=== PATIENT | male | born 1985 | race Caucasian/White ===

== ENCOUNTER 2017-05-18 17:04 | Emergency (ER) | payer SELFPAY ==
[~2017-05-18] VITALS: Ht 188 cm; Wt 80.0 kg
[~2017-05-18 17:04] MED LIST: ALPR0.5T99 PO; BACT800T5 PO; CEPH500C3 PO; NAPR550 PO; PERC10TA27 PO; SOMA350T PO; VIST25CA PO; XANA1TAB6 PO; [UNRECOGNIZED DRUG - REMARK]
[2017-05-18 17:07] VITALS: BP 126/61; PULSE 70; RESP 13; O2SAT 99
--- NOTE | 2017-05-18 17:27 | PD ---
HPI Chief Complaint: GI Complaint Time Seen by Provider: 17:18 Travel History International Travel<30 days: No Contact w/Intl Traveler<30days: No Traveled to known affect area: No History of Present Illness HPI 32 yo M complains of L chest wall mass, painless, constant timing now with duration for years. no shortness of breath. no fever. no recent injury. PFSH Past Medical History Anxiety: Yes Depression: Yes Diminished Hearing: No Past Surgical History Tympanostomy Tube: Yes Social History Alcohol Use: No Tobacco Use: Yes (1/2 PPD) Substance Use: No (TAKING MEDS FOR WITHDRAWEL) Allergies-Medications (Allergen,Severity, Reaction): Coded Allergies: No Known Allergies (Verified , 12/19/15) Reported Meds & Prescriptions Reported Meds & Active Scripts Active Keflex (Cephalexin Monohydrate) 500 Mg Cap 500 Mg PO QID Bactrim DS (Sulfamethoxazole-Trimethoprim DS) 1 Tab Tab 1 Tab PO BID 7 Days Anaprox Ds (Naproxen Sodium) 550 Mg Tab 550 Mg PO BIDPRN Vistaril (Hydroxyzine Pamoate) 25 Mg Cap 25 Mg PO Q8HPRN FOR ITCHING Xanax (Alprazolam) 0.5 Mg Tab 0.5 Mg PO BIDPRN Reported [Med.fornarc.withdr] Percocet 10/325 (Oxycodone/Acetaminophen) Oxycodone 10/325 Acetaminophen Tab 1 Tab PO BID Xanax 1 mg (Alprazolam) 1 Mg Tab 1 Mg PO BID Soma (Carisoprodol) 350 Mg Tab 350 Mg PO BID Review of Systems Except as stated in HPI: all other systems reviewed are Neg Physical Exam Narrative GENERAL: wnwd, 32 yo male, nad SKIN: Warm and dry. HEAD: Atraumatic. Normocephalic. EYES: Pupils equal and round. No scleral icterus. No injection or drainage. ENT: No nasal bleeding or discharge. Mucous membranes pink and moist. NECK: Trachea midline. No JVD. CARDIOVASCULAR: Regular rate and rhythm. L chest wall. Non-tender. No erythema. No fluctuance. RESPIRATORY: No accessory muscle use. Clear to auscultation. Breath sounds equal bilaterally. GASTROINTESTINAL: Abdomen soft, non-tender, nondistended. Hepatic and splenic margins not palpable. MUSCULOSKELETAL: Extremities without clubbing, cyanosis, or edema. No obvious deformities. NEUROLOGICAL: Awake and alert. No obvious cranial nerve deficits. Motor grossly within normal limits. Five out of 5 muscle strength in the arms and legs. Normal speech. PSYCHIATRIC: Appropriate mood and affect; insight and judgment normal. Data Data Last Documented VS Vital Signs Date Time Temp Pulse Resp B/P (MAP) Pulse Ox O2 Delivery O2 Flow Rate FiO2 05/18/17 17:07 70 13 126/61 (82) 99 RN reports patient afebrile Orders MDM Medical Decision Making Medical Screen Exam Complete: Yes Emergency Medical Condition: Yes Medical Record Reviewed: Yes Differential Diagnosis tumor, abscess, cellulitis Narrative Course no acute disease. pt to be discharge. Diagnosis Primary Impression: Mass of chest wall, left Med/Other Pt SpecificInfo: No Change to Meds Disposition: 01 DISCHARGE HOME Condition: Stable David Chou MD May 18, 2017 17:27
== END 2017-05-18 17:41 | disposition home or self-care (01) ==
LOC: NEPD 17:04
DX: R22.2 Localized swelling, mass and lump, trunk (principal); F17.200 Nicotine dependence, unspecified, uncomplicated
CPT/HCPCS: 99284

== ENCOUNTER 2017-06-18 22:09 | Emergency (ER) | payer OTHER ==
[~2017-06-18] VITALS: Ht 188 cm; Wt 80.0 kg
[2017-06-18 22:11] VITALS: BP 123/75; PULSE 56; RESP 15; TEMP 98; O2SAT 100
--- NOTE | 2017-06-19 02:49 | PD ---
HPI Chief Complaint: Psychiatric Symptoms Time Seen by Provider: 02:27 Travel History International Travel<30 days: No Contact w/Intl Traveler<30days: No Traveled to known affect area: No History of Present Illness HPI 32-year-old white male presents to emergency department on a voluntary basis for psychological evaluation. The patient states that been feeling increasingly depressed. He has not been able to sleep. He states that he has contemplated suicide and feels that he would never hurt himself. He denies any homicidal ideation. He admits to IV substance abuse. He's been using IV Dilaudid, heroin and methamphetamine. He last used earlier today. The patient states that he had been released from [facility] earlier this past week after being admitted for an infection in his left sternoclavicular joint from IV substance abuse. He alleges he was discharged home on hydrocodone and a antibiotic. Patient states that he has not been taking his antibiotics the last couple of days. Patient contends that the area of pain has gotten worse. He denies any fever or chills. No nausea or vomiting. He does complain of pain. No numbness, tingling or weakness. Patient admits to occasional coughing but no shortness of breath or wheezing. PFSH Past Medical History Narrative Medical IV substance abuse, anxiety, depression, left sternoclavicular joint infection Anxiety: Yes Depression: Yes Diminished Hearing: No Tetanus Vaccination: < 5 Years Past Surgical History Tympanostomy Tube: Yes Social History Alcohol Use: No Tobacco Use: Yes (1/2 PPD) Substance Use: Yes (not willing to discuss substance used) Allergies-Medications (Allergen,Severity, Reaction): Coded Allergies: No Known Allergies (Verified , 06/18/17) Reported Meds & Prescriptions Reported Meds & Active Scripts Active Keflex (Cephalexin Monohydrate) 500 Mg Cap 500 Mg PO QID Bactrim DS (Sulfamethoxazole-Trimethoprim DS) 1 Tab Tab 1 Tab PO BID 7 Days Anaprox Ds (Naproxen Sodium) 550 Mg Tab 550 Mg PO BIDPRN Vistaril (Hydroxyzine Pamoate) 25 Mg Cap 25 Mg PO Q8HPRN FOR ITCHING Xanax (Alprazolam) 0.5 Mg Tab 0.5 Mg PO BIDPRN Reported [Med.fornarc.withdr] Percocet 10/325 (Oxycodone/Acetaminophen) Oxycodone 10/325 Acetaminophen Tab 1 Tab PO BID Xanax 1 mg (Alprazolam) 1 Mg Tab 1 Mg PO BID Soma (Carisoprodol) 350 Mg Tab 350 Mg PO BID Review of Systems Except as stated in HPI: all other systems reviewed are Neg General / Constitutional: No: Fever Eyes: No: Visual changes HENT: No: Headaches, Neck Stiffness, Neck Pain Cardiovascular: No: Chest Pain or Discomfort Respiratory: Positive: Cough, No: Shortness of Breath, Wheezing Gastrointestinal: No: Nausea, Vomiting, Abdominal Pain Genitourinary: No: Dysuria Musculoskeletal: Positive: Arthralgias (left sternoclavicular joint), Pain Skin: No Rash Neurologic: No: Weakness Psychiatric: Positive: Depression, Suicidal Ideations, Mood Disorder, Substance Abuse, Other (insomnia), No: Anxiety, Homicidal Ideation Endocrine: No: Polydipsia Hematologic/Lymphatic: No: Easy Bruising Physical Exam Narrative GENERAL: Well-nourished, well-developed patient. SKIN: Warm and dry. Patient has track tamez in the antecubital fossa. HEAD: Normocephalic and atraumatic. EYES: No scleral icterus. No injection or drainage. ENT: No nasal drainage noted. Mucous membranes pink. Airway patent. NECK: Supple, trachea midline. Moves head freely without obvious discomfort. CARDIOVASCULAR: Regular rate and rhythm without murmurs, gallops, or rubs. RESPIRATORY: Breath sounds equal bilaterally. No accessory muscle use. GASTROINTESTINAL: Abdomen soft, non-tender, nondistended. EXTREMITIES: No cyanosis or edema. Patient has tenderness, warmth and erythema to the left sternoclavicular joint BACK: Nontender without obvious deformity. No CVA tenderness. NEURO: Patient is alert and oriented. no sensorimotor deficits. Nonfocal. Normal speech. PSYCH: No delusions. No auditory or visual hallucinations. Data Data Last Documented VS Vital Signs Date Time Temp Pulse Resp B/P (MAP) Pulse Ox O2 Delivery O2 Flow Rate FiO2 06/18/17 22:11 98.0 56 15 123/75 (91) 100 Room Air Orders Orders C-Reactive Protein (Crp) (06/19/17 02:39) Westergren Sedimentation Rate (06/19/17 02:39) Complete Blood Count With Diff (06/19/17 02:39) Comprehensive Metabolic Panel (06/19/17 02:39) Psych Screen (06/19/17 02:39) Drug Screen, Random Urine (06/19/17 02:39) Alcohol (Ethanol) (06/19/17 02:39) Salicylates (Aspirin) (06/19/17 02:39) Tylenol (Acetaminophen) (06/19/17 02:39) Labs Laboratory Tests Test 06/19/17 03:15 White Blood Count 4.3 TH/MM3 Red Blood Count 3.96 MIL/MM3 Hemoglobin 12.1 GM/DL Hematocrit 34.4 % Mean Corpuscular Volume 86.7 FL Mean Corpuscular Hemoglobin 30.6 PG Mean Corpuscular Hemoglobin Concent 35.3 % Red Cell Distribution Width 13.2 % Platelet Count 130 TH/MM3 Mean Platelet Volume 8.3 FL Neutrophils (%) (Auto) 34.6 % Lymphocytes (%) (Auto) 51.6 % Monocytes (%) (Auto) 9.6 % Eosinophils (%) (Auto) 2.7 % Basophils (%) (Auto) 1.5 % Neutrophils # (Auto) 1.5 TH/MM3 Lymphocytes # (Auto) 2.2 TH/MM3 Monocytes # (Auto) 0.4 TH/MM3 Eosinophils # (Auto) 0.1 TH/MM3 Basophils # (Auto) 0.1 TH/MM3 CBC Comment DIFF FINAL Differential Comment Erythrocyte Sedimentation Rate 12 mm/hr Blood Urea Nitrogen 17 MG/DL Creatinine 0.87 MG/DL Random Glucose 91 MG/DL Total Protein 7.5 GM/DL Albumin 3.5 GM/DL Calcium Level 8.3 MG/DL Alkaline Phosphatase 73 U/L Aspartate Amino Transf (AST/SGOT) 29 U/L Alanine Aminotransferase (ALT/SGPT) 49 U/L Total Bilirubin 0.5 MG/DL Sodium Level 140 MEQ/L Potassium Level 3.7 MEQ/L Chloride Level 110 MEQ/L Carbon Dioxide Level 24.4 MEQ/L Anion Gap 6 MEQ/L Estimat Glomerular Filtration Rate 100 ML/MIN C-Reactive Protein LESS THAN 0.29 MG/DL Salicylates Level LESS THAN 1.7 MG/DL Acetaminophen Level 3.0 MCG/ML Ethyl Alcohol Level LESS THAN 3 MG/DL MDM Medical Decision Making Medical Screen Exam Complete: Yes Emergency Medical Condition: Yes Medical Record Reviewed: Yes Interpretation(s) CBC & BMP Diagram 06/19/17 03:15 Total Protein 7.5, Albumin 3.5, Calcium Level 8.3 L, Alkaline Phosphatase 73, Aspartate Amino Transf (AST/SGOT) 29, Alanine Aminotransferase (ALT/SGPT) 49, Total Bilirubin 0.5 Laboratory Tests Test 06/19/17 03:15 White Blood Count 4.3 TH/MM3 Red Blood Count 3.96 MIL/MM3 Hemoglobin 12.1 GM/DL Hematocrit 34.4 % Mean Corpuscular Volume 86.7 FL Mean Corpuscular Hemoglobin 30.6 PG Mean Corpuscular Hemoglobin Concent 35.3 % Red Cell Distribution Width 13.2 % Platelet Count 130 TH/MM3 Mean Platelet Volume 8.3 FL Neutrophils (%) (Auto) 34.6 % Lymphocytes (%) (Auto) 51.6 % Monocytes (%) (Auto) 9.6 % Eosinophils (%) (Auto) 2.7 % Basophils (%) (Auto) 1.5 % Neutrophils # (Auto) 1.5 TH/MM3 Lymphocytes # (Auto) 2.2 TH/MM3 Monocytes # (Auto) 0.4 TH/MM3 Eosinophils # (Auto) 0.1 TH/MM3 Basophils # (Auto) 0.1 TH/MM3 CBC Comment DIFF FINAL Differential Comment Erythrocyte Sedimentation Rate 12 mm/hr Blood Urea Nitrogen 17 MG/DL Creatinine 0.87 MG/DL Random Glucose 91 MG/DL Total Protein 7.5 GM/DL Albumin 3.5 GM/DL Calcium Level 8.3 MG/DL Alkaline Phosphatase 73 U/L Aspartate Amino Transf (AST/SGOT) 29 U/L Alanine Aminotransferase (ALT/SGPT) 49 U/L Total Bilirubin 0.5 MG/DL Sodium Level 140 MEQ/L Potassium Level 3.7 MEQ/L Chloride Level 110 MEQ/L Carbon Dioxide Level 24.4 MEQ/L Anion Gap 6 MEQ/L Estimat Glomerular Filtration Rate 100 ML/MIN C-Reactive Protein LESS THAN 0.29 MG/DL Salicylates Level LESS THAN 1.7 MG/DL Acetaminophen Level 3.0 MCG/ML Ethyl Alcohol Level LESS THAN 3 MG/DL Differential Diagnosis MDM: High Differential diagnoses: Schizophrenia, schizoaffective disorder, bipolar, anxiety, depression, adjustment reaction, mood disorder NOS, ODD, depressive disorder NOS, dementia, dementia with agitation, psychosis NOS, substance induced mood disorder, intermittent explosive disorder, Asperger syndrome, infection,electrolyte abnormality, malingering. Narrative Course Mental health screening discussed with the patient. Psychiatric screen ordered. Attempts have been made to have the medical records from his most recent admission and discharge from [facility] transmitted to the ER this evening. Unfortunately this has been unsuccessful. A release of information has been sent but the documents have not been sent to us. I reviewed his laboratory testing from today. He has a normal sedimentation rate and a normal CRP. White count is normal. I believe the patient can be medically cleared here in the ER for psychiatric evaluation. He is encouraged to take his antibiotics. No additional interventions are indicated in the ER tonight. This is medical clearance for psychiatric admission, substance abuse Diagnosis Primary Impression: Medical clearance for psychiatric admission Additional Impression: Substance abuse Condition: Stable Amrit Prather Jun 19, 2017 02:49
[2017-06-19 03:40] LABS: AUTOMATED NEUTROPHIL # 1.5 TH/MM3 (1.8-7.7); BASOPHIL # 0.1 TH/MM3 (0-0.2); BASOPHIL % 1.5 % (0.0-2.0); EOSINOPHIL # 0.1 TH/MM3 (0-0.4); EOSINOPHIL % 2.7 % (0.0-4.0); HEMATOCRIT 34.4 % (39.0-51.0); HEMOGLOBIN 12.1 GM/DL (13.0-17.0); LYMPH % 51.6 % (9.0-44.0); LYMPHOCYTE # 2.2 TH/MM3 (1.0-4.8); MEAN CELL VOLUME 86.7 FL (80.0-100.0); MEAN CORPUSCULAR HEMOGLOBIN 30.6 PG (27.0-34.0); MEAN CORPUSCULAR HGB CONC 35.3 % (32.0-36.0); MEAN PLATELET VOLUME 8.3 FL (7.0-11.0); MONO % 9.6 % (0.0-8.0); MONOCYTE # 0.4 TH/MM3 (0-0.9); NEUT % 34.6 % (16.0-70.0); PLATELET COUNT 130 TH/MM3 (150-450); RED BLOOD COUNT 3.96 MIL/MM3 (4.50-5.90); RED CELL DISTRIBUTION WIDTH 13.2 % (11.6-17.2); WHITE BLOOD COUNT 4.3 TH/MM3 (4.0-11.0)
[2017-06-19 03:57] LABS: ALBUMIN 3.5 GM/DL (3.4-5.0); ALT (GPT) 49 U/L (12-78); AST (GOT) 29 U/L (15-37); BICARBONATE 24.4 MEQ/L (21.0-32.0); BLOOD UREA NITROGEN 17 MG/DL (7-18); C-REACTIVE PROTEIN LESS THAN 0.29 MG/DL (0.00-0.30); CALCIUM 8.3 MG/DL (8.5-10.1); CHLORIDE 110 MEQ/L (98-107); CREATININE 0.87 MG/DL (0.60-1.30); GLOMERULAR FILTRATION RATE 100 ML/MIN (>89); GLUCOSE,RANDOM 91 MG/DL (74-106); SODIUM (NA) 140 MEQ/L (136-145)
[2017-06-19 04:00] LABS: ALKALINE PHOSPHATASE 73 U/L (45-117); TOTAL BILIRUBIN ADULT 0.5 MG/DL (0.2-1.0); TOTAL PROTEIN 7.5 GM/DL (6.4-8.2)
[2017-06-19 08:44] VITALS: BP 109/66; PULSE 60; RESP 18; TEMP 97.6; O2SAT 99
--- NOTE | 2017-06-19 12:58 | PD ---
Data Data Last Documented VS Vital Signs Date Time Temp Pulse Resp B/P (MAP) Pulse Ox O2 Delivery O2 Flow Rate FiO2 06/19/17 08:44 97.6 60 18 109/66 (80) 99 Room Air Orders Orders C-Reactive Protein (Crp) (06/19/17 02:39) Westergren Sedimentation Rate (06/19/17 02:39) Complete Blood Count With Diff (06/19/17 02:39) Comprehensive Metabolic Panel (06/19/17 02:39) Psych Screen (06/19/17 02:39) Drug Screen, Random Urine (06/19/17 02:39) Alcohol (Ethanol) (06/19/17 02:39) Salicylates (Aspirin) (06/19/17 02:39) Tylenol (Acetaminophen) (06/19/17 02:39) Diet Regular Basic (06/19/17 Breakfast) Ed Discharge Order (06/19/17 12:58) Labs Laboratory Tests Test 06/19/17 03:15 06/19/17 06:00 White Blood Count 4.3 TH/MM3 Red Blood Count 3.96 MIL/MM3 Hemoglobin 12.1 GM/DL Hematocrit 34.4 % Mean Corpuscular Volume 86.7 FL Mean Corpuscular Hemoglobin 30.6 PG Mean Corpuscular Hemoglobin Concent 35.3 % Red Cell Distribution Width 13.2 % Platelet Count 130 TH/MM3 Mean Platelet Volume 8.3 FL Neutrophils (%) (Auto) 34.6 % Lymphocytes (%) (Auto) 51.6 % Monocytes (%) (Auto) 9.6 % Eosinophils (%) (Auto) 2.7 % Basophils (%) (Auto) 1.5 % Neutrophils # (Auto) 1.5 TH/MM3 Lymphocytes # (Auto) 2.2 TH/MM3 Monocytes # (Auto) 0.4 TH/MM3 Eosinophils # (Auto) 0.1 TH/MM3 Basophils # (Auto) 0.1 TH/MM3 CBC Comment DIFF FINAL Differential Comment Erythrocyte Sedimentation Rate 12 mm/hr Blood Urea Nitrogen 17 MG/DL Creatinine 0.87 MG/DL Random Glucose 91 MG/DL Total Protein 7.5 GM/DL Albumin 3.5 GM/DL Calcium Level 8.3 MG/DL Alkaline Phosphatase 73 U/L Aspartate Amino Transf (AST/SGOT) 29 U/L Alanine Aminotransferase (ALT/SGPT) 49 U/L Total Bilirubin 0.5 MG/DL Sodium Level 140 MEQ/L Potassium Level 3.7 MEQ/L Chloride Level 110 MEQ/L Carbon Dioxide Level 24.4 MEQ/L Anion Gap 6 MEQ/L Estimat Glomerular Filtration Rate 100 ML/MIN C-Reactive Protein LESS THAN 0.29 MG/DL Salicylates Level LESS THAN 1.7 MG/DL Acetaminophen Level 3.0 MCG/ML Ethyl Alcohol Level LESS THAN 3 MG/DL Urine Opiates Screen NEG Urine Barbiturates Screen NEG Urine Amphetamines Screen POS Urine Benzodiazepines Screen NEG Urine Cocaine Screen POS Urine Cannabinoids Screen POS MDM Medical Record Reviewed: Yes Supervised Visit with JOSH: Yes Narrative Course This report is in ERROR Please disregard this report and all prior copies ! This report is in ERROR Please disregard this report and all prior copies ! This report is in ERROR Please disregard this report and all prior copies ! Diagnosis Primary Impression: Medical clearance for psychiatric admission Additional Impression: Substance abuse Condition: Stable David Chou MD Jun 19, 2017 12:58
--- NOTE | 2017-06-19 12:59 | PD ---
History of Present Illness Chief Complaint: Psychiatric Symptoms Time Seen by Provider: 12:30 Travel History International Travel<30 Days: No Contact w/Intl Traveler<30days: No Known affected area: No Legal Status Legal Status: Voluntary History of Present Illness: 32-year-old male presents voluntarily with obvious history of drug abuse. Patient positive for cocaine, cannabinoids and amphetamines. He has been increasingly depressed and contemplated suicide but states he would never harm himself. He admits to using IV dye lauded, heroin and methamphetamine. However , when asked if he wants help with his drug abuse, the patient says yes but will not go to [facility] for assistance. When presented with the information that we are not license for drug and alcohol treatment, the patient wants to be admitted to psychiatry instead. It was explained to the patient that his primary problem appears to be drug abuse and he is adamant that he does not want treatment for that and he wants to be hospitalized psychiatrically. He inappropriately argued that he was asking for help and this physician and this facility were not providing it. He was therefore confronted with the fact that he was attempting to direct help and that was not appropriate. Finally, patient is felt to be competent and responsible for his own decisions. He was offered transportation to [facility] but he declined. PFSH Past Medical History Anxiety: Yes Depression: Yes Diminished Hearing: No Psychiatric: Yes (mood disorder, substance abuse, insomnia ) Integumentary: Yes (txt recently for infected L sternoclavicular joint ()) Tetanus Vaccination: < 5 Years Past Surgical History Tympanostomy Tube: Yes Psychiatric History Psychiatric History Hx Psychiatric Treatment: Denies History of Inpatient Treatment: No Guns or firearms in home: No Social History Hx Alcohol Use: No Hx Tobacco Use: Yes (1/2 PPD) Hx Substance Use: Yes Substance Use Type: Amphetamines-Stimulants, Synth Opiates-Pain Pills Hx of Substance Use Treatment: No Allergies-Medications (Allergen,Severity, Reaction): Coded Allergies: No Known Allergies (Verified , 06/18/17) Reported Meds & Prescriptions Reported Meds & Active Scripts Active Keflex (Cephalexin Monohydrate) 500 Mg Cap 500 Mg PO QID Bactrim DS (Sulfamethoxazole-Trimethoprim DS) 1 Tab Tab 1 Tab PO BID 7 Days Anaprox Ds (Naproxen Sodium) 550 Mg Tab 550 Mg PO BIDPRN Vistaril (Hydroxyzine Pamoate) 25 Mg Cap 25 Mg PO Q8HPRN FOR ITCHING Xanax (Alprazolam) 0.5 Mg Tab 0.5 Mg PO BIDPRN Reported [Med.fornarc.withdr] Percocet 10/325 (Oxycodone/Acetaminophen) Oxycodone 10/325 Acetaminophen Tab 1 Tab PO BID Xanax 1 mg (Alprazolam) 1 Mg Tab 1 Mg PO BID Soma (Carisoprodol) 350 Mg Tab 350 Mg PO BID Review of Systems Except as stated in HPI: all other systems reviewed are Neg Mental Status Examination Appearance: Appropriate Consciousness: Alert Orientation: x4 Motor Activity: Normal gait Speech: Unremarkable Language: Adequate Fund of Knowledge: Adequate Attention and Concentration: Adequate Memory: Unremarkable Mood: Appropriate Affect: Appropriate Thought Process & Associations: Intact Thought Content: Appropriate Hallucination Type: None Delusion Type: None Suicidal Ideation: No Suicidal Plan: No Suicidal Intention: No Homicidal Ideation: No Homicidal Plan: No Homicidal Intention: No Insight: Adequate Judgment: Adequate MDM Medical Decision Making Medical Record Reviewed: Yes Assessment/Plan Patient interviewed at bedside with denis Mohr. Patient has denied any suicidal or homicidal plan or intention. He is competent and responsible for his own decisions. This physician feels strongly the patient's primary problem is drug abuse and that his oppression results from his addiction. Patient does not want assistance with his drug abuse and may continue to attempt to manipulate or even act out. However, his behavior is not predictable and he is responsible for his own choices as a competent adult. Orders Orders C-Reactive Protein (Crp) (06/19/17 02:39) Westergren Sedimentation Rate (06/19/17 02:39) Complete Blood Count With Diff (06/19/17 02:39) Comprehensive Metabolic Panel (06/19/17 02:39) Psych Screen (06/19/17 02:39) Drug Screen, Random Urine (06/19/17 02:39) Alcohol (Ethanol) (06/19/17 02:39) Salicylates (Aspirin) (06/19/17 02:39) Tylenol (Acetaminophen) (06/19/17 02:39) Diet Regular Basic (06/19/17 Breakfast) Results Vital Signs Date Time Temp Pulse Resp B/P (MAP) Pulse Ox O2 Delivery O2 Flow Rate FiO2 06/19/17 08:44 97.6 60 18 109/66 (80) 99 Room Air 06/18/17 22:11 98.0 56 15 123/75 (91) 100 Room Air Laboratory Tests Test 06/19/17 03:15 06/19/17 06:00 White Blood Count 4.3 Red Blood Count 3.96 Hemoglobin 12.1 Hematocrit 34.4 Mean Corpuscular Volume 86.7 Mean Corpuscular Hemoglobin 30.6 Mean Corpuscular Hemoglobin Concent 35.3 Red Cell Distribution Width 13.2 Platelet Count 130 Mean Platelet Volume 8.3 Neutrophils (%) (Auto) 34.6 Lymphocytes (%) (Auto) 51.6 Monocytes (%) (Auto) 9.6 Eosinophils (%) (Auto) 2.7 Basophils (%) (Auto) 1.5 Neutrophils # (Auto) 1.5 Lymphocytes # (Auto) 2.2 Monocytes # (Auto) 0.4 Eosinophils # (Auto) 0.1 Basophils # (Auto) 0.1 CBC Comment DIFF FINAL Differential Comment Erythrocyte Sedimentation Rate 12 Blood Urea Nitrogen 17 Creatinine 0.87 Random Glucose 91 Total Protein 7.5 Albumin 3.5 Calcium Level 8.3 Alkaline Phosphatase 73 Aspartate Amino Transf (AST/SGOT) 29 Alanine Aminotransferase (ALT/SGPT) 49 Total Bilirubin 0.5 Sodium Level 140 Potassium Level 3.7 Chloride Level 110 Carbon Dioxide Level 24.4 Anion Gap 6 Estimat Glomerular Filtration Rate 100 C-Reactive Protein LESS THAN 0.29 Salicylates Level LESS THAN 1.7 Acetaminophen Level 3.0 Ethyl Alcohol Level LESS THAN 3 Urine Opiates Screen NEG Urine Barbiturates Screen NEG Urine Amphetamines Screen POS Urine Benzodiazepines Screen NEG Urine Cocaine Screen POS Urine Cannabinoids Screen POS Diagnosis Primary Impression: Opiate abuse, episodic Additional Impressions: Cocaine abuse Amphetamine abuse Condition: Stable Problem Qualifiers Reyes Sol MD Jun 19, 2017 12:59
--- NOTE | 2017-06-19 13:06 | PD ---
Data Data Last Documented VS Vital Signs Date Time Temp Pulse Resp B/P (MAP) Pulse Ox O2 Delivery O2 Flow Rate FiO2 06/19/17 08:44 97.6 60 18 109/66 (80) 99 Room Air Orders Orders C-Reactive Protein (Crp) (06/19/17 02:39) Westergren Sedimentation Rate (06/19/17 02:39) Complete Blood Count With Diff (06/19/17 02:39) Comprehensive Metabolic Panel (06/19/17 02:39) Psych Screen (06/19/17 02:39) Drug Screen, Random Urine (06/19/17 02:39) Alcohol (Ethanol) (06/19/17 02:39) Salicylates (Aspirin) (06/19/17 02:39) Tylenol (Acetaminophen) (06/19/17 02:39) Diet Regular Basic (06/19/17 Breakfast) Ed Discharge Order (06/19/17 12:58) Labs Laboratory Tests Test 06/19/17 03:15 06/19/17 06:00 White Blood Count 4.3 TH/MM3 Red Blood Count 3.96 MIL/MM3 Hemoglobin 12.1 GM/DL Hematocrit 34.4 % Mean Corpuscular Volume 86.7 FL Mean Corpuscular Hemoglobin 30.6 PG Mean Corpuscular Hemoglobin Concent 35.3 % Red Cell Distribution Width 13.2 % Platelet Count 130 TH/MM3 Mean Platelet Volume 8.3 FL Neutrophils (%) (Auto) 34.6 % Lymphocytes (%) (Auto) 51.6 % Monocytes (%) (Auto) 9.6 % Eosinophils (%) (Auto) 2.7 % Basophils (%) (Auto) 1.5 % Neutrophils # (Auto) 1.5 TH/MM3 Lymphocytes # (Auto) 2.2 TH/MM3 Monocytes # (Auto) 0.4 TH/MM3 Eosinophils # (Auto) 0.1 TH/MM3 Basophils # (Auto) 0.1 TH/MM3 CBC Comment DIFF FINAL Differential Comment Erythrocyte Sedimentation Rate 12 mm/hr Blood Urea Nitrogen 17 MG/DL Creatinine 0.87 MG/DL Random Glucose 91 MG/DL Total Protein 7.5 GM/DL Albumin 3.5 GM/DL Calcium Level 8.3 MG/DL Alkaline Phosphatase 73 U/L Aspartate Amino Transf (AST/SGOT) 29 U/L Alanine Aminotransferase (ALT/SGPT) 49 U/L Total Bilirubin 0.5 MG/DL Sodium Level 140 MEQ/L Potassium Level 3.7 MEQ/L Chloride Level 110 MEQ/L Carbon Dioxide Level 24.4 MEQ/L Anion Gap 6 MEQ/L Estimat Glomerular Filtration Rate 100 ML/MIN C-Reactive Protein LESS THAN 0.29 MG/DL Salicylates Level LESS THAN 1.7 MG/DL Acetaminophen Level 3.0 MCG/ML Ethyl Alcohol Level LESS THAN 3 MG/DL Urine Opiates Screen NEG Urine Barbiturates Screen NEG Urine Amphetamines Screen POS Urine Benzodiazepines Screen NEG Urine Cocaine Screen POS Urine Cannabinoids Screen POS MDM Medical Record Reviewed: Yes Supervised Visit with JOSH: Yes Narrative Course Please refer to JOSH and psychiatrist note. The patient is medically stable. He suffers from polysubstance addiction. He verbalizes no intent to harm himself or others. Diagnosis Primary Impression: Opiate abuse, episodic Additional Impressions: Cocaine abuse Amphetamine abuse Referrals: [facility] day Med/Other Pt SpecificInfo: No Change to Meds Disposition: 01 DISCHARGE HOME Condition: Stable David Chou MD Jun 19, 2017 13:06
== END 2017-06-19 13:30 | disposition home or self-care (01) ==
LOC: NEPD 22:09
DX: F11.10 Opioid abuse, uncomplicated (principal); F14.10 Cocaine abuse, uncomplicated; F15.10 Other stimulant abuse, uncomplicated; F17.200 Nicotine dependence, unspecified, uncomplicated; F41.9 Anxiety disorder, unspecified; F32.9 Major depressive disorder, single episode, unspecified; R05 Cough; Z79.899 Other long term (current) drug therapy
CPT/HCPCS: 80053; 80307; 85025; 85652; 86140; 99284

== ENCOUNTER 2017-07-26 20:21 | Inpatient (IN) | payer SELFPAY ==
[2017-07-26 20:24] VITALS: BP 158/74; PULSE 113; RESP 16; TEMP 98.9; O2SAT 99
[2017-07-26 21:42] VITALS: TEMP 98.1
[2017-07-26] MEDS ORDERED: PERC7.5T13 PO (21:42)
[2017-07-26] MEDS ORDERED: VANCOMYCIN INJ 1,000 MG in SODIUM CHLOR 0.9% 250 ML INJ 250 ML IV STA (21:59)
[2017-07-26] MEDS ORDERED: PIPERACIL-TAZO 4.5 GM PREMIX 100 ML IV STA (21:59)
[2017-07-26] MEDS ORDERED: SODIUM CHLOR 0.9% 1000 ML INJ 1,000 ML IV ONE (22:00)
--- NOTE | 2017-07-26 22:03 | PD ---
HPI Chief Complaint: Edema Time Seen by Provider: 21:46 Travel History International Travel<30 days: No Contact w/Intl Traveler<30days: No Traveled to known affect area: No History of Present Illness HPI 32 y/o male presents with pain and swelling to his right foot. He states he injects IV meth and last used 2 days ago. He states he last used to his right arm and has not injected that foot. 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 Quality of pain is sharp. Severity severe per patient. He states he took a Lortab prior to arrival. PFSH Past Medical History Anxiety: Yes Depression: Yes Diminished Hearing: No Psychiatric: Yes (mood disorder, substance abuse, insomnia ) Integumentary: Yes (txt recently for infected L sternoclavicular joint ()) ?: Not Past Surgical History Tympanostomy Tube: Yes Social History Alcohol Use: No Tobacco Use: Yes (08/30 PPD) Substance Use: Yes Allergies-Medications (Allergen,Severity, Reaction): Coded Allergies: No Known Allergies (Verified Adverse Reaction, Unknown, 07/26/17) Reported Meds & Prescriptions Reported Meds & Active Scripts Active Reported Percocet (Oxycodone-Acetaminophen) 7.5-325 mg Tab 1 Tab PO Q4H PRN Review of Systems ROS Limitations: Poor Historian Physical Exam Narrative GENERAL: Well-nourished, well-developed patient. SKIN: Erythema and warmth noted to right lower leg, there is small area of redness and warmth also noted to left leg, multiple scabs noted per patient states he picks at himself HEAD: Normocephalic and atraumatic. EYES: No injection or drainage. ENT: No nasal drainage noted. NECK: Supple, trachea midline. CARDIOVASCULAR: Regular rate and rhythm RESPIRATORY: Breath sounds equal bilaterally. No accessory muscle use. GASTROINTESTINAL: Abdomen soft, non-tender, nondistended. EXTREMITIES: Pain with palpation of right foot with mild edema, neurovascularly intact with strong posterior tibialis pulse, no lacerations over, compartments soft. NEUROLOGICAL: Awake. Moves all extremities and sensory grossly within normal limits. Normal speech. Data Data Last Documented VS Vital Signs Date Time Temp Pulse Resp B/P (MAP) Pulse Ox O2 Delivery O2 Flow Rate FiO2 07/26/17 22:09 98 Room Air 11/30/17 21:42 98.1 07/26/17 20:24 113 16 Orders Orders Sepsis Workup Initiated (07/26/17 ) Electrocardiogram (07/26/17 21:47) Complete Blood Count With Diff (07/26/17 21:47) Comprehensive Metabolic Panel (07/26/17 21:47) Prothrombin Time / Inr (Pt) (07/26/17 21:47) Act Partial Throm Time (Ptt) (07/26/17 21:47) Lactic Acid Sepsis Protocol (07/26/17 21:47) Magnesium (Mg) (07/26/17 21:47) Blood Culture (07/26/17 21:47) Chest, Single Ap (07/26/17 21:47) Ecg Monitoring (07/26/17 21:47) Iv Access Insert/Monitor (07/26/17 21:47) Oximetry (07/26/17 21:47) Sodium Chlor 0.9% 1000 Ml Inj (Ns 1000 M (07/26/17 22:00) Foot, Complete ([id number]) (07/26/17 ) Piperacil-Tazo 4.5 Gm Premix (Zosyn 4.5 (07/26/17 21:59) Vancomycin Inj (Vancomycin Inj) (07/26/17 21:59) Admit Order (Ed Use Only) (07/26/17 23:06) Potassium Chloride (Kcl) (07/26/17 23:15) Labs Laboratory Tests Test 07/26/17 22:00 White Blood Count 11.5 TH/MM3 Red Blood Count 4.22 MIL/MM3 Hemoglobin 12.5 GM/DL Hematocrit 36.1 % Mean Corpuscular Volume 85.5 FL Mean Corpuscular Hemoglobin 29.7 PG Mean Corpuscular Hemoglobin Concent 34.7 % Red Cell Distribution Width 14.3 % Platelet Count 131 TH/MM3 Mean Platelet Volume 8.3 FL Neutrophils (%) (Auto) 70.0 % Lymphocytes (%) (Auto) 16.0 % Monocytes (%) (Auto) 12.8 % Eosinophils (%) (Auto) 1.0 % Basophils (%) (Auto) 0.2 % Neutrophils # (Auto) 8.0 TH/MM3 Lymphocytes # (Auto) 1.8 TH/MM3 Monocytes # (Auto) 1.5 TH/MM3 Eosinophils # (Auto) 0.1 TH/MM3 Basophils # (Auto) 0.0 TH/MM3 CBC Comment DIFF FINAL Differential Comment Prothrombin Time 11.2 SEC Prothromb Time International Ratio 1.1 RATIO Activated Partial Thromboplast Time 30.8 SEC Blood Urea Nitrogen 19 MG/DL Creatinine 1.07 MG/DL Random Glucose 87 MG/DL Total Protein 7.8 GM/DL Albumin 4.1 GM/DL Calcium Level 8.9 MG/DL Magnesium Level 2.0 MG/DL Alkaline Phosphatase 70 U/L Aspartate Amino Transf (AST/SGOT) 45 U/L Alanine Aminotransferase (ALT/SGPT) 57 U/L Total Bilirubin 2.9 MG/DL Sodium Level 134 MEQ/L Potassium Level 3.1 MEQ/L Chloride Level 97 MEQ/L Carbon Dioxide Level 27.1 MEQ/L Anion Gap 10 MEQ/L Estimat Glomerular Filtration Rate 79 ML/MIN Lactic Acid Level 1.5 mmol/L MDM Medical Decision Making Medical Screen Exam Complete: Yes Emergency Medical Condition: Yes Medical Record Reviewed: Yes (past history confirmed) Interpretation(s) EKG shows NSR, no ST elevation or depression, and no arrhythmias. No significant T-wave inversions. CBC & BMP Diagram 07/26/17 22:00 Total Protein 7.8, Albumin 4.1, Calcium Level 8.9, Magnesium Level 2.0, Alkaline Phosphatase 70, Aspartate Amino Transf (AST/SGOT) 45 H, Alanine Aminotransferase (ALT/SGPT) 57, Total Bilirubin 2.9 H Differential Diagnosis Cellulitis, osteomyelitis, sepsis, abscess Narrative Course Will check blood work, x-ray and dose with vancomycin and Zosyn and reevaluate ed workup with cellulitis in setting of IVDA, patient agrees to admit for further care Sepsis Criteria SIRS Criteria (2 or more): Heart rate over 90 Physician Communication Physician Communication dr flanagan agrees to observation Diagnosis Primary Impression: Cellulitis Qualified Codes: L03.115 - Cellulitis of right lower limb Additional Impression: Substance abuse Admitting Information Admitting Physician Requests: Observation Deann Ramirez MD Jul 26, 2017 22:03
[2017-07-26 22:09] VITALS: O2SAT 98
[2017-07-26 22:34] LABS: BASOPHIL % 0.2 % (0.0-2.0); EOSINOPHIL # 0.1 TH/MM3 (0-0.4); HEMATOCRIT 36.1 % (39.0-51.0); HEMO FLAGS DIFF FINAL; LYMPHOCYTE # 1.8 TH/MM3 (1.0-4.8); MEAN CELL VOLUME 85.5 FL (80.0-100.0); MEAN CORPUSCULAR HEMOGLOBIN 29.7 PG (27.0-34.0); MEAN CORPUSCULAR HGB CONC 34.7 % (32.0-36.0); MONO % 12.8 % (0.0-8.0); PLATELET COUNT 131 TH/MM3 (150-450); RED BLOOD COUNT 4.22 MIL/MM3 (4.50-5.90); RED CELL DISTRIBUTION WIDTH 14.3 % (11.6-17.2); WHITE BLOOD COUNT 11.5 TH/MM3 (4.0-11.0)
--- NOTE | 2017-07-26 22:39 | RADRPT ---
EXAM DATE/TIME: 07/26/2017 21:55 [facility] COMPARISON: No previous studies available for comparison. INDICATIONS : IV Drug user- Chest pain and leg infection. MEDICAL HISTORY : None. SURGICAL HISTORY : None. ENCOUNTER: Initial ACUITY: 1 day PAIN SCORE: 10/10 LOCATION: Right Foot and ankle. FINDINGS: Three view examination of the right foot demonstrates no soft tissue swelling, dislocation, or fractu re. The tarsal bones appear intact. The interphalangeal and metatarsophalangeal joints are intact. The calcaneus is intact. There is a calcaneal spur at the Achilles attachment site. Bony mineraliz ation is normal. CONCLUSION: No acute bony abnormality is seen. Valeriano Loyd MD on July 26, 2017 at 22:37 Board Certified Radiologist. This report was verified electronically.
--- NOTE | 2017-07-26 22:41 | RADRPT ---
EXAM DATE/TIME: 07/26/2017 22:01 [facility] COMPARISON: No previous studies available for comparison. INDICATIONS : IV Drug user- Chest pain and leg infection. MEDICAL HISTORY : None. SURGICAL HISTORY : None. ENCOUNTER: Initial ACUITY: 1 day PAIN SCORE: 8/10 LOCATION: Bilateral chest FINDINGS: A single view of the chest demonstrates the lungs to be symmetrically aerated without evidence of mas s, infiltrate or effusion. The cardiomediastinal contours are unremarkable. Osseous structures are intact. CONCLUSION: No acute disease. Valeriano Loyd MD on July 26, 2017 at 22:39 Board Certified Radiologist. This report was verified electronically.
[2017-07-26 22:51] LABS: ALT (GPT) 57 U/L (12-78); ANION GAP 10 MEQ/L (5-15); AST (GOT) 45 U/L (15-37); BICARBONATE 27.1 MEQ/L (21.0-32.0); BLOOD UREA NITROGEN 19 MG/DL (7-18); CHLORIDE 97 MEQ/L (98-107); GLOMERULAR FILTRATION RATE 79 ML/MIN (>89); POTASSIUM 3.1 MEQ/L (3.5-5.1); SODIUM (NA) 134 MEQ/L (136-145)
[2017-07-26 22:54] LABS: ALKALINE PHOSPHATASE 70 U/L (45-117); TOTAL BILIRUBIN ADULT 2.9 MG/DL (0.2-1.0)
[2017-07-26 22:56] LABS: APTT (PATIENT) 30.8 SEC (24.3-30.1); INTERNATIONAL NORMALIZED RATIO 1.1 RATIO; PROTHROMBIN TIME - PATIENT 11.2 SEC (9.8-11.6)
[2017-07-26] MEDS ORDERED: NALOXONE HCL 0.4 MG/ML AMP IV PUSH PRN (23:15)
[2017-07-26] MEDS ORDERED: SODIUM CHLORIDE 0.9% FLUSH 10 ML FLUSH IV FLUSH PRN (23:15)
[2017-07-26] MEDS ORDERED: Vancomycin Consult Pharmacy 1 EA OTHER SCH (23:15)
[2017-07-26] MEDS ORDERED: POTASSIUM CHLORIDE 20 MEQ CONTROLLED RELEASE TAB PO ONE (23:15)
[2017-07-26] MEDS ORDERED: diphenhydrAMINE HCL 25 MG CAP PO ONE (23:15)
[2017-07-26 23:18] VITALS: BP 155/78; PULSE 115; RESP 20; O2SAT 98
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
[2017-07-27] MEDS ORDERED: ZIPRASIDONE HCL 20 MG CAP PO ONE (01:45)
[2017-07-27 01:47] VITALS: BP 133/62; PULSE 93; RESP 20; TEMP 99.5; O2SAT 98
[2017-07-27] MEDS: KETOROLAC TROMETHAMINE 30 MG/ML (IVP) VIAL IV PUSH PRN ×4 (02:07→23:57)
[2017-07-27 04:59] VITALS: BP 111/56; PULSE 81; RESP 18; TEMP 98.2; O2SAT 99
[2017-07-27] MEDS: PIPERACIL-TAZO 4.5 GM PREMIX 100 ML IV SCH ×4 (06:55→23:00)
[2017-07-27] MEDS: VANCOMYCIN INJ 1,250 MG in SODIUM CHLOR 0.9% 250 ML INJ 250 ML IV SCH ×3 (08:32→23:56)
[2017-07-27] MEDS: SODIUM CHLORIDE 0.9% FLUSH 10 ML FLUSH IV FLUSH SCH ×2 (08:32→21:00)
[2017-07-27 10:06] LABS: AUTOMATED NEUTROPHIL # 3.4 TH/MM3 (1.8-7.7); BASOPHIL % 0.6 % (0.0-2.0); EOSINOPHIL # 0.1 TH/MM3 (0-0.4); EOSINOPHIL % 1.8 % (0.0-4.0); HEMATOCRIT 33.9 % (39.0-51.0); HEMO FLAGS DIFF FINAL; LYMPHOCYTE # 1.7 TH/MM3 (1.0-4.8); MEAN CELL VOLUME 86.3 FL (80.0-100.0); MEAN CORPUSCULAR HEMOGLOBIN 30.4 PG (27.0-34.0); MEAN CORPUSCULAR HGB CONC 35.2 % (32.0-36.0); NEUT % 53.6 % (16.0-70.0); PLATELET COUNT 100 TH/MM3 (150-450); RED BLOOD COUNT 3.93 MIL/MM3 (4.50-5.90); RED CELL DISTRIBUTION WIDTH 14.2 % (11.6-17.2); WHITE BLOOD COUNT 6.4 TH/MM3 (4.0-11.0)
[2017-07-27 10:27] LABS: BICARBONATE 25.2 MEQ/L (21.0-32.0); POTASSIUM 3.5 MEQ/L (3.5-5.1)
[2017-07-27] MEDS: ENOXAPARIN SODIUM 40 MG/0.4 ML SYRINGE SQ SCH (11:08)
[2017-07-27] MEDS: NICOTINE 14 MG/24 HR PATCH T-DERMAL SCH (11:39)
[2017-07-27 12:26] VITALS: BP 120/56; PULSE 80; RESP 20; TEMP 97.9; O2SAT 95
[2017-07-27] MEDS ORDERED: ACETAMINOPHEN 325 MG TAB PO PRN (13:00)
[2017-07-27] MEDS ORDERED: ONDANSETRON HCL 4 MG/2 ML VIAL IV PUSH PRN (13:00)
[2017-07-27] MEDS ORDERED: DOCUSATE SODIUM 50 MG/SENNA 8.6 MG TAB PO PRN (13:00)
[2017-07-27] MEDS ORDERED: cloNIDine HCL 0.1 MG TAB PO PRN (13:00)
--- NOTE | 2017-07-27 13:00 | HHI.PR ---
Subjective Remarks Follow-up bilateral lower extremity cellulitis/IVDA 07/27/17-patient seen and examined, complaining of right lower extremity pain. Currently afebrile. UDS positive for cocaine. Denies any shortness of breath or chest pain. Objective Vitals Vital Signs Date Time Temp Pulse Resp B/P (MAP) Pulse Ox O2 Delivery O2 Flow Rate FiO2 07/27/17 12:26 97.9 80 20 120/56 (77) 95 07/27/17 04:59 98.2 81 18 111/56 (74) 99 07/27/17 03:10 20 07/27/17 01:47 99.5 93 20 133/62 (85) 98 07/27/17 00:02 07/26/17 23:18 115 20 155/78 (103) 98 Room Air 07/26/17 22:09 98 Room Air 07/26/17 21:42 98.1 07/26/17 20:24 98.9 113 16 158/74 (102) 99 Room Air I/O 07/26/17 07/26/17 07/26/17 07/27/17 07/27/17 07/27/17 07:00 15:00 23:00 07:00 15:00 23:00 Intake Total 2340 ml Balance 2340 ml Intake Oral 240 ml IV Total 2100 ml Result Diagram: 07/27/17 0939 07/27/17 0939 Imaging Last Impressions Chest X-Ray 07/26/172146 Signed Impressions: Service Date/Time: June 22:01 - CONCLUSION: No acute disease. Valeriano Loyd MD Foot X-Ray 07/26/17 0000 Signed Impressions: Service Date/Time: June 21:55 - CONCLUSION: No acute bony abnormality is seen. Valeriano Loyd MD Objective Remarks GENERAL: NAD SKIN: Warm and dry. HEAD: Normocephalic. EYES: No scleral icterus. No injection or drainage. NECK: Supple, trachea midline. No JVD or lymphadenopathy. CARDIOVASCULAR: Regular rate and rhythm without murmurs, gallops, or rubs. RESPIRATORY: Breath sounds equal bilaterally. No accessory muscle use. GASTROINTESTINAL: Abdomen soft, non-tender, nondistended. MUSCULOSKELETAL: No cyanosis, or edema. BACK: Nontender without obvious deformity. No CVA tenderness. A/P Problem List: (1) Cellulitis ICD Code: L03.90 - Cellulitis, unspecified Status: Acute (2) Hepatitis C ICD Code: B19.20 - Unspecified viral hepatitis C without hepatic coma (3) Substance abuse ICD Code: F19.10 - Other psychoactive substance abuse, uncomplicated Status: Acute Assessment and Plan 32-year-old man with Bilateral lower extremity cellulitis Disseminated staph infection? Patient currently on IV antibiotics including Zosyn and vancomycin pending culture reports. However patient will need more than 3-4 days treatment of IV antibiotics due to the severity of the disease 2-D echo pending secondary to patient history of IV drug use to rule out endocarditis Consult infectious disease when necessary Toradol when necessary for pain History of IV drug use UDS positive for cocaine Patient strongly counseled against 2-D echo pending to rule out endocarditis Hypokalemia Resolved status post replacement. Monitor electrolyte Hepatitis C Chronic DVT prophylaxis: Lovenox With change admission to inpatient and transfer patient to [facility] Problem Qualifiers (1) Cellulitis: Qualified Codes: L03.115 - Cellulitis of right lower limb Russell Astudillo MD Jul 27, 2017 13:00
--- NOTE | 2017-07-27 15:19 | ECHRPT ---
Indication: r/o endocarditis CONCLUSIONS The left ventricular systolic function is normal with an estimated ejection fraction in the range of 55-60%. Normal left ventricular size. [id number] mitral valve regurgitation. There is mild tricuspid valve regurgitation. No vegetations or masses identified BP: / HR: Rhythm: MEASUREMENTS (Male / Female) Normal Values Technical Quality:Fair 2D ECHO LV Diastolic Diameter PLAX 4.4 cm 4.2 - 5.9 / 3.9 - 5.3 cm LV Systolic Diameter PLAX 3.4 cm IVS Diastolic Thickness 1.0 cm 0.6 - 1.0 / 0.6 - 0.9 cm LVPW Diastolic Thickness 1.1 cm 0.6 - 1.0 / 0.6 - 0.9 cm LV Relative Wall Thickness 0.5 RV Internal Dim ED PLAX 3.0 cm M-MODE Aortic Root Diameter MM 2.9 cm LA Systolic Diameter MM 2.5 cm LA Ao Ratio MM 0.9 AV Cusp Separation MM 1.7 cm DOPPLER Mitral E Point Velocity 92.3 cm/s Mitral A Point Velocity 66.6 cm/s Mitral E to A Ratio 1.4 LV E' Lateral Velocity 13.6 cm/s Mitral E to LV E' Lateral Ratio 6.8 LV E' Septal Velocity 11.9 cm/s Mitral E to LV E' Septal Ratio 7.8 TR Peak Velocity 231.0 cm/s TR Peak Gradient 21.3 mmHg Right Atrial Pressure 10.0 mmHg Pulmonary Artery Systolic Pressu 31.3 mmHg Right Ventricular Systolic Press 31.3 mmHg FINDINGS LEFT VENTRICLE The left ventricular systolic function is normal with an estimated ejection fraction in the range of 55-60%. Normal left ventricular size. RIGHT VENTRICLE Normal right ventricular size and systolic function. LEFT ATRIUM The left atrial size is normal. RIGHT ATRIUM The right atrial size is normal. ATRIAL SEPTUM Normal atrial septal thickness without atrial level shunting by limited color doppler interrogation. AORTA The aortic root and proximal ascending aorta are normal in size on limited imaging. MITRAL VALVE [id number] mitral valve regurgitation. Structurally normal mitral valve. AORTIC VALVE Trileaflet aortic valve. No aortic valve stenosis or regurgitation. TRICUSPID VALVE There is mild tricuspid valve regurgitation. Structurally normal tricuspid valve. PULMONARY VALVE No pulmonary valve regurgitation or stenosis. VESSELS The inferior vena cava is normal in size. PERICARDIUM No pericardial effusion. Tay Shin MD (Electronically Signed) Final Date:27 July 2017 15:18
[2017-07-27 15:45] VITALS: BP 131/68; PULSE 77; RESP 22; TEMP 96.3; O2SAT 100
--- NOTE | 2017-07-27 15:59 | EKG ---
Date Performed: 07/26/2017 Time Performed: 22:07:00 PTAGE: 32 years EKG: Sinus rhythm NORMAL ECG NO PREVIOUS TRACING DOCTOR: Janel Villafana Interpretating Date/Time 07/27/2017 15:59:04
[2017-07-27 20:36] VITALS: BP 119/71; PULSE 74; RESP 18; TEMP 98; O2SAT 99
[2017-07-27] MEDS ORDERED: PHARMACY ORDERED LAB ONE (21:45)
[2017-07-27] MEDS: ZIPRASIDONE HCL 20 MG CAP PO SCH (21:59)
[2017-07-28 00:06] VITALS: BP 117/67; PULSE 86; RESP 18; TEMP 99.3; O2SAT 99
[2017-07-28 04:42] VITALS: BP 134/65; PULSE 80; RESP 18; TEMP 98.5; O2SAT 98
[2017-07-28] MEDS: PIPERACIL-TAZO 4.5 GM PREMIX 100 ML IV SCH (05:17)
[2017-07-28] MEDS: VANCOMYCIN INJ 1,250 MG in SODIUM CHLOR 0.9% 250 ML INJ 250 ML IV SCH ×3 (06:23→21:16)
[2017-07-28] MEDS: KETOROLAC TROMETHAMINE 30 MG/ML (IVP) VIAL IV PUSH PRN ×3 (06:23→18:56)
[2017-07-28 08:00] VITALS: BP 113/66; PULSE 100; RESP 18; TEMP 98.6; O2SAT 100
[2017-07-28] MEDS: NICOTINE 14 MG/24 HR PATCH T-DERMAL SCH (08:56)
[2017-07-28] MEDS: REMOVE OLD PATCH T-DERMAL SCH (08:56)
[2017-07-28] MEDS: ENOXAPARIN SODIUM 40 MG/0.4 ML SYRINGE SQ SCH (08:58)
[2017-07-28] MEDS: SODIUM CHLORIDE 0.9% FLUSH 10 ML FLUSH IV FLUSH SCH ×2 (08:58→21:16)
--- NOTE | 2017-07-28 09:00 | PD.PN.STU ---
Subjective Remarks Patient reports pain and swelling in RLE and spreading redness in both LEs. States this began several days ago and symptoms have been getting work. Unsure of what may have caused the swelling but did admit to being "up for a couple days." No associated fevers or night sweats. Admits to using IV meth regularly and history of cocaine, heroin, opioid abuse. Requests more pain meds. Also states he is on depakote and Geodon at home for bipolar, currently on Geodon only in hospital. Objective Vitals Vital Signs Date Time Temp Pulse Resp B/P (MAP) Pulse Ox O2 Delivery O2 Flow Rate FiO2 07/28/17 08:00 98.6 100 18 113/66 (82) 100 07/28/17 04:42 98.5 80 18 134/65 (88) 98 07/28/17 00:06 99.3 86 18 117/67 (84) 99 07/27/17 20:36 98.0 74 18 119/71 (87) 99 07/27/17 15:45 96.3 77 22 131/68 (89) 100 07/27/17 12:26 97.9 80 20 120/56 (77) 95 I/O 07/27/17 07/27/17 07/27/17 07/28/17 07/28/17 07/28/17 07:00 15:00 23:00 07:00 15:00 23:00 Intake Total 2340 ml 602.5 ml Balance 2340 ml 602.5 ml Intake Oral 240 ml 240 ml IV Total 2100 ml 362.5 ml Result Diagram: 07/27/17 0939 07/28/17 0657 Other Results Laboratory Tests Test 07/26/17 22:00 07/27/17 09:39 07/27/17 19:55 07/27/17 22:15 White Blood Count 11.5 TH/MM3 6.4 TH/MM3 Red Blood Count 4.22 MIL/MM3 3.93 MIL/MM3 Hemoglobin 12.5 GM/DL 11.9 GM/DL Hematocrit 36.1 % 33.9 % Mean Corpuscular Volume 85.5 FL 86.3 FL Mean Corpuscular Hemoglobin 29.7 PG 30.4 PG Mean Corpuscular Hemoglobin Concent 34.7 % 35.2 % Red Cell Distribution Width 14.3 % 14.2 % Platelet Count 131 TH/MM3 100 TH/MM3 Mean Platelet Volume 8.3 FL 8.5 FL Neutrophils (%) (Auto) 70.0 % 53.6 % Lymphocytes (%) (Auto) 16.0 % 26.0 % Monocytes (%) (Auto) 12.8 % 18.0 % Eosinophils (%) (Auto) 1.0 % 1.8 % Basophils (%) (Auto) 0.2 % 0.6 % Neutrophils # (Auto) 8.0 TH/MM3 3.4 TH/MM3 Lymphocytes # (Auto) 1.8 TH/MM3 1.7 TH/MM3 Monocytes # (Auto) 1.5 TH/MM3 1.1 TH/MM3 Eosinophils # (Auto) 0.1 TH/MM3 0.1 TH/MM3 Basophils # (Auto) 0.0 TH/MM3 0.0 TH/MM3 CBC Comment DIFF FINAL DIFF FINAL Differential Comment Prothrombin Time 11.2 SEC Prothromb Time International Ratio 1.1 RATIO Activated Partial Thromboplast Time 30.8 SEC Blood Urea Nitrogen 19 MG/DL 12 MG/DL Creatinine 1.07 MG/DL 0.83 MG/DL Random Glucose 87 MG/DL 86 MG/DL Total Protein 7.8 GM/DL Albumin 4.1 GM/DL Calcium Level 8.9 MG/DL 8.4 MG/DL Magnesium Level 2.0 MG/DL Alkaline Phosphatase 70 U/L Aspartate Amino Transf (AST/SGOT) 45 U/L Alanine Aminotransferase (ALT/SGPT) 57 U/L Total Bilirubin 2.9 MG/DL Sodium Level 134 MEQ/L 137 MEQ/L Potassium Level 3.1 MEQ/L 3.5 MEQ/L Chloride Level 97 MEQ/L 104 MEQ/L Carbon Dioxide Level 27.1 MEQ/L 25.2 MEQ/L Anion Gap 10 MEQ/L 8 MEQ/L Estimat Glomerular Filtration Rate 79 ML/MIN 106 ML/MIN Lactic Acid Level 1.5 mmol/L Urine Opiates Screen NEG Urine Barbiturates Screen NEG Urine Amphetamines Screen POS Urine Benzodiazepines Screen NEG Urine Cocaine Screen NEG Urine Cannabinoids Screen NEG Vancomycin Level Trough 14.5 MCG/ML Test 07/28/17 06:57 Creatinine 0.90 MG/DL Estimat Glomerular Filtration Rate 97 ML/MIN Imaging Last 72 hours Impressions Chest X-Ray 07/26/17 [id number] Signed Impressions: Service Date/Time: June 22:01 - CONCLUSION: No acute disease. Valeriano Loyd MD Foot X-Ray 07/26/17 0000 Signed Impressions: Service Date/Time: June 21:55 - CONCLUSION: No acute bony abnormality is seen. Valeriano Loyd MD Objective Remarks GENERAL: Lying in bed, awake and alert in no acute distress. SKIN: Warm and dry. ~2-3 mm scabs scattered on all exposed skin surfaces. HEAD: Atraumatic. Normocephalic. EYES: Pupils equal and round. No scleral icterus. No injection or drainage. ENT: No nasal bleeding or discharge. Mucous membranes pink and moist. NECK: Trachea midline. No JVD. CARDIOVASCULAR: Regular rate and rhythm. RESPIRATORY: No accessory muscle use. Clear to auscultation. Breath sounds equal bilaterally. GASTROINTESTINAL: Abdomen soft, non-tender, nondistended. Hepatic and splenic margins not palpable. MUSCULOSKELETAL: ~[id number] area of brawny erythema on anteromedial RLE, warm to touch. 2+ edema in R foot. Mild tenderness to palpation. NEUROLOGICAL: Awake and alert. No obvious cranial nerve deficits. Motor grossly within normal limits. Five out of 5 muscle strength in the arms and legs. Normal speech. PSYCHIATRIC: Appropriate mood and affect; insight and judgment normal. Medications and IVs Current Medications Sodium Chloride 1,000 ml @ 999 mls/hr BOLUS ONCE IV Last administered on 22:10; Start 07/26/17 at 22:00; Stop 07/26/17 at 23:00; Status DC Piperacillin Sod/ Tazobactam Sod 100 ml @ 200 mls/hr ONCE STAT IV Last administered on 07/26/17 22:14; Start 07/26/17 at 21:59; Stop 07/26/17 at 22 :28; Status DC Vancomycin HCl 1000 mg/Sodium Chloride 250 ml @ 250 mls/hr ONCE STAT IV Last administered on 07/26/17 23:12; Start 07/26/17 at 21:59; Stop 07/26/17 at 22 :58; Status DC Potassium Chloride (KCl) 40 meq ONCE ONCE PO Last administered on 07/26/17 23:17; Start 07/26/17 at 23:15; Stop 07/26/17 at 23:17; Status DC Sodium Chloride (NS Flush) 2 ml UNSCH PRN IV FLUSH FLUSH AFTER USING IV ACCESS ; Start 07/26/17 at 23:15 Sodium Chloride (NS Flush) 2 ml BID IV FLUSH Last administered on 07/28/17 08: 58; Start 07/27/17 at 09:00 Naloxone HCl (Narcan Inj) 0.4 mg UNSCH PRN IV PUSH SEE LABEL COMMENTS; Start 07/26/17 at 23:15 Pharmacy Profile Note 0 ml @ 0 mls/hr UNSCH OTHER ; Start 07/26/17 at 23:15 Piperacillin Sod/ Tazobactam Sod 100 ml @ 200 mls/hr Q6H IV Last administered on 07/28/17 05:17; Start 07/27/17 at 05:00 Diphenhydramine HCl (Benadryl) 25 mg ONCE ONCE PO Last administered on 23:17; Start 07/26/17 at 23:15; Stop 07/26/17 at 23:17; Status DC Vancomycin HCl 1250 mg/Sodium Chloride 262.5 ml @ 250 mls/hr Q8H IV Last administered on 07/28/17 06:23; Start 07/27/17 at 06:00 Miscellaneous Information SPECIFIC LAB TO BE ... ONCE ONCE .XX ; Start 07/27 at 21:45; Stop 07/27/17 at 21:46; Status DC Ziprasidone (Geodon) 20 mg HS PO Last administered on 07/27/17 21:59; Start 07/27/17 at 21:00 Ketorolac Tromethamine (Toradol Inj) 30 mg Q6H PRN IV PUSH pain >5 Last administered on 07/28/17 06:23; Start 07/27/17 at 01:45; Stop 07/31/17 at 22:00 Ziprasidone (Geodon) 20 mg ONCE ONCE PO Last administered on 07/27/17 02:05; Start 07/27/17 at 01:45; Stop 07/27/17 at 01:46; Status DC Enoxaparin Sodium (Lovenox Inj) 40 mg Q24H SQ Last administered on 07/28/17 08 :58; Start 07/27/17 at 10:00 Nicotine (Habitrol 14 Mg Patch.24 Hr) 1 patch DAILY T-DERMAL Last administered on 07/28/17 08:56; Start 07/27/17 at 11:00 Miscellaneous Information 1 DAILY T-DERMAL Last administered on 07/28/17 08:56 ; Start 07/28/17 at 09:00 Acetaminophen (Tylenol) 650 mg Q4H PRN PO Temp > 100.4; Start 07/27/17 at 13:00 Ondansetron HCl (Zofran Inj) 4 mg Q6H PRN IV PUSH NAUSEA; Start 07/27/17 at 13: 00 Senna/Docusate Sodium (Fariba-Colace) 1 tab BID PRN PO CONSTIPATION; Start at 13:00 Clonidine (Catapres) 0.1 mg Q6H PRN PO SBP>160, DBP>90; Start 07/27/17 at 13:00 A/P Assessment and Plan 32 yo male with a history of IVDA admitted for cellulitis of the R lower extremity. Cellulitis: no systemic signs/sx -continue empiric IV Abx and await blood cultures -XR of R foot negative -continue current pain management with Toradol. D/w patient that given h/o narcotics abuse, opioid meds will be avoided. IVDA -counseled on cessation -Echo, CXR negative Bipolar disorder -continue Geodon -reportedly also on Depakote at home, consider adding this to regimen Hypokalemia: resolved post-replacement Hepatitis C: chronic Kike Ash M3 Jul 28, 2017 09:00
--- NOTE | 2017-07-28 10:36 | HHI.PR ---
Subjective Remarks Patient reports cellulitis is better. However still complaining of pain. No fevers. Objective Vitals Vital Signs Date Time Temp Pulse Resp B/P (MAP) Pulse Ox O2 Delivery O2 Flow Rate FiO2 07/28/17 08:00 98.6 100 18 113/66 (82) 100 07/28/17 04:42 98.5 80 18 134/65 (88) 98 07/28/17 00:06 99.3 86 18 117/67 (84) 99 07/27/17 20:36 98.0 74 18 119/71 (87) 99 07/27/17 15:45 96.3 77 22 131/68 (89) 100 07/27/17 12:26 97.9 80 20 120/56 (77) 95 I/O 07/27/17 07/27/17 07/27/17 07/28/17 07/28/17 07/28/17 07:00 15:00 23:00 07:00 15:00 23:00 Intake Total 2340 ml 602.5 ml Balance 2340 ml 602.5 ml Intake Oral 240 ml 240 ml IV Total 2100 ml 362.5 ml Result Diagram: 07/27/17 0939 07/28/17 0657 Objective Remarks GENERAL: This is a well-nourished, well-developed patient, in no apparent distress. CARDIOVASCULAR: Normal rate and regular rhythm without murmurs, gallops, or rubs. RESPIRATORY: Good respiratory efforts. Breath sounds equal and clear to auscultation bilaterally. GASTROINTESTINAL: Abdomen soft, non-tender, non-distended. Normal active bowel sounds MUSCULOSKELETAL: Bilateral lower extremities have multiple small scabs. Right lower extremity above the ankle, there is an area of cellulitis. 1+ edema of the right lower extremity. NEURO: Alert & Oriented x4 to person, place, time, situation. Moves all ext x4 PSYCH: Appropriate mood and affect. A/P Problem List: (1) Cellulitis ICD Code: L03.90 - Cellulitis, unspecified Status: Acute (2) Hepatitis C ICD Code: B19.20 - Unspecified viral hepatitis C without hepatic coma (3) Substance abuse ICD Code: F19.10 - Other psychoactive substance abuse, uncomplicated Status: Acute Assessment and Plan 32-year-old male ongoing IV drug abuser admitted with lower extremity cellulitis. Probable staph. Bilateral lower extremity cellulitis Disseminated staph infection? Patient is improving. De-escalate antibiotics. Discontinue Zosyn. Continue IV vancomycin pending blood cultures. 2-D echo negative for vegetations. Continue IV antibiotics for another day. Plan to discharge home tomorrow if cellulitis continues to improve. Toradol when necessary for pain. Advised patient to elevate legs. History of IV drug use UDS positive for amphetamines. Patient strongly counseled against 2-D echo negative for vegetations. Hepatitis C Chronic, advise outpatient follow-up for consideration of treatment. DVT prophylaxis: Lovenox Discharge Planning Probable discharge tomorrow if he continues to improve. Problem Qualifiers (1) Cellulitis: Qualified Codes: L03.115 - Cellulitis of right lower limb Henrique Hutchins MD Jul 28, 2017 10:36
[2017-07-28 12:00] VITALS: BP 131/67; PULSE 86; RESP 19; TEMP 98.1; O2SAT 97
[2017-07-28 16:00] VITALS: BP 116/75; PULSE 72; RESP 18; TEMP 98.4; O2SAT 100
[2017-07-28 20:30] VITALS: BP 136/84; PULSE 59; RESP 16; TEMP 98.2; O2SAT 99
[2017-07-28] MEDS: VALPROIC ACID 250 MG CAP PO SCH (21:17)
[2017-07-28] MEDS: ZIPRASIDONE HCL 20 MG CAP PO SCH (21:17)
[2017-07-29 00:30] VITALS: BP 130/80; PULSE 67; RESP 17; TEMP 97.8; O2SAT 100
[2017-07-29] MEDS: KETOROLAC TROMETHAMINE 30 MG/ML (IVP) VIAL IV PUSH PRN ×4 (03:13→21:03)
[2017-07-29 04:40] VITALS: BP 125/85; PULSE 67; RESP 19; TEMP 98.1; O2SAT 99
[2017-07-29] MEDS: VANCOMYCIN INJ 1,250 MG in SODIUM CHLOR 0.9% 250 ML INJ 250 ML IV SCH ×3 (06:03→22:43)
[2017-07-29 08:00] VITALS: BP 105/58; PULSE 69; RESP 18; TEMP 98.1; O2SAT 100
[2017-07-29] MEDS: ENOXAPARIN SODIUM 40 MG/0.4 ML SYRINGE SQ SCH (09:00)
[2017-07-29] MEDS: SODIUM CHLORIDE 0.9% FLUSH 10 ML FLUSH IV FLUSH SCH ×2 (09:00→21:02)
[2017-07-29] MEDS: REMOVE OLD PATCH T-DERMAL SCH (09:00)
[2017-07-29] MEDS: NICOTINE 14 MG/24 HR PATCH T-DERMAL SCH (09:01)
[2017-07-29] MEDS: VALPROIC ACID 250 MG CAP PO SCH ×2 (09:08→22:43)
--- NOTE | 2017-07-29 09:16 | PD.PN.STU ---
Subjective Remarks Patient complains of continued pain and swelling. Reports being more active, moving around in room. Requests to stay in hospital for at least another day. No fevers. Objective Vitals Vital Signs Date Time Temp Pulse Resp B/P (MAP) Pulse Ox O2 Delivery O2 Flow Rate FiO2 07/29/17 08:00 98.1 69 18 105/58 (74) 100 07/29/17 04:40 98.1 67 19 125/85 (98) 99 07/29/17 00:30 97.8 67 17 130/80 (97) 100 07/28/17 20:30 98.2 59 16 136/84 (101) 99 07/28/17 16:00 98.4 72 18 116/75 (89) 100 07/28/17 12:00 98.1 86 19 131/67 (88) 97 I/O 07/28/17 07/28/17 07/28/17 07/29/17 07/29/17 07/29/17 07:00 15:00 23:00 07:00 15:00 23:00 Intake Total 1530 ml 875 ml 1000 ml Balance 1530 ml 875 ml 1000 ml Intake Oral 1180 ml 875 ml 1000 ml IV Total 350 ml # Voids 3 1 5 # Bowel Movements 1 0 0 Result Diagram: 07/27/17 0939 07/28/17 0657 Other Results Microbiology Date/Time Source Procedure Growth Status 07/26/17 22:00 Blood Peripheral Aerobic Blood Culture - Preliminary NO GROWTH IN 2 DAYS Resulted 07/26/17 22:00 Blood Peripheral Anaerobic Blood Culture - Preliminary NO GROWTH IN 2 DAYS Resulted 07/26/17 22:00 Blood Peripheral Aerobic Blood Culture - Preliminary NO GROWTH IN 2 DAYS Resulted 07/26/17 22:00 Blood Peripheral Anaerobic Blood Culture - Preliminary NO GROWTH IN 2 DAYS Resulted Objective Remarks GENERAL:, Awake and alert in no acute distress. Sitting on edge of bed eating breakfast. SKIN: Warm and dry. ~2-3 mm scabs scattered on all exposed skin surfaces. HEAD: Atraumatic. Normocephalic. EYES: Pupils equal and round. No scleral icterus. No injection or drainage. ENT: No nasal bleeding or discharge. Mucous membranes pink and moist. NECK: Trachea midline. No JVD. CARDIOVASCULAR: Regular rate and rhythm. RESPIRATORY: No accessory muscle use. Clear to auscultation. Breath sounds equal bilaterally. GASTROINTESTINAL: Abdomen soft, non-tender, nondistended. Hepatic and splenic margins not palpable. MUSCULOSKELETAL: ~[id number] area of erythema on anteromedial RLE. 2+ edema in R foot. Mild tenderness to palpation. Erythema and warmth decreased from yesterday. NEUROLOGICAL: Awake and alert. No obvious cranial nerve deficits. Motor grossly within normal limits. Five out of 5 muscle strength in the arms and legs. Normal speech. PSYCHIATRIC: Appropriate mood and affect; insight and judgment normal. Medications and IVs Current Medications Sodium Chloride 1,000 ml @ 999 mls/hr BOLUS ONCE IV Last administered on 22:10; Start 07/26/17 at 22:00; Stop 07/26/17 at 23:00; Status DC Piperacillin Sod/ Tazobactam Sod 100 ml @ 200 mls/hr ONCE STAT IV Last administered on 07/26/17 22:14; Start 07/26/17 at 21:59; Stop 07/26/17 at 22 :28; Status DC Vancomycin HCl 1000 mg/Sodium Chloride 250 ml @ 250 mls/hr ONCE STAT IV Last administered on 07/26/17 23:12; Start 07/26/17 at 21:59; Stop 07/26/17 at 22 :58; Status DC Potassium Chloride (KCl) 40 meq ONCE ONCE PO Last administered on 07/26/17 23:17; Start 07/26/17 at 23:15; Stop 07/26/17 at 23:17; Status DC Sodium Chloride (NS Flush) 2 ml UNSCH PRN IV FLUSH FLUSH AFTER USING IV ACCESS ; Start 07/26/17 at 23:15 Sodium Chloride (NS Flush) 2 ml BID IV FLUSH Last administered on 07/29/17 09: 00; Start 07/27/17 at 09:00 Naloxone HCl (Narcan Inj) 0.4 mg UNSCH PRN IV PUSH SEE LABEL COMMENTS; Start 07/26/17 at 23:15 Pharmacy Profile Note 0 ml @ 0 mls/hr UNSCH OTHER ; Start 07/26/17 at 23:15 Piperacillin Sod/ Tazobactam Sod 100 ml @ 200 mls/hr Q6H IV Last administered on 07/28/17 05:17; Start 07/27/17 at 05:00; Stop 07/28/17 at 10:37; Status DC Diphenhydramine HCl (Benadryl) 25 mg ONCE ONCE PO Last administered on 23:17; Start 07/26/17 at 23:15; Stop 07/26/17 at 23:17; Status DC Vancomycin HCl 1250 mg/Sodium Chloride 262.5 ml @ 250 mls/hr Q8H IV Last administered on 07/29/17 06:03; Start 07/27/17 at 06:00 Miscellaneous Information SPECIFIC LAB TO BE ... ONCE ONCE .XX ; Start 07/27 at 21:45; Stop 07/27/17 at 21:46; Status DC Ziprasidone (Geodon) 20 mg HS PO Last administered on 07/28/17 21:17; Start 07/27/17 at 21:00 Ketorolac Tromethamine (Toradol Inj) 30 mg Q6H PRN IV PUSH pain >5 Last administered on 07/29/17 09:03; Start 07/27/17 at 01:45; Stop 07/31/17 at 22:00 Ziprasidone (Geodon) 20 mg ONCE ONCE PO Last administered on 07/27/17 02:05; Start 07/27/17 at 01:45; Stop 07/27/17 at 01:46; Status DC Enoxaparin Sodium (Lovenox Inj) 40 mg Q24H SQ Last administered on 07/29/17 09 :00; Start 07/27/17 at 10:00 Nicotine (Habitrol 14 Mg Patch.24 Hr) 1 patch DAILY T-DERMAL Last administered on 07/29/17 09:01; Start 07/27/17 at 11:00 Miscellaneous Information 1 DAILY T-DERMAL Last administered on 07/29/17 09:00 ; Start 07/28/17 at 09:00 Acetaminophen (Tylenol) 650 mg Q4H PRN PO Temp > 100.4; Start 07/27/17 at 13:00 Ondansetron HCl (Zofran Inj) 4 mg Q6H PRN IV PUSH NAUSEA; Start 07/27/17 at 13: 00 Senna/Docusate Sodium (Fariba-Colace) 1 tab BID PRN PO CONSTIPATION; Start at 13:00 Clonidine (Catapres) 0.1 mg Q6H PRN PO SBP>160, DBP>90; Start 07/27/17 at 13:00 Valproic Acid (Depakene) 250 mg Q12HR PO Last administered on 07/28/17t 21:17; Start 07/28/17 at 21:00 Miscellaneous Information SPECIFIC LAB TO BE .. ONCE ONCE .XX ; Start 07/29 at 13:45; Stop 07/29/17 at 13:46 A/P Assessment and Plan 32 yo male with a history of IVDA admitted for cellulitis of the R lower extremity. Cellulitis: No systemic signs/sx. Area of cellulitis clinically improving with decrease in warmth and erythema, no spread. -XR of R foot negative -continue current pain management with Toradol. D/w patient that given h/o narcotics abuse, opioid meds will be avoided. -No growth on blood cultures at 2 days -continue empiric IV vancomycin. Consider switch to oral regimen for discharge. IVDA -counseled on cessation -Echo, CXR negative Bipolar disorder -continue Geodon and depakote Hypokalemia: resolved post-replacement Hepatitis C: chronic Kike Ash M3 Jul 29, 2017 09:15
--- NOTE | 2017-07-29 11:07 | HHI.PR ---
Subjective Remarks Cellulitis improving. Pain and swelling is the same. Redness improving. Objective Vitals Vital Signs Date Time Temp Pulse Resp B/P (MAP) Pulse Ox O2 Delivery O2 Flow Rate FiO2 07/29/17 08:00 98.1 69 18 105/58 (74) 100 07/29/17 04:40 98.1 67 19 125/85 (98) 99 07/29/17 00:30 97.8 67 17 130/80 (97) 100 07/28/17 20:30 98.2 59 16 136/84 (101) 99 07/28/17 16:00 98.4 72 18 116/75 (89) 100 07/28/17 12:00 98.1 86 19 131/67 (88) 97 I/O 07/28/17 07/28/17 07/28/17 07/29/17 07/29/17 07/29/17 07:00 15:00 23:00 07:00 15:00 23:00 Intake Total 1530 ml 875 ml 1000 ml Balance 1530 ml 875 ml 1000 ml Intake Oral 1180 ml 875 ml 1000 ml IV Total 350 ml # Voids 3 1 5 # Bowel Movements 1 0 0 Result Diagram: 07/27/17 0939 07/28/17 0657 Objective Remarks GENERAL: This is a well-nourished, well-developed patient, in no apparent distress. CARDIOVASCULAR: Normal rate and regular rhythm without murmurs, gallops, or rubs. RESPIRATORY: Good respiratory efforts. Breath sounds equal and clear to auscultation bilaterally. GASTROINTESTINAL: Abdomen soft, non-tender, non-distended. Normal active bowel sounds MUSCULOSKELETAL: Bilateral lower extremities have multiple small scabs. Right lower extremity above the ankle, there is an area of cellulitis, improving. 1+ edema of the right lower extremity. NEURO: Alert & Oriented x4 to person, place, time, situation. Moves all ext x4 PSYCH: Appropriate mood and affect. A/P Problem List: (1) Cellulitis ICD Code: L03.90 - Cellulitis, unspecified Status: Acute (2) Hepatitis C ICD Code: B19.20 - Unspecified viral hepatitis C without hepatic coma (3) Substance abuse ICD Code: F19.10 - Other psychoactive substance abuse, uncomplicated Status: Acute Assessment and Plan 32-year-old male ongoing IV drug abuser admitted with lower extremity cellulitis. Probable staph. Bilateral lower extremity cellulitis Disseminated staph infection? Patient is improving. Continue IV vancomycin for one more day. 2-D echo negative for vegetations. Continue IV antibiotics for another day. Plan to discharge home tomorrow Toradol when necessary for pain. Advised patient to elevate legs to help with swelling. History of IV drug use UDS positive for amphetamines. Patient strongly counseled against. His mother will come in town from [place] tomorrow to take him to [place]. 2-D echo negative for vegetations. Hepatitis C Chronic, advise outpatient follow-up for consideration of treatment. DVT prophylaxis: Lovenox Discharge Planning Plan to discharge tomorrow. Problem Qualifiers (1) Cellulitis: Qualified Codes: L03.115 - Cellulitis of right lower limb Henrique Hutchins MD Jul 29, 2017 11:07
[2017-07-29 11:59] VITALS: BP 125/60; PULSE 71; RESP 18; TEMP 97.9; O2SAT 100
[2017-07-29] MEDS ORDERED: PHARMACY ORDERED LAB ONE (13:45)
[2017-07-29 16:00] VITALS: BP 124/63; PULSE 68; RESP 18; TEMP 97.6; O2SAT 100
[2017-07-29 21:30] VITALS: BP 109/69; PULSE 68; RESP 18; TEMP 98.1; O2SAT 100
[2017-07-29] MEDS: ZIPRASIDONE HCL 20 MG CAP PO SCH (22:42)
[2017-07-30 00:45] VITALS: BP 110/65; PULSE 66; RESP 17; TEMP 98.4; O2SAT 100
[2017-07-30] MEDS: KETOROLAC TROMETHAMINE 30 MG/ML (IVP) VIAL IV PUSH PRN ×2 (03:02→08:52)
[2017-07-30 05:50] VITALS: BP 115/68; PULSE 60; RESP 20; TEMP 97.9; O2SAT 99
[2017-07-30] MEDS: VANCOMYCIN INJ 1,250 MG in SODIUM CHLOR 0.9% 250 ML INJ 250 ML IV SCH (06:48)
[2017-07-30 08:00] VITALS: BP 109/63; PULSE 49; RESP 18; TEMP 97.3; O2SAT 100
[2017-07-30] MEDS: VALPROIC ACID 250 MG CAP PO SCH (08:50)
[2017-07-30] MEDS: NICOTINE 14 MG/24 HR PATCH T-DERMAL SCH (08:50)
[2017-07-30] MEDS: ENOXAPARIN SODIUM 40 MG/0.4 ML SYRINGE SQ SCH (08:51)
[2017-07-30] MEDS: SODIUM CHLORIDE 0.9% FLUSH 10 ML FLUSH IV FLUSH SCH (08:51)
[2017-07-30] MEDS: REMOVE OLD PATCH T-DERMAL SCH (08:51)
--- NOTE | 2017-07-30 09:24 | PD.PN.STU ---
Subjective Remarks Patient has no complaints. Objective Vitals Vital Signs Date Time Temp Pulse Resp B/P (MAP) Pulse Ox O2 Delivery O2 Flow Rate FiO2 07/30/17 08:00 97.3 49 18 109/63 (78) 100 07/30/17 05:50 97.9 60 20 115/68 (84) 99 07/30/17 00:45 98.4 66 17 110/65 (80) 100 07/29/17 21:30 98.1 68 18 109/69 (82) 100 07/29/17 16:00 97.6 68 18 124/63 (83) 100 07/29/17 11:59 97.9 71 18 125/60 (81) 100 I/O 07/29/17 07/29/17 07/29/17 07/30/17 07/30/17 07/30/17 07:00 15:00 23:00 07:00 15:00 23:00 Intake Total 1000 ml 980 ml 1500 ml 1500 ml Balance 1000 ml 980 ml 1500 ml 1500 ml Intake Oral 1000 ml 980 ml 1500 ml 1500 ml # Voids 5 5 4 3 # Bowel Movements 0 1 0 0 Result Diagram: 07/27/17 0939 07/30/17 0740 Objective Remarks GENERAL:, Awakened from sleep. Supine in bed in no acute distress SKIN: Warm and dry. ~2-3 mm scabs scattered on all exposed skin surfaces. HEAD: Atraumatic. Normocephalic. EYES: Pupils equal and round. No scleral icterus. No injection or drainage. ENT: No nasal bleeding or discharge. Mucous membranes pink and moist. NECK: Trachea midline. No JVD. CARDIOVASCULAR: Regular rate and rhythm. RESPIRATORY: No accessory muscle use. Clear to auscultation. Breath sounds equal bilaterally. GASTROINTESTINAL: Abdomen soft, non-tender, nondistended. Hepatic and splenic margins not palpable. MUSCULOSKELETAL: Small area of erythema on anteromedial RLE. 1+ edema in R foot. Mild tenderness to palpation. Erythema much decreased and warmth resolved. NEUROLOGICAL: Awake and alert. No obvious cranial nerve deficits. Motor grossly within normal limits. Normal speech. PSYCHIATRIC: Appropriate mood and affect; insight and judgment normal. Medications and IVs Current Medications Sodium Chloride 1,000 ml @ 999 mls/hr BOLUS ONCE IV Last administered on t 22:10; Start 07/26/17 at 22:00; Stop 07/26/17 at 23:00; Status DC Piperacillin Sod/ Tazobactam Sod 100 ml @ 200 mls/hr ONCE STAT IV Last administered on 07/26/17 22:14; Start 07/26/17 at 21:59; Stop 07/26/17 at 22 :28; Status DC Vancomycin HCl 1000 mg/Sodium Chloride 250 ml @ 250 mls/hr ONCE STAT IV Last administered on 07/26/17 23:12; Start 07/26/17 at 21:59; Stop 07/26/17 at 22 :58; Status DC Potassium Chloride (KCl) 40 meq ONCE ONCE PO Last administered on 07/26/17 23:17; Start 07/26/17 at 23:15; Stop 07/26/17 at 23:17; Status DC Sodium Chloride (NS Flush) 2 ml UNSCH PRN IV FLUSH FLUSH AFTER USING IV ACCESS ; Start 07/26/17 at 23:15 Sodium Chloride (NS Flush) 2 ml BID IV FLUSH Last administered on 07/29/17 21: 02; Start 07/27/17 at 09:00 Naloxone HCl (Narcan Inj) 0.4 mg UNSCH PRN IV PUSH SEE LABEL COMMENTS; Start 07/26/17 at 23:15 Pharmacy Profile Note 0 ml @ 0 mls/hr UNSCH OTHER ; Start 07/26/17 at 23:15 Piperacillin Sod/ Tazobactam Sod 100 ml @ 200 mls/hr Q6H IV Last administered on 07/28/17 05:17; Start 07/27/17 at 05:00; Stop 07/28/17 at 10:37; Status DC Diphenhydramine HCl (Benadryl) 25 mg ONCE ONCE PO Last administered on 23:17; Start 07/26/17 at 23:15; Stop 07/26/17 at 23:17; Status DC Vancomycin HCl 1250 mg/Sodium Chloride 262.5 ml @ 250 mls/hr Q8H IV Last administered on 07/30/17 06:48; Start 07/27/17 at 06:00 Miscellaneous Information SPECIFIC LAB TO BE ... ONCE ONCE .XX ; Start 07/27 at 21:45; Stop 07/27/17 at 21:46; Status DC Ziprasidone (Geodon) 20 mg HS PO Last administered on 07/29/17 22:42; Start 07/27/17 at 21:00 Ketorolac Tromethamine (Toradol Inj) 30 mg Q6H PRN IV PUSH pain >5 Last administered on 07/30/17 08:52; Start 07/27/17 at 01:45; Stop 07/31/17 at 22:00 Ziprasidone (Geodon) 20 mg ONCE ONCE PO Last administered on 07/27/17 02:05; Start 07/27/17 at 01:45; Stop 07/27/17 at 01:46; Status DC Enoxaparin Sodium (Lovenox Inj) 40 mg Q24H SQ Last administered on 07/30/17 08 :51; Start 07/27/17 at 10:00 Nicotine (Habitrol 14 Mg Patch.24 Hr) 1 patch DAILY T-DERMAL Last administered on 07/30/17 08:50; Start 07/27/17 at 11:00 Miscellaneous Information 1 DAILY T-DERMAL Last administered on 07/30/17 08:51 ; Start 07/28/17 at 09:00 Acetaminophen (Tylenol) 650 mg Q4H PRN PO Temp > 100.4; Start 07/27/17 at 13:00 Ondansetron HCl (Zofran Inj) 4 mg Q6H PRN IV PUSH NAUSEA; Start 07/27/17 at 13: 00 Senna/Docusate Sodium (Fariba-Colace) 1 tab BID PRN PO CONSTIPATION; Start at 13:00 Clonidine (Catapres) 0.1 mg Q6H PRN PO SBP>160, DBP>90; Start 07/27/17 at 13:00 Valproic Acid (Depakene) 250 mg Q12HR PO Last administered on 07/30/17 08:50; Start 07/28/17 at 21:00 Miscellaneous Information SPECIFIC LAB TO BE ... ONCE ONCE .XX Last administered on 07/29/17 13:45; Start 07/29/17 at 13:45; Stop 07/29/17 at 13:46 ; Status DC A/P Assessment and Plan 32 yo male with a history of IVDA admitted for cellulitis of the R lower extremity. Cellulitis: No systemic signs/sx. Area of cellulitis clinically improved with decrease in warmth and erythema, no spread. -XR of R foot negative -continue current pain management with Toradol. D/w patient that given h/o narcotics abuse, opioid meds will be avoided. -No growth on blood cultures at 3 days -Switch to oral Abx for discharge. IVDA -counseled on cessation -Echo, CXR negative Bipolar disorder -continue Geodon and depakote Hypokalemia: resolved post-replacement Hepatitis C: chronic, advise outpt follow up for treatment Kike Ash Jul 30, 2017 09:24
[2017-07-30] MEDS ORDERED: VALP250 PO (09:39)
[2017-07-30] MEDS ORDERED: ZIPR20 PO (09:39)
[2017-07-30] MEDS ORDERED: BACT800T5 PO (09:39)
--- NOTE | 2017-07-30 09:39 | HHI.DS ---
Discharge Summary Admission Date Jul 27, 2017 at 10:35 Discharge Date: Jul 30, 2017 Admitting Diagnosis ivda, cellulitis (1) Cellulitis ICD Code: L03.90 - Cellulitis, unspecified Status: Acute (2) Hepatitis C ICD Code: B19.20 - Unspecified viral hepatitis C without hepatic coma (3) Substance abuse ICD Code: F19.10 - Other psychoactive substance abuse, uncomplicated Status: Acute Procedures None Brief History - From Admission 32-year-old male IV drug user presented to the emergency room with complaint of bilateral lower extremity swelling and redness. Patient was admitted for cellulitis. CBC/BMP: 07/27/17 0939 07/30/17 0740 Significant Findings Laboratory Tests Test 07/27/17 19:55 07/27/17 22:15 07/28/17 06:57 07/29/17 13:24 Urine Amphetamines Screen POS (NEG) Vancomycin Level Trough 14.5 MCG/ML (5.0-10.0) 15.6 MCG/ML (5.0-10.0) Test 07/30/17 07:40 Imaging Last Impressions Chest X-Ray 07/26/17 2147 Signed Impressions: Service Date/Time: June 22:01 - CONCLUSION: No acute disease. Valeriano Loyd MD Foot X-Ray 07/26/17 0000 Signed Impressions: Service Date/Time: June 21:55 - CONCLUSION: No acute bony abnormality is seen. Valeriano Loyd MD PE at Discharge GENERAL: This is a well-nourished, well-developed patient, in no apparent distress. CARDIOVASCULAR: Normal rate and regular rhythm without murmurs, gallops, or rubs. RESPIRATORY: Good respiratory efforts. Breath sounds equal and clear to auscultation bilaterally. GASTROINTESTINAL: Abdomen soft, non-tender, non-distended. Normal active bowel sounds MUSCULOSKELETAL: Bilateral lower extremities have multiple small scabs. Lower extremity cellulitis almost completely resolved. Trace edema. NEURO: Alert & Oriented x4 to person, place, time, situation. Moves all ext x4 PSYCH: Appropriate mood and affect. Hospital Course 32-year-old male ongoing IV drug abuser admitted with lower extremity cellulitis. Probable staph. The patient was admitted and treated with IV vancomycin. His symptoms improved. He is discharged on Bactrim for another 3 days to complete the course of treatment. Given IV drug use, a 2-D echocardiogram was obtained which was negative. Blood cultures were also negative. Patient UDS was positive for amphetamines. He was strongly encouraged to stop using illicit drugs. Patient has a known history of hepatitis C he was advised to follow-up outpatient for consideration of treatment. Patient is to continue his home dose Geodon and Depakote for his psychiatric condition. Pt Condition on Discharge: Good Discharge Disposition: Discharge Home Discharge Time: <= 30 minutes Discharge Instructions DIET: Follow Instructions for: As Tolerated, No Restrictions Activities you can perform: Regular-No Restrictions Other Activity Instructions: Do not use illicit drugs. This is very bad for your health and can be deadly. New Medications: Sulfamethoxazole-Trimethoprim (Bactrim DS) 800-160 Mg Tab 1 TAB PO BID for Infection, #6 TAB 0 Refills Valproic Acid (Depakene) 250 Mg Cap 250 MG PO Q12HR, #1 CAP Ziprasidone (Geodon) 20 Mg Cap 20 MG PO HS, #1 CAP Discontinued Medications: Oxycodone-Acetaminophen (Percocet) 7.5-325 mg Tab 1 TAB PO Q4H PRN for PAIN, TAB 0 Refills Henrique Hutchins MD Jul 30, 2017 09:39
--- NOTE | 2017-07-30 09:39 | HHI.DCPOC ---
Discharge Care Plan Diagnosis: (1) Cellulitis (2) Substance abuse Goals to Promote Your Health * To prevent worsening of your condition and complications * To maintain your health at the optimal level Directions to Meet Your Goals Take your medications as prescribed Follow your dietary instruction Follow activity as directed Keep your appointments as scheduled Take your immunizations and boosters as scheduled If your symptoms worsen call your PCP, if no PCP go to Urgent Care Center or Emergency Room Smoking is Dangerous to Your Health. Avoid second hand smoke Call the 24-hour hour crisis hotline for domestic abuse at Henrique Hutchins MD Jul 30, 2017 09:39
[2017-07-30 12:00] VITALS: BP 114/67; PULSE 48; RESP 18; TEMP 97.7; O2SAT 100
== END 2017-07-30 13:09 | disposition home or self-care (01) | DRG 603 ==
LOC: NEPE 20:21 → NEDA 23:07 → NEPFCDU 23:50 → OBSVTOIN 07-27 10:35 → N05A 07-27 15:35
PROVIDERS: ADMIT Family Medicine; ATTEND Family Medicine
DX: L03.115 Cellulitis of right lower limb (principal); B18.2 Chronic viral hepatitis C; L03.116 Cellulitis of left lower limb; F19.10 Other psychoactive substance abuse, uncomplicated; E87.6 Hypokalemia; G47.00 Insomnia, unspecified; F31.9 Bipolar disorder, unspecified; M25.519 Pain in unspecified shoulder; G89.29 Other chronic pain; Z72.0 Tobacco use
CPT/HCPCS: 71010; 73630; 80048; 80053; 80202; 80307; 82565; 83605; 83735; 85025; 85610; 85730; 87040; 93005; 93306; J1650; J1885; J2543; J3370; J7030; J7050

== ENCOUNTER 2017-08-23 15:53 | Emergency (ER) | payer SELFPAY ==
[~2017-08-23 15:53] MED LIST changes: -ALPR0.5T99 PO; -CEPH500C3 PO; -NAPR550 PO; -PERC10TA27 PO; -SOMA350T PO; +VALP250 PO; -VIST25CA PO; -XANA1TAB6 PO; +ZIPR20 PO; -[UNRECOGNIZED DRUG - REMARK]
[2017-08-23 15:58] VITALS: BP 145/86; PULSE 89; RESP 16; TEMP 97.7; O2SAT 100
--- NOTE | 2017-08-23 16:39 | RADRPT ---
EXAM DATE/TIME: 08/23/2017 16:26 [facility] COMPARISON: No previous studies available for comparison. INDICATIONS : Left foot pain, swelling, and inflammation. MEDICAL HISTORY : IV drug user. SURGICAL HISTORY : None. ENCOUNTER: Initial ACUITY: 2 days PAIN SCORE: 10/10 LOCATION: Left foot FINDINGS: Two view examination of the left foot demonstrates no dislocation, or fracture. The calcaneus is int act. Bony mineralization is normal. There is diffuse soft tissue swelling around the mid foot. CONCLUSION: Diffuse soft tissue swelling around the mid foot. The bony structures are grossly intact. Yaya Saul MD on August 23, 2017 at 16:36 Board Certified Radiologist. This report was verified electronically.
--- NOTE | 2017-08-23 17:13 | PD ---
HPI Chief Complaint: Skin Problem Time Seen by Provider: 16:53 Travel History International Travel<30 days: No Contact w/Intl Traveler<30days: No Traveled to known affect area: No History of Present Illness HPI The patient is 32 years old. He reports in addition to IV methamphetamines and arrives complaining of pain in the left foot and right elbow/antecubital fossa. Duration 4 days. Timing constant. He states the pain and left foot is severe and constant and worse with pressure. He denies fever. He denies opioid abuse. PFSH Past Medical History Asthma: No Anxiety: Yes Depression: Yes Cancer: No Cardiovascular Problems: No Chest Pain: No COPD: No Diminished Hearing: No Endocrine: No Genitourinary: No Immune Disorder: No Musculoskeletal: No Neurologic: Yes Psychiatric: Yes (mood disorder, substance abuse, insomnia ) Reproductive: No Respiratory: No Integumentary: Yes (txt recently for infected L sternoclavicular joint ()) Seizures: Yes Sleep Apnea: No Past Surgical History Tympanostomy Tube: Yes Social History Alcohol Use: No Tobacco Use: Yes (08/30 PPD) Substance Use: Yes Allergies-Medications (Allergen,Severity, Reaction): Coded Allergies: No Known Allergies (Verified Allergy, Unknown, 08/23/17) Reported Meds & Prescriptions Reported Meds & Active Scripts Active Clindamycin (Clindamycin HCl) 150 Mg Cap 450 Mg PO Q8HR 10 Days Geodon (Ziprasidone) 20 Mg Cap 20 Mg PO HS Review of Systems Except as stated in HPI: all other systems reviewed are Neg General / Constitutional: No: Fever Physical Exam Narrative GENERAL: 32-year-old male well-nourished well-developed SKIN: Focused skin assessment warm/dry. Numerous areas of erythema. Multiple lesions about the upper or lower extremities concerning for IV drug related infections. HEAD: Atraumatic. Normocephalic. EYES: Pupils equal and round. No scleral icterus. No injection or drainage. ENT: No nasal bleeding or discharge. Mucous membranes pink and moist. NECK: Trachea midline. No JVD. CARDIOVASCULAR: Regular rate and rhythm. No murmur appreciated. RESPIRATORY: No accessory muscle use. Clear to auscultation. Breath sounds equal bilaterally. GASTROINTESTINAL: Abdomen soft, non-tender, nondistended. Hepatic and splenic margins not palpable. MUSCULOSKELETAL: Swelling throughout the right foot with no fluctuance. The right foot is soft. There is 2+ dorsalis pedis pulse. There is an abscess in the right antecubital fossa with minimal fluctuance. 2+ radial artery pulses bilaterally. NEUROLOGICAL: Awake and alert. No obvious cranial nerve deficits. Motor grossly within normal limits. Normal speech. PSYCHIATRIC: Appropriate mood and affect; insight and judgment normal. Data Data Last Documented VS Vital Signs Date Time Temp Pulse Resp B/P (MAP) Pulse Ox O2 Delivery O2 Flow Rate FiO2 08/23/17 19:59 08/23/17 15:58 97.7 89 16 100 VS reviewed Orders Orders Complete Blood Count With Diff (08/23/17 16:07) Comprehensive Metabolic Panel (08/23/17 16:07) Lactic Acid Sepsis Protocol (08/23/17 16:07) Blood Culture (08/23/17 16:07) Foot, Limited (2vws) (08/23/17 ) Clindamycin Inj (Cleocin Inj) (08/23/17 17:30) Sodium Chlor 0.9% 1000 Ml Inj (Ns 1000 M (08/23/17 17:30) Iv Access Insert/Monitor (08/23/17 17:30) Ketorolac Inj (Toradol Inj) (08/23/17 17:45) Ed Discharge Order (08/23/17 19:08) Labs Laboratory Tests Test 08/23/17 17:53 White Blood Count 9.8 TH/MM3 Red Blood Count 4.40 MIL/MM3 Hemoglobin 13.4 GM/DL Hematocrit 37.9 % Mean Corpuscular Volume 86.2 FL Mean Corpuscular Hemoglobin 30.4 PG Mean Corpuscular Hemoglobin Concent 35.2 % Red Cell Distribution Width 14.1 % Platelet Count 232 TH/MM3 Mean Platelet Volume 7.1 FL Neutrophils (%) (Auto) 66.8 % Lymphocytes (%) (Auto) 21.7 % Monocytes (%) (Auto) 8.6 % Eosinophils (%) (Auto) 2.5 % Basophils (%) (Auto) 0.4 % Neutrophils # (Auto) 6.5 TH/MM3 Lymphocytes # (Auto) 2.1 TH/MM3 Monocytes # (Auto) 0.8 TH/MM3 Eosinophils # (Auto) 0.2 TH/MM3 Basophils # (Auto) 0.0 TH/MM3 CBC Comment AUTO DIFF Differential Comment AUTO DIFF CONFIRMED Platelet Estimate NORMAL Platelet Morphology Comment NORMAL Blood Urea Nitrogen 14 MG/DL Creatinine 0.98 MG/DL Random Glucose 80 MG/DL Total Protein 8.0 GM/DL Albumin 3.6 GM/DL Calcium Level 9.1 MG/DL Alkaline Phosphatase 91 U/L Aspartate Amino Transf (AST/SGOT) 41 U/L Alanine Aminotransferase (ALT/SGPT) 59 U/L Total Bilirubin 0.7 MG/DL Sodium Level 133 MEQ/L Potassium Level 4.2 MEQ/L Chloride Level 98 MEQ/L Carbon Dioxide Level 26.3 MEQ/L Anion Gap 9 MEQ/L Estimat Glomerular Filtration Rate 88 ML/MIN Lactic Acid Level 1.1 mmol/L [facility] Medical Decision Making Medical Screen Exam Complete: Yes Emergency Medical Condition: Yes Medical Record Reviewed: Yes Differential Diagnosis Sepsis, abscess, cellulitis Narrative Course CBC & BMP Diagram 08/23/17 17:53 Total Protein 8.0, Albumin 3.6, Calcium Level 9.1, Alkaline Phosphatase 91, Aspartate Amino Transf (AST/SGOT) 41 H, Alanine Aminotransferase (ALT/SGPT) 59, Total Bilirubin 0.7 Unfortunately the patient has an abscess in the region of the right antecubital fossae and cellulitis left foot. He refuses to allow us to drain the right antecubital fossa abscess. Of course with a history of IV drug abuse and endocarditis is of concern with the patient. Fortunately he has no tachycardia and no murmur. He also has no chest pain or shortness of breath. In this scenario admission to do a full diagnostic evaluation for endocarditis is considered an appropriate given the extremely low pretest probability. Clindamycin prescribed. We discussed the necessity of strict clindamycin compliance. The patient verbalized agreement. He understands he can return should symptoms worsen. Diagnosis Primary Impression: Cellulitis Qualified Codes: L03.116 - Cellulitis of left lower limb Additional Impression: Abscess Referrals: Primary Care Physician 2 days Med/Other Pt SpecificInfo: Prescription(s) given Scripts Clindamycin (Clindamycin) 150 Mg Cap 450 MG PO Q8HR for Infection for 10 Days, CAP 0 Refills Prov: David Chou MD 08/23/17 Disposition: 01 DISCHARGE HOME Condition: Stable David Chou MD Aug 23, 2017 17:13
[2017-08-23] MEDS ORDERED: CLINDAMYCIN INJ 900 MG in SODIUM CHLORIDE 0.9% INJ 100 ML IV ONE (17:30)
[2017-08-23] MEDS ORDERED: SODIUM CHLOR 0.9% 1000 ML INJ 1,000 ML IV ONE (17:30)
[2017-08-23] MEDS ORDERED: KETOROLAC TROMETHAMINE 30 MG/ML (IVP) VIAL IV PUSH ONE (17:45)
[2017-08-23 18:34] LABS: AUTOMATED NEUTROPHIL # 6.5 TH/MM3 (1.8-7.7); BASOPHIL % 0.4 % (0.0-2.0); EOSINOPHIL # 0.2 TH/MM3 (0-0.4); EOSINOPHIL % 2.5 % (0.0-4.0); HEMATOCRIT 37.9 % (39.0-51.0); HEMOGLOBIN 13.4 GM/DL (13.0-17.0); LYMPH % 21.7 % (9.0-44.0); LYMPHOCYTE # 2.1 TH/MM3 (1.0-4.8); MEAN CELL VOLUME 86.2 FL (80.0-100.0); MEAN CORPUSCULAR HEMOGLOBIN 30.4 PG (27.0-34.0); MEAN CORPUSCULAR HGB CONC 35.2 % (32.0-36.0); MEAN PLATELET VOLUME 7.1 FL (7.0-11.0); MONO % 8.6 % (0.0-8.0); MONOCYTE # 0.8 TH/MM3 (0-0.9); NEUT % 66.8 % (16.0-70.0); PLATELET COUNT 232 TH/MM3 (150-450); RED CELL DISTRIBUTION WIDTH 14.1 % (11.6-17.2); WHITE BLOOD COUNT 9.8 TH/MM3 (4.0-11.0)
[2017-08-23 18:36] LABS: ALBUMIN 3.6 GM/DL (3.4-5.0); AST (GOT) 41 U/L (15-37); BICARBONATE 26.3 MEQ/L (21.0-32.0); BLOOD UREA NITROGEN 14 MG/DL (7-18); CALCIUM 9.1 MG/DL (8.5-10.1); CHLORIDE 98 MEQ/L (98-107); CREATININE 0.98 MG/DL (0.60-1.30); GLOMERULAR FILTRATION RATE 88 ML/MIN (>89); GLUCOSE,RANDOM 80 MG/DL (74-106); SODIUM (NA) 133 MEQ/L (136-145)
[2017-08-23 18:37] LABS: ALT (GPT) 59 U/L (12-78)
[2017-08-23 18:40] LABS: ALKALINE PHOSPHATASE 91 U/L (45-117); TOTAL BILIRUBIN ADULT 0.7 MG/DL (0.2-1.0)
[2017-08-23] MEDS ORDERED: CLIN150C14 PO (18:54)
[2017-08-24] MEDS ORDERED: BACT800T5 PO (10:04)
== END 2017-08-23 20:02 | disposition home or self-care (01) ==
LOC: NEPC 15:53
DX: L03.116 Cellulitis of left lower limb (principal); L02.413 Cutaneous abscess of right upper limb; B95.7 Other staphylococcus as the cause of diseases classified elsewhere; F15.10 Other stimulant abuse, uncomplicated; F17.200 Nicotine dependence, unspecified, uncomplicated; F32.9 Major depressive disorder, single episode, unspecified; F41.9 Anxiety disorder, unspecified
CPT/HCPCS: 73620; 80053; 83605; 85025; 86403; 87040; 87077; 87186; 96361; 96374; 96375; 99285; J1885; J7030

== ENCOUNTER 2017-08-24 09:02 | Inpatient (IN) | payer SELFPAY ==
[~2017-08-24] VITALS: Ht 188 cm; Wt 81.6 kg
[~2017-08-24 09:02] MED LIST changes: -BACT800T5 PO; +CLIN150C14 PO; -VALP250 PO
[2017-08-24 09:04] VITALS: BP 134/76; PULSE 91; RESP 20; TEMP 98.6; O2SAT 99
--- NOTE | 2017-08-24 09:26 | PD ---
HPI Chief Complaint: Lump, Cyst, Hernia Time Seen by Provider: 09:15 Travel History International Travel<30 days: No Contact w/Intl Traveler<30days: No Traveled to known affect area: No History of Present Illness HPI 32-year-old male presents emergency Department requesting incision and drainage of an abscess to his right antecubital area. Duration 4 days. Admits to IV drug use. Is also complaining of left foot pain, swelling and redness. Denies injury. Reports being seen at [facility] 3 days ago and had incision and drainage of the right antecubital abscess. Has been taking Bactrim. Reports being seen here last night for complaint of the left foot and says he got mad and left because the doctor would not give him pain medications. Denies fever, vomiting. Denies paresthesias, loss of sensation to the affected extremities. Pain is severe. Aggravated with movement, palpation, ambulation. No known relieving factors. No known allergies. No primary care provider. No other medical complaints. No other modifying factors or associated signs and symptoms. PFSH Past Medical History Asthma: No Bipolar Disorder: Yes Anxiety: Yes Depression: Yes Cancer: No Cardiovascular Problems: No Chest Pain: No COPD: No Diminished Hearing: No Endocrine: No Genitourinary: No Immune Disorder: No Musculoskeletal: No Neurologic: Yes Psychiatric: Yes (mood disorder, substance abuse, insomnia ) Reproductive: No Respiratory: No Integumentary: Yes (txt recently for infected L sternoclavicular joint ()) Immunizations Current: Yes Schizophrenia: Yes Seizures: Yes Sleep Apnea: No Past Surgical History Tympanostomy Tube: Yes Social History Alcohol Use: No Tobacco Use: Yes (1/2 PPD) Substance Use: Yes (METH) Allergies-Medications (Allergen,Severity, Reaction): Coded Allergies: No Known Allergies (Verified Allergy, Unknown, 08/24/17) Reported Meds & Prescriptions Reported Meds & Active Scripts Active Geodon (Ziprasidone) 20 Mg Cap 20 Mg PO HS Reported Bactrim DS (Sulfamethoxazole-Trimethoprim) 800-160 Mg Tab 1 Tab PO BID Review of Systems Except as stated in HPI: all other systems reviewed are Neg Physical Exam Narrative GENERAL: Well-nourished, well-developed male patient, in no acute distress; afebrile, nontoxic-appearing SKIN: There is an indurated area to the right antecubital area which has been previously I&D and there is iodoform packing intact; area is without fluctuance or drainage. There is a zone of inflammation around it but no lymphangitis. No right axillary lymphadenopathy. Right forearm is edematous and mildly erythematous; 2+ radial pulse and sensory intact. Left foot, ankle, lower extremity is edematous and erythematous with warmth to touch; there is a open wound between the fourth and fifth toes; 2+ radial pulse and sensory intact. HEAD: Atraumatic. Normocephalic. EYES: Pupils equal and round. No scleral icterus. No injection or drainage. ENT: Mucosa pink and moist. Airway patent. NECK: Trachea midline. CARDIOVASCULAR: Regular rate. RESPIRATORY: No accessory muscle use. GASTROINTESTINAL: Flat. MUSCULOSKELETAL: No obvious deformities. No clubbing. No cyanosis. No edema. NEUROLOGICAL: Awake and alert. Oriented 3. No obvious cranial nerve deficits. Motor grossly within normal limits. Normal speech. PSYCHIATRIC: Appropriate mood and affect; insight and judgment normal. Data Data Last Documented VS Vital Signs Date Time Temp Pulse Resp B/P (MAP) Pulse Ox O2 Delivery O2 Flow Rate FiO2 08/24/17 09:04 98.6 91 20 134/76 (95) 99 Room Air Orders Orders Basic Metabolic Panel (Bmp) (08/24/17 09:28) Complete Blood Count With Diff (08/24/17 09:28) Sodium Chlor 0.9% 1000 Ml Inj (Ns 1000 M (08/24/17 09:28) Sodium Chloride 0.9% Flush (Ns Flush) (08/24/17 09:30) Ketorolac Inj (Toradol Inj) (08/24/17 09:30) Clindamycin Inj (Cleocin Inj) (08/24/17 09:30) Ankle, Complete ([id number]) (08/24/17 10:32) Labs Laboratory Tests Test 08/24/17 09:45 White Blood Count 9.8 TH/MM3 Red Blood Count 4.38 MIL/MM3 Hemoglobin 13.0 GM/DL Hematocrit 37.5 % Mean Corpuscular Volume 85.7 FL Mean Corpuscular Hemoglobin 29.6 PG Mean Corpuscular Hemoglobin Concent 34.5 % Red Cell Distribution Width 14.4 % Platelet Count 201 TH/MM3 Mean Platelet Volume 6.8 FL Neutrophils (%) (Auto) 71.5 % Lymphocytes (%) (Auto) 18.0 % Monocytes (%) (Auto) 7.3 % Eosinophils (%) (Auto) 2.6 % Basophils (%) (Auto) 0.6 % Neutrophils # (Auto) 7.0 TH/MM3 Lymphocytes # (Auto) 1.8 TH/MM3 Monocytes # (Auto) 0.7 TH/MM3 Eosinophils # (Auto) 0.3 TH/MM3 Basophils # (Auto) 0.1 TH/MM3 CBC Comment DIFF FINAL Differential Comment Blood Urea Nitrogen 11 MG/DL Creatinine 0.93 MG/DL Random Glucose 88 MG/DL Calcium Level 9.1 MG/DL Sodium Level 135 MEQ/L Potassium Level 3.7 MEQ/L Chloride Level 101 MEQ/L Carbon Dioxide Level 26.8 MEQ/L Anion Gap 7 MEQ/L Estimat Glomerular Filtration Rate 93 ML/MIN MDM Medical Decision Making Medical Screen Exam Complete: Yes Emergency Medical Condition: Yes Medical Record Reviewed: Yes Differential Diagnosis Sepsis, outpatient treatment failure, cellulitis, osteomyelitis, IV drug abuse Narrative Course 32-year-old male who was seen here yesterday with the same complaint of an abscess to his right antecubital area and left her extremity cellulitis. Right antecubital abscess previously indeed an iodoform packing was removed; the area is nonfluctuant and without drainage. Labs from 08/23/17 were drawn and CBC, CMP were unremarkable. Lactic acid was 1.1. Blood cultures are pending. A left foot x-ray concluded diffuse soft tissue swelling around the midfoot. Clindamycin IV was administered yesterday also. Repeat CBC and BMP today. IV site obtained. NS saline bolus, clindamycin IV ordered. Plan is to admit the patient for failure of outpatient treatment. 1007: CBC unremarkable. 1020: Spoke with Dr. Chou, who care for the patient last night, and he says the left side is worse and the patient should probably be admitted and he recommended x-raying the ankle because only the foot was x-rayed yesterday. Left foot x-ray ordered. 1033: EMP is unremarkable. Patient to be admitted. 1106: I spoke with MATT Huber and report was given for patient admission. Physician Communication Physician Communication MATT Huber Diagnosis Primary Impression: Failure of outpatient treatment Additional Impressions: Abscess of antecubital fossa Cellulitis of left lower extremity IV drug abuse Admitting Information Admitting Physician Requests: Admit Ro Sargent Aug 24, 2017 09:26
[2017-08-24] MEDS ORDERED: SODIUM CHLOR 0.9% 1000 ML INJ 1,000 ML IV SCH (09:28)
[2017-08-24] MEDS ORDERED: SODIUM CHLORIDE 0.9% FLUSH 10 ML FLUSH IV FLUSH PRN ×2 (09:30→11:15)
[2017-08-24] MEDS ORDERED: KETOROLAC TROMETHAMINE 30 MG/ML (IVP) VIAL IV PUSH ONE (09:30)
[2017-08-24] MEDS ORDERED: CLINDAMYCIN INJ 600 MG in SODIUM CHLORIDE 0.9% INJ 100 ML IV ONE (09:30)
[2017-08-24 09:58] LABS: BASOPHIL # 0.1 TH/MM3 (0-0.2); BASOPHIL % 0.6 % (0.0-2.0); EOSINOPHIL # 0.3 TH/MM3 (0-0.4); EOSINOPHIL % 2.6 % (0.0-4.0); HEMATOCRIT 37.5 % (39.0-51.0); LYMPHOCYTE # 1.8 TH/MM3 (1.0-4.8); MEAN CELL VOLUME 85.7 FL (80.0-100.0); MEAN CORPUSCULAR HEMOGLOBIN 29.6 PG (27.0-34.0); MEAN CORPUSCULAR HGB CONC 34.5 % (32.0-36.0); MEAN PLATELET VOLUME 6.8 FL (7.0-11.0); MONO % 7.3 % (0.0-8.0); MONOCYTE # 0.7 TH/MM3 (0-0.9); NEUT % 71.5 % (16.0-70.0); PLATELET COUNT 201 TH/MM3 (150-450); RED BLOOD COUNT 4.38 MIL/MM3 (4.50-5.90); RED CELL DISTRIBUTION WIDTH 14.4 % (11.6-17.2); WHITE BLOOD COUNT 9.8 TH/MM3 (4.0-11.0)
[2017-08-24] MEDS ORDERED: BACT800T5 PO (10:04)
[2017-08-24 10:21] LABS: BICARBONATE 26.8 MEQ/L (21.0-32.0); CALCIUM 9.1 MG/DL (8.5-10.1); CREATININE 0.93 MG/DL (0.60-1.30)
[2017-08-24] MEDS ORDERED: MAGNESIUM HYDROXIDE SUSP 30 ML CUP PO PRN (11:15)
[2017-08-24] MEDS ORDERED: ONDANSETRON HCL 4 MG/2 ML VIAL IVP PRN (11:15)
[2017-08-24] MEDS ORDERED: ACETAMINOPHEN 325 MG TAB PO PRN ×2 (11:15)
[2017-08-24] MEDS ORDERED: NALOXONE HCL 0.4 MG/ML AMP IV PUSH PRN (11:15)
--- NOTE | 2017-08-24 11:21 | RADRPT ---
EXAM DATE/TIME: 08/24/2017 10:49 [facility] COMPARISON: FOOT LEFT LIMITED (2VWS), August 23, 2017, 16:26. INDICATIONS : Left foot and ankle inflammed and swollen for several days, foot was xrayed yesterday MEDICAL HISTORY : IV drug user, prior infections SURGICAL HISTORY : None. ENCOUNTER: [facility] ACUITY: 3 days PAIN SCORE: 10/10 LOCATION: Left ankle FINDINGS: Three view exam was performed of the left ankle. The bony structures are in normal alignment. Struct ures appear intact without evidence for erosive bony change or of acute fracture. The ankle mortise is intact. No radiopaque foreign bodies are seen. Bony mineralization is normal. CONCLUSION: 1. No radiopaque foreign bodies or radiographically evidence for osteomyelitis. Liu Robert MD on August 24, 2017 at 11:17 Board Certified Radiologist. This report was verified electronically.
[2017-08-24] MEDS: ACETAMINOPHEN/HYDROcodone 325 MG/5 MG TAB PO PRN ×3 (12:03→22:44)
[2017-08-24] MEDS: ENOXAPARIN SODIUM 40 MG/0.4 ML SYRINGE SQ SCH (12:03)
[2017-08-24 12:08] VITALS: BP 139/59; PULSE 85; RESP 20; TEMP 97.8; O2SAT 100
--- NOTE | 2017-08-24 13:21 | HHI.HP ---
HPI Service [facility] Primary Care Physician No Primary Care Physician Admission Diagnosis outpt tx failure, R arm abscess, LLE cellulitis, ivda Diagnoses: (1) Disseminated infection (2) Abscess of antecubital fossa (3) Cellulitis of left lower extremity (4) IV drug abuse (5) Hepatitis C (6) Substance abuse Chief Complaint: pain and swollen left leg and right arm Travel History International Travel<30 Days: No Contact w/Intl Traveler <30 Da: No Traveled to Known Affected Are: No History of Present Illness 32-year-old male IV drug user known to me from recent hospitalization 07/27/17 during which patient was treated for bilateral lower extremity cellulitis and had at the time and negative 2-D echo without any evidence of vegetation, presented to the ED for evaluation of swelling and painful left lower extremity 3 days with worsening erythema. Patient reports subjective fever. Apparently, 3 days ago patient was seen at [facility] where he had an incision and drainage of the right antecubital abscess. Patient continue ongoing use of IV drug , mostly injected to both arms. States, the pain to his left lower extremity is above 8 out of 10 in intensity and patient is requesting stronger medications. He also noticed drainage for left fourth and fifth toe over the past 2 days. He denies any GI bleed, chest pain. Review of Systems Except as stated in HPI: all other systems reviewed are Neg Past Family Social History Past Medical History Hep C Substance abuse Past Surgical History Broken bones in arms and legs type of sx Reported Medications Geodon (Ziprasidone) 20 Mg Cap 20 Mg PO HS Reported Bactrim DS (Sulfamethoxazole-Trimethoprim) 800-160 Mg Tab 1 Tab PO BID Allergies: Coded Allergies: No Known Allergies (Verified Allergy, Unknown, 08/24/17) Family History Family positive for heart disease Father alcoholic Grandfather- kidney and pancreas problems Social History about 1/2 pack a day smoker He denies alcohol drugs- Opioids, Meth, marijuana, heroine sometimes Physical Exam Vital Signs Vital Signs Date Time Temp Pulse Resp B/P (MAP) Pulse Ox O2 Delivery O2 Flow Rate FiO2 08/24/17 12:08 97.8 85 20 139/59 (85) 100 08/24/17 11:25 08/24/17 09:04 98.6 91 20 134/76 (95) 99 Room Air Physical Exam GENERAL: This is a well-nourished, well-developed patient, in no apparent distress. SKIN: He has an area of induration to the right antecubital without any drainage. Left foot, ankle and lower extremity is erythematous and edematous. There is an open wound between the fourth and fifth toe with some drainage HEAD: Atraumatic. Normocephalic. No temporal or scalp tenderness. EYES: Pupils equal round and reactive. Extraocular motions intact. No scleral icterus. No injection or drainage. ENT: Nose without bleeding, purulent drainage or septal hematoma. Throat without erythema, tonsillar hypertrophy or exudate. Uvula midline. Airway patent. NECK: Trachea midline. No JVD or lymphadenopathy. Supple, nontender, no meningeal signs. CARDIOVASCULAR: Regular rate and rhythm without murmurs, gallops, or rubs. RESPIRATORY: Clear to auscultation. Breath sounds equal bilaterally. No wheezes , rales, or rhonchi. GASTROINTESTINAL: Abdomen soft, non-tender, nondistended. No hepato-splenomegaly , or palpable masses. No guarding. MUSCULOSKELETAL: Extremities without clubbing, cyanosis, or edema. No joint tenderness, effusion, or edema noted. No calf tenderness. Negative Homans sign bilaterally. NEUROLOGICAL: Awake and alert. Cranial nerves II through XII intact. Motor and sensory grossly within normal limits. Five out of 5 muscle strength in all muscle groups. Normal speech. Laboratory Laboratory Tests Test 08/24/17 09:45 White Blood Count 9.8 Red Blood Count 4.38 Hemoglobin 13.0 Hematocrit 37.5 Mean Corpuscular Volume 85.7 Mean Corpuscular Hemoglobin 29.6 Mean Corpuscular Hemoglobin Concent 34.5 Red Cell Distribution Width 14.4 Platelet Count 201 Mean Platelet Volume 6.8 Neutrophils (%) (Auto) 71.5 Lymphocytes (%) (Auto) 18.0 Monocytes (%) (Auto) 7.3 Eosinophils (%) (Auto) 2.6 Basophils (%) (Auto) 0.6 Neutrophils # (Auto) 7.0 Lymphocytes # (Auto) 1.8 Monocytes # (Auto) 0.7 Eosinophils # (Auto) 0.3 Basophils # (Auto) 0.1 CBC Comment DIFF FINAL Differential Comment Blood Urea Nitrogen 11 Creatinine 0.93 Random Glucose 88 Calcium Level 9.1 Sodium Level 135 Potassium Level 3.7 Chloride Level 101 Carbon Dioxide Level 26.8 Anion Gap 7 Estimat Glomerular Filtration Rate 93 Result Diagram: 08/24/17 0945 08/24/17 0945 Imaging Last Impressions Ankle X-Ray 08/24/17 1032 Signed Impressions: Service Date/Time: Thursday, August 24, 2017 10:49 - CONCLUSION: 1. No radiopaque foreign bodies or radiographically evidence for osteomyelitis. Liu Robert MD Septic Shock Reassessment Septic shock perfusion: reassessment completed Caprini VTE Risk Assessment Caprini VTE Risk Assessment: No/Low Risk (score <= 1) Caprini Risk Assessment Model Point Value = 1 Point Value = 2 Point Value = 3 Point Value = 5 Age 41-60 Minor surgery BMI > 25 kg/m2 Swollen legs Varicose veins or History of unexplained or recurrent spontaneous Oral contraceptives or hormone replacement Sepsis (< 1 month) Serious lung disease, including pneumonia (< 1 month) Abnormal pulmonary function Acute myocardial infarction Congestive heart failure (< 1 month) History of inflammatory bowel disease Medical patient at bed rest Age 61-74 Arthroscopic surgery Major open surgery (> 45 min) Laparoscopic surgery (> 45 min) Malignancy Confined to bed (> 72 hours) Immobilizing plaster cast Central venous access Age >= 75 History of VTE Family history of VTE Factor V Leiden Prothrombin [id number] Lupus anticoagulant Anticardiolipin antibodies Elevated serum homocysteine Heparin-induced thrombocytopenia Other congenital or acquired thrombophilia Stroke (< 1 month) Elective arthroplasty Hip, pelvis, or leg fracture Acute spinal cord injury (< 1 month) Prophylaxis Regimen Total Risk Factor Score Risk Level Prophylaxis Regimen 0-1 Low Early ambulation 2 Moderate Order ONE of the following: *Sequential Compression Device (SCD) *Heparin 5000 units SQ BID 3-4 Higher Order ONE of the following medications: *Heparin 5000 units SQ TID *Enoxaparin/Lovenox 40 mg SQ daily (WT < 150 kg, CrCl > 30 mL/min) *Enoxaparin/Lovenox 30 mg SQ daily (WT < 150 kg, CrCl > 10-29 mL/min) *Enoxaparin/Lovenox 30 mg SQ BID (WT < 150 kg, CrCl > 30 mL/min) AND/OR *Sequential Compression Device (SCD) 5 or more Highest Order ONE of the following medications: *Heparin 5000 units SQ TID (Preferred with Epidurals) *Enoxaparin/Lovenox 40 mg SQ daily (WT < 150 kg, CrCl > 30 mL/min) *Enoxaparin/Lovenox 30 mg SQ daily (WT < 150 kg, CrCl > 10-29 mL/min) *Enoxaparin/Lovenox 30 mg SQ BID (WT < 150 kg, CrCl > 30 mL/min) AND *Sequential Compression Device (SCD) Assessment and Plan Problem List: (1) Cellulitis of left lower extremity ICD Code: L03.116 - Cellulitis of left lower limb Status: Acute (2) Abscess of antecubital fossa ICD Code: L02.419 - Cutaneous abscess of limb, unspecified Status: Acute (3) Disseminated infection ICD Code: B99.9 - Unspecified infectious disease (4) Hepatitis C ICD Code: B19.20 - Unspecified viral hepatitis C without hepatic coma (5) Substance abuse ICD Code: F19.10 - Other psychoactive substance abuse, uncomplicated Status: Acute (6) IV drug abuse ICD Code: F19.10 - Other psychoactive substance abuse, uncomplicated Status: Acute (7) Tobacco abuse ICD Code: Z72.0 - Tobacco use (8) Tobacco abuse counseling ICD Code: Z71.6 - Tobacco abuse counseling Assessment and Plan 32-year-old man with Abscess of antecubital fossa Left lower extremity cellulitis Left fourth and fifth toe open wound with drainage Disseminated infection-staph? Patient recently admitted 07/27/17 treated for cellulitis with culture of wound at the time positive for staph aureus pansensitive Status post 600 gram IV clindamycin 1 in ED, continue clindamycin 900 mg IV every 8H pending culture report. Adjust antibiotic accordingly and PRN ID consult Obtain I&D culture report of right antecubital from [facility] Obtain wound culture from fourth and fifth toe History of IV drug use Recent 2-D echo 07/27/17 without any evidence of vegetation Patient was again extensively counseled against Hepatitis C Chronic Tobacco abuse Tobacco counseling cessation provided Nicotine patch DVT prophylaxis: Lovenox Code Status Full code Discussed Condition With Patient, ED [employer] Physician Certification 2 Midnight Certification Type: Admission for Inpatient Services Order for Inpatient Services The services are ordered in accordance with Medicare regulations or non- Medicare payer requirements, as applicable. In the case of services not specified as inpatient-only, they are appropriately provided as inpatient services in accordance with the 2-midnight benchmark. Estimated LOS (days): 2 days is the estimated time the patient will need to remain in the hospital, assuming treatment plan goals are met and no additional complications. Post-Hospital Plan: Not yet determined Russell Astudillo MD Aug 24, 2017 13:21
[2017-08-24] MEDS: CLINDAMYCIN 900 MG/NS PREMIX 50 ML IV SCH (17:27)
[2017-08-24 19:32] VITALS: BP 118/61; PULSE 80; RESP 16; TEMP 97.7; O2SAT 99
[2017-08-24] MEDS: LACTOBACILLUS ACIDOPHILUS TAB PO SCH (20:39)
[2017-08-24] MEDS: REMOVE OLD PATCH T-DERMAL SCH (20:40)
[2017-08-24] MEDS: traMADol HCL 50 MG TAB PO PRN (20:40)
[2017-08-24] MEDS: SODIUM CHLORIDE 0.9% FLUSH 10 ML FLUSH IV FLUSH SCH (20:40)
[2017-08-25] MEDS: traMADol HCL 50 MG TAB PO PRN ×2 (00:52→12:28)
[2017-08-25] MEDS: CLINDAMYCIN 900 MG/NS PREMIX 50 ML IV SCH ×3 (01:56→17:08)
[2017-08-25] MEDS: ACETAMINOPHEN/HYDROcodone 325 MG/5 MG TAB PO PRN ×4 (02:41→23:30)
[2017-08-25 03:45] VITALS: BP 118/62; PULSE 73; RESP 16; TEMP 97.5; O2SAT 99
[2017-08-25 08:05] VITALS: BP 109/63; PULSE 77; RESP 20; TEMP 98; O2SAT 100
[2017-08-25] MEDS: LACTOBACILLUS ACIDOPHILUS TAB PO SCH ×2 (09:11→21:00)
[2017-08-25] MEDS: NICOTINE 21 MG/24 HR PATCH T-DERMAL SCH (09:16)
[2017-08-25] MEDS: SODIUM CHLORIDE 0.9% FLUSH 10 ML FLUSH IV FLUSH SCH ×2 (09:16→21:00)
[2017-08-25 12:05] VITALS: BP 124/70; PULSE 75; RESP 20; TEMP 98.1; O2SAT 100
[2017-08-25] MEDS: ENOXAPARIN SODIUM 40 MG/0.4 ML SYRINGE SQ SCH (12:28)
[2017-08-25 16:05] VITALS: BP 117/56; PULSE 88; RESP 20; TEMP 97.5; O2SAT 98
--- NOTE | 2017-08-25 16:05 | HHI.PR ---
Subjective Remarks Reports that pain continues and right antecubital fossa. Reports most recent IV drug use 2 days ago. Denies any chest pain or shortness of breath. Objective Vital Signs Date Time Temp Pulse Resp B/P (MAP) Pulse Ox O2 Delivery O2 Flow Rate FiO2 08/25/17 12:05 98.1 75 20 124/70 (88) 100 08/25/17 10:12 20 08/25/17 08:05 98.0 77 20 109/63 (78) 100 08/25/17 03:45 97.5 73 16 118/62 (80) 99 08/24/17 19:32 97.7 80 16 118/61 (80) 99 I/O 08/24/17 08/24/17 08/24/17 08/25/17 08/25/17 08/25/17 07:00 15:00 23:00 07:00 15:00 23:00 Intake Total 1104 ml 360 ml 770 ml Balance 1104 ml 360 ml 770 ml Intake Oral 360 ml 720 ml IV Total 1104 ml 50 ml # Voids 4 1 # Bowel Movements 1 0 Result Diagram: 08/24/17 0945 08/24/17 0945 Imaging Last Impressions Ankle X-Ray 08/24/17 1032 Signed Impressions: Service Date/Time: Thursday, August 24, 2017 10:49 - CONCLUSION: 1. No radiopaque foreign bodies or radiographically evidence for osteomyelitis. Liu Robert MD Objective Remarks GENERAL: Sitting in bed. Appears comfortable. [place] 3. SKIN: Warm and dry. HEAD: Normocephalic. EYES: No scleral icterus. No injection or drainage. NECK: Supple, trachea midline. No JVD. CARDIOVASCULAR: Regular rate and rhythm without murmurs, gallops, or rubs. RESPIRATORY: Breath sounds equal bilaterally. No accessory muscle use. GASTROINTESTINAL: Abdomen soft, non-tender, nondistended. MUSCULOSKELETAL: No cyanosis, or edema. Right AC abscess, 2x1 cm with sq induration. BACK: Nontender without obvious deformity. No CVA tenderness. A/P Assessment and Plan 32-year-old man with //Abscess of antecubital fossa //Left lower extremity cellulitis //Left fourth and fifth toe open wound with drainage //Disseminated infection-staph? Patient recently admitted 07/27/17 treated for cellulitis with culture of wound at the time positive for staph aureus pansensitive Status post 600 gram IV clindamycin 1 in ED, continue clindamycin 900 mg IV every 8H pending culture report. Adjust antibiotic accordingly and PRN ID consult Obtain I&D culture report of right antecubital from [facility] Obtain wound culture from fourth and fifth toe = Infectious disease. cont IV antibiotics. consult ortho for I+d. Obtain outside records. //History of IV drug use Recent 2-D echo 07/27/17 without any evidence of vegetation Patient was again extensively counseled against //Hepatitis C Chronic //Tobacco abuse Tobacco counseling cessation provided Nicotine patch //DVT prophylaxis: Lovenox Discharge Planning pending ID consult. Anselmo Rivas MD Aug 25, 2017 16:05
[2017-08-25 17:26] LABS: AUTOMATED NEUTROPHIL # 3.9 TH/MM3 (1.8-7.7); BASOPHIL % 0.7 % (0.0-2.0); EOSINOPHIL # 0.2 TH/MM3 (0-0.4); EOSINOPHIL % 3.3 % (0.0-4.0); HEMATOCRIT 35.5 % (39.0-51.0); HEMOGLOBIN 12.4 GM/DL (13.0-17.0); LYMPH % 23.6 % (9.0-44.0); LYMPHOCYTE # 1.4 TH/MM3 (1.0-4.8); MEAN CELL VOLUME 86.9 FL (80.0-100.0); MEAN CORPUSCULAR HEMOGLOBIN 30.3 PG (27.0-34.0); MEAN CORPUSCULAR HGB CONC 34.8 % (32.0-36.0); MEAN PLATELET VOLUME 7.4 FL (7.0-11.0); MONO % 8.4 % (0.0-8.0); MONOCYTE # 0.5 TH/MM3 (0-0.9); PLATELET COUNT 190 TH/MM3 (150-450); RED BLOOD COUNT 4.09 MIL/MM3 (4.50-5.90); RED CELL DISTRIBUTION WIDTH 14.5 % (11.6-17.2); WHITE BLOOD COUNT 6.2 TH/MM3 (4.0-11.0)
[2017-08-25 17:52] LABS: ALBUMIN 3.1 GM/DL (3.4-5.0); AST (GOT) 43 U/L (15-37); BLOOD UREA NITROGEN 9 MG/DL (7-18); CHLORIDE 104 MEQ/L (98-107); GLOMERULAR FILTRATION RATE 97 ML/MIN (>89); GLUCOSE,RANDOM 98 MG/DL (74-106); SODIUM (NA) 139 MEQ/L (136-145)
[2017-08-25 17:55] LABS: ALKALINE PHOSPHATASE 77 U/L (45-117); ALT (GPT) 62 U/L (12-78); TOTAL BILIRUBIN ADULT 0.3 MG/DL (0.2-1.0)
[2017-08-25 20:00] VITALS: BP 118/67; PULSE 74; RESP 16; TEMP 97.9; O2SAT 99
--- NOTE | 2017-08-25 20:18 | MB ---
cc: JENNIFER CABELLO MD DATE OF CONSULTATION 08/25/17 HISTORY OF PRESENT ILLNESS DATA The patient is a 32-year-old [id number] male who injected drugs into his right upper arm five days ago and now has an abscess. Orthopedics was called, but they refused to see the patient or take part in his care so I was called as a second consult. The patient states it hurts. He also just had Coca-Cola and chips a Hoy. right before I got here tonight. PAST MEDICAL HISTORY 1. Cellulitis 2. IV drug abuse, 3. Hepatitis C. 4. Substance abuse According to reports, he had a negative 2-D echo with no evidence of vegetation. He had lower extremity swelling. He states he was at [facility] where he had an incision and drainage of the right antecubital fossa, but I do not see any incision anywhere. PAST SURGICAL HISTORY Broken bones of the arms and legs. MEDICATIONS 1. Geodon. 2. Bactrim. ALLERGIES NO KNOWN DRUG ALLERGIES FAMILY HISTORY Noncontributory to the right arm infection. SOCIAL HISTORY He smokes, also does opioids, amphetamines, marijuana and heroin. LABORATORY DATA White blood cell count 6.2000, hemoglobin 12.4 gm/dl, platelet count 190,000. Chemistry BUN and creatinine nine and 0.9. REVIEW OF SYSTEMS As stated above. He is not complaining of any weight gain or weight loss. He is not complaining of any headaches, double or blurry vision. He is not complaining of any coughing, wheezing or shortness breath. He is not complaining of any chest pain or palpitations. He is not complaining of any burning, frequency or urgency with urination. He is not complaining of any spine, neck or back pain. He is not complaining of any night sweats, fevers or chills. He is not complaining of any anxiety, depression or suicidal ideations. He is not complaining of any hair loss. PHYSICAL EXAMINATION GENERAL: Well-developed, well-nourished in no apparent distress. VITAL SIGNS: Temperature is 97.5, heart rate 88, respiratory rate 20, blood pressure 117/56, pulse ox 90% on room air. Examination of the right upper extremity reveals full active range of motion. He has a silver dollar sized abscess 5 cm proximal to his elbow on the medial aspect of his arm. He is neurovascularly intact throughout. There is fluctuance. There is surrounding induration that does go down to the antecubital area. There is no streaking proximally. It is very tender to touch and the patient will not let me examine him fully. Palpable radial pulses. All musculotendinous units appear intact. His respiratory effort is normal. He is cooperative and not unpleasant. IMPRESSION 1. Right upper extremity upper arm abscess. 2. Cellulitis left lower extremity. 3. IV drug abuse 4. Hepatitis C 5. Substance abuse PLAN Go urgently to the operating room. We are going to have to do this at 1 o'clock in the morning at the earliest as the patient just had Chips a Hoy. I discussed this with him and his nurse. He understands, agrees and wishes to proceed. MD POWER Hunter III/ /6:58 PM /7:52 PM
[2017-08-25] MEDS ORDERED: POVIDONE IODINE 5% (ANTISEPSIS KIT) 4 APPLICATIONS EACH NARE PRN (20:30)
[2017-08-25] MEDS ORDERED: CHLORHEXIDINE GLUCONATE 2 % 1 PACK (2 CLOTHS) TOPICAL PRN (20:30)
[2017-08-25] MEDS ORDERED: SODIUM CHLORID 0.9% 500 ML IV PRN (20:30)
[2017-08-25] MEDS ORDERED: LACTATED RINGER'S 1000 ML IV PRN (20:30)
[2017-08-25] MEDS: REMOVE OLD PATCH T-DERMAL SCH (21:00)
--- NOTE | 2017-08-25 22:34 | EKG ---
Date Performed: 08/25/2017 Time Performed: 21:06:56 PTAGE: 32 years EKG: Sinus rhythm POSSIBLE RIGHT VENTRICULAR CONDUCTION DELAY BORDERLINE ECG PREVIOUS TRACING : 07/26/2017 22.07 Compared to prior tracing no significant change DOCTOR: Henrique Chou Interpretating Date/Time 08/25/2017 22:32:38
[2017-08-26] VITALS (7 sets, daily range): BP systolic 106–131; BP diastolic 57–72; PULSE 68–95; RESP 16–20; TEMP 97.4–98; O2SAT 94–99
[2017-08-26] MEDS ORDERED: BUPIVACAINE HCL PF 0.5% 30 ML VIAL ONE (00:25)
[2017-08-26] MEDS ORDERED: LIDOCAINE HCL 2% 50 ML VIAL ONE (00:25)
[2017-08-26] MEDS ORDERED: GENTAMICIN SULFATE 80 MG/2 ML VIAL ONE (00:58)
[2017-08-26] MEDS ORDERED: MORPHINE SULFATE 4 MG/ML INJ ONE (01:13)
[2017-08-26] MEDS: CLINDAMYCIN 900 MG/NS PREMIX 50 ML IV SCH ×2 (01:17→09:36)
[2017-08-26] MEDS ORDERED: VANCOMYCIN 1,000 MG/NS 250 ML IV ONE ×4 (02:00→04:00)
--- NOTE | 2017-08-26 02:07 | HHI.PR ---
Immediate Post Op Note Procedure Date: Aug 26, 2017 Pre Op Diagnosis: (1) Abscess of upper arm Post Op Diagnosis: Surgeon: Zenon Zarate III Non Destructive Evaluation Manager(s): Procedure: Incision and drainage right upper arm abscess Complications: none Specimen(s) removed: cultures right upper arm abscess Anesthesia: General, Local Drains: None Tourniquet time (min at mmHg) 6 200 Patient to: PACU Patient Condition: Good Zenon Zarate III, MD Aug 26, 2017 02:07
[2017-08-26] MEDS ORDERED: DO NOT ADM ANY ANTICOAGULANT DRUGS PRN (02:15)
[2017-08-26] MEDS ORDERED: *morphine SULFATE 4 MG/ML PERIprocedure ONLY ONE (02:18)
[2017-08-26] MEDS ORDERED: VANCOMYCIN HCL 1000 MG VIAL ONE (02:18)
[2017-08-26] MEDS ORDERED: Vancomycin Consult Pharmacy 1 EA OTHER SCH ×2 (02:30→10:30)
[2017-08-26] MEDS ORDERED: SUGAMMADEX SODIUM 200 MG/2 ML VIAL IV PUSH ONE (02:35)
[2017-08-26] MEDS: IBUPROFEN 800 MG TAB PO PRN ×2 (03:52→16:40)
--- NOTE | 2017-08-26 05:38 | MP ---
cc: ZENON ZARATE III, M.D. DATE OF SURGERY: 08/26/2017 PREOPERATIVE DIAGNOSIS: Right upper arm abscess. PROCEDURE: Right upper arm incision and drainage. POSTOPERATIVE DIAGNOSIS: Right upper arm abscess. SURGEON: Zenon Zarate III, MD. DESCRIPTION OF PROCEDURE: The patient was brought to the operating placed on the operating table. After the correct site and side of surgery was verified by members of each team in the room multiple times, including patient and myself, and after adequate preoperative markings, preoperative written consent were verified by everyone, and after adequate preoperative time out was performed to everyone's satisfaction, and after general anesthesia had been achieved, the right upper extremity was prepped and draped in traditional sterile surgical fashion. The limb was elevated and pressure was held on the brachial artery for a minute. A highly placed well-padded axillary tourniquet was inflated to 200 mmHg for total of six minutes. A transversely oriented incision over the large abscess that was proximal to the elbow medially was made and immediately a large amount of pus came forth and this was sampled. It was suctioned completely free. The abscess cavity was inspected and probed. There were no loculations. There was extension 1 cm any direction. No deep structures were involved. A liter's worth of antiseptic antibiotic detergent saline solution was used to thoroughly flush to the wound out and then it was packed with one-quarter inch Iodoform packing. A bulky soft circumferential dressing was applied. The axillary tourniquet released. The hand and all fingers became immediately soft, warm, and had brisk capillary refill of less than 2 seconds. There was no bleeding or any evidence of hematoma formation. The patient was awakened from anesthesia and transported to Post Anesthesia Care Unit awake and in stable condition at the end of the case. Zenon Zarate III, MD [facility] /1:56 AM /3:56 AM
[2017-08-26] MEDS: SODIUM CHLORIDE 0.9% FLUSH 10 ML FLUSH IV FLUSH SCH ×2 (09:00→20:02)
[2017-08-26] MEDS: LACTOBACILLUS ACIDOPHILUS TAB PO SCH ×2 (09:00→20:02)
[2017-08-26] MEDS: NICOTINE 21 MG/24 HR PATCH T-DERMAL SCH (09:00)
[2017-08-26] MEDS ORDERED: VANCOMYCIN INJ 1,000 MG in SODIUM CHLOR 0.9% 250 ML INJ 250 ML IV SCH (10:30)
--- NOTE | 2017-08-26 10:34 | PD.CONS ---
History of Present Illness Service Infectious disease Consult Requested By Dr Agustin Rivas Reason for Consult Evaluate patient with ?osteo foot Primary Care Physician No Primary Care Physician Diagnoses: History of Present Illness Patient seen and examined. Records reviewed. Patient is a 32-year-old male, presented to the hospital complaining of pain, swelling and redness on his right antecubital fossa. Has known IV drug use and had just injected about 4 days prior to admission. Looks like she first went to the emergency room on August 23 to have that evaluated. It was recommended that they do IND, but the patient refused, and he was given clindamycin. Back this time and is now agreeing to have the procedure done on his right upper extremity. Patient underwent IND yesterday by hand surgery. He is afebrile. He is also complaining of some pain on his left foot. Since admission he has not been febrile. Patient denies injecting in his feet, mostly he injects in his upper extremities. He does skin popping at times. Infectious disease consultation has been requested to evaluate the patient. Review of Systems Constitutional: DENIES: Fever, Chills, Night Sweats Ears, nose, mouth, throat: DENIES: Oral lesions, Throat pain, Ear Pain, Sinus Pain Respiratory: DENIES: Cough, Sputum production, Shortness of breath Cardiovascular: DENIES: Chest pain, Palpitations, Syncope Gastrointestinal: DENIES: Abdominal pain, Diarrhea, Nausea, Vomiting, Difficulty Swallowing Genitourinary: DENIES: Urgency, Hematuria, Dysuria Musculoskeletal: COMPLAINS OF: Joint Swelling, DENIES: Back pain Integumentary: COMPLAINS OF: Rash Neurologic: DENIES: Localized weakness Psychiatric: DENIES: Hallucinations Past Family Social History Allergies: Coded Allergies: No Known Allergies (Verified Allergy, Unknown, 08/24/17) Past Medical History Hep C Known active IVDU Patient states he was treated for osteomyelitis in the ribs in the left upper chest about a year and a half to 2 years ago. Past Surgical History Fracture in arms and legs with repair Reported Medications I attest that I obtained, updated or reviewed the home and current medications. Reported Meds & Active Scripts Active Geodon (Ziprasidone) 20 Mg Cap 20 Mg PO HS Reported Bactrim DS (Sulfamethoxazole-Trimethoprim) 800-160 Mg Tab 1 Tab PO BID Active Ordered Medications Current Medications Medications (Trade) Dose Ordered Sig/Vic Route Start Time Stop Time Status Last Admin (NS Flush) 2 ml UNSCH PRN IV FLUSH 08/24/17 11:15 (NS Flush) 2 ml BID IV FLUSH 08/24/17 21:00 08/26/17 09:00 (Tylenol) 650 mg Q4H PRN PO 08/24/17 11:15 (Zofran Inj) 4 mg Q6H PRN IVP 08/24/17 11:15 (Lovenox Inj) 40 mg Q24H SQ 08/24/17 12:00 08/25/17 12:28 (Narcan Inj) 0.4 mg UNSCH PRN IV PUSH 08/24/17 11:15 (Milk Of Magnesia Liq) 30 ml Q12H PRN PO 08/24/17 11:15 (Lactinex) 1 tab Q12HR PO 08/24/17 21:00 08/26/17 09:00 (Habitrol 21 Mg Patch.24 Hr) 1 patch DAILY T-DERMAL 08/25/17 09:00 08/26/17 09:00 Miscellaneous Information 1 HS T-DERMAL 08/24/17 21:00 Miscellaneous Information ALL NURSING DEPARTME... UNSCH PRN .XX 08/26/17 02:15 08/27/17 02:14 (Motrin) 800 mg Q8H PRN PO 08/26/17 02:30 08/26/17 03:52 Pharmacy Profile Note ml @ 0 mls/hr UNSCH OTHER 08/26/17 02:30 Vancomycin HCl 1000 mg/Sodium Chloride 250 ml @ 250 mls/hr Q12H IV 08/26/17 10:30 UNV Pharmacy Profile Note 0 ml @ 0 mls/hr UNSCH OTHER 08/26/17 10:30 UNV Family History Family positive for heart disease Father alcoholic Grandfather- kidney and pancreas problems Social History about 1/2 pack a day smoker He denies alcohol drugs- Opioids, Meth, marijuana, heroine sometimes Physical Exam Vital Signs Vital Signs Date Time Temp Pulse Resp B/P (MAP) Pulse Ox O2 Delivery O2 Flow Rate FiO2 08/26/17 08:06 98.0 71 20 106/57 (73) 97 08/26/17 04:00 97.4 89 17 121/72 (88) 99 08/26/17 02:45 97.7 80 17 114/70 (85) 99 Room Air 08/26/17 02:30 97.7 84 16 116/71 (86) 99 Room Air 08/26/17 02:15 89 15 115/69 (84) 99 Room Air 08/26/17 02:00 98.0 92 22 113/66 (82) 100 Nasal Cannula 2 08/26/17 00:00 97.8 74 17 122/69 (86) 99 08/25/17 20:00 97.9 74 16 118/67 (84) 99 08/25/17 16:05 97.5 88 20 117/56 (76) 98 08/25/17 15:49 20 08/25/17 13:28 20 08/25/17 12:05 98.1 75 20 124/70 (88) 100 Physical Exam GENERAL: Patient is a well-nourished, well-developed male, awake and alert, not in respiratory distress. SKIN: Cool and dry. Has evidence of skin popping lesions in both UA and some on his face HEAD: Atraumatic. Normocephalic. No temporal wasting, or tenderness. EYES: [place] conjunctiva. No petechia or hemorrhage. Pupils equal, round and reactive to light. Extraocular movements full and intact. No scleral icterus. No injection or drainage. EARS, NOSE AND THROAT: Nose without bleeding or purulent nasal discharge. No sinus tenderness. Mucous membranes pink and moist. No oral lesions noted. No exudate. No oral thrush. NECK: Trachea midline. Supple and not tender, no meningeal signs CARDIOVASCULAR: Regular rate and rhythm. No murmurs, rubs or gallops heard RESPIRATORY: Clear to auscultation. Breath sounds equal bilaterally. No rales , wheezing or rhonchi ABDOMEN: Soft, non-tender, nondistended. Bowel sounds present and normoactive. No guarding. No rebound. No organomegaly. EXTREMITIES: No clubbing, cyanosis, or edema. has dry intact dressing to his RUE. Mild erythema on lateral aspect of his L foot, with cracked skin at space between 4th and 5th toes, no swelling noted on toes, no purulent drainage NEUROLOGICAL: Awake and alert. Cranial nerves grossly intact. Motor grossly within normal limits. PSYCHIATRIC: Normal affect, calm and cooperative. LINE: No evidence of infection Laboratory Laboratory Tests Test 08/25/17 16:56 White Blood Count 6.2 Red Blood Count 4.09 Hemoglobin 12.4 Hematocrit 35.5 Mean Corpuscular Volume 86.9 Mean Corpuscular Hemoglobin 30.3 Mean Corpuscular Hemoglobin Concent 34.8 Red Cell Distribution Width 14.5 Platelet Count 190 Mean Platelet Volume 7.4 Neutrophils (%) (Auto) 64.0 Lymphocytes (%) (Auto) 23.6 Monocytes (%) (Auto) 8.4 Eosinophils (%) (Auto) 3.3 Basophils (%) (Auto) 0.7 Neutrophils # (Auto) 3.9 Lymphocytes # (Auto) 1.4 Monocytes # (Auto) 0.5 Eosinophils # (Auto) 0.2 Basophils # (Auto) 0.0 CBC Comment DIFF FINAL Differential Comment Blood Urea Nitrogen 9 Creatinine 0.90 Random Glucose 98 Total Protein 7.0 Albumin 3.1 Calcium Level 9.0 Alkaline Phosphatase 77 Aspartate Amino Transf (AST/SGOT) 43 Alanine Aminotransferase (ALT/SGPT) 62 Total Bilirubin 0.3 Sodium Level 139 Potassium Level 4.4 Chloride Level 104 Carbon Dioxide Level 32.0 Anion Gap 3 Estimat Glomerular Filtration Rate 97 Date/Time Source Procedure Growth Status 08/26/17 01:36 Abscess Arm Fungal Smear - Final NO FUNGAL ELEMENTS SEEN. Resulted 08/26/17 01:36 Abscess Arm Fungal Culture Pending Resulted Result Diagram: 08/25/17 1656 08/25/17 1656 Imaging RADIOLOGY STUDIES/FILMS REVIEWED Ankle X-Ray 08/24/17 1032 Signed Impressions: Service Date/Time: Thursday, August 24, 2017 10:49 - CONCLUSION: 1. No radiopaque foreign bodies or radiographically evidence for osteomyelitis. Liu Robert MD Assessment and Plan Assessment and Plan IMPRESSION Abscess RUE from IVDU, S/P I and D Mild cellulitis L foot ?Hx osteo L rib treated 1.5-2 years ago, clinically resolved Known IVDU Hx Hep C RECOMMENDATION Continue IV vanco Add Cipro Follow results of cultures and try to find an oral Abx to complete Rx for his RUE abscess No other work-up indicated for his Hx osteo Monitor progress Thank you for this consultation Caryn Mckeon MD Aug 26, 2017 10:34
[2017-08-26] MEDS ORDERED: LIDOCAINE HCL 1% PF 5 ML SYRINGE OTHER ONE (12:00)
[2017-08-26] MEDS: ENOXAPARIN SODIUM 40 MG/0.4 ML SYRINGE SQ SCH (12:00)
[2017-08-26] MEDS ORDERED: DEXAMETHASONE SOD PHOS 4 MG/ML VIAL IV ONE (12:00)
[2017-08-26] MEDS ORDERED: GLYCOPYRROLATE 1 MG/5 ML SYRINGE IV PUSH ONE (12:00)
[2017-08-26] MEDS ORDERED: ONDANSETRON HCL 4 MG/2 ML VIAL IV ONE (12:00)
[2017-08-26] MEDS: VANCOMYCIN INJ 1,250 MG in SODIUM CHLOR 0.9% 250 ML INJ 250 ML IV SCH ×2 (12:00→20:02)
[2017-08-26] MEDS ORDERED: ROCURONIUM INJ 50 MG/5 ML SYRINGE IV PUSH ONE (12:00)
[2017-08-26] MEDS ORDERED: PROPOFOL 200 MG/20 ML AMP IV ONE (12:00)
[2017-08-26] MEDS: CIPROFLOXACIN 750 MG TAB PO SCH ×2 (13:04→20:02)
[2017-08-26] MEDS ORDERED: NALOXONE HCL 0.4 MG/ML AMP IV PUSH PRN (13:45)
--- NOTE | 2017-08-26 13:49 | HHI.PR ---
Subjective Remarks pt is seen today around noon. Says he is feeling all right. Reports pain is controlled. Denies any chest pain or shortness of breath. Denies any nausea or vomiting. Objective Vital Signs Date Time Temp Pulse Resp B/P (MAP) Pulse Ox O2 Delivery O2 Flow Rate FiO2 08/26/17 12:05 97.9 68 20 114/61 (78) 94 08/26/17 08:06 98.0 71 20 106/57 (73) 97 08/26/17 04:00 97.4 89 17 121/72 (88) 99 08/26/17 02:45 97.7 80 17 114/70 (85) 99 Room Air 08/26/17 02:30 97.7 84 16 116/71 (86) 99 Room Air 08/26/17 02:15 89 15 115/69 (84) 99 Room Air 08/26/17 02:00 98.0 92 22 113/66 (82) 100 Nasal Cannula 2 08/26/17 00:00 97.8 74 17 122/69 (86) 99 08/25/17 20:00 97.9 74 16 118/67 (84) 99 08/25/17 16:05 97.5 88 20 117/56 (76) 98 08/25/17 15:49 20 I/O 08/25/17 08/25/17 08/25/17 08/26/17 08/26/17 08/26/17 07:00 15:00 23:00 07:00 15:00 23:00 Intake Total 770 ml 960 ml 2160 ml Output Total 10 ml Balance 770 ml 960 ml 2150 ml Intake Oral 720 ml 960 ml 860 ml IV Total 50 ml 1300 ml Output Estimated Blood Loss 10 ml # Voids 1 1 3 # Bowel Movements 0 1 0 Result Diagram: 08/25/17 1656 08/25/176 Objective Remarks GENERAL: sleeping, wakes up for exam. Appears comfortable. [place] 3. SKIN: Warm and dry. HEAD: Normocephalic. EYES: No scleral icterus. No injection or drainage. NECK: Supple, trachea midline. No JVD. CARDIOVASCULAR: Regular rate and rhythm without murmurs, gallops, or rubs. RESPIRATORY: Breath sounds equal bilaterally. No accessory muscle use. GASTROINTESTINAL: Abdomen soft, non-tender, nondistended. MUSCULOSKELETAL: No cyanosis, or edema. Right AC abscess, 2x1 cm with sq induration. BACK: Nontender without obvious deformity. No CVA tenderness. A/P Assessment and Plan 32-year-old man with //Abscess of antecubital fossa //Left lower extremity cellulitis //Left fourth and fifth toe open wound with drainage //Disseminated infection-staph? Patient recently admitted 07/27/17 treated for cellulitis with culture of wound at the time positive for staph aureus pansensitive Status post 600 gram IV clindamycin 1 in ED, continue clindamycin 900 mg IV every 8H pending culture report. Adjust antibiotic accordingly and PRN ID consult Obtain I&D culture report of right antecubital from [facility] Obtain wound culture from fourth and fifth toe = 08/26. Appreciate infectious disease assistance. Continue antibiotics as per infectious disease. Follow-up wound cultures. Positive MRSA left foot wound culture. //History of IV drug use Recent 2-D echo 07/27/17 without any evidence of vegetation Patient was again extensively counseled against //Hepatitis C Chronic //Tobacco abuse Tobacco counseling cessation provided Nicotine patch //DVT prophylaxis: Lovenox Discharge Planning Pending wound cultures. Anselmo Rivas MD Aug 26, 2017 13:49
[2017-08-26] MEDS: ACETAMINOPHEN/HYDROcodone 325 MG/7.5 MG TAB PO PRN ×3 (13:57→22:20)
[2017-08-26] MEDS ORDERED: ACETAMINOPHEN/HYDROcodone 325 MG/5 MG TAB PO PRN (14:00)
[2017-08-26] MEDS: REMOVE OLD PATCH T-DERMAL SCH (20:04)
[2017-08-27] MEDS: ACETAMINOPHEN/HYDROcodone 325 MG/7.5 MG TAB PO PRN ×3 (02:21→13:15)
[2017-08-27 03:45] VITALS: BP 112/60; PULSE 66; RESP 16; TEMP 97.4; O2SAT 97
[2017-08-27] MEDS: VANCOMYCIN INJ 1,250 MG in SODIUM CHLOR 0.9% 250 ML INJ 250 ML IV SCH ×2 (04:15→13:40)
[2017-08-27 08:00] VITALS: BP 105/59; PULSE 72; RESP 20; TEMP 97.1; O2SAT 99
[2017-08-27] MEDS: SODIUM CHLORIDE 0.9% FLUSH 10 ML FLUSH IV FLUSH SCH (08:41)
[2017-08-27] MEDS: CIPROFLOXACIN 750 MG TAB PO SCH (08:42)
[2017-08-27] MEDS: LACTOBACILLUS ACIDOPHILUS TAB PO SCH (08:42)
[2017-08-27] MEDS: NICOTINE 21 MG/24 HR PATCH T-DERMAL SCH (08:42)
--- NOTE | 2017-08-27 11:05 | HHI.PR ---
Subjective Remarks Patient says he is feeling all right. Reports pain is controlled. Denies any chest pain or shortness of breath. Objective Vital Signs Date Time Temp Pulse Resp B/P (MAP) Pulse Ox O2 Delivery O2 Flow Rate FiO2 08/27/17 08:00 97.1 72 20 105/59 (74) 99 08/27/17 03:45 97.4 66 16 112/60 (77) 97 08/26/17 23:15 97.6 80 16 108/59 (75) 98 08/26/17 19:43 97.6 77 16 131/62 (85) 98 08/26/17 16:04 97.6 95 20 126/65 (85) 96 08/26/17 12:05 97.9 68 20 114/61 (78) 94 I/O 08/26/17 08/26/17 08/26/17 08/27/17 08/27/17 08/27/17 07:00 15:00 23:00 07:00 15:00 23:00 Intake Total 2160 ml 312.5 ml 1235 ml 1840 ml Output Total 10 ml Balance 2150 ml 312.5 ml 1235 ml 1840 ml Intake Oral 860 ml 960 ml 1560 ml IV Total 1300 ml 312.5 ml 275 ml 280 ml Output Estimated Blood Loss 10 ml # Voids 3 3 4 # Bowel Movements 0 0 0 Result Diagram: 08/25/17165508/25/171655 Objective Remarks GENERAL: sleeping, wakes up for exam. Appears comfortable. Alert and oriented 3. SKIN: Warm and dry. HEAD: Normocephalic. EYES: No scleral icterus. No injection or drainage. NECK: Supple, trachea midline. No JVD. CARDIOVASCULAR: Regular rate and rhythm without murmurs, gallops, or rubs. RESPIRATORY: Breath sounds equal bilaterally. No accessory muscle use. GASTROINTESTINAL: Abdomen soft, non-tender, nondistended. MUSCULOSKELETAL: No cyanosis, or edema. Right AC abscess packed, some echymosis no crepitus, no pus. TTP around abscess. BACK: Nontender without obvious deformity. No CVA tenderness. A/P Assessment and Plan 32-year-old man with //Abscess of antecubital fossa //Left lower extremity cellulitis //Left fourth and fifth toe open wound with drainage //Disseminated infection-staph? Patient recently admitted 07/27/17 treated for cellulitis with culture of wound at the time positive for staph aureus pansensitive Status post 600 gram IV clindamycin 1 in ED, continue clindamycin 900 mg IV every 8H pending culture report. Adjust antibiotic accordingly and PRN ID consult Obtain I&D culture report of right antecubital from [facility] Obtain wound culture from fourth and fifth toe = 08/26. Appreciate infectious disease assistance. Continue antibiotics as per infectious disease. Follow-up wound cultures. Positive MRSA left foot wound culture. = 08/27. MRSA sensitive to Bactrim, doxycycline. ID FF. likely home tomorrow. //History of IV drug use Recent 2-D echo 07/27/17 without any evidence of vegetation Patient was again extensively counseled against //Hepatitis C Chronic //Tobacco abuse Tobacco counseling cessation provided Nicotine patch //DVT prophylaxis: Lovenox Discharge Planning Pending wound cultures. Anselmo Rivas MD Aug 27, 2017 11:05
[2017-08-27] MEDS ORDERED: PHARMACY ORDERED LAB ONE (11:45)
[2017-08-27 12:00] VITALS: BP 113/66; PULSE 66; RESP 20; TEMP 97.9; O2SAT 99
[2017-08-27] MEDS ORDERED: BACT800T5 PO (13:18)
[2017-08-27] MEDS: ENOXAPARIN SODIUM 40 MG/0.4 ML SYRINGE SQ SCH (13:22)
[2017-08-27] MEDS ORDERED: HYDR-3516 PO (13:23)
--- NOTE | 2017-08-27 13:47 | HHI.DS ---
Discharge Summary Admission Date Aug 24, 2017 at 11:10 Discharge Date: Aug 27, 2017 Admitting Diagnosis outpt tx failure, R arm abscess, LLE cellulitis, ivda (1) Cellulitis of left lower extremity ICD Code: L03.116 - Cellulitis of left lower limb Status: Acute (2) Abscess of antecubital fossa ICD Code: L02.419 - Cutaneous abscess of limb, unspecified Status: Acute (3) Disseminated infection ICD Code: B99.9 - Unspecified infectious disease (4) Hepatitis C ICD Code: B19.20 - Unspecified viral hepatitis C without hepatic coma (5) Substance abuse ICD Code: F19.10 - Other psychoactive substance abuse, uncomplicated Status: Acute (6) IV drug abuse ICD Code: F19.10 - Other psychoactive substance abuse, uncomplicated Status: Acute (7) Tobacco abuse ICD Code: Z72.0 - Tobacco use (8) Tobacco abuse counseling ICD Code: Z71.6 - Tobacco abuse counseling Procedures Right arm abscess incision and drainage. Please see report. Brief History - From Admission 32-year-old male IV drug user known to me from recent hospitalization 07/27/17 during which patient was treated for bilateral lower extremity cellulitis and had at the time and negative 2-D echo without any evidence of vegetation, presented to the ED for evaluation of swelling and painful left lower extremity 3 days with worsening erythema. Patient reports subjective fever. Apparently, 3 days ago patient was seen at [facility] where he had an incision and drainage of the right antecubital abscess. Patient continue ongoing use of IV drug , mostly injected to both arms. States, the pain to his left lower extremity is above 8 out of 10 in intensity and patient is requesting stronger medications. He also noticed drainage for left fourth and fifth toe over the past 2 days. He denies any GI bleed, chest pain. CBC/BMP: 08/25/17 1656 08/25/17 1656 Significant Findings Laboratory Tests Test 08/25/17 16:56 Red Blood Count 4.09 MIL/MM3 (4.50-5.90) Hemoglobin 12.4 GM/DL (13.0-17.0) Hematocrit 35.5 % (39.0-51.0) Monocytes (%) (Auto) 8.4 % (0.0-8.0) Albumin 3.1 GM/DL (3.4-5.0) Aspartate Amino Transf (AST/SGOT) 43 U/L (15-37) Anion Gap 3 MEQ/L (5-15) Imaging Last Impressions Ankle X-Ray 08/24/17 1032 Signed Impressions: Service Date/Time: Thursday, August 24, 2017 10:49 - CONCLUSION: 1. No radiopaque foreign bodies or radiographically evidence for osteomyelitis. Liu Robert MD Hospital Course Patient was admitted due to failure of outpatient treatment. Patient was treated with broad-spectrum antibiotics. Hand surgery was consult to, and performed incision and drainage of right arm abscess, which grew MRSA sensitive to tetracyclines and Bactrim. Infectious disease was also consulted. Patient was discharged home, to follow-up with primary care for dressing changes. For problem-based summary from most recent progress note, please see below. 32-year-old man with //Abscess of antecubital fossa //Left lower extremity cellulitis //Left fourth and fifth toe open wound with drainage //Disseminated infection-staph? Patient recently admitted 07/27/17 treated for cellulitis with culture of wound at the time positive for staph aureus pansensitive Status post 600 gram IV clindamycin 1 in ED, continue clindamycin 900 mg IV every 8H pending culture report. Adjust antibiotic accordingly and PRN ID consult Obtain I&D culture report of right antecubital from [facility] Obtain wound culture from fourth and fifth toe = 08/26. Appreciate infectious disease assistance. Continue antibiotics as per infectious disease. Follow-up wound cultures. Positive MRSA left foot wound culture. = 08/27. MRSA sensitive to Bactrim, doxycycline. ID FF. likely home tomorrow. //History of IV drug use Recent 2-D echo 07/27/17 without any evidence of vegetation Patient was again extensively counseled against //Hepatitis C Chronic //Tobacco abuse Tobacco counseling cessation provided Nicotine patch //DVT prophylaxis: Lovenox Discharge Planning Pending wound cultures. Pt Condition on Discharge: Good Discharge Disposition: Discharge Home Discharge Time: > 30 minutes Discharge Instructions DIET: Follow Instructions for: As Tolerated, No Restrictions Activities you can perform: Regular-No Restrictions, See Additionl Instruction Other Activity Instructions: Do not use right arm. Follow up Referrals: PCP Follow-up - 2 Days with [facility] New Medications: Hydrocodone/Acetaminophen (Hydrocodone-Acetamin 5-325 mg) 5 Mg-325 Mg Tablet 1 TAB PO Q4H PRN for PAIN SCALE 1 TO 10, #20 TAB Continued Medications: Sulfamethoxazole-Trimethoprim (Bactrim DS) 800-160 Mg Tab 1 TAB PO BID for Infection for 14 Days, #28 TAB 0 Refills (This prescription has been renewed) Ziprasidone (Geodon) 20 Mg Cap 20 MG PO HS, #1 CAP Anselmo Rivas MD Aug 27, 2017 13:47
[2017-08-27 14:54] LABS: CREATININE 0.97 MG/DL (0.60-1.30)
== END 2017-08-27 15:07 | disposition home or self-care (01) | DRG 603 ==
LOC: NEPD 09:02 → NEDA 11:10 → N04B 11:33
PROVIDERS: ADMIT Internal Medicine; ATTEND Internal Medicine
PROC: 0H9BXZZ Drainage of Right Upper Arm Skin, External Approach (ICD-10-PCS; principal; 2017-08-26 01:10)
DX: L02.413 Cutaneous abscess of right upper limb (principal); F20.9 Schizophrenia, unspecified; L03.116 Cellulitis of left lower limb; F19.10 Other psychoactive substance abuse, uncomplicated; B19.20 Unspecified viral hepatitis C without hepatic coma; F17.210 Nicotine dependence, cigarettes, uncomplicated; F31.9 Bipolar disorder, unspecified; F41.9 Anxiety disorder, unspecified; B95.62 Methicillin resistant Staphylococcus aureus infection as the cause of diseases classified elsewhere
CPT/HCPCS: 73610; 80048; 80053; 80202; 82565; 85025; 86403; 87015; 87070; 87102; 87116; 87147; 87186; 87205; 87206; 93005; 96365; 96375; J1100; J1580; J1650; J1885; J2270; J2405; J3010; J3370; J7030; J7050

== ENCOUNTER 2017-10-01 07:08 | Emergency (ER) | payer SELFPAY ==
[~2017-10-01] VITALS: Ht 188 cm; Wt 80.0 kg
[~2017-10-01 07:08] MED LIST changes: +BACT800T5 PO; -CLIN150C14 PO; +HYDR-3516 PO
[2017-10-01 07:09] VITALS: BP 147/89; PULSE 106; RESP 18; TEMP 97.4; O2SAT 100
--- NOTE | 2017-10-01 07:29 | PD ---
HPI Chief Complaint: Skin Problem Time Seen by Provider: 07:23 Travel History International Travel<30 days: No Contact w/Intl Traveler<30days: No Traveled to known affect area: No History of Present Illness HPI 32-year-old male with history of MRSA presents emergency department with cellulitis and swollen tender area to the right anabaptism for the past 2 days. Patient admits to "slipping up" and using meth. Has been here multiple times for abscesses in the past. Fever chills, but he does have pain in the area with pain in the right eye when he closes it. Is "10/". He denies any other symptoms. He has no known drug allergies. PFSH Past Medical History Asthma: No Bipolar Disorder: Yes Anxiety: Yes Depression: Yes Cancer: No Cardiovascular Problems: No Chest Pain: No COPD: No Diminished Hearing: No Endocrine: No Genitourinary: No Immune Disorder: No Musculoskeletal: Yes Neurologic: Yes Psychiatric: Yes (mood disorder, substance abuse, insomnia ) Reproductive: No Respiratory: No Integumentary: Yes (txt recently for infected L sternoclavicular joint ()) Immunizations Current: Yes Schizophrenia: Yes Seizures: Yes Sleep Apnea: No Past Surgical History Tympanostomy Tube: Yes Other Surgery: No Social History Alcohol Use: No Tobacco Use: Yes (1/2 PPD) Substance Use: Yes (METH) Allergies-Medications (Allergen,Severity, Reaction): Coded Allergies: No Known Allergies (Verified Allergy, Unknown, 08/24/17) Reported Meds & Prescriptions Reported Meds & Active Scripts Active Hydrocodone-Acetamin 5-325 mg (Hydrocodone/Acetaminophen) 5 Mg-325 Mg Tablet 1 Tab PO Q4H PRN Bactrim DS (Sulfamethoxazole-Trimethoprim) 800-160 Mg Tab 1 Tab PO BID 14 Days Geodon (Ziprasidone) 20 Mg Cap 20 Mg PO HS Review of Systems Except as stated in HPI: all other systems reviewed are Neg General / Constitutional: No: Fever, Chills Eyes: No: Diploplia, Blurred Vision, Photophobia, Drainage, Redness, Foreign Body Sensation, Pain, Tearing, Blind Spots, Visual changes, Blindness HENT: No: Headaches, Vertigo, Lightheadedness, Sore Throat, Rhinitis, Rhinorrhea, Congestion, Nosebleed, Neck Stiffness, Neck Pain, Dental Difficulties, Earache Cardiovascular: No: Chest Pain or Discomfort Respiratory: No: Shortness of Breath Gastrointestinal: No: Abdominal Pain Genitourinary: No: Dysuria Musculoskeletal: No: Pain Skin: Positive Lesions, No Rash Neurologic: No: Weakness Psychiatric: No: Depression Endocrine: No: Polydipsia Hematologic/Lymphatic: No: Easy Bruising Physical Exam Narrative GENERAL: Patient is in mild to moderate distress. SKIN: Warm and dry. Normal color. Normal turgor. Patient has multiple excoriated regions on both sides of his face, neck, and forearms. The area in question today is on the right anabaptism with central excoriation region was localized cellulitis and swelling without notable abscess or pointing. HEAD: Atraumatic. Normocephalic. EYES: Pupils equal and round. No scleral icterus. No injection or drainage. ENT: No nasal bleeding or discharge. Mucous membranes pink and moist. Pharynx is clear. Airway is patent NECK: Trachea midline. Supple and nontender CARDIOVASCULAR: Regular rate and rhythm. No murmurs gallops or rubs RESPIRATORY: No accessory muscle use. Clear to auscultation. Breath sounds equal bilaterally. GASTROINTESTINAL: Abdomen soft, non-tender, nondistended. Hepatic and splenic margins not palpable. MUSCULOSKELETAL: Extremities without clubbing, cyanosis, or edema. No obvious deformities. NEUROLOGICAL: Awake and alert. No obvious cranial nerve deficits. Motor grossly within normal limits. Five out of 5 muscle strength in the arms and legs. Normal speech. PSYCHIATRIC: Appropriate mood and affect; insight and judgment normal. Data Data Last Documented VS Vital Signs Date Time Temp Pulse Resp B/P (MAP) Pulse Ox O2 Delivery O2 Flow Rate FiO2 10/01/17 07:09 97.4 106 18 147/89 (108) 100 Orders Orders Clindamycin Inj (Cleocin Inj) (10/01/17 07:45) Ketorolac Inj (Toradol Inj) (10/01/17 07:45) [facility] Medical Decision Making Medical Screen Exam Complete: Yes Emergency Medical Condition: Yes Medical Record Reviewed: Yes Differential Diagnosis Cellulitis. MRSA. Substance abuse Narrative Course Patient is given clindamycin 600 mg IM as well as Toradol 60 mg IM. Patient is continued on Bactrim DS twice daily 10 days as well as Keflex 500 mg 3 times daily 10 days. Patient is given ibuprofen 800 mg 3 times daily with food #30. Recommend the patient follow-up with [facility] get clean from his substance abuse. Patient can follow-up if symptoms worsen as needed. Diagnosis Primary Impression: Cellulitis of face Referrals: [facility] Patient Instructions: General Instructions, MRSA (Methicillin-Resistant Staphylococcus Aureus) (ED) Additional Instructions: Patient is given clindamycin 600 mg IM as well as Toradol 60 mg IM. Patient is continued on Bactrim DS twice daily 10 days as well as Keflex 500 mg 3 times daily 10 days. Patient is given ibuprofen 800 mg 3 times daily with food #30. Recommend the patient follow-up with [facility] get clean from his substance abuse. Patient can follow-up if symptoms worsen as needed. Med/Other Pt SpecificInfo: Prescription(s) given, Wound Care Disposition: 01 DISCHARGE HOME Condition: Stable Onur Shankar Oct 01, 2017 07:29
[2017-10-01] MEDS ORDERED: BACT800T5 PO (07:42)
[2017-10-01] MEDS ORDERED: IBUP1TAB7 PO (07:42)
[2017-10-01] MEDS ORDERED: CEPH-460 PO (07:42)
[2017-10-01] MEDS ORDERED: CLINDAMYCIN PHOS 600 MG/4 ML VIAL IM ONE (07:45)
[2017-10-01] MEDS ORDERED: KETOROLAC TROMETHAMINE 60 MG/2 ML (IM) VIAL IM ONE (07:45)
== END 2017-10-01 07:56 | disposition home or self-care (01) ==
LOC: NEPD 07:08
DX: L03.211 Cellulitis of face (principal); F17.200 Nicotine dependence, unspecified, uncomplicated
CPT/HCPCS: 96372; 99283; J1885

== ENCOUNTER 2017-10-04 12:52 | Emergency (ER) | payer SELFPAY ==
[~2017-10-04] VITALS: Ht 188 cm; Wt 79.6 kg
[~2017-10-04 12:52] MED LIST changes: +CEPH-460 PO; +IBUP1TAB7 PO
[2017-10-04 12:55] VITALS: BP 133/90; PULSE 86; RESP 16; TEMP 98.1; O2SAT 100
--- NOTE | 2017-10-04 13:15 | PD ---
HPI Chief Complaint: Skin Problem Time Seen by Provider: 13:13 Travel History International Travel<30 days: No Contact w/Intl Traveler<30days: No Traveled to known affect area: No [facility] Past Medical History Asthma: No Bipolar Disorder: Yes Anxiety: Yes Depression: Yes Cancer: No Cardiovascular Problems: No Chest Pain: No COPD: No Diminished Hearing: No Endocrine: No Genitourinary: No Immune Disorder: No Musculoskeletal: Yes Neurologic: Yes Psychiatric: Yes (mood disorder, substance abuse, insomnia ) Reproductive: No Respiratory: No Integumentary: Yes (txt recently for infected L sternoclavicular joint ()) Immunizations Current: Yes Schizophrenia: Yes Seizures: Yes Sleep Apnea: No ?: Not Past Surgical History Tympanostomy Tube: Yes Other Surgery: No Social History Alcohol Use: No Tobacco Use: Yes (1/2 PPD) Substance Use: Yes (METH) Allergies-Medications (Allergen,Severity, Reaction): Coded Allergies: No Known Allergies (Verified Allergy, Unknown, 08/24/17) Reported Meds & Prescriptions Reported Meds & Active Scripts Active Ibuprofen 800 Mg Tab 800 Mg PO Q8H PRN Keflex (Cephalexin) 500 Mg Cap 500 Mg PO Q8H 7 Days Bactrim DS (Sulfamethoxazole-Trimethoprim) 800-160 Mg Tab 1 Tab PO BID Hydrocodone-Acetamin 5-325 mg (Hydrocodone/Acetaminophen) 5 Mg-325 Mg Tablet 1 Tab PO Q4H PRN Bactrim DS (Sulfamethoxazole-Trimethoprim) 800-160 Mg Tab 1 Tab PO BID 14 Days Geodon (Ziprasidone) 20 Mg Cap 20 Mg PO HS Data Data Last Documented VS Vital Signs Date Time Temp Pulse Resp B/P (MAP) Pulse Ox O2 Delivery O2 Flow Rate FiO2 10/04/17 12:55 98.1 86 16 133/90 (104) 100 Savana Sethi Oct 04, 2017 13:15
[2017-10-04 14:26] LABS: AUTOMATED NEUTROPHIL # 3.6 TH/MM3 (1.8-7.7); BASOPHIL # 0.1 TH/MM3 (0-0.2); BASOPHIL % 0.9 % (0.0-2.0); EOSINOPHIL # 0.1 TH/MM3 (0-0.4); EOSINOPHIL % 2.2 % (0.0-4.0); HEMATOCRIT 38.4 % (39.0-51.0); LYMPH % 32.9 % (9.0-44.0); LYMPHOCYTE # 2.1 TH/MM3 (1.0-4.8); MEAN CELL VOLUME 87.6 FL (80.0-100.0); MEAN CORPUSCULAR HEMOGLOBIN 29.5 PG (27.0-34.0); MEAN CORPUSCULAR HGB CONC 33.7 % (32.0-36.0); MEAN PLATELET VOLUME 7.2 FL (7.0-11.0); MONO % 9.3 % (0.0-8.0); MONOCYTE # 0.6 TH/MM3 (0-0.9); NEUT % 54.7 % (16.0-70.0); PLATELET COUNT 196 TH/MM3 (150-450); RED BLOOD COUNT 4.39 MIL/MM3 (4.50-5.90); RED CELL DISTRIBUTION WIDTH 12.8 % (11.6-17.2); WHITE BLOOD COUNT 6.5 TH/MM3 (4.0-11.0)
[2017-10-04 14:34] LABS: CHLORIDE 98 MEQ/L (98-107); SODIUM (NA) 132 MEQ/L (136-145)
--- NOTE | 2017-10-04 14:35 | PD ---
HPI Chief Complaint: Skin Problem Time Seen by Provider: 13:15 Travel History International Travel<30 days: No Contact w/Intl Traveler<30days: No Traveled to known affect area: No History of Present Illness HPI Patient 32-year-old female prior history of IV drug abuse states she has been clean for 8 months presents emergency department for swelling and redness to the right side of his face. He states he was seen here recently started on antibiotics but it has gradually gotten worse. According to records he was here earlier prescribed 2 antibiotics and he states he has been taking them but gradually worsening. No fevers no chest pain or shortness breath no abdominal pain no nausea vomiting. Symptoms for the past week, gradually worsening, context and associated signs symptoms as above PFSH Past Medical History Asthma: No Bipolar Disorder: Yes Anxiety: Yes Depression: Yes Cancer: No Cardiovascular Problems: No Chest Pain: No COPD: No Diminished Hearing: No Endocrine: No Gastrointestinal Disorders: No Genitourinary: No Hypertension: No Immune Disorder: No Implanted Vascular Access Dvce: No Musculoskeletal: Yes Neurologic: Yes Psychiatric: Yes (mood disorder, substance abuse, insomnia ) Reproductive: No Respiratory: No Integumentary: Yes (txt recently for infected L sternoclavicular joint ()) Immunizations Current: Yes Schizophrenia: Yes Seizures: Yes Sleep Apnea: No ?: Not Past Surgical History Tympanostomy Tube: Yes Other Surgery: No Social History Alcohol Use: No Tobacco Use: Yes (1/2 PPD) Substance Use: Yes (METH) Allergies-Medications (Allergen,Severity, Reaction): Coded Allergies: No Known Allergies (Verified Allergy, Unknown, 08/24/17) Reported Meds & Prescriptions Reported Meds & Active Scripts Active Ultram (Tramadol HCl) 50 Mg Tab 50 Mg PO Q6H PRN Review of Systems Except as stated in HPI: all other systems reviewed are Neg Physical Exam Narrative GENERAL: Well-developed well-nourished no obvious distress, nontoxic appearance per SKIN: There is some reactive edema periorbitally on the right, there is some cellulitis approximately silver dollar sized on the right forehead appears to be coming to ahead in the center of this lesion. Minimal induration and no fluctuance is really appreciated. No splinter hemorrhages no Osler nodes. HEAD: Atraumatic. Normocephalic. EYES: Pupils equal and round. No scleral icterus. No injection or drainage. ENT: No nasal bleeding or discharge. Mucous membranes pink and moist. NECK: Trachea midline. No JVD. CARDIOVASCULAR: Regular rate and rhythm. No murmur appreciated. No murmurs gallops or rubs RESPIRATORY: No accessory muscle use. Clear to auscultation. Breath sounds equal bilaterally. GASTROINTESTINAL: Abdomen soft, non-tender, nondistended. Hepatic and splenic margins not palpable. MUSCULOSKELETAL: No obvious deformities. No clubbing. No cyanosis. No edema. NEUROLOGICAL: Awake and alert. No obvious cranial nerve deficits. Motor grossly within normal limits. Normal speech. PSYCHIATRIC: Appropriate mood and affect; insight and judgment normal. Data Data Last Documented VS Vital Signs Date Time Temp Pulse Resp B/P (MAP) Pulse Ox O2 Delivery O2 Flow Rate FiO2 10/04/17 15:01 98 Room Air 10/04/17 12:55 98.1 86 16 133/90 (104) Orders Orders Complete Blood Count With Diff (10/04/17 13:53) Sepsis Workup Initiated (10/04/17 ) Comprehensive Metabolic Panel (10/04/17 13:53) Prothrombin Time / Inr (Pt) (10/04/17 13:53) Act Partial Throm Time (Ptt) (10/04/17 13:53) Lactic Acid Sepsis Protocol (10/04/17 13:53) Phosphorus (Po4) (10/04/17 13:53) Lipase (10/04/17 13:53) Urinalysis - C+S If Indicated (10/04/17 13:53) Blood Culture (10/04/17 13:53) Blood Glucose (10/04/17 13:53) Ecg Monitoring (10/04/17 13:53) Iv Access Insert/Monitor (10/04/17 13:53) Oximetry (10/04/17 13:53) Oxygen Administration (10/04/17 13:53) Ct Facial Bones W Iv Contrast (10/04/17 ) Drug Screen, Random Urine (10/04/17 13:55) Iohexol 350 Inj (Omnipaque 350 Inj) (10/04/17 14:42) Tramadol (Ultram) (10/04/17 16:45) Ed Discharge Order (10/04/17 16:38) Labs Laboratory Tests Test 10/04/17 14:20 10/04/17 14:51 White Blood Count 6.5 TH/MM3 Red Blood Count 4.39 MIL/MM3 Hemoglobin 13.0 GM/DL Hematocrit 38.4 % Mean Corpuscular Volume 87.6 FL Mean Corpuscular Hemoglobin 29.5 PG Mean Corpuscular Hemoglobin Concent 33.7 % Red Cell Distribution Width 12.8 % Platelet Count 196 TH/MM3 Mean Platelet Volume 7.2 FL Neutrophils (%) (Auto) 54.7 % Lymphocytes (%) (Auto) 32.9 % Monocytes (%) (Auto) 9.3 % Eosinophils (%) (Auto) 2.2 % Basophils (%) (Auto) 0.9 % Neutrophils # (Auto) 3.6 TH/MM3 Lymphocytes # (Auto) 2.1 TH/MM3 Monocytes # (Auto) 0.6 TH/MM3 Eosinophils # (Auto) 0.1 TH/MM3 Basophils # (Auto) 0.1 TH/MM3 CBC Comment DIFF FINAL Differential Comment Prothrombin Time 11.2 SEC Prothromb Time International Ratio 1.1 RATIO Activated Partial Thromboplast Time 30.7 SEC Blood Urea Nitrogen 14 MG/DL Creatinine 1.30 MG/DL Random Glucose 80 MG/DL Total Protein 7.7 GM/DL Albumin 3.8 GM/DL Calcium Level 9.1 MG/DL Phosphorus Level 2.2 MG/DL Alkaline Phosphatase 85 U/L Aspartate Amino Transf (AST/SGOT) 30 U/L Alanine Aminotransferase (ALT/SGPT) 42 U/L Total Bilirubin 0.9 MG/DL Sodium Level 132 MEQ/L Potassium Level 3.4 MEQ/L Chloride Level 98 MEQ/L Carbon Dioxide Level 26.4 MEQ/L Anion Gap 8 MEQ/L Estimat Glomerular Filtration Rate 63 ML/MIN Lactic Acid Level 1.9 mmol/L Lipase 88 U/L Urine Collection Type CATH Urine Color YELLOW Urine Turbidity CLEAR Urine pH 7.5 Urine Specific [place] 1.015 Urine Protein NEG mg/dL Urine Glucose (UA) NEG mg/dL Urine Ketones NEG mg/dL Urine Occult Blood NEG Urine Nitrite NEG Urine Bilirubin NEG Urine Leukocyte Esterase NEG Urine RBC 0-3 /hpf Microscopic Urinalysis Comment CULT NOT INDICATED Urine Opiates Screen NEG Urine Barbiturates Screen NEG Urine Amphetamines Screen POS Urine Benzodiazepines Screen NEG Urine Cocaine Screen POS Urine Cannabinoids Screen NEG MDM Medical Decision Making Medical Screen Exam Complete: Yes Emergency Medical Condition: Yes Differential Diagnosis Cellulitis, abscess, sepsis seems unlikely Narrative Course Patient room to the emergency department, significant reactive edema around his eye but there is no cellulitis here, there is a cellulitis and abscess which is confirmed by CAT scanning of his face on the right forehead. This drained in the ER with minimal drainage. His labs are reassuring. While he has been on antibiotics for 2 days she has not had any source control, therefore I do not appreciate this is a failure of outpatient just yet. I advised him to return to the emergency department in 2 days for wound check. He is stable for discharge. We will continue his previously prescribed antibiotics Diagnosis Primary Impression: Cellulitis of face Additional Impression: Abscess of forehead Additional Instructions: Continue antibiotics as prescribed, return to the emergency department in 48 hours for recheck. Med/Other Pt SpecificInfo: Prescription(s) given Scripts Tramadol (Ultram) 50 Mg Tab 50 MG PO Q6H Y for PAIN, #10 TAB 0 Refills Prov: Ron Fraser MD 10/04/17 Disposition: 01 DISCHARGE HOME Condition: Stable Ron Fraser MD Oct 04, 2017 14:35
[2017-10-04 14:37] LABS: ALBUMIN 3.8 GM/DL (3.4-5.0); CALCIUM 9.1 MG/DL (8.5-10.1)
[2017-10-04 14:38] LABS: BICARBONATE 26.4 MEQ/L (21.0-32.0); BLOOD UREA NITROGEN 14 MG/DL (7-18); GLUCOSE,RANDOM 80 MG/DL (74-106)
[2017-10-04 14:40] LABS: INTERNATIONAL NORMALIZED RATIO 1.1 RATIO; PROTHROMBIN TIME - PATIENT 11.2 SEC (9.8-11.6)
[2017-10-04 14:41] LABS: ALT (GPT) 42 U/L (12-78); AST (GOT) 30 U/L (15-37); GLOMERULAR FILTRATION RATE 63 ML/MIN (>89); PHOSPHORUS 2.2 MG/DL (2.5-4.9)
[2017-10-04 14:42] LABS: TOTAL BILIRUBIN ADULT 0.9 MG/DL (0.2-1.0); TOTAL PROTEIN 7.7 GM/DL (6.4-8.2)
[2017-10-04] MEDS ORDERED: IOHEXOL 350 MG/ML 10 ML VIAL (for RAD DIAG) IVCONTRAST ONE (14:42)
[2017-10-04 14:43] LABS: ALKALINE PHOSPHATASE 85 U/L (45-117)
[2017-10-04 14:57] LABS: BILIRUBIN, URINE NEG (NEG); BLOOD, URINE NEG (NEG); GLUCOSE,URINE NEG (NEG); KETONE, URINE NEG (NEG); NITRITE,URINE NEG (NEG); PH, URINE 7.5 (5.0-8.5); URINE LEUKOCYTE ESTERASE NEG (NEG)
[2017-10-04 15:01] VITALS: O2SAT 98
[2017-10-04 15:02] LABS: URINE COLOR YELLOW (YELLW/STRAW)
[2017-10-04 15:03] LABS: RBC, URINE 0-3 /hpf (0-3)
--- NOTE | 2017-10-04 15:24 | RADRPT ---
EXAM DATE/TIME: 10/04/2017 14:30 [place] COMPARISON: No previous studies available for comparison. INDICATIONS : Right periorbital pain, swelling and redness. IV CONTRAST: 60 cc Omnipaque 350 (iohexol) IV RADIATION DOSE: 29.78 CTDIvol (mGy) MEDICAL HISTORY : Seizures. Hepatitis. SURGICAL HISTORY : None. ENCOUNTER: Initial ACUITY: 4 - 6 days PAIN SCALE: 9/10 LOCATION: Right facial TECHNIQUE: Volumetric scanning of the facial bones was performed. Using automated exposure control and adjustme nt of the mA and/or kV according to patient size, radiation dose was kept as low as reasonably achiev able to obtain optimal diagnostic quality images. DICOM format image data is available electronicall y for review and comparison. FINDINGS: The examination demonstrates extensive soft tissue swelling extending along the lateral margin of the right orbit down across the right side of the face. In its most superior extent there is a 0.8 x 0.7 cm fluid collection which could represent a small area of abscess. This is immediately beneath the s kin surface. This is best imaged on #7 of 70 in the axial plane. The post septal soft tissues of the orbit are intact. The globe is intact. The osseous structures of the face are intact. The limited portion of brain parenchyma visualized is unremarkable. CONCLUSION: 1. Extensive soft tissue swelling along the lateral aspect of the face and right orbit. There is a 0. 8 x 0.7 cm fluid collection identified along the superior margin of this concerning for a small area of abscess. David Bah MD on October 04, 2017 at 15:19 Board Certified Radiologist. This report was verified electronically.
--- NOTE | 2017-10-04 16:08 | PD ---
Physical Exam Narrative Was asked by my attending physician to performed incision and drainage of patient's facial abscess Data Data Last Documented VS Vital Signs Date Time Temp Pulse Resp B/P (MAP) Pulse Ox O2 Delivery O2 Flow Rate FiO2 10/04/17 15:01 98 Room Air 10/04/17 12:55 98.1 86 16 133/90 (104) Orders Orders Complete Blood Count With Diff (10/04/17 13:53) Sepsis Workup Initiated (10/04/17 ) Comprehensive Metabolic Panel (10/04/17 13:53) Prothrombin Time / Inr (Pt) (10/04/17 13:53) Act Partial Throm Time (Ptt) (10/04/17 13:53) Lactic Acid Sepsis Protocol (10/04/17 13:53) Phosphorus (Po4) (10/04/17 13:53) Lipase (10/04/17 13:53) Urinalysis - C+S If Indicated (10/04/17 13:53) Blood Culture (10/04/17 13:53) Blood Glucose (10/04/17 13:53) Ecg Monitoring (10/04/17 13:53) Iv Access Insert/Monitor (10/04/17 13:53) Oximetry (10/04/17 13:53) Oxygen Administration (10/04/17 13:53) Ct Facial Bones W Iv Contrast (10/04/17 ) Drug Screen, Random Urine (10/04/17 13:55) Iohexol 350 Inj (Omnipaque 350 Inj) (10/04/17 14:42) Labs Laboratory Tests Test 10/04/17 14:20 10/04/17 14:51 White Blood Count 6.5 TH/MM3 Red Blood Count 4.39 MIL/MM3 Hemoglobin 13.0 GM/DL Hematocrit 38.4 % Mean Corpuscular Volume 87.6 FL Mean Corpuscular Hemoglobin 29.5 PG Mean Corpuscular Hemoglobin Concent 33.7 % Red Cell Distribution Width 12.8 % Platelet Count 196 TH/MM3 Mean Platelet Volume 7.2 FL Neutrophils (%) (Auto) 54.7 % Lymphocytes (%) (Auto) 32.9 % Monocytes (%) (Auto) 9.3 % Eosinophils (%) (Auto) 2.2 % Basophils (%) (Auto) 0.9 % Neutrophils # (Auto) 3.6 TH/MM3 Lymphocytes # (Auto) 2.1 TH/MM3 Monocytes # (Auto) 0.6 TH/MM3 Eosinophils # (Auto) 0.1 TH/MM3 Basophils # (Auto) 0.1 TH/MM3 CBC Comment DIFF FINAL Differential Comment Prothrombin Time 11.2 SEC Prothromb Time International Ratio 1.1 RATIO Activated Partial Thromboplast Time 30.7 SEC Blood Urea Nitrogen 14 MG/DL Creatinine 1.30 MG/DL Random Glucose 80 MG/DL Total Protein 7.7 GM/DL Albumin 3.8 GM/DL Calcium Level 9.1 MG/DL Phosphorus Level 2.2 MG/DL Alkaline Phosphatase 85 U/L Aspartate Amino Transf (AST/SGOT) 30 U/L Alanine Aminotransferase (ALT/SGPT) 42 U/L Total Bilirubin 0.9 MG/DL Sodium Level 132 MEQ/L Potassium Level 3.4 MEQ/L Chloride Level 98 MEQ/L Carbon Dioxide Level 26.4 MEQ/L Anion Gap 8 MEQ/L Estimat Glomerular Filtration Rate 63 ML/MIN Lactic Acid Level 1.9 mmol/L Lipase 88 U/L Urine Collection Type CATH Urine Color YELLOW Urine Turbidity CLEAR Urine pH 7.5 Urine Specific [place] 1.015 Urine Protein NEG mg/dL Urine Glucose (UA) NEG mg/dL Urine Ketones NEG mg/dL Urine Occult Blood NEG Urine Nitrite NEG Urine Bilirubin NEG Urine Leukocyte Esterase NEG Urine RBC 0-3 /hpf Microscopic Urinalysis Comment CULT NOT INDICATED Urine Opiates Screen NEG Urine Barbiturates Screen NEG Urine Amphetamines Screen POS Urine Benzodiazepines Screen NEG Urine Cocaine Screen POS Urine Cannabinoids Screen NEG MDM Supervised Visit with [facility]: Yes Procedures Procedure Narrative INCISION AND DRAINAGE OF ABSCESS: The area was prepped and was sterilely draped. A subcutaneous wheal of 1 % Xylocaine was used to anesthetize the area properly. A number [-] scalpel was used to make a [3] mm incision across the area of the abscess. The area had very minimal drainage. Congealed purulent drainage noted within the wound. Further investigation was difficult given patient's inability to remain still. Sterile dressing applied. Savana Sethi Oct 04, 2017 16:08
[2017-10-04] MEDS ORDERED: TRAM50 PO (16:40)
[2017-10-04] MEDS ORDERED: traMADol HCL 50 MG TAB PO ONE (16:45)
== END 2017-10-04 17:04 | disposition home or self-care (01) ==
LOC: PHEFT 12:52
DX: L03.211 Cellulitis of face (principal); L02.01 Cutaneous abscess of face; F31.9 Bipolar disorder, unspecified; F20.9 Schizophrenia, unspecified; F17.210 Nicotine dependence, cigarettes, uncomplicated
CPT/HCPCS: 10060; 70487; 80053; 80307; 81001; 83605; 83690; 84100; 85025; 85610; 85730; 87040; 99284; Q9967

== ENCOUNTER 2017-10-30 19:28 | Emergency (ER) | payer SELFPAY ==
[~2017-10-30 19:28] MED LIST changes: -BACT800T5 PO; -CEPH-460 PO; -HYDR-3516 PO; -IBUP1TAB7 PO; +TRAM50 PO; -ZIPR20 PO
[2017-10-30 19:48] VITALS: BP 130/78; PULSE 87; RESP 18; TEMP 97.8; O2SAT 100
[2017-10-30 23:37] LABS: AUTOMATED NEUTROPHIL # 4.9 TH/MM3 (1.8-7.7); BASOPHIL # 0.1 TH/MM3 (0-0.2); BASOPHIL % 0.8 % (0.0-2.0); EOSINOPHIL # 0.2 TH/MM3 (0-0.4); EOSINOPHIL % 2.7 % (0.0-4.0); HEMATOCRIT 39.3 % (39.0-51.0); HEMOGLOBIN 13.9 GM/DL (13.0-17.0); LYMPH % 21.1 % (9.0-44.0); LYMPHOCYTE # 1.6 TH/MM3 (1.0-4.8); MEAN CELL VOLUME 86.6 FL (80.0-100.0); MEAN CORPUSCULAR HEMOGLOBIN 30.5 PG (27.0-34.0); MEAN CORPUSCULAR HGB CONC 35.2 % (32.0-36.0); MEAN PLATELET VOLUME 7.1 FL (7.0-11.0); MONO % 9.9 % (0.0-8.0); MONOCYTE # 0.7 TH/MM3 (0-0.9); NEUT % 65.5 % (16.0-70.0); PLATELET COUNT 210 TH/MM3 (150-450); RED BLOOD COUNT 4.54 MIL/MM3 (4.50-5.90); WHITE BLOOD COUNT 7.5 TH/MM3 (4.0-11.0)
[2017-10-30 23:50] LABS: CALCIUM 8.8 MG/DL (8.5-10.1); CREATININE 1.16 MG/DL (0.60-1.30)
[2017-10-31] MEDS ORDERED: CLINDAMYCIN 900 MG/NS PREMIX 50 ML IV ONE
[2017-10-31] MEDS ORDERED: BACT800T5 PO (00:01)
[2017-10-31] MEDS ORDERED: CLEO300C2 PO (00:01)
--- NOTE | 2017-10-31 00:14 | PD ---
HPI Chief Complaint: Eye Problems/Injury Time Seen by Provider: 23:47 Travel History International Travel<30 days: No Contact w/Intl Traveler<30days: No Traveled to known affect area: No History of Present Illness HPI 32-year-old white male with a history of substance abuse presents today with complaints of left facial infection 3 days. He has been picking and squeezing his face. He states that he has an abscess to his left face and has now is involved his left eye. He states that he has had some subjective fever. No chills. No nausea vomiting. Patient has had a history of cellulitis and abscess in the past. He continues to do IV drugs. Symptoms are moderate. Worsened by IV substance abuse and picking no alleviating factors. PFSH Past Medical History Asthma: No Bipolar Disorder: Yes Anxiety: Yes Depression: Yes Cancer: No Cardiovascular Problems: No Chest Pain: No COPD: No Diminished Hearing: No Endocrine: No Gastrointestinal Disorders: No Genitourinary: No Hypertension: No Immune Disorder: No Implanted Vascular Access Dvce: No Musculoskeletal: Yes Neurologic: Yes Psychiatric: Yes (mood disorder, substance abuse, insomnia ) Reproductive: No Respiratory: No Integumentary: Yes (txt recently for infected L sternoclavicular joint ()) Immunizations Current: Yes Schizophrenia: Yes Seizures: Yes Sleep Apnea: No Tetanus Vaccination: > 5 Years Influenza Vaccination: No Past Surgical History Tympanostomy Tube: Yes Other Surgery: No Social History Alcohol Use: No Tobacco Use: Yes (1/2 PPD) Substance Use: Yes (METH) Allergies-Medications (Allergen,Severity, Reaction): Coded Allergies: No Known Allergies (Verified Allergy, Unknown, 10/30/17) Reported Meds & Prescriptions Reported Meds & Active Scripts Active Bactrim DS (Sulfamethoxazole-Trimethoprim) 800-160 Mg Tab 1 Tab PO BID Cleocin (Clindamycin HCl) 300 Mg Cap 300 Mg PO Q6H 10 Days Review of Systems Except as stated in HPI: all other systems reviewed are Neg Physical Exam Narrative GENERAL: Well-developed, well-nourished in no acute distress. Nontoxic appearing. Patient is somnolent and nods off to sleep Readily. HEAD: Patient has an area of erythema, warmth and edema to his left temporal region. He has some swelling and erythema to the left periorbital area. There is no fluctuance or pointing. The areas picked and scratched. Patient has multiple scabbed lesions about the face, and extremities from picking/ formication. EYES: Pupils equal round and reactive. Extraocular motions intact. No scleral icterus. No injection or drainage. ENT: TMs clear without erythema. The external auditory canals clear. Nose: clear . Posterior pharynx is pink and moist. No tonsillar edema or exudate. Uvula midline. Airway patent. NECK: Trachea midline.Supple, nontender, moves head freely. No central bony tenderness or spasm. CARDIOVASCULAR: Regular rate and rhythm without murmurs, gallops, or rubs. RESPIRATORY: Clear to auscultation. Breath sounds equal bilaterally. No wheezes , rales, or rhonchi. GASTROINTESTINAL: Abdomen soft, non-tender, nondistended. No hepato-splenomegaly , or palpable masses. No guarding. EXTREMITIES: No clubbing, cyanosis, or edema. No joint tenderness, effusion, or edema noted. BACK: Nontender without deformity or crepitance. No flank tenderness. Data Data Last Documented VS Vital Signs Date Time Temp Pulse Resp B/P (MAP) Pulse Ox O2 Delivery O2 Flow Rate FiO2 10/30/17 23:28 18 10/30/17 19:48 97.8 87 130/78 (95) 100 Orders Orders Complete Blood Count With Diff (10/30/17 19:51) Basic Metabolic Panel (Bmp) (10/30/17 19:51) Iv Access Insert/Monitor (10/30/17 23:58) Clindamycin 900 Mg/Ns Premix (Cleocin 90 (10/31/17 00:00) Labs Laboratory Tests Test 10/30/17 23:22 White Blood Count 7.5 TH/MM3 Red Blood Count 4.54 MIL/MM3 Hemoglobin 13.9 GM/DL Hematocrit 39.3 % Mean Corpuscular Volume 86.6 FL Mean Corpuscular Hemoglobin 30.5 PG Mean Corpuscular Hemoglobin Concent 35.2 % Red Cell Distribution Width 13.0 % Platelet Count 210 TH/MM3 Mean Platelet Volume 7.1 FL Neutrophils (%) (Auto) 65.5 % Lymphocytes (%) (Auto) 21.1 % Monocytes (%) (Auto) 9.9 % Eosinophils (%) (Auto) 2.7 % Basophils (%) (Auto) 0.8 % Neutrophils # (Auto) 4.9 TH/MM3 Lymphocytes # (Auto) 1.6 TH/MM3 Monocytes # (Auto) 0.7 TH/MM3 Eosinophils # (Auto) 0.2 TH/MM3 Basophils # (Auto) 0.1 TH/MM3 CBC Comment DIFF FINAL Differential Comment Blood Urea Nitrogen 11 MG/DL Creatinine 1.16 MG/DL Random Glucose 94 MG/DL Calcium Level 8.8 MG/DL Sodium Level 137 MEQ/L Potassium Level 4.2 MEQ/L Chloride Level 99 MEQ/L Carbon Dioxide Level 30.0 MEQ/L Anion Gap 8 MEQ/L Estimat Glomerular Filtration Rate 72 ML/MIN MDM Medical Decision Making Medical Screen Exam Complete: Yes Emergency Medical Condition: Yes Medical Record Reviewed: Yes Interpretation(s) Laboratory Tests Test 10/30/17 23:22 White Blood Count 7.5 TH/MM3 Red Blood Count 4.54 MIL/MM3 Hemoglobin 13.9 GM/DL Hematocrit 39.3 % Mean Corpuscular Volume 86.6 FL Mean Corpuscular Hemoglobin 30.5 PG Mean Corpuscular Hemoglobin Concent 35.2 % Red Cell Distribution Width 13.0 % Platelet Count 210 TH/MM3 Mean Platelet Volume 7.1 FL Neutrophils (%) (Auto) 65.5 % Lymphocytes (%) (Auto) 21.1 % Monocytes (%) (Auto) 9.9 % Eosinophils (%) (Auto) 2.7 % Basophils (%) (Auto) 0.8 % Neutrophils # (Auto) 4.9 TH/MM3 Lymphocytes # (Auto) 1.6 TH/MM3 Monocytes # (Auto) 0.7 TH/MM3 Eosinophils # (Auto) 0.2 TH/MM3 Basophils # (Auto) 0.1 TH/MM3 CBC Comment DIFF FINAL Differential Comment Blood Urea Nitrogen 11 MG/DL Creatinine 1.16 MG/DL Random Glucose 94 MG/DL Calcium Level 8.8 MG/DL Sodium Level 137 MEQ/L Potassium Level 4.2 MEQ/L Chloride Level 99 MEQ/L Carbon Dioxide Level 30.0 MEQ/L Anion Gap 8 MEQ/L Estimat Glomerular Filtration Rate 72 ML/MIN Differential Diagnosis MDM: High Differential diagnoses: Abscess, folliculitis, cellulitis, lymphangitis, abrasion, contact dermatitis Narrative Course IV access is obtained. Laboratory tests sent for analysis. Patient is given clindamycin 900 mg IV. I reviewed the patient's laboratory testing. He has a normal white count. He is not running a fever. He does have localizing infection but I do not see any obvious drainable abscess. Patient's infection is from picking. I do not believe that he is going to require admission today. This is cellulitis, picking/formication, substance abuse Diagnosis Primary Impression: Facial cellulitis Additional Instructions: Rest. Elevation. Tylenol and Advil for pain. Daily wound care with soap, water, Neosporin. Bactrim DS and Keflex. No picking of the face or body. Stop drugs. Follow-up with Phu Dunn. Recheck with her primary care doctor or a walk-in clinic in the next 2-3 days. Return to the ER if any problems. Med/Other Pt SpecificInfo: Prescription(s) given, Wound Care Scripts Sulfamethoxazole-Trimethoprim (Bactrim DS) 800-160 Mg Tab 1 TAB PO BID for Infection, #20 TAB 0 Refills Prov: Mg Galloway MD 10/31/17 Clindamycin (Cleocin) 300 Mg Cap 300 MG PO Q6H for Infection for 10 Days, #40 CAP 0 Refills Prov: Mg Galloway MD 10/31/17 Disposition: 01 DISCHARGE HOME Condition: Stable Amrit Prather Oct 31, 2017 00:14
[2017-10-31 02:14] VITALS: BP 122/46; TEMP 98
== END 2017-10-31 02:15 | disposition home or self-care (01) ==
LOC: NEPD 19:28
DX: L03.211 Cellulitis of face (principal); F17.200 Nicotine dependence, unspecified, uncomplicated; F19.10 Other psychoactive substance abuse, uncomplicated
CPT/HCPCS: 80048; 85025; 96374

== ENCOUNTER 2017-11-02 15:59 | Emergency (ER) | payer SELFPAY ==
[~2017-11-02] VITALS: Ht 188 cm; Wt 80.0 kg
[~2017-11-02 15:59] MED LIST changes: +BACT800T5 PO; +CLEO300C2 PO; -TRAM50 PO
[2017-11-02 16:14] VITALS: BP 129/71; PULSE 97; RESP 16; TEMP 98.7; O2SAT 97
--- NOTE | 2017-11-02 17:49 | PD ---
HPI Chief Complaint: Skin Problem Time Seen by Provider: 17:49 Travel History International Travel<30 days: No Contact w/Intl Traveler<30days: No Traveled to known affect area: No History of Present Illness HPI 32-year-old male with history of IV drug abuse currently 3 months clean, presents emergency department with worsening abscess to the left anterior temporal just to the outer edge of the left eye. Patient was seen 2 days ago and started on Bactrim and clindamycin. Patient states it is now come to a head, and needs to be drained. He states the localized redness and swelling has consolidated. He denies fever, chills, or other symptoms. He requests no narcotics for pain control. He has no known drug allergies. PFSH Past Medical History Asthma: No Bipolar Disorder: Yes Anxiety: Yes Depression: Yes Cancer: No Cardiovascular Problems: No Chest Pain: No COPD: No Diminished Hearing: No Endocrine: No Gastrointestinal Disorders: No Genitourinary: No Hypertension: No Immune Disorder: No Implanted Vascular Access Dvce: No Musculoskeletal: Yes Neurologic: Yes Psychiatric: Yes (mood disorder, substance abuse, insomnia ) Reproductive: No Respiratory: No Integumentary: Yes (txt recently for infected L sternoclavicular joint ()) Immunizations Current: Yes Schizophrenia: Yes Seizures: Yes Sleep Apnea: No Past Surgical History Tympanostomy Tube: Yes Other Surgery: No Social History Alcohol Use: No Tobacco Use: Yes (/2 PPD) Substance Use: Yes (METH) Allergies-Medications (Allergen,Severity, Reaction): Coded Allergies: No Known Allergies (Verified Allergy, Unknown, 10/30/17) Reported Meds & Prescriptions Reported Meds & Active Scripts Active Meloxicam 15 Mg Tab 15 Mg PO DAILY Bactrim DS (Sulfamethoxazole-Trimethoprim) 800-160 Mg Tab 1 Tab PO BID Cleocin (Clindamycin HCl) 300 Mg Cap 300 Mg PO Q6H 10 Days Review of Systems Except as stated in HPI: all other systems reviewed are Neg General / Constitutional: No: Fever Eyes: No: Visual changes HENT: No: Headaches Cardiovascular: No: Chest Pain or Discomfort Respiratory: No: Shortness of Breath Gastrointestinal: No: Abdominal Pain Genitourinary: No: Dysuria Musculoskeletal: No: Pain Skin: Positive Lesions (See history of present illness.), No Rash Neurologic: No: Weakness Psychiatric: No: Depression Endocrine: No: Polydipsia Hematologic/Lymphatic: No: Easy Bruising Physical Exam Narrative GENERAL: Patient appears in mild distress. SKIN: Warm and dry. Normal color. Normal turgor. Patient has a raised erythematous indurated firm abscess to the left anterior yarsanism, with pointing present. No spontaneous drainage is noted. HEAD: Atraumatic. Normocephalic. EYES: Pupils equal and round. No scleral icterus. No injection or drainage. ENT: No nasal bleeding or discharge. Mucous membranes pink and moist. Pharynx is clear. Airways patent. NECK: Trachea midline. Supple and nontender CARDIOVASCULAR: Regular rate and rhythm. RESPIRATORY: No accessory muscle use. Clear to auscultation. Breath sounds equal bilaterally. MUSCULOSKELETAL: Extremities without clubbing, cyanosis, or edema. No obvious deformities. NEUROLOGICAL: Awake and alert. No obvious cranial nerve deficits. Motor grossly within normal limits. Five out of 5 muscle strength in the arms and legs. Normal speech. PSYCHIATRIC: Appropriate mood and affect; insight and judgment normal. Data Data Last Documented VS Vital Signs Date Time Temp Pulse Resp B/P (MAP) Pulse Ox O2 Delivery O2 Flow Rate FiO2 11/02/17 16:14 98.7 97 16 129/71 (90) 97 Orders Orders Lidocai-Epi 1%-1:100,000 Inj (Xylocaine- (11/02/17 18:00) Ketorolac Inj (Toradol Inj) (11/02/17 18:00) [facility] Medical Decision Making Medical Screen Exam Complete: Yes Emergency Medical Condition: Yes Medical Record Reviewed: Yes Differential Diagnosis MRSA. Cellulitis. Abscess. Narrative Course I&D of abscesses performed without difficulty. Wound culture is sent to the lab. Patient is to continue on the Bactrim and clindamycin as previously prescribed. Patient is given meloxicam 15 mg daily for pain. #10. Wound care as discussed. Patient to return if symptoms worsen as needed. Procedures Procedure Narrative After the risks and benefits were discussed the following procedure was performed: INCISION AND DRAINAGE OF ABSCESS: The area was prepped and was sterilely draped. A subcutaneous wheal of 1 % Xylocaine with epi with a total number 1.5 mL was used to anesthetize the area. The area was properly anesthetized. A number 11 scalpel was used to make a 0.5-cm incision across the area of the abscess. Cultures were obtained. The abscess was drained an irrigated with normal saline. Quarter inch iodoform packing was placed in the wound. Sterile dressing applied. Patient advised to have packing removed in two days. Diagnosis Primary Impression: Cutaneous abscess of face Patient Instructions: Abscess Incision and Drainage (DC), General Instructions Med/Other Pt SpecificInfo: Prescription(s) given Scripts Meloxicam (Meloxicam) 15 Mg Tab 15 MG PO DAILY for Arthritis Pain, #10 TAB 0 Refills Prov: Dev Madera MD 11/02/17 Disposition: 01 DISCHARGE HOME Condition: Stable Onur Shankar Nov 02, 2017 17:49
[2017-11-02] MEDS ORDERED: LIDOCAINE 1%/EPINEPHrine 1:100,000 SOLN 50 ML VIAL INFIL ONE (18:00)
[2017-11-02] MEDS ORDERED: KETOROLAC TROMETHAMINE 60 MG/2 ML (IM) VIAL IM ONE (18:00)
[2017-11-02] MEDS ORDERED: MELO15TA20 PO (18:21)
== END 2017-11-02 18:57 | disposition home or self-care (01) ==
LOC: NEPD 15:59
DX: L02.01 Cutaneous abscess of face (principal); B95.62 Methicillin resistant Staphylococcus aureus infection as the cause of diseases classified elsewhere
CPT/HCPCS: 10061; 86403; 87070; 87186; 96372; 99283; J1885; 87205

== ENCOUNTER 2017-12-03 23:12 | Inpatient (IN) | payer SELFPAY ==
[~2017-12-03] VITALS: Ht 188 cm; Wt 75.1 kg
[~2017-12-03 23:12] MED LIST changes: +MELO15TA20 PO
[2017-12-03 23:25] VITALS: BP 132/64; PULSE 96; RESP 16; TEMP 97.7; O2SAT 100
[2017-12-04] VITALS (11 sets, daily range): BP systolic 110–131; BP diastolic 61–83; PULSE 77–87; RESP 14–20; TEMP 97.8–98.4; O2SAT 98–100
--- NOTE | 2017-12-04 02:03 | RADRPT ---
EXAM DATE/TIME: 12/04/2017 01:28 [facility] COMPARISON: No previous studies available for comparison. INDICATIONS : Short of breath. Swelling to anterior chest wall. MEDICAL HISTORY : None. SURGICAL HISTORY : None. ENCOUNTER: Initial ACUITY: 1 day PAIN SCORE: 5/10 LOCATION: Bilateral chest FINDINGS: PA and lateral views of the chest demonstrate the lungs to be symmetrically aerated without evidence of mass, infiltrate or effusion. The cardiomediastinal contours are unremarkable. Osseous structure s are intact. CONCLUSION: No acute disease. Russell Lanza MD on December 04, 2017 at 2:02 Board Certified Radiologist. This report was verified electronically.
--- NOTE | 2017-12-04 03:03 | PD ---
HPI Chief Complaint: Chest Pain Time Seen by Provider: 02:59 Travel History International Travel<30 days: No Contact w/Intl Traveler<30days: No Traveled to known affect area: No History of Present Illness HPI The patient is a 32 year old male who presents to the [facility] emergency department with a history of chest pain that began 2 days ago. The patient reports that the pain is in the left side of his chest. He has associated left shoulder pain. He reports that moving his left arm above his head makes the pain in his chest and shoulder hurt more. He denies having any swelling or erythema to his shoulder. He does however report having swelling to the left anterior chest wall. The patient has a prior history of IV drug use. He reports that he recently relapsed using methamphetamine a week and a half ago. He reports that he is concerned that he may have endocarditis again. He reports that he was diagnosed with endocarditis 3 years ago at hospital in [place] and then last year had a recurrence at a hospital in [place]. He has had a fever with a tmax of 101. He has had n/v x3-4. He has had diarrhea 2 x in last 2 days. He feels short of breath. On review of systems otherwise, the patient denies having any cough or congestion,neck or back pain, abdominal pain, urinary symptoms, or neurologic symptoms. [facility] Past Medical History Narrative Medical The patient's past medical history is significant for having hepatitis C, History of IV drug use, history of endocarditis, history of recurrent MRSA skin infections Asthma: No Bipolar Disorder: Yes Anxiety: Yes Depression: Yes Cancer: No Cardiovascular Problems: No Chest Pain: No COPD: No Diminished Hearing: No Endocrine: No Gastrointestinal Disorders: No Genitourinary: No Hypertension: No Immune Disorder: No Implanted Vascular Access Dvce: No Musculoskeletal: Yes Neurologic: Yes Psychiatric: Yes (mood disorder, substance abuse, insomnia ) Reproductive: No Respiratory: No Integumentary: Yes (txt recently for infected L sternoclavicular joint ()) Immunizations Current: Yes Schizophrenia: Yes Seizures: Yes Sleep Apnea: No Past Surgical History Narrative Surgical The patient's past surgical history is reportedly none Surgical History: No Previous Surgery Tympanostomy Tube: Yes Other Surgery: No Social History Alcohol Use: No Tobacco Use: Yes (1/2 PPD) Substance Use: Yes (relapsed using meth) Allergies-Medications (Allergen,Severity, Reaction): Coded Allergies: No Known Allergies (Verified Allergy, Unknown, 12/04/17) Reported Meds & Prescriptions Reported Meds & Active Scripts Active Reported Geodon (Ziprasidone) 80 Mg Cap 80 Mg PO BID Adderall (Amphetamine-Dextroamphetamine) 30 Mg Tab 30 Mg PO BID Avoid late evening doses. Space doses at least 4 to 6 hours if more than once/day dosing. Narrative Medication Ibuprofen prn Review of Systems Except as stated in HPI: all other systems reviewed are Neg General / Constitutional: Positive: Fever Eyes: No: Visual changes HENT: No: Headaches, Sore Throat, Rhinorrhea, Congestion Cardiovascular: Positive: Chest Pain or Discomfort, Dyspnea on exertion Respiratory: Positive: Shortness of Breath, No: Cough Gastrointestinal: Positive: Nausea, Vomiting, Abdominal Pain Genitourinary: No: Dysuria Musculoskeletal: Positive: Myalgias, Arthralgias, Pain Skin: No Rash Neurologic: No: Weakness, Focal Abnormalities, Change in Mentation, Slurred Speech, Sensory Disturbance Psychiatric: No: Depression Endocrine: No: Polydipsia Hematologic/Lymphatic: No: Easy Bruising Physical Exam Narrative General: The patient is a well-developed well-nourished male, uncomfortable appearing on arrival reporting severe pain in the left shoulder left chest. Head and Neck exam: Head is normocephalic atraumatic. Eyes: EOMI, pupils are equal round and reactive to light. Nose: Midline septum with pink mucous membranes Mouth: Dentition unremarkable. Moist mucus membranes. Posterior oropharynx is not erythematous. No tonsillar hypertrophy. Uvula midline. Airway patent. Neck: No palpable lymphadenopathy. No nuchal rigidity. No thyromegaly. Cardiovascular: Regular rate and rhythm without murmurs, gallops, or rubs. No pulse deficit to the extremities on simultaneous auscultation and palpation of his radial artery. On examination of his chest wall the patient is noted to have swelling overlying the border between the medial aspect of the clavicle and sternum at the sternoclavicular border. This is exquisitely tender to palpation. The patient repeatedly pushes my hand away during examination making it difficult to adequately palpate the area. Lungs: Clear to auscultation bilaterally. No wheezes, rhonchi, or rales. Abdomen: Soft, without tenderness to palpation in all 4 quadrants of the abdomen. No guarding, rebound, or rigidity. Normal bowel sounds are audible. No tenderness on palpation of McBurney's point. Extremities: No clubbing, cyanosis, or edema. 2+ pulses in all 4 extremities. No shoulder swelling, erythema, or warmth to palpation. The patient has reported pain with externally rotating his left shoulder and abducting his left arm above his head. The patient has no axillary lymphadenopathy. Back: No spinous process tenderness to palpation. No costovertebral angle tenderness to palpation. Neurologic Exam: Grossly nonfocal. Skin Exam: The patient has erythematous papules noted on examination in various areas of his upper and lower extremities with crust overlying these areas. Intact skin that is warm and dry. Data Data Last Documented VS Vital Signs Date Time Temp Pulse Resp B/P (MAP) Pulse Ox O2 Delivery O2 Flow Rate FiO2 12/04/17 04:00 82 16 110/73 (85) 100 Room Air 12/03/17 23:25 97.7 Orders Orders Electrocardiogram (12/03/17 23:55) Complete Blood Count With Diff (12/03/17 23:55) Basic Metabolic Panel (Bmp) (12/03/17 23:55) Ckmb (Isoenzyme) Profile (12/03/17 23:55) Troponin I (12/03/17 23:55) Iv Access Insert/Monitor (12/03/17 23:55) Ecg Monitoring (12/03/17 23:55) Oxygen Administration (12/03/17 23:55) Oximetry (12/03/17 23:55) Chest, Pa & Lat (12/04/17 ) Blood Culture (12/04/17 02:59) Westergren Sedimentation Rate (12/04/17 02:59) Ct Thorax/ Chest W Iv Contrast (12/04/17 03:14) Ketorolac Inj (Toradol Inj) (12/04/17 03:30) Sodium Chlor 0.9% 1000 Ml Inj (Ns 1000 M (12/04/17 03:30) Piperacil-Tazo 3.375 Gm Premix (Zosyn 3. (12/04/17 03:30) Vancomycin Inj (Vancomycin Inj) (12/04/17 03:30) CKMB (12/04/17 03:35) CKMB% (12/04/17 03:35) Iohexol 350 Inj (Omnipaque 350 Inj) (12/04/17 05:42) Admit Order (Ed Use Only) (12/04/17 05:59) Labs Laboratory Tests Test 12/04/17 03:35 White Blood Count 10.7 TH/MM3 Red Blood Count 4.49 MIL/MM3 Hemoglobin 13.3 GM/DL Hematocrit 38.1 % Mean Corpuscular Volume 84.8 FL Mean Corpuscular Hemoglobin 29.6 PG Mean Corpuscular Hemoglobin Concent 34.9 % Red Cell Distribution Width 13.3 % Platelet Count 186 TH/MM3 Mean Platelet Volume 7.9 FL Neutrophils (%) (Auto) 71.4 % Lymphocytes (%) (Auto) 18.4 % Monocytes (%) (Auto) 8.8 % Eosinophils (%) (Auto) 0.9 % Basophils (%) (Auto) 0.5 % Neutrophils # (Auto) 7.6 TH/MM3 Lymphocytes # (Auto) 2.0 TH/MM3 Monocytes # (Auto) 0.9 TH/MM3 Eosinophils # (Auto) 0.1 TH/MM3 Basophils # (Auto) 0.1 TH/MM3 CBC Comment DIFF FINAL Differential Comment Erythrocyte Sedimentation Rate 37 mm/hr Blood Urea Nitrogen 14 MG/DL Creatinine 0.86 MG/DL Random Glucose 91 MG/DL Calcium Level 8.8 MG/DL Sodium Level 138 MEQ/L Potassium Level 4.3 MEQ/L Chloride Level 102 MEQ/L Carbon Dioxide Level 28.4 MEQ/L Anion Gap 8 MEQ/L Estimat Glomerular Filtration Rate 102 ML/MIN Total Creatine Kinase 128 U/L Creatine Kinase MB 1.3 NG/ML Troponin I LESS THAN 0.02 NG/ML MDM Medical Decision Making Medical Screen Exam Complete: Yes Emergency Medical Condition: Yes Medical Record Reviewed: Yes Interpretation(s) Last Impressions Chest CT 12/04/17 0314 Signed Impressions: Service Date/Time: Monday, December 04, 2017 05:37 - CONCLUSION: 1. Soft tissue prominence overlying the left chest. 2. Arthropathy of the anterior first rib complex on the left. Russell Lanza MD Chest X-Ray 12/04/17 0000 Signed Impressions: Service Date/Time: Monday, December 04, 2017 01:28 - CONCLUSION: No acute disease. Russell Lanza MD Differential Diagnosis Chest wall abscess, versus muscle abscess, versus osteomyelitis, versus endocarditis, versus clavicle dislocation Narrative Course During the course of the patient's emergency department visit, the patient's history, examination, and differential diagnosis were reviewed with the patient. The patient was placed on a playground monitor with oximetry and frequent blood pressure monitoring. The patient had IV access obtained and blood work sent for analysis. CT scan of the chest has been ordered to further evaluate. The patient was initially provided normal saline IV fluids, Toradol for pain, Zosyn and vancomycin was started for broad-spectrum antibiotic coverage. A sedimentation rate, blood culture 2 were ordered per The patient's laboratory studies were reviewed and remarkable for a white count 10.7, hemoglobin 13.3, platelets 186, 71.4 neutrophils, monocytes 8.8, sedimentation rate is elevated at 37, basic metabolic profile unremarkable, cardiac enzymes within normal limits Radiology studies were reviewed and remarkable for a chest x-ray that shows no acute cardiopulmonary disease. CT scan of the chest with IV contrast reveals soft tissue prominence overlying the left side of the chest and overlying an area of arthropathy of the anterior first rib complex on the left. The patient's results were discussed with the patient, including the plan of care. I explained that further testing and/ or monitoring is indicated based on the patient's history, examination, and/ or laboratory findings. Therefore, I recommended admission for additional evaluation. The patient expressed understanding and was agreeable with this plan. The patient was admitted to the hospital in guarded condition and sent to a bed under the care of the [facility] service. Physician Communication Physician Communication The patient's case including history, pertinent physical examination findings, and laboratory studies were discussed with Dr. Lam. It was agreed that the patient would be admitted to the [facility] service. Diagnosis Primary Impression: Chest pain Qualified Codes: R07.89 - Other chest pain Additional Impressions: Methamphetamine use Soft tissue swelling of chest wall Admitting Information Admitting Physician Requests: Erin Cabello MD Dec 04, 2017 03:03
[2017-12-04] MEDS ORDERED: KETOROLAC TROMETHAMINE 30 MG/ML (IVP) VIAL IV PUSH ONE (03:30)
[2017-12-04] MEDS ORDERED: SODIUM CHLOR 0.9% 1000 ML INJ 1,000 ML IV ONE (03:30)
[2017-12-04] MEDS ORDERED: PIPERACIL-TAZO 3.375 GM PREMIX 50 ML IV ONE (03:30)
[2017-12-04] MEDS ORDERED: VANCOMYCIN INJ 1,000 MG in SODIUM CHLOR 0.9% 250 ML INJ 250 ML IV ONE (03:30)
[2017-12-04] MEDS ORDERED: GEOD80CA PO (04:34)
[2017-12-04] MEDS ORDERED: ADDE30TA PO (04:34)
[2017-12-04 04:35] LABS: AUTOMATED NEUTROPHIL # 7.6 TH/MM3 (1.8-7.7); BASOPHIL # 0.1 TH/MM3 (0-0.2); BASOPHIL % 0.5 % (0.0-2.0); EOSINOPHIL # 0.1 TH/MM3 (0-0.4); EOSINOPHIL % 0.9 % (0.0-4.0); HEMATOCRIT 38.1 % (39.0-51.0); HEMOGLOBIN 13.3 GM/DL (13.0-17.0); LYMPH % 18.4 % (9.0-44.0); MEAN CELL VOLUME 84.8 FL (80.0-100.0); MEAN CORPUSCULAR HEMOGLOBIN 29.6 PG (27.0-34.0); MEAN CORPUSCULAR HGB CONC 34.9 % (32.0-36.0); MEAN PLATELET VOLUME 7.9 FL (7.0-11.0); MONO % 8.8 % (0.0-8.0); MONOCYTE # 0.9 TH/MM3 (0-0.9); NEUT % 71.4 % (16.0-70.0); PLATELET COUNT 186 TH/MM3 (150-450); RED BLOOD COUNT 4.49 MIL/MM3 (4.50-5.90); RED CELL DISTRIBUTION WIDTH 13.3 % (11.6-17.2); WHITE BLOOD COUNT 10.7 TH/MM3 (4.0-11.0)
[2017-12-04 04:58] LABS: BICARBONATE 28.4 MEQ/L (21.0-32.0); BLOOD UREA NITROGEN 14 MG/DL (7-18); CALCIUM 8.8 MG/DL (8.5-10.1); CHLORIDE 102 MEQ/L (98-107); CREATININE 0.86 MG/DL (0.60-1.30); GLOMERULAR FILTRATION RATE 102 ML/MIN (>89); GLUCOSE,RANDOM 91 MG/DL (74-106); SODIUM (NA) 138 MEQ/L (136-145)
[2017-12-04 05:02] LABS: TROPONIN I LESS THAN 0.02 NG/ML (0.02-0.05)
[2017-12-04] MEDS ORDERED: IOHEXOL 350 MG/ML 10 ML VIAL (for RAD DIAG) IVCONTRAST ONE (05:42)
--- NOTE | 2017-12-04 06:05 | RADRPT ---
EXAM DATE/TIME: 12/04/2017 05:37 [facility] COMPARISON: No previous studies available for comparison. INDICATIONS : Left anterior chest wall swelling. IV CONTRAST: 100 cc Omnipaque 350 (iohexol) IV RADIATION DOSE: 9.10 CTDIvol (mGy) MEDICAL HISTORY : Substance abuse. SURGICAL HISTORY : None. ENCOUNTER: Initial ACUITY: 1 day PAIN SCALE: 5/10 LOCATION: Left chest TECHNIQUE: Volumetric scanning of the chest was performed. Using automated exposure control and adjustment of t he mA and/or kV according to patient size, radiation dose was kept as low as reasonably achievable to obtain optimal diagnostic quality images. DICOM format image data is available electronically for review and comparison. Follow-up recommendations for detected pulmonary nodules are based at a minimum on nodule size and pa tient risk factors according to Fleischner Society Guidelines. FINDINGS: LUNGS: There is no consolidation or pneumothorax. 5 mm nodule left upper lobe. 4 mm nodules in the lower lob es bilaterally. PLEURA: There is no pleural thickening or pleural effusion. MEDIASTINUM: The heart and great vessels demonstrate no acute abnormality. There is no mediastinal or hilar lymph adenopathy. AXILLAE: Within normal limits. No lymphadenopathy. SKELETAL: There is soft tissue prominence overlying the left pectoral muscle adjacent to the left anterior left first rib complex where there is arthropathy. MISCELLANEOUS: The visualized upper abdominal organs demonstrate no acute abnormality. CONCLUSION: 1. Soft tissue prominence overlying the left chest. 2. Arthropathy of the anterior first rib complex on the left. Russell Lanza MD on December 04, 2017 at 5:58 Board Certified Radiologist. This report was verified electronically.
[2017-12-04] MEDS ORDERED: KETOROLAC TROMETHAMINE 30 MG/ML (IVP) VIAL IV PUSH PRN (06:15)
[2017-12-04] MEDS ORDERED: ONDANSETRON HCL 4 MG/2 ML VIAL IVP PRN (06:15)
[2017-12-04] MEDS ORDERED: NALOXONE HCL 0.4 MG/ML AMP IV PUSH PRN (06:15)
[2017-12-04] MEDS ORDERED: ACETAMINOPHEN 325 MG TAB PO PRN (06:15)
[2017-12-04] MEDS ORDERED: Vancomycin Consult Pharmacy 1 EA OTHER SCH (06:15)
[2017-12-04] MEDS: SODIUM CHLOR 0.9% 1000 ML INJ 1,000 ML IV SCH ×3 (06:57→23:06)
--- NOTE | 2017-12-04 08:02 | EKG ---
Date Performed: 12/03/2017 Time Performed: 23:55:16 PTAGE: 32 years EKG: Sinus rhythm NORMAL ECG No significant change from prior electrocardiogram. PREVIOUS TRACING : 08/25/2017 21.06 DOCTOR: Miguel Ángel Montgomery Interpretating Date/Time 12/04/2017 08:01:44
[2017-12-04] MEDS: SODIUM CHLORIDE 0.9% FLUSH 10 ML FLUSH IV FLUSH SCH ×2 (08:27→20:57)
[2017-12-04] MEDS: PIPERACIL-TAZO 3.375 GM PREMIX 50 ML IV SCH ×3 (10:32→23:06)
[2017-12-04] MEDS ORDERED: NICOTINE 14 MG/24 HR PATCH T-DERMAL ONE (14:00)
[2017-12-04] MEDS ORDERED: oxyCODONE/ACETAMINOPHEN 5 MG/325 MG TAB PO PRN (14:00)
--- NOTE | 2017-12-04 14:12 | HHI.HP ---
[facility] Primary Care Physician No Primary Care Physician Admission Diagnosis Chest pain r/o osteomyelitis, versus endocarditis Diagnoses: (1) Myositis Diagnosis: Principal Travel History International Travel<30 Days: No Contact w/Intl Traveler <30 Da: No Traveled to Known Affected Are: No History of Present Illness Mr. Conteh is a 32 year old male. She came into the hospital secondary to a progressive swelling at his left upper chest. This is causing him chest pain especially with movement. ACS etiology is not suspected. She has a history of infection at this location before. He says he had such infections approximately 4 years ago and 2 years ago. This will be his third type of infection at that area. 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 Infections are related to a history of IV drug abuse. He says his drugs of choice or methamphetamines and cocaine. She denies any abuse of alcohol, narcotics, or other drugs. She does smoke about one half pack per day. He was sober for a while but admits to relapsing within the past 2 months and he last used approximately 1 week ago. Bipolar disorder and schizophrenia part of his baseline psychiatric problems. CT scan of the chest shows no evidence for abscess. Soft tissue swelling may indicate infectious myositis. Primary complaint is pain. No other complaints. Review of Systems Constitutional: COMPLAINS OF: Fatigue, Fever, Chills Endocrine: DENIES: Polydipsia, Polyuria, Polyphagia Eyes: DENIES: Blurred vision, Diplopia, Eye inflammation, Eye pain Ears, nose, mouth, throat: DENIES: Hearing loss, Vertigo, Nasal discharge Respiratory: DENIES: Apneas, Cough, Snoring, Wheezing Cardiovascular: DENIES: Chest pain, Palpitations, Syncope Gastrointestinal: DENIES: Abdominal pain, Black stools, Bloody stools Musculoskeletal: COMPLAINS OF: Joint pain, Muscle aches, Stiffness, Joint Swelling Integumentary: DENIES: Abnormal pigmentation, Nail changes, Pruritus, Rash Hematologic/lymphatic: DENIES: Bruising, Lymphadenopathy Immunologic/allergic: DENIES: Eczema, Urticaria Neurologic: DENIES: Abnormal gait, Headache, Paresthesias Psychiatric: DENIES: Anxiety, Confusion, Hallucinations Past Family Social History Past Medical History Infective endocarditis Cellulitis of the left lower extremity Cellulitis/myositis of the sternoclavicular border at the left. Past Surgical History Drainage of abscesses. Reported Medications Reported Meds & Active Scripts Active Reported Geodon (Ziprasidone) 80 Mg Cap 80 Mg PO BID Adderall (Amphetamine-Dextroamphetamine) 30 Mg Tab 30 Mg PO BID Avoid late evening doses. Space doses at least 4 to 6 hours if more than once/day dosing. Allergies: Coded Allergies: No Known Allergies (Verified Allergy, Unknown, 12/04/17) Active Ordered Medications Administered Medications Medications (Trade) Dose Ordered Sig/Vic Route PRN Reason Start Time Stop Time Status Last Admin Dose Admin Sodium Chloride 1,000 ml @ 100 mls/hr Q10H IV 12/04/17 06:10 12/04/17 06:57 Piperacillin Sod/ Tazobactam Sod 50 ml @ 100 mls/hr Q6H IV 12/04/17 11:00 12/04/17 10:32 Ketorolac Tromethamine (Toradol Inj) 15 mg Q6HR PRN IV PUSH pain >5 12/04/17 06:15 12/09/17 06:14 12/04/17 09:32 Family History Liver disease and myocardial infarction in maternal grandfather Social History Methamphetamine and cocaine abuse Patient smokes one half pack per day of tobacco No alcohol abuse, occasional use Physical Exam Vital Signs Vital Signs Date Time Temp Pulse Resp B/P (MAP) Pulse Ox O2 Delivery O2 Flow Rate FiO2 12/04/17 13:00 98.0 78 16 118/83 (95) 99 Room Air 12/04/17 11:30 98.1 87 16 122/81 (95) 99 Room Air 12/04/17 10:32 17 12/04/17 09:00 97.9 86 18 130/77 (94) 100 Room Air 12/04/17 07:10 98.1 86 17 125/66 (85) 98 Room Air 12/04/17 07:10 17 98 Room Air 12/04/17 07:10 98 Room Air 12/04/17 07:10 86 17 99 Room Air 12/04/17 06:59 15 12/04/17 06:30 78 14 116/68 (84) 100 Room Air 12/04/17 04:00 82 16 110/73 (85) 100 Room Air 12/04/17 02:00 84 14 131/72 (91) 100 Room Air 12/04/17 00:00 80 16 124/72 (89) 100 Room Air 12/03/17 23:25 97.7 96 16 132/64 (86) 100 Room Air Physical Exam GENERAL: NAD, A&Ox3 HEAD: Normocephalic. NECK: Supple, trachea midline. No lymphadenopathy. EYES: No scleral icterus. No injection or drainage. CARDIOVASCULAR: Regular rate and rhythm without murmurs, gallops, or rubs. RESPIRATORY: Breath sounds equal bilaterally. No accessory muscle use. GASTROINTESTINAL: Abdomen soft, non-tender, nondistended. MUSCULOSKELETAL: No cyanosis, or edema. Soft tissue Induration at left sternoclavicular joint extending into the upper portion of sternum SKIN: Warm and dry. NEURO: No focal neurological deficitis. Laboratory Laboratory Tests Test 12/04/17 03:35 12/04/17 09:30 White Blood Count 10.7 Red Blood Count 4.49 Hemoglobin 13.3 Hematocrit 38.1 Mean Corpuscular Volume 84.8 Mean Corpuscular Hemoglobin 29.6 Mean Corpuscular Hemoglobin Concent 34.9 Red Cell Distribution Width 13.3 Platelet Count 186 Mean Platelet Volume 7.9 Neutrophils (%) (Auto) 71.4 Lymphocytes (%) (Auto) 18.4 Monocytes (%) (Auto) 8.8 Eosinophils (%) (Auto) 0.9 Basophils (%) (Auto) 0.5 Neutrophils # (Auto) 7.6 Lymphocytes # (Auto) 2.0 Monocytes # (Auto) 0.9 Eosinophils # (Auto) 0.1 Basophils # (Auto) 0.1 CBC Comment DIFF FINAL Differential Comment Erythrocyte Sedimentation Rate 37 Blood Urea Nitrogen 14 Creatinine 0.86 Random Glucose 91 Calcium Level 8.8 Sodium Level 138 Potassium Level 4.3 Chloride Level 102 Carbon Dioxide Level 28.4 Anion Gap 8 Estimat Glomerular Filtration Rate 102 Total Creatine Kinase 128 Creatine Kinase MB 1.3 Troponin I LESS THAN 0.02 LESS THAN 0.02 Date/Time Source Procedure Growth Status 12/04/17 03:40 Blood Peripheral Aerobic Blood Culture Pending Received 12/04/17 03:40 Blood Peripheral Anaerobic Blood Culture Pending Received Result Diagram: 12/04/17 0335 12/04/17 0335 Imaging Last Impressions Chest CT 12/04/17 0314 Signed Impressions: Service Date/Time: Monday, December 04, 2017 05:37 - CONCLUSION: 1. Soft tissue prominence overlying the left chest. 2. Arthropathy of the anterior first rib complex on the left. Russell Lanza MD Chest X-Ray 12/04/17 0000 Signed Impressions: Service Date/Time: Monday, December 04, 2017 01:28 - CONCLUSION: No acute disease. MD Felix Garza VTE Risk Assessment Caprini VTE Risk Assessment: Mod/High Risk (score >= 2) Caprini Risk Assessment Model Point Value = 1 Point Value = 2 Point Value = 3 Point Value = 5 Age 41-60 Minor surgery BMI > 25 kg/m2 Swollen legs Varicose veins or History of unexplained or recurrent spontaneous Oral contraceptives or hormone replacement Sepsis (< 1 month) Serious lung disease, including pneumonia (< 1 month) Abnormal pulmonary function Acute myocardial infarction Congestive heart failure (< 1 month) History of inflammatory bowel disease Medical patient at bed rest Age 61-74 Arthroscopic surgery Major open surgery (> 45 min) Laparoscopic surgery (> 45 min) Malignancy Confined to bed (> 72 hours) Immobilizing plaster cast Central venous access Age >= 75 History of VTE Family history of VTE Factor V Leiden Prothrombin [id number] Lupus anticoagulant Anticardiolipin antibodies Elevated serum homocysteine Heparin-induced thrombocytopenia Other congenital or acquired thrombophilia Stroke (< 1 month) Elective arthroplasty Hip, pelvis, or leg fracture Acute spinal cord injury (< 1 month) Prophylaxis Regimen Total Risk Factor Score Risk Level Prophylaxis Regimen 0-1 Low Early ambulation 2 Moderate Order ONE of the following: *Sequential Compression Device (SCD) *Heparin 5000 units SQ BID 3-4 Higher Order ONE of the following medications: *Heparin 5000 units SQ TID *Enoxaparin/Lovenox 40 mg SQ daily (WT < 150 kg, CrCl > 30 mL/min) *Enoxaparin/Lovenox 30 mg SQ daily (WT < 150 kg, CrCl > 10-29 mL/min) *Enoxaparin/Lovenox 30 mg SQ BID (WT < 150 kg, CrCl > 30 mL/min) AND/OR *Sequential Compression Device (SCD) 5 or more Highest Order ONE of the following medications: *Heparin 5000 units SQ TID (Preferred with Epidurals) *Enoxaparin/Lovenox 40 mg SQ daily (WT < 150 kg, CrCl > 30 mL/min) *Enoxaparin/Lovenox 30 mg SQ daily (WT < 150 kg, CrCl > 10-29 mL/min) *Enoxaparin/Lovenox 30 mg SQ BID (WT < 150 kg, CrCl > 30 mL/min) AND *Sequential Compression Device (SCD) Assessment and Plan Problem List: (1) Myositis ICD Code: M60.9 - Myositis, unspecified (2) Tobacco abuse ICD Code: Z72.0 - Tobacco use (3) Substance abuse ICD Code: F19.10 - Other psychoactive substance abuse, uncomplicated Status: Acute Assessment and Plan 32-year-old male admitted for suspected recurrence of infection at the sternoclavicular joint Left sternoclavicular joint myositis Infectious myositis History of infective endocarditis No evidence of abscess on CT Vancomycin Zosyn Probiotic Screen for infective endocarditis with echocardiogram No need for surgical consult at this point Monitor for any changes Follow blood cultures Schizophrenia Bipolar disorder Continue Geodon Cocaine abuse Methamphetamine abuse Cessation recommended Multivitamin initiated Patient should not be on Adderall, this is discontinued DVT prophylaxis David Scherer MD Dec 04, 2017 14:12
[2017-12-04] MEDS: VANCOMYCIN INJ 1,250 MG in SODIUM CHLOR 0.9% 250 ML INJ 250 ML IV SCH ×2 (14:28→20:56)
[2017-12-04] MEDS: ENOXAPARIN SODIUM 40 MG/0.4 ML SYRINGE SQ SCH (14:28)
[2017-12-04] MEDS: oxyCODONE/ACETAMINOPHEN 10 MG/325 MG TAB PO PRN ×3 (14:29→23:06)
[2017-12-04] MEDS: LACTOBACILLUS ACIDOPHILUS TAB PO SCH (17:05)
[2017-12-04] MEDS: NAPROXEN 500 MG TAB PO SCH (20:55)
[2017-12-04] MEDS: MORPHINE SULFATE 2 MG/ML SYRINGE IV PUSH PRN (20:57)
[2017-12-05] VITALS (7 sets, daily range): BP systolic 106–125; BP diastolic 61–76; PULSE 65–75; RESP 16–18; TEMP 97.4–98; O2SAT 97–100
[2017-12-05] MEDS: SODIUM CHLORIDE 0.9% FLUSH 10 ML FLUSH IV FLUSH PRN ×2 (01:40→06:33)
[2017-12-05] MEDS: MORPHINE SULFATE 2 MG/ML SYRINGE IV PUSH PRN ×2 (01:40→06:33)
[2017-12-05] MEDS: PIPERACIL-TAZO 3.375 GM PREMIX 50 ML IV SCH ×3 (04:05→16:14)
[2017-12-05] MEDS: oxyCODONE/ACETAMINOPHEN 10 MG/325 MG TAB PO PRN ×5 (04:05→22:22)
[2017-12-05 05:23] LABS: AUTOMATED NEUTROPHIL # 5.4 TH/MM3 (1.8-7.7); BASOPHIL % 0.6 % (0.0-2.0); EOSINOPHIL # 0.1 TH/MM3 (0-0.4); EOSINOPHIL % 1.7 % (0.0-4.0); HEMATOCRIT 32.6 % (39.0-51.0); HEMOGLOBIN 11.4 GM/DL (13.0-17.0); LYMPH % 23.1 % (9.0-44.0); LYMPHOCYTE # 1.9 TH/MM3 (1.0-4.8); MEAN CELL VOLUME 85.2 FL (80.0-100.0); MEAN CORPUSCULAR HEMOGLOBIN 29.9 PG (27.0-34.0); MEAN CORPUSCULAR HGB CONC 35.1 % (32.0-36.0); MEAN PLATELET VOLUME 7.7 FL (7.0-11.0); MONO % 9.2 % (0.0-8.0); MONOCYTE # 0.8 TH/MM3 (0-0.9); NEUT % 65.4 % (16.0-70.0); PLATELET COUNT 162 TH/MM3 (150-450); RED BLOOD COUNT 3.82 MIL/MM3 (4.50-5.90); RED CELL DISTRIBUTION WIDTH 13.3 % (11.6-17.2); WHITE BLOOD COUNT 8.3 TH/MM3 (4.0-11.0)
[2017-12-05 05:42] LABS: ALBUMIN 2.6 GM/DL (3.4-5.0); AST (GOT) 24 U/L (15-37); BICARBONATE 24.2 MEQ/L (21.0-32.0); BLOOD UREA NITROGEN 10 MG/DL (7-18); CALCIUM 8.3 MG/DL (8.5-10.1); CHLORIDE 108 MEQ/L (98-107); CREATININE 0.79 MG/DL (0.60-1.30); GLOMERULAR FILTRATION RATE 112 ML/MIN (>89); GLUCOSE,RANDOM 116 MG/DL (74-106); SODIUM (NA) 140 MEQ/L (136-145)
[2017-12-05 05:43] LABS: ALT (GPT) 49 U/L (12-78)
[2017-12-05 05:45] LABS: ALKALINE PHOSPHATASE 96 U/L (45-117); TOTAL BILIRUBIN ADULT 0.6 MG/DL (0.2-1.0); TOTAL PROTEIN 6.2 GM/DL (6.4-8.2)
[2017-12-05] MEDS: VANCOMYCIN INJ 1,250 MG in SODIUM CHLOR 0.9% 250 ML INJ 250 ML IV SCH ×3 (06:33→22:47)
[2017-12-05] MEDS: SODIUM CHLORIDE 0.9% FLUSH 10 ML FLUSH IV FLUSH SCH ×2 (07:41→20:14)
[2017-12-05] MEDS: MULTIVITAMIN TAB PO SCH (08:35)
[2017-12-05] MEDS: NAPROXEN 500 MG TAB PO SCH ×2 (08:35→20:13)
[2017-12-05] MEDS: NICOTINE 14 MG/24 HR PATCH T-DERMAL SCH (08:35)
[2017-12-05] MEDS: LACTOBACILLUS ACIDOPHILUS TAB PO SCH ×3 (08:35→17:20)
[2017-12-05] MEDS: REMOVE OLD PATCH T-DERMAL SCH (08:35)
[2017-12-05] MEDS: SODIUM CHLOR 0.9% 1000 ML INJ 1,000 ML IV SCH ×2 (08:36→20:14)
--- NOTE | 2017-12-05 13:05 | HHI.PR ---
Subjective Remarks Pain his primary complaint. No significant change in symptoms. Objective Vital Signs Date Time Temp Pulse Resp B/P (MAP) Pulse Ox O2 Delivery O2 Flow Rate FiO2 12/05/17 12:00 98.0 75 18 117/72 (87) 99 12/05/17 08:00 97.6 74 18 117/76 (90) 98 12/05/17 04:03 97.8 65 18 117/66 (83) 98 12/05/17 00:00 98.0 18 125/67 (86) 99 12/04/17 20:00 Room Air 12/04/17 20:00 98.4 78 18 124/66 (85) 100 12/04/17 16:00 97.8 77 20 119/61 (80) 100 12/04/17 13:57 97.8 72 16 118/81 (93) 100 I/O 12/04/17 12/04/17 12/04/17 12/05/17 12/05/17 12/05/17 07:00 15:00 23:00 07:00 15:00 23:00 Intake Total 1300 ml 1050 ml 480 ml Output Total 800 ml Balance 1300 ml 250 ml 480 ml Intake Oral 1000 ml 480 ml IV Total 1300 ml 50 ml Output Urine Total 800 ml # Voids 3 3 # Bowel Movements 0 0 Result Diagram: 12/05/17 0416 12/05/17 041 Objective Remarks GENERAL: NAD, A&Ox3 HEAD: Normocephalic. NECK: Supple, trachea midline. No lymphadenopathy. EYES: No scleral icterus. No injection or drainage. CARDIOVASCULAR: Regular rate and rhythm without murmurs, gallops, or rubs. RESPIRATORY: Breath sounds equal bilaterally. No accessory muscle use. GASTROINTESTINAL: Abdomen soft, non-tender, nondistended. MUSCULOSKELETAL: No cyanosis. Tenderness and prominence of her left sternoclavicular joint with edema over the upper portion of the sternum. SKIN: Warm and dry. NEURO: No focal neurological deficitis. A/P Problem List: (1) Tobacco abuse ICD Code: Z72.0 - Tobacco use (2) Myositis ICD Code: M60.9 - Myositis, unspecified (3) Substance abuse ICD Code: F19.10 - Other psychoactive substance abuse, uncomplicated Status: Acute Assessment and Plan 32-year-old male admitted for suspected recurrence of infection at the sternoclavicular joint Left sternoclavicular joint myositis Infectious myositis History of infective endocarditis No evidence of abscess on CT Vancomycin Zosyn Probiotic Screen for infective endocarditis with echocardiogram No need for surgical consult at this point Monitor for any changes Follow blood cultures for 48-72 hours Echocardiogram report pending Schizophrenia Bipolar disorder Continue Geodon Cocaine abuse Methamphetamine abuse Cessation recommended Multivitamin initiated Patient should not be on Adderall, this is discontinued DVT prophylaxis Lovenox David Cabello MD Dec 05, 2017 13:05
[2017-12-05] MEDS: ENOXAPARIN SODIUM 40 MG/0.4 ML SYRINGE SQ SCH (13:45)
[2017-12-05] MEDS ORDERED: PHARMACY ORDERED LAB ONE (13:45)
[2017-12-05] MEDS: MORPHINE SULFATE 4 MG/ML INJ IV PUSH PRN ×2 (15:13→20:14)
[2017-12-06] MEDS: MORPHINE SULFATE 4 MG/ML INJ IV PUSH PRN ×6 (00:18→22:26)
[2017-12-06] MEDS: PIPERACIL-TAZO 3.375 GM PREMIX 50 ML IV SCH ×4 (00:18→17:12)
[2017-12-06] MEDS: SODIUM CHLORIDE 0.9% FLUSH 10 ML FLUSH IV FLUSH PRN ×2 (00:19→04:47)
[2017-12-06] MEDS: oxyCODONE/ACETAMINOPHEN 10 MG/325 MG TAB PO PRN ×5 (03:00→20:12)
[2017-12-06 03:53] VITALS: BP 100/57; PULSE 61; RESP 16; TEMP 97.3; O2SAT 98
[2017-12-06] MEDS: VANCOMYCIN INJ 1,250 MG in SODIUM CHLOR 0.9% 250 ML INJ 250 ML IV SCH ×3 (05:34→22:26)
[2017-12-06 08:00] VITALS: BP 124/76; PULSE 80; RESP 14; TEMP 97.9; O2SAT 97
[2017-12-06] MEDS: NICOTINE 14 MG/24 HR PATCH T-DERMAL SCH (08:43)
[2017-12-06] MEDS: REMOVE OLD PATCH T-DERMAL SCH (08:43)
[2017-12-06] MEDS: MULTIVITAMIN TAB PO SCH (08:44)
[2017-12-06] MEDS: LACTOBACILLUS ACIDOPHILUS TAB PO SCH ×3 (08:44→17:11)
[2017-12-06] MEDS: NAPROXEN 500 MG TAB PO SCH ×2 (08:44→20:12)
[2017-12-06] MEDS: SODIUM CHLORIDE 0.9% FLUSH 10 ML FLUSH IV FLUSH SCH ×2 (08:45→20:12)
[2017-12-06 09:13] LABS: AUTOMATED NEUTROPHIL # 4.4 TH/MM3 (1.8-7.7); BASOPHIL % 0.5 % (0.0-2.0); EOSINOPHIL # 0.1 TH/MM3 (0-0.4); EOSINOPHIL % 2.1 % (0.0-4.0); HEMATOCRIT 33.3 % (39.0-51.0); HEMOGLOBIN 11.5 GM/DL (13.0-17.0); LYMPHOCYTE # 1.9 TH/MM3 (1.0-4.8); MEAN CORPUSCULAR HGB CONC 34.4 % (32.0-36.0); MEAN PLATELET VOLUME 8.1 FL (7.0-11.0); MONO % 8.2 % (0.0-8.0); MONOCYTE # 0.6 TH/MM3 (0-0.9); NEUT % 62.2 % (16.0-70.0); PLATELET COUNT 179 TH/MM3 (150-450); RED BLOOD COUNT 3.83 MIL/MM3 (4.50-5.90); RED CELL DISTRIBUTION WIDTH 13.2 % (11.6-17.2); WHITE BLOOD COUNT 7.1 TH/MM3 (4.0-11.0)
[2017-12-06 09:53] LABS: ALBUMIN 2.6 GM/DL (3.4-5.0); AST (GOT) 27 U/L (15-37); BICARBONATE 28.8 MEQ/L (21.0-32.0); BLOOD UREA NITROGEN 8 MG/DL (7-18); CALCIUM 8.6 MG/DL (8.5-10.1); CHLORIDE 106 MEQ/L (98-107); CREATININE 0.95 MG/DL (0.60-1.30); GLOMERULAR FILTRATION RATE 91 ML/MIN (>89); GLUCOSE,RANDOM 101 MG/DL (74-106); SODIUM (NA) 141 MEQ/L (136-145)
[2017-12-06 09:57] LABS: ALKALINE PHOSPHATASE 90 U/L (45-117); ALT (GPT) 41 U/L (12-78); TOTAL BILIRUBIN ADULT 0.8 MG/DL (0.2-1.0); TOTAL PROTEIN 6.4 GM/DL (6.4-8.2)
[2017-12-06 12:00] VITALS: BP 105/59; PULSE 63; RESP 16; TEMP 97.8; O2SAT 99
[2017-12-06] MEDS: ENOXAPARIN SODIUM 40 MG/0.4 ML SYRINGE SQ SCH (14:12)
--- NOTE | 2017-12-06 14:22 | HHI.PR ---
Subjective Remarks Patient reports persistent pain over the left SCM. He reports the swelling has gotten worse. Objective Vitals Vital Signs Date Time Temp Pulse Resp B/P (MAP) Pulse Ox O2 Delivery O2 Flow Rate FiO2 12/06/17 12:00 97.8 63 16 105/59 (74) 99 12/06/17 08:00 97.9 80 14 124/76 (92) 97 12/06/17 03:53 97.3 61 16 100/57 (71) 98 12/05/17 23:40 97.6 73 16 106/61 (76) 100 12/05/17 20:00 Room Air 12/05/17 20:00 97.4 69 18 115/68 (84) 97 12/05/17 16:00 97.5 66 18 110/67 (81) 99 I/O 12/05/17 12/05/17 12/05/17 12/06/17 12/06/17 12/06/17 07:00 15:00 23:00 07:00 15:00 23:00 Intake Total 480 ml 50 ml 300 ml 1070 ml Balance 480 ml 50 ml 300 ml 1070 ml Intake Oral 480 ml 720 ml IV Total 50 ml 300 ml 350 ml # Voids 3 5 # Bowel Movements 0 0 Result Diagram: 12/06/1731 12/06/1731 Objective Remarks GENERAL: Patient appears older than stated age. Appeared to be in some discomfort with movements. CARDIOVASCULAR: Normal rate and regular rhythm without murmurs, gallops, or rubs. SKIN: Over the left SCM is erythematous and edematous. Exquisitely tender to palpation. Limited exam due to pain. Probable fluctuance. RESPIRATORY: Good respiratory efforts. Breath sounds equal and clear to auscultation bilaterally. GASTROINTESTINAL: Abdomen soft, non-tender, non-distended. Normal active bowel sounds MUSCULOSKELETAL: Extremities without cyanosis, or edema. NEURO: Alert & Oriented x4 to person, place, time, situation. Moves all ext x4 PSYCH: Appropriate mood and affect. A/P Problem List: (1) Myositis ICD Code: M60.9 - Myositis, unspecified (2) Tobacco abuse ICD Code: Z72.0 - Tobacco use (3) Substance abuse ICD Code: F19.10 - Other psychoactive substance abuse, uncomplicated Status: Acute (4) Pain in sternoclavicular joint ICD Code: M25.519 - Pain in unspecified shoulder (5) Septic arthritis of sternoclavicular joint ICD Code: M00.819 - Arthritis due to other bacteria, unspecified shoulder Assessment and Plan 32-year-old male admitted for suspected recurrence of infection at the sternoclavicular joint. Left sternoclavicular joint swelling and erythema, concern for septic joint. History of infective endocarditis No evidence of abscess on initial CAT scan. However patient reports swelling has gotten worse. Exam is concerning and worsening per the patient. Consult CT surgery for evaluation. He may need debridement. Follow blood cultures. Continue broad spectrum antibiotics including vancomycin and Zosyn. Consult infectious disease for assistance. Echocardiogram pending to assess for infectious endocarditis. Add Toradol for pain control. Percocet and Morphine as needed. Schizophrenia Bipolar disorder Continue Geodon Cocaine abuse Methamphetamine abuse Cessation advised. Multivitamin initiated Patient should not be on Adderall, this is discontinued DVT prophylaxis Switch to Heparin Discharge Planning Admit to inpatient. Continue IV antibiotics. Henrique Hutchins MD Dec 06, 2017 14:22
[2017-12-06] MEDS: HEPARIN SODIUM - SQ 10,000 UNITS/ML VIAL SQ SCH (15:00)
[2017-12-06 16:00] VITALS: BP 114/68; PULSE 67; RESP 18; TEMP 97.3; O2SAT 97
--- NOTE | 2017-12-06 17:02 | ECHRPT ---
Indication: ENDOCARDITIS CONCLUSIONS Normal left ventricular size. Wall thickness is normal. The left ventricular systolic function is normal with an estimated ejection fraction in the range of 55-60%. [id number] mitral valve regurgitation. There is trace tricuspid valve regurgitation. The estimated pulmonary arterial pressure is 26.8 mmHg. BP: 118 / 81 HR: 72 Rhythm: Sinus MEASUREMENTS (Male / Female) Normal Values Technical Quality:Fair 2D ECHO LV Diastolic Diameter PLAX 4.9 cm 4.2 - 5.9 / 3.9 - 5.3 cm LV Systolic Diameter PLAX 3.6 cm IVS Diastolic Thickness 0.9 cm 0.6 - 1.0 / 0.6 - 0.9 cm LVPW Diastolic Thickness 0.9 cm 0.6 - 1.0 / 0.6 - 0.9 cm LV Relative Wall Thickness 0.4 RV Internal Dim ED PLAX 2.3 cm LVOT Diameter 2.1 cm Aortic Root Diameter 2.6 cm LA Systolic Diameter LX 2.9 cm 3.0 - 4.0 / 2.7 - 3.8 cm M-MODE AV Cusp Separation MM 2.2 cm DOPPLER AV Peak Velocity 132.0 cm/s AV Peak Gradient 7.0 mmHg AV Mean Gradient 4.0 mmHg AV Velocity Time Integral 26.4 cm LVOT Peak Velocity 108.0 cm/s LVOT Peak Gradient 4.7 mmHg LVOT Velocity Time Integral 20.3 cm AV Area Cont Eq vti 2.7 cm AV Area Cont Eq pk 2.8 cm LV E' Lateral Velocity 15.3 cm/s LV E' Septal Velocity 13.9 cm/s TR Peak Velocity 205.0 cm/s TR Peak Gradient 16.8 mmHg Right Atrial Pressure 10.0 mmHg Pulmonary Artery Systolic Pressu 26.8 mmHg Right Ventricular Systolic Press 26.8 mmHg PV Peak Velocity 82.7 cm/s PV Peak Gradient 2.7 mmHg FINDINGS LEFT VENTRICLE Normal left ventricular size. Wall thickness is normal. The left ventricular systolic function is normal with an estimated ejection fraction in the range of 55-60%. RIGHT VENTRICLE Normal right ventricular size and systolic function. LEFT ATRIUM The left atrial size is normal. RIGHT ATRIUM The right atrial size is normal. ATRIAL SEPTUM No atrial level shunt is demonstrated by color flow Doppler interrogation. AORTA The aortic root and proximal ascending aorta are not well visualized. MITRAL VALVE [id number]-[id number] mitral valve regurgitation. AORTIC VALVE Trileaflet aortic valve. No aortic valve stenosis or regurgitation. TRICUSPID VALVE There is trace tricuspid valve regurgitation. The estimated pulmonary arterial pressure is 26.8 mmHg. PULMONARY VALVE No pulmonary valve regurgitation or stenosis. VESSELS The inferior vena cava is normal in size. PERICARDIUM No pericardial effusion. Renaldo Bentley MD, FACC (Electronically Signed) Final Date:06 December 2017 17:02
[2017-12-06 20:00] VITALS: BP 119/64; PULSE 71; RESP 16; TEMP 98.3; O2SAT 100
[2017-12-07] VITALS: BP 111/66; PULSE 71; RESP 17; TEMP 97.7; O2SAT 98
[2017-12-07] MEDS: PIPERACIL-TAZO 3.375 GM PREMIX 50 ML IV SCH ×5 (00:10→22:42)
[2017-12-07] MEDS: oxyCODONE/ACETAMINOPHEN 10 MG/325 MG TAB PO PRN ×6 (00:28→22:15)
[2017-12-07] MEDS: MORPHINE SULFATE 4 MG/ML INJ IV PUSH PRN ×5 (02:30→19:54)
[2017-12-07] MEDS: HEPARIN SODIUM - SQ 10,000 UNITS/ML VIAL SQ SCH ×2 (02:49→15:18)
[2017-12-07 04:00] VITALS: BP 123/61; PULSE 65; RESP 17; TEMP 97.7; O2SAT 99
[2017-12-07] MEDS: SODIUM CHLOR 0.9% 1000 ML INJ 1,000 ML IV SCH ×2 (04:02→13:13)
[2017-12-07] MEDS: VANCOMYCIN INJ 1,250 MG in SODIUM CHLOR 0.9% 250 ML INJ 250 ML IV SCH (04:38)
[2017-12-07] MEDS ORDERED: PHARMACY ORDERED LAB ONE (05:45)
--- NOTE | 2017-12-07 07:53 | MB ---
cc: Edgardo Ritter MD DATE: 12/06/2017 REQUESTING PHYSICIAN: Dr. Hutchins REASON FOR CONSULTATION: Chest wall infection. Questionable developing abscess. HISTORY OF PRESENT ILLNESS: This is a 32-year-old white male who presented to the emergency department on 12/04 with chest pain. The patient notes that the chest pain began 2 days ago. He has a large lump, approximately the size of a tennis ball at the left sternoclavicular joint area, which is markedly erythematous and markedly tender. The patient is a known IV drug abuser. He states that he uses crystal meth, which he injects. He notes using IV drugs 2 days ago, notes that he injected into his left forearm. He denies injecting into the chest wall. A chest CT scan was performed and it shows soft tissue prominence overlying the left chest. Arthropathy of the anterior first rib complex on the left is also noted on that CAT scan report. Chest x-ray was performed that shows no acute infiltrates. The patient states that he has significant pain in the chest. Besides that, he denies nausea, vomiting, chills, shortness of breath, fever or other complaints. PAST MEDICAL HISTORY: Cellulitis involving the chest wall 2 years ago and 4 years ago per patient report. History of cellulitis of the face, history of right arm abscess, hepatitis C. Denies history of endocarditis. IV drug abuse. History of MRSA infection of the arms and also the face, at the left anterior restoration treated with I and D in 10/2017. ALLERGIES: NO KNOWN DRUG ALLERGIES TO MEDICATIONS. MEDICATIONS: Vancomycin, oxycodone p.r.n., nicotine patch, piperacillin/tazobactam. SOCIAL HISTORY: The patient smokes half a pack of cigarettes a day. No alcohol use. Positive IV drug use in the form of methamphetamines. FAMILY HISTORY: Noncontributory. REVIEW OF SYSTEMS: Negative on a 10-point review except for chest pain. PHYSICAL EXAMINATION: GENERAL: This is a slender, well-developed male in no acute distress. He is awake and alert and oriented. VITAL SIGNS: Temperature 98.7, BP 105/59, respirations 16, heart rate 63. HEENT: Head atraumatic. Extraocular movements are grossly intact. Pupils reactive to light. No icterus. No conjunctival erythema. Oropharynx pharynx, moist mucosa without lesions. NECK: Supple, without adenopathy or swelling. LUNGS: Clear to auscultation. CARDIOVASCULAR: Heart regular rate and rhythm. No murmurs, rubs or gallops. CHEST: Revealed a large area of swelling at the sternoclavicular joint region and overlying the clavicle, approximately the mid aspect of the clavicle. ABDOMEN: Bowel sounds present, soft, nontender. RECTAL: Not performed. EXTREMITIES: No clubbing, cyanosis or edema. SKIN: Multiple tiny excoriated lesions scattered on the legs and some on the arms as well. No discrete rash. NEUROLOGIC: No gross focal finding. PSYCHIATRIC: The patient calm and cooperative. LABORATORY DATA: WBC 7.1, platelets 179, hemoglobin 11.5. Sedimentation rate 37. Creatinine 0.95, BUN 8. Sodium 141. IMPRESSION: 1. Chest wall abscess over the sternoclavicular joint, rule out endocarditis. Probably also myositis. 2. History of methicillin-resistant Staphylococcus aureus infection of the soft tissue. 3. Intravenous drug abuse. RECOMMENDATIONS: 1. Continue vancomycin. 2. Monitor blood cultures. 3. Continue piperacillin/tazobactam. 4. Monitor clinical status. 5. Obtain culture of any fluid aspirated from the chest wall for diagnosis. Thank you for allowing me to participate in the care of this patient. I will follow his progress with you. MD DARIELA Bentley/MAGAN , 04:36 PM , 06:23 PM [facility] HOSPITALFerny
[2017-12-07 08:00] VITALS: BP 117/66; PULSE 67; RESP 18; TEMP 97.7; O2SAT 97
[2017-12-07 08:08] LABS: HEMATOCRIT 33.4 % (39.0-51.0); HEMOGLOBIN 11.4 GM/DL (13.0-17.0); MEAN CELL VOLUME 86.5 FL (80.0-100.0); MEAN CORPUSCULAR HEMOGLOBIN 29.6 PG (27.0-34.0); MEAN CORPUSCULAR HGB CONC 34.2 % (32.0-36.0); MEAN PLATELET VOLUME 7.5 FL (7.0-11.0); PLATELET COUNT 193 TH/MM3 (150-450); RED BLOOD COUNT 3.86 MIL/MM3 (4.50-5.90); WHITE BLOOD COUNT 7.2 TH/MM3 (4.0-11.0)
[2017-12-07] MEDS: MULTIVITAMIN TAB PO SCH (08:28)
[2017-12-07] MEDS: LACTOBACILLUS ACIDOPHILUS TAB PO SCH ×3 (08:28→16:28)
[2017-12-07] MEDS: SODIUM CHLORIDE 0.9% FLUSH 10 ML FLUSH IV FLUSH SCH ×2 (08:28→19:55)
[2017-12-07] MEDS: NAPROXEN 500 MG TAB PO SCH ×2 (08:28→19:54)
[2017-12-07] MEDS: REMOVE OLD PATCH T-DERMAL SCH (08:29)
[2017-12-07] MEDS: NICOTINE 14 MG/24 HR PATCH T-DERMAL SCH (08:29)
[2017-12-07 08:35] LABS: BICARBONATE 28.7 MEQ/L (21.0-32.0); CALCIUM 8.7 MG/DL (8.5-10.1); CREATININE 0.94 MG/DL (0.60-1.30)
--- NOTE | 2017-12-07 10:54 | HHI.PR ---
Subjective Remarks Patient reports pain is unchanged. Pain medications helping. Afebrile. Objective Vitals Vital Signs Date Time Temp Pulse Resp B/P (MAP) Pulse Ox O2 Delivery O2 Flow Rate FiO2 12/07/17 08:00 97.7 67 18 117/66 (83) 97 12/07/17 07:36 Room Air 12/07/17 04:00 97.7 65 17 123/61 (81) 99 12/07/17 00:00 Room Air 12/07/17 00:00 97.7 71 17 111/66 (81) 98 12/06/17 20:00 Room Air 12/06/17 20:00 98.3 71 16 119/64 (82) 100 12/06/17 16:00 97.3 67 18 114/68 (83) 97 12/06/17 12:00 97.8 63 16 105/59 (74) 99 I/O 12/06/17 12/06/17 12/06/17 12/07/17 12/07/17 12/07/17 07:00 15:00 23:00 07:00 15:00 23:00 Intake Total 1070 ml 1204.5 ml Balance 1070 ml 1204.5 ml Intake Oral 720 ml 342 ml IV Total 350 ml 862.5 ml # Voids 5 3 # Bowel Movements 0 0 Result Diagram: 12/07/17 0600 12/07/17 0600 Objective Remarks GENERAL: Patient appears older than stated age. Appeared to be in some discomfort with movements. CARDIOVASCULAR: Normal rate and regular rhythm without murmurs, gallops, or rubs. SKIN: Over the left SCM is erythematous and edematous. Exquisitely tender to palpation. Limited exam due to pain. Probable fluctuance. Size unchanged compared to yesterday. RESPIRATORY: Good respiratory efforts. Breath sounds equal and clear to auscultation bilaterally. GASTROINTESTINAL: Abdomen soft, non-tender, non-distended. Normal active bowel sounds MUSCULOSKELETAL: Extremities without cyanosis, or edema. NEURO: Alert & Oriented x4 to person, place, time, situation. Moves all ext x4 PSYCH: Appropriate mood and affect. A/P Problem List: (1) Myositis ICD Code: M60.9 - Myositis, unspecified (2) Tobacco abuse ICD Code: Z72.0 - Tobacco use (3) Substance abuse ICD Code: F19.10 - Other psychoactive substance abuse, uncomplicated Status: Acute (4) Pain in sternoclavicular joint ICD Code: M25.519 - Pain in unspecified shoulder (5) Septic arthritis of sternoclavicular joint ICD Code: M00.819 - Arthritis due to other bacteria, unspecified shoulder Assessment and Plan 32-year-old male admitted for suspected recurrence of infection at the sternoclavicular joint. Chest wall abscess/left sternoclavicular joint swelling and erythema, concern for septic joint. No evidence of abscess on initial CAT scan. However patient reports swelling has gotten worse since arrival. Exam is concerning and worsening per the patient. CT surgery consulted for evaluation. He may need debridement. Follow blood cultures. Continue broad spectrum antibiotics including vancomycin and Zosyn. Appreciate recommendations from ID. Echocardiogram pending to assess for infectious endocarditis. Scheduled naproxen. Percocet and Morphine as needed. Schizophrenia Bipolar disorder Continue Geodon Cocaine abuse Methamphetamine abuse Cessation advised. Multivitamin initiated Patient should not be on Adderall, this is discontinued DVT prophylaxis Heparin Discharge Planning Continue IV antibiotics. Henrique Hutchins MD Dec 07, 2017 10:54
[2017-12-07 12:00] VITALS: BP 106/58; PULSE 72; RESP 19; TEMP 97.6; O2SAT 97
[2017-12-07 16:00] VITALS: BP 110/62; PULSE 67; RESP 18; TEMP 97.3; O2SAT 96
--- NOTE | 2017-12-07 16:20 | MB ---
cc: Dianna Butler DATE: 12/07/2017 HISTORY OF PRESENT ILLNESS: This is a 32-year-old male with history of IV drug use, last used methamphetamines about a week ago. He normally shoots up in his right arm. He has had prior I and D of the right antecubital area abscess back in 07/2017. He has had also prior cellulitis of the left upper chest, which apparently has reoccurred. Per the patient, he states he has never had history of an infective in endocarditis. His drug of choice, again, is methamphetamines and cocaine. He presented because of the swelling in his chest about 2 days prior to admission. Blood cultures to date are negative. Echocardiogram was done which showed an EF of 50-60%, trace to mild mitral valve regurgitation, trace tricuspid valve regurgitation, no pulmonary valve regurgitation or stenosis. He has approximately an 11 x 8 cm raised soft tissue swelling with induration left upper chest wall. The patient is covered in tattoos. It is over an area of a tattoo area. PAST MEDICAL HISTORY: Per his notes he has had history of infective endocarditis. He has also had history of bilateral lower extremity cellulitis. He has had a prior history of cellulitis, myositis of the sternoclavicular border on the left. He has had I and D of the right forearm abscess. ALLERGIES: No known allergies. HOME MEDICATIONS: Include Geodon and Adderall that apparently he got a prescription of while he was at [facility]. FAMILY HISTORY: Mother is alive and healthy. He is estranged from his father. SOCIAL HISTORY: He is single, has 1 child. Been smoking for 15 years, half a pack per day. Positive for IV drug use with methamphetamines and cocaine. REVIEW OF SYSTEMS: As above in the HPI. Other 12 symptoms all unremarkable. PHYSICAL EXAMINATION: VITAL SIGNS: Blood pressure 117/60, heart rate is 68, temperature 97.8 on room air. GENERAL: The patient is awake, alert, no acute distress. HEENT: Head is normocephalic, atraumatic. Pupils equal and reactive. Oral mucosa pink, moist. NECK: Supple. No JVD. CARDIOVASCULAR: Sounds S1, S2. Regular rate and rhythm. No audible rubs, murmurs, or gallops. LUNGS: Clear to auscultation. No wheezes, rales or rhonchi. ABDOMEN: Soft and nontender. No masses or organomegaly. EXTREMITIES: No cyanosis, clubbing or edema. He has track tamez on his right forearm. He has got a raised, indurated area of 11 x 8 cm left sternoclavicular area. Very painful and tender to the touch. DIAGNOSTIC STUDIES: Lab work shows hemoglobin 11.4, hematocrit 33, white cell count of 7.2, platelet count of 193. Sodium 141, potassium 3.9, BUN of 9, creatinine 0.94. Blood cultures negative x 3. CT chest shows soft tissue prominence over the left chest. Arthropathy of the anterior first rib complex on the left. Again, the patient has denied ever injecting into the chest wall. IMPRESSION: Chest wall abscess involving the sternoclavicular joint, probable myositis. He has had prior history of methicillin-sensitive Staphylococcus aureus infection of the soft tissue. Continued IV antibiotics. Evaluation for I and D of that area and obtain cultures for diagnosis. Further plan per Dr. Richey. LINN Heard MD JRT/ANA , 02:57 PM , 04:19 PM
[2017-12-07] MEDS: VANCOMYCIN INJ 1,500 MG in SODIUM CHLORID 0.9% 500 ML INJ 500 ML IV SCH (17:11)
--- NOTE | 2017-12-07 18:32 | HHI.IDPN ---
Note Infectious Disease Note Patient says he feels worse pain in his chest. Notes slight chill. No fever. Presented to the emergency department on 12/04 with chest pain. PAST MEDICAL HISTORY: Cellulitis involving the chest wall 2 years ago and 4 years ago per patient report. History of cellulitis of the face, history of right arm abscess, hepatitis C. Denies history of endocarditis. IV drug abuse. History of MRSA infection of the arms and also the face, at the left anterior mormon treated with I and D in 10/2017. ALLERGIES: NO KNOWN DRUG ALLERGIES TO MEDICATIONS. MEDICATIONS: Current Medications Medications (Trade) Dose Ordered Sig/Vic Route PRN Reason Start Time Stop Time Status Last Admin Dose Admin Sodium Chloride 1,000 ml @ 100 mls/hr Q10H IV 12/04/17 06:10 12/07/17 04:02 Sodium Chloride (NS Flush) 2 ml UNSCH PRN IV FLUSH FLUSH AFTER USING IV ACCESS 12/04/17 06:15 12/06/17 04:47 Sodium Chloride (NS Flush) 2 ml BID IV FLUSH 12/04/17 09:00 12/07/17 08:28 Acetaminophen (Tylenol) 650 mg Q4H PRN PO TEMP > 100.4 12/04/17 06:15 Ondansetron HCl (Zofran Inj) 4 mg Q6H PRN IVP NAUSEA OR VOMITING 12/04/17 06:15 Naloxone HCl (Narcan Inj) 0.4 mg UNSCH PRN IV PUSH SEE LABEL COMMENTS 12/04/17 06:15 Pharmacy Profile Note 0 ml @ 0 mls/hr UNSCH OTHER 12/04/17 06:15 Piperacillin Sod/ Tazobactam Sod 50 ml @ 100 mls/hr Q6H IV 12/04/17 11:00 12/07/17 16:29 Oxycodone/ Acetaminophen (Percocet 5-325 Mg) 1 tab Q4H PRN PO Pain 3 to 6 12/04/17 14:00 Oxycodone/ Acetaminophen (Percocet 10-325 Mg) 1 tab Q4H PRN PO Pain 7 to 10 12/04/17 14:00 12/07/17 16:28 Naproxen (Naprosyn) 500 mg Q12HR PO 12/04/17 21:00 12/07/17 08:28 Nicotine (Habitrol 14 Mg Patch.24 Hr) 1 patch DAILY T-DERMAL 12/05/17 09:00 12/07/17 08:29 Miscellaneous Information 1 DAILY T-DERMAL 12/05/17 09:00 12/07/17 08:29 Lactobacillus Acidophilus (Lactinex) 1 tab TID PO 12/04/17 18:00 12/07/17 16:28 Multivitamins (Theragran) 1 tab DAILY PO 12/05/17 09:00 12/07/17 08:28 Morphine Sulfate (Morphine Inj) 4 mg Q4H PRN IV PUSH Breakthrough Pain 12/05/17 14:00 12/07/17 15:18 Heparin Sodium (Porcine) (Heparin Inj) 5,000 units Q12H SQ 12/06/17 15:00 12/07/17 15:18 Vancomycin HCl 1500 mg/Sodium Chloride 515 ml @ 250 mls/hr Q12H IV 12/07/17 18:00 12/07/17 17:11 Miscellaneous Information SPECIFIC LAB TO BE DRAWN:VANCOMYCIN TROUGH DATE TO... ONCE ONCE .XX 12/09/17 05:45 12/09/17 05:46 SOCIAL HISTORY: The patient smokes half a pack of cigarettes a day. No alcohol use. Positive IV drug use in the form of methamphetamines. Objective. Vital Signs Date Time Temp Pulse Resp B/P (MAP) Pulse Ox O2 Delivery O2 Flow Rate FiO2 12/07/17 12:00 97.6 72 19 106/58 (74) 97 12/07/17 08:00 97.7 67 18 117/66 (83) 97 12/07/17 07:36 Room Air 12/07/17 04:00 97.7 65 17 123/61 (81) 99 12/07/17 00:00 Room Air 12/07/17 00:00 97.7 71 17 111/66 (81) 98 12/06/17 20:00 Room Air 12/06/17 20:00 98.3 71 16 119/64 (82) 100 Laboratory Tests Test 12/06/17 07:31 12/07/17 06:00 White Blood Count 7.1 TH/MM3 7.2 TH/MM3 Red Blood Count 3.83 MIL/MM3 3.86 MIL/MM3 Hemoglobin 11.5 GM/DL 11.4 GM/DL Hematocrit 33.3 % 33.4 % Mean Corpuscular Volume 87.0 FL 86.5 FL Mean Corpuscular Hemoglobin 30.0 PG 29.6 PG Mean Corpuscular Hemoglobin Concent 34.4 % 34.2 % Red Cell Distribution Width 13.2 % 13.0 % Platelet Count 179 TH/MM3 193 TH/MM3 Mean Platelet Volume 8.1 FL 7.5 FL Neutrophils (%) (Auto) 62.2 % Lymphocytes (%) (Auto) 27.0 % Monocytes (%) (Auto) 8.2 % Eosinophils (%) (Auto) 2.1 % Basophils (%) (Auto) 0.5 % Neutrophils # (Auto) 4.4 TH/MM3 Lymphocytes # (Auto) 1.9 TH/MM3 Monocytes # (Auto) 0.6 TH/MM3 Eosinophils # (Auto) 0.1 TH/MM3 Basophils # (Auto) 0.0 TH/MM3 CBC Comment DIFF FINAL Differential Comment Laboratory Tests Test 12/06/17 07:31 12/07/17 06:00 Blood Urea Nitrogen 8 MG/DL 9 MG/DL Creatinine 0.95 MG/DL 0.94 MG/DL Random Glucose 101 MG/DL 87 MG/DL Total Protein 6.4 GM/DL Albumin 2.6 GM/DL Calcium Level 8.6 MG/DL 8.7 MG/DL Alkaline Phosphatase 90 U/L Aspartate Amino Transf (AST/SGOT) 27 U/L Alanine Aminotransferase (ALT/SGPT) 41 U/L Total Bilirubin 0.8 MG/DL Sodium Level 141 MEQ/L 141 MEQ/L Potassium Level 3.8 MEQ/L 3.9 MEQ/L Chloride Level 106 MEQ/L 106 MEQ/L Carbon Dioxide Level 28.8 MEQ/L 28.7 MEQ/L Anion Gap 6 MEQ/L 6 MEQ/L Estimat Glomerular Filtration Rate 91 ML/MIN 92 ML/MIN Imaging: Chest CT 12/04/17 0314 Signed Impressions: Service Date/Time: Monday, December 04, 2017 05:37 - CONCLUSION: 1. Soft tissue prominence overlying the left chest. 2. Arthropathy of the anterior first rib complex on the left. Russell Lanza MD Chest X-Ray 12/04/17 0000 Signed Impressions: Service Date/Time: Monday, December 04, 2017 01:28 - CONCLUSION: No acute disease. Russell Lanza MD PHYSICAL EXAMINATION: GENERAL: No acute distress. Awake and alert. HEENT: Head atraumatic. Extraocular movements are grossly intact. Pupils reactive to light. No icterus. No conjunctival erythema. Oropharynx pharynx, moist mucosa without lesions. NECK: Supple, without adenopathy or swelling. LUNGS: Clear to auscultation. HEART: regular rate and rhythm. No murmurs, rubs or gallops. CHEST: Revealed a large area of swelling at the sternoclavicular joint region and overlying the clavicle, approximately the mid aspect of the clavicle. ABDOMEN: Bowel sounds present, soft, nontender. EXTREMITIES: No clubbing, cyanosis or edema. SKIN: Multiple tiny excoriated lesions scattered on the legs and some on the arms as well. No discrete rash. NEUROLOGIC: No gross focal finding. PSYCHIATRIC: Calm and cooperative. IMPRESSION: 1. Chest wall abscess involving the sternoclavicular joint, rule out endocarditis. Probably also myositis. 2. History of methicillin-resistant Staphylococcus aureus infection of the soft tissue. 3. Intravenous drug abuse. RECOMMENDATIONS: 1. Continue vancomycin. 2. Continue piperacillin/tazobactam 3. Monitor blood cultures 4. Monitor clinical status. 5. Follow culture after aspiration or I&D. Please call ID if culture information available on the weekend. Edgardo Ritter MD Dec 07, 2017 18:32
[2017-12-07 20:00] VITALS: BP 107/62; PULSE 70; RESP 18; TEMP 97.8; O2SAT 99
[2017-12-08] VITALS: BP 108/59; PULSE 73; RESP 21; TEMP 97.8; O2SAT 98
[2017-12-08] MEDS: SODIUM CHLOR 0.9% 1000 ML INJ 1,000 ML IV SCH ×2 (00:10→11:48)
[2017-12-08] MEDS: MORPHINE SULFATE 4 MG/ML INJ IV PUSH PRN ×5 (00:20→20:58)
[2017-12-08] MEDS: oxyCODONE/ACETAMINOPHEN 10 MG/325 MG TAB PO PRN ×5 (02:14→22:17)
[2017-12-08] MEDS: HEPARIN SODIUM - SQ 10,000 UNITS/ML VIAL SQ SCH ×2 (03:30→14:14)
[2017-12-08 04:00] VITALS: BP 124/57; PULSE 65; RESP 18; TEMP 97.9; O2SAT 98
[2017-12-08] MEDS: PIPERACIL-TAZO 3.375 GM PREMIX 50 ML IV SCH ×4 (05:49→22:13)
[2017-12-08] MEDS: VANCOMYCIN INJ 1,500 MG in SODIUM CHLORID 0.9% 500 ML INJ 500 ML IV SCH ×2 (06:27→18:16)
[2017-12-08 08:00] VITALS: BP 123/65; PULSE 67; RESP 18; TEMP 97.6; O2SAT 99
[2017-12-08] MEDS: REMOVE OLD PATCH T-DERMAL SCH (09:00)
[2017-12-08] MEDS: SODIUM CHLORIDE 0.9% FLUSH 10 ML FLUSH IV FLUSH SCH ×2 (09:00→20:59)
[2017-12-08] MEDS: NICOTINE 14 MG/24 HR PATCH T-DERMAL SCH (09:06)
[2017-12-08] MEDS: MULTIVITAMIN TAB PO SCH (09:06)
[2017-12-08] MEDS: LACTOBACILLUS ACIDOPHILUS TAB PO SCH ×3 (09:06→18:16)
[2017-12-08] MEDS: NAPROXEN 500 MG TAB PO SCH ×2 (09:06→20:57)
[2017-12-08 12:00] VITALS: BP 120/54; PULSE 73; RESP 18; TEMP 98.1; O2SAT 97
--- NOTE | 2017-12-08 15:22 | HHI.PR ---
Subjective Remarks Patient reports the pain on his left upper chest is unchanged. Afebrile. Area of erythema becoming more confluent. Objective Vitals Vital Signs Date Time Temp Pulse Resp B/P (MAP) Pulse Ox O2 Delivery O2 Flow Rate FiO2 12/08/17 12:00 98.1 73 18 120/54 (76) 97 12/08/17 08:00 97.6 67 18 123/65 (84) 99 12/08/17 04:00 Room Air 12/08/17 04:00 97.9 65 18 124/57 (79) 98 12/08/17 00:00 97.8 73 21 108/59 (75) 98 12/08/17 00:00 Room Air 12/07/17 20:00 97.8 70 18 107/62 (77) 99 12/07/17 20:00 Room Air 12/07/17 16:00 97.3 67 18 110/62 (78) 96 I/O 12/07/17 12/07/17 12/07/17 12/08/17 12/08/17 12/08/17 07:00 15:00 23:00 07:00 15:00 23:00 Intake Total 1204.5 ml 960 ml 1350 ml Balance 1204.5 ml 960 ml 1350 ml Intake Oral 342 ml 960 ml 1250 ml IV Total 862.5 ml 100 ml # Voids 3 6 4 # Bowel Movements 0 2 1 Result Diagram: 12/07/17 0600 12/07/17 0600 Objective Remarks GENERAL: Patient appears older than stated age. Appeared to be in some discomfort with movements. CARDIOVASCULAR: Normal rate and regular rhythm without murmurs, gallops, or rubs. SKIN: Over the left SCM is erythematous and edematous. Exquisitely tender to palpation. Limited exam due to pain. More fluctuance. Size unchanged compared to yesterday. RESPIRATORY: Good respiratory efforts. Breath sounds equal and clear to auscultation bilaterally. GASTROINTESTINAL: Abdomen soft, non-tender, non-distended. Normal active bowel sounds MUSCULOSKELETAL: Extremities without cyanosis, or edema. NEURO: Alert & Oriented x4 to person, place, time, situation. Moves all ext x4 PSYCH: Appropriate mood and affect. A/P Problem List: (1) Myositis ICD Code: M60.9 - Myositis, unspecified (2) Tobacco abuse ICD Code: Z72.0 - Tobacco use (3) Substance abuse ICD Code: F19.10 - Other psychoactive substance abuse, uncomplicated Status: Acute (4) Pain in sternoclavicular joint ICD Code: M25.519 - Pain in unspecified shoulder (5) Septic arthritis of sternoclavicular joint ICD Code: M00.819 - Arthritis due to other bacteria, unspecified shoulder Assessment and Plan 32-year-old male admitted for suspected recurrence of infection at the sternoclavicular joint. Chest wall abscess/left sternoclavicular joint swelling and erythema, concern for septic joint. No evidence of abscess on initial CAT scan. However patient reports swelling has gotten worse since arrival. Exam is concerning and worsening per the patient. CT surgery following to evaluate for I&D and cultures. Follow blood cultures. Continue broad spectrum antibiotics including vancomycin and Zosyn. Appreciate recommendations from ID. Echocardiogram pending to assess for infectious endocarditis. Scheduled naproxen. Percocet and Morphine as needed. Schizophrenia Bipolar disorder Continue Geodon Cocaine abuse Methamphetamine abuse Cessation advised. Multivitamin initiated Patient should not be on Adderall, this is discontinued DVT prophylaxis Heparin Discharge Planning Continue IV antibiotics. Henrique Hutchins MD Dec 08, 2017 15:22
[2017-12-08 16:00] VITALS: BP 113/57; PULSE 67; RESP 18; TEMP 97.3; O2SAT 98
[2017-12-08 20:00] VITALS: BP 116/57; PULSE 65; RESP 17; TEMP 97.7; O2SAT 95
[2017-12-09] VITALS: BP 112/56; PULSE 57; RESP 19; TEMP 97.5; O2SAT 96
[2017-12-09] MEDS: SODIUM CHLOR 0.9% 1000 ML INJ 1,000 ML IV SCH ×3 (01:34→16:10)
[2017-12-09] MEDS: MORPHINE SULFATE 4 MG/ML INJ IV PUSH PRN ×5 (01:34→21:49)
[2017-12-09] MEDS: HEPARIN SODIUM - SQ 10,000 UNITS/ML VIAL SQ SCH ×2 (02:18→15:00)
[2017-12-09] MEDS: oxyCODONE/ACETAMINOPHEN 10 MG/325 MG TAB PO PRN ×5 (02:47→23:59)
[2017-12-09 04:00] VITALS: BP 103/54; PULSE 55; RESP 18; TEMP 97.6; O2SAT 93
[2017-12-09] MEDS ORDERED: PHARMACY ORDERED LAB ONE (05:45)
[2017-12-09] MEDS: PIPERACIL-TAZO 3.375 GM PREMIX 50 ML IV SCH ×4 (05:52→23:58)
[2017-12-09] MEDS: VANCOMYCIN INJ 1,500 MG in SODIUM CHLORID 0.9% 500 ML INJ 500 ML IV SCH ×2 (06:22→17:17)
[2017-12-09 06:55] LABS: HEMATOCRIT 34.1 % (39.0-51.0); HEMOGLOBIN 11.8 GM/DL (13.0-17.0); MEAN CELL VOLUME 85.8 FL (80.0-100.0); MEAN CORPUSCULAR HEMOGLOBIN 29.8 PG (27.0-34.0); MEAN CORPUSCULAR HGB CONC 34.7 % (32.0-36.0); MEAN PLATELET VOLUME 6.7 FL (7.0-11.0); PLATELET COUNT 253 TH/MM3 (150-450); RED BLOOD COUNT 3.97 MIL/MM3 (4.50-5.90); RED CELL DISTRIBUTION WIDTH 12.9 % (11.6-17.2); WHITE BLOOD COUNT 6.4 TH/MM3 (4.0-11.0)
[2017-12-09 07:08] LABS: BICARBONATE 32.6 MEQ/L (21.0-32.0); CALCIUM 9.4 MG/DL (8.5-10.1); CREATININE 1.15 MG/DL (0.60-1.30)
[2017-12-09 07:12] LABS: VANCOMYCIN TROUGH 16.4 MCG/ML (5.0-10.0)
[2017-12-09 08:00] VITALS: BP 108/58; PULSE 55; RESP 16; TEMP 97.4; O2SAT 97
[2017-12-09] MEDS: MULTIVITAMIN TAB PO SCH (10:19)
[2017-12-09] MEDS: NAPROXEN 500 MG TAB PO SCH ×2 (10:19→21:50)
[2017-12-09] MEDS: LACTOBACILLUS ACIDOPHILUS TAB PO SCH ×3 (10:19→17:18)
[2017-12-09] MEDS: SODIUM CHLORIDE 0.9% FLUSH 10 ML FLUSH IV FLUSH SCH ×2 (10:20→21:00)
[2017-12-09] MEDS: NICOTINE 14 MG/24 HR PATCH T-DERMAL SCH (10:20)
[2017-12-09] MEDS: REMOVE OLD PATCH T-DERMAL SCH (10:21)
--- NOTE | 2017-12-09 10:37 | HHI.PR ---
Subjective Remarks Pain is slightly better. Patient is asking for medications for sleep. Objective Vitals Vital Signs Date Time Temp Pulse Resp B/P (MAP) Pulse Ox O2 Delivery O2 Flow Rate FiO2 12/09/17 08:00 97.4 55 16 108/58 (75) 97 12/09/17 06:23 17 12/09/17 04:00 97.6 55 18 103/54 (70) 93 12/09/17 03:49 18 12/09/17 00:00 97.5 57 19 112/56 (74) 96 12/08/17 21:00 Room Air 12/08/17 20:00 97.7 65 17 116/57 (76) 95 12/08/17 16:00 97.3 67 18 113/57 (75) 98 12/08/17 16:00 Room Air 12/08/17 12:00 Room Air 12/08/17 12:00 98.1 73 18 120/54 (76) 97 I/O 12/08/17 12/08/17 12/08/17 12/09/17 12/09/17 12/09/17 07:00 15:00 23:00 07:00 15:00 23:00 Intake Total 1350 ml 530 ml 1470 ml Balance 1350 ml 530 ml 1470 ml Intake Oral 1250 ml 480 ml 420 ml IV Total 100 ml 50 ml 1050 ml # Voids 4 4 3 # Bowel Movements 1 2 1 Result Diagram: 12/09/17 0610 12/09/17 0610 Objective Remarks GENERAL: Patient appears older than stated age. Appeared to be in some discomfort with movements. CARDIOVASCULAR: Normal rate and regular rhythm without murmurs, gallops, or rubs. SKIN: Over the left SCM is erythematous and edematous. Exquisitely tender to palpation. Limited exam due to pain. More fluctuance. Size unchanged compared to yesterday. RESPIRATORY: Good respiratory efforts. Breath sounds equal and clear to auscultation bilaterally. GASTROINTESTINAL: Abdomen soft, non-tender, non-distended. Normal active bowel sounds MUSCULOSKELETAL: Extremities without cyanosis, or edema. NEURO: Alert & Oriented x4 to person, place, time, situation. Moves all ext x4 PSYCH: Appropriate mood and affect. A/P Problem List: (1) Myositis ICD Code: M60.9 - Myositis, unspecified (2) Tobacco abuse ICD Code: Z72.0 - Tobacco use (3) Substance abuse ICD Code: F19.10 - Other psychoactive substance abuse, uncomplicated Status: Acute (4) Pain in sternoclavicular joint ICD Code: M25.519 - Pain in unspecified shoulder (5) Septic arthritis of sternoclavicular joint ICD Code: M00.819 - Arthritis due to other bacteria, unspecified shoulder Assessment and Plan 32-year-old male admitted for suspected recurrence of infection at the sternoclavicular joint. Chest wall abscess/left sternoclavicular joint swelling and erythema, concern for septic joint. No evidence of abscess on initial CAT scan. However patient reports swelling has gotten worse since arrival. Exam is concerning and worsening per the patient. CT surgery following to evaluate for I&D and cultures. Follow blood cultures. Continue broad spectrum antibiotics including vancomycin and Zosyn. Appreciate recommendations from ID. Echocardiogram without any obvious vegetations. Scheduled naproxen. Percocet and Morphine as needed. Schizophrenia Bipolar disorder Continue Geodon Cocaine abuse Methamphetamine abuse Cessation advised. Multivitamin initiated Patient should not be on Adderall, this is discontinued Insomnia: Vistaril PRN DVT prophylaxis Heparin Discharge Planning Continue IV antibiotics. Henrique Hutchins MD Dec 09, 2017 10:37
[2017-12-09 12:00] VITALS: BP 108/56; PULSE 56; RESP 18; TEMP 97.4; O2SAT 98
[2017-12-09 16:00] VITALS: BP 108/55; PULSE 54; RESP 18; TEMP 97.5; O2SAT 97
[2017-12-09 20:00] VITALS: BP 109/56; PULSE 56; RESP 16; TEMP 98.1; O2SAT 98
[2017-12-09] MEDS: TEMAZEPAM 15 MG CAP PO PRN (21:59)
[2017-12-10] VITALS (7 sets, daily range): BP systolic 101–123; BP diastolic 54–64; PULSE 52–64; RESP 16–20; TEMP 97.4–98.2; O2SAT 98–100
[2017-12-10] MEDS: MORPHINE SULFATE 4 MG/ML INJ IV PUSH PRN ×4 (01:50→14:56)
[2017-12-10] MEDS: SODIUM CHLOR 0.9% 1000 ML INJ 1,000 ML IV SCH (02:10)
[2017-12-10] MEDS: HEPARIN SODIUM - SQ 10,000 UNITS/ML VIAL SQ SCH ×2 (02:39→12:35)
[2017-12-10] MEDS: PIPERACIL-TAZO 3.375 GM PREMIX 50 ML IV SCH ×4 (04:40→23:31)
[2017-12-10] MEDS: oxyCODONE/ACETAMINOPHEN 10 MG/325 MG TAB PO PRN ×4 (04:41→23:30)
[2017-12-10] MEDS: VANCOMYCIN INJ 1,500 MG in SODIUM CHLORID 0.9% 500 ML INJ 500 ML IV SCH (06:38)
[2017-12-10] MEDS: MULTIVITAMIN TAB PO SCH (08:38)
[2017-12-10] MEDS: LACTOBACILLUS ACIDOPHILUS TAB PO SCH ×3 (08:38→15:59)
[2017-12-10] MEDS: NAPROXEN 500 MG TAB PO SCH (08:38)
[2017-12-10] MEDS: NICOTINE 14 MG/24 HR PATCH T-DERMAL SCH (08:39)
[2017-12-10] MEDS: REMOVE OLD PATCH T-DERMAL SCH (08:39)
[2017-12-10] MEDS: SODIUM CHLORIDE 0.9% FLUSH 10 ML FLUSH IV FLUSH SCH ×2 (08:41→20:41)
[2017-12-10 10:16] LABS: HEMATOCRIT 34.2 % (39.0-51.0); HEMOGLOBIN 11.8 GM/DL (13.0-17.0); MEAN CELL VOLUME 85.8 FL (80.0-100.0); MEAN CORPUSCULAR HEMOGLOBIN 29.7 PG (27.0-34.0); MEAN CORPUSCULAR HGB CONC 34.6 % (32.0-36.0); MEAN PLATELET VOLUME 6.8 FL (7.0-11.0); PLATELET COUNT 253 TH/MM3 (150-450); RED BLOOD COUNT 3.99 MIL/MM3 (4.50-5.90); WHITE BLOOD COUNT 5.1 TH/MM3 (4.0-11.0)
--- NOTE | 2017-12-10 10:25 | HHI.PR ---
Subjective Remarks Patient still reporting discomfort at the infection site. Afebrile. No new issues. Objective Vitals Vital Signs Date Time Temp Pulse Resp B/P (MAP) Pulse Ox O2 Delivery O2 Flow Rate FiO2 12/10/17 09:20 Room Air 12/10/17 08:00 97.8 60 18 108/58 (75) 99 12/10/17 05:46 19 12/10/17 04:00 Room Air 12/10/17 04:00 98.0 60 17 101/60 (74) 99 12/10/17 02:03 18 12/10/17 00:00 97.9 57 16 102/54 (70) 98 12/10/17 00:00 Room Air 12/09/17 21:50 Room Air 12/09/17 20:00 98.1 56 16 109/56 (73) 98 12/09/17 16:00 Room Air 12/09/17 16:00 97.5 54 18 108/55 (72) 97 12/09/17 12:00 97.4 56 18 108/56 (73) 98 12/09/17 12:00 Room Air I/O 12/09/17 12/09/17 12/09/17 12/10/17 12/10/17 12/10/17 07:00 15:00 23:00 07:00 15:00 23:00 Intake Total 1470 ml 480 ml 1150 ml Balance 1470 ml 480 ml 1150 ml Intake Oral 420 ml 480 ml 1050 ml IV Total 1050 ml 100 ml # Voids 3 4 5 # Bowel Movements 1 1 0 Result Diagram: 12/10/17 0820 12/09/17 0610 Objective Remarks GENERAL: Patient appears older than stated age. Appeared to be in some discomfort with movements. CARDIOVASCULAR: Normal rate and regular rhythm without murmurs, gallops, or rubs. SKIN: Over the left SCM is erythematous and edematous. Exquisitely tender to palpation. Limited exam due to pain. More fluctuance. Size unchanged compared to yesterday. RESPIRATORY: Good respiratory efforts. Breath sounds equal and clear to auscultation bilaterally. GASTROINTESTINAL: Abdomen soft, non-tender, non-distended. Normal active bowel sounds MUSCULOSKELETAL: Extremities without cyanosis, or edema. NEURO: Alert & Oriented x4 to person, place, time, situation. Moves all ext x4 PSYCH: Appropriate mood and affect. A/P Problem List: (1) Myositis ICD Code: M60.9 - Myositis, unspecified (2) Tobacco abuse ICD Code: Z72.0 - Tobacco use (3) Substance abuse ICD Code: F19.10 - Other psychoactive substance abuse, uncomplicated Status: Acute (4) Pain in sternoclavicular joint ICD Code: M25.519 - Pain in unspecified shoulder (5) Septic arthritis of sternoclavicular joint ICD Code: M00.819 - Arthritis due to other bacteria, unspecified shoulder Assessment and Plan 32-year-old male admitted for suspected recurrence of infection at the sternoclavicular joint. Chest wall abscess/left sternoclavicular joint swelling and erythema, concern for septic joint. No evidence of abscess on initial CAT scan. However patient reports swelling has gotten worse since arrival. Exam is concerning and worsening per the patient. CT surgery following and planning for I&D, cultures today. Blood cultures so far negative. Continue broad spectrum antibiotics including vancomycin and Zosyn. Appreciate recommendations from ID. Echocardiogram without any obvious vegetations. Discontinue naproxen given an increased in creatinine. Percocet and Morphine as needed. Schizophrenia Bipolar disorder Continue Geodon Cocaine abuse Methamphetamine abuse Cessation advised. Multivitamin initiated Patient should not be on Adderall, this is discontinued Insomnia: Vistaril PRN DVT prophylaxis Heparin Discharge Planning Continue IV antibiotics. Henrique Hutchins MD Dec 10, 2017 10:25
[2017-12-10 10:33] LABS: BICARBONATE 32.2 MEQ/L (21.0-32.0); CALCIUM 9.3 MG/DL (8.5-10.1); CREATININE 1.41 MG/DL (0.60-1.30)
[2017-12-10] MEDS ORDERED: MORPHINE SULFATE 2 MG/ML SYRINGE IV PUSH ONE (13:00)
[2017-12-10] MEDS ORDERED: LIDOCAINE HCL 1% 50 ML VIAL INFIL ONE (13:45)
[2017-12-10] MEDS ORDERED: LIDOCAINE HCL 1% 20 ML VIAL INFIL ONE (14:00)
--- NOTE | 2017-12-10 14:33 | PD.OP ---
Operative Report Date of Surgery: Dec 10, 2017 Preoperative Diagnosis: (1) Chest wall abscess Postoperative Diagnosis: (1) Chest wall abscess Procedure: 1. Incision and Drainage of Chest Wall Abscess 2. Iodoform Packing Anesthesia: Local infiltration (Lidocaine 1%) with Morphine 2mg IVP Surgeon: [employer] Director(s): CHANELL Marrufo Operation and Findings: Following a time out, the patient was placed in the supine position and the left infraclavicular chest wall area, at the site of the abscess, was prepped and draped with chloraprep. The area overlying the abscess was anesthetized using Lidocaine 1% without Epinephrine. A 2 cm incision was made and approximately 25 mls of purulent drainage was evacuated and sent for microbiological analysis. Complete drainage was confirmed with manual compression, and strict hemostasis assured. The wound was then packed with Iodoform gauze and dressed with 4x4. The patient tolerated the procedure well with no complications. Merline Richey MD Dec 10, 2017 14:33
[2017-12-10] MEDS ORDERED: MORPHINE SULFATE 4 MG/ML INJ IV ONE (20:45)
[2017-12-10] MEDS: TEMAZEPAM 15 MG CAP PO PRN (23:31)
[2017-12-11] MEDS: HEPARIN SODIUM - SQ 10,000 UNITS/ML VIAL SQ SCH ×3 (00:37→22:29)
[2017-12-11] MEDS: MORPHINE SULFATE 4 MG/ML INJ IV PUSH PRN ×6 (01:47→22:29)
[2017-12-11] MEDS: oxyCODONE/ACETAMINOPHEN 10 MG/325 MG TAB PO PRN ×5 (03:45→21:09)
[2017-12-11 03:48] VITALS: BP 111/59; PULSE 59; RESP 20; TEMP 97.4; O2SAT 97
[2017-12-11] MEDS: PIPERACIL-TAZO 3.375 GM PREMIX 50 ML IV SCH ×4 (05:48→22:28)
[2017-12-11 07:11] LABS: HEMATOCRIT 35.1 % (39.0-51.0); HEMOGLOBIN 12.2 GM/DL (13.0-17.0); MEAN CELL VOLUME 85.5 FL (80.0-100.0); MEAN CORPUSCULAR HEMOGLOBIN 29.6 PG (27.0-34.0); MEAN CORPUSCULAR HGB CONC 34.6 % (32.0-36.0); MEAN PLATELET VOLUME 6.7 FL (7.0-11.0); PLATELET COUNT 250 TH/MM3 (150-450); RED BLOOD COUNT 4.11 MIL/MM3 (4.50-5.90); RED CELL DISTRIBUTION WIDTH 12.7 % (11.6-17.2); WHITE BLOOD COUNT 6.3 TH/MM3 (4.0-11.0)
[2017-12-11 07:37] LABS: BICARBONATE 31.9 MEQ/L (21.0-32.0); CALCIUM 9.7 MG/DL (8.5-10.1); CREATININE 1.45 MG/DL (0.60-1.30)
[2017-12-11 07:38] LABS: RANDOM VANCOMYCIN 14.6 COMMENT
[2017-12-11] MEDS: MULTIVITAMIN TAB PO SCH (07:52)
[2017-12-11] MEDS: LACTOBACILLUS ACIDOPHILUS TAB PO SCH ×3 (07:52→15:59)
[2017-12-11] MEDS: SODIUM CHLORIDE 0.9% FLUSH 10 ML FLUSH IV FLUSH SCH ×2 (07:52→21:00)
[2017-12-11] MEDS: REMOVE OLD PATCH T-DERMAL SCH (07:53)
[2017-12-11] MEDS: NICOTINE 14 MG/24 HR PATCH T-DERMAL SCH (07:53)
[2017-12-11 08:00] VITALS: BP 108/53; PULSE 54; RESP 20; TEMP 98; O2SAT 96
--- NOTE | 2017-12-11 11:33 | HHI.IDPN ---
Note Infectious Disease Note Patient notes pain in the chest. He underwent incision and drainage of the chest wall abscess yesterday. Afebrile. Wound culture pending. 2D echo without mention of heart valve lesions. Presented to the emergency department on 12/04 with chest pain. PAST MEDICAL HISTORY: Cellulitis involving the chest wall 2 years ago and 4 years ago per patient report. History of cellulitis of the face, history of right arm abscess, hepatitis C. Denies history of endocarditis. IV drug abuse. History of MRSA infection of the arms and also the face, at the left anterior evangelical treated with I and D in 10/2017. ALLERGIES: NO KNOWN DRUG ALLERGIES TO MEDICATIONS. MEDICATIONS: Current Medications Medications (Trade) Dose Ordered Sig/Vic Route PRN Reason Start Time Stop Time Status Last Admin Dose Admin Sodium Chloride (NS Flush) 2 ml UNSCH PRN IV FLUSH FLUSH AFTER USING IV ACCESS 12/04/17 06:15 12/06/17 04:47 Sodium Chloride (NS Flush) 2 ml BID IV FLUSH 12/04/17 09:00 12/11/17 07:52 Acetaminophen (Tylenol) 650 mg Q4H PRN PO TEMP > 100.4 12/04/17 06:15 Ondansetron HCl (Zofran Inj) 4 mg Q6H PRN IVP NAUSEA OR VOMITING 12/04/17 06:15 Naloxone HCl (Narcan Inj) 0.4 mg UNSCH PRN IV PUSH SEE LABEL COMMENTS 12/04/17 06:15 Pharmacy Profile Note 0 ml @ 0 mls/hr UNSCH OTHER 12/04/17 06:15 Piperacillin Sod/ Tazobactam Sod 50 ml @ 100 mls/hr Q6H IV 12/04/17 11:00 12/11/17 10:04 Oxycodone/ Acetaminophen (Percocet 5-325 Mg) 1 tab Q4H PRN PO Pain 3 to 6 12/04/17 14:00 Oxycodone/ Acetaminophen (Percocet 10-325 Mg) 1 tab Q4H PRN PO Pain 7 to 10 12/04/17 14:00 12/11/17 07:53 Nicotine (Habitrol 14 Mg Patch.24 Hr) 1 patch DAILY T-DERMAL 12/05/17 09:00 12/11/17 07:53 Miscellaneous Information 1 DAILY T-DERMAL 12/05/17 09:00 12/11/17 07:53 Lactobacillus Acidophilus (Lactinex) 1 tab TID PO 12/04/17 18:00 12/11/17 07:52 Multivitamins (Theragran) 1 tab DAILY PO 12/05/17 09:00 12/11/17 07:52 Morphine Sulfate (Morphine Inj) 4 mg Q4H PRN IV PUSH Breakthrough Pain 12/05/17 14:00 12/11/17 10:04 Heparin Sodium (Porcine) (Heparin Inj) 5,000 units Q12H SQ 12/06/17 15:00 12/08/17 03:30 Temazepam (Restoril) 15 mg HS PRN PO INSOMNIA 12/09/17 21:00 12/10/17 23:31 Vancomycin HCl 1500 mg/Sodium Chloride 515 ml @ 250 mls/hr Q24H IV 12/11/17 11:00 Miscellaneous Information SPECIFIC LAB TO BE NURA... ONCE ONCE .XX 12/14/17 10:45 12/14/17 10:46 SOCIAL HISTORY: The patient smokes half a pack of cigarettes a day. No alcohol use. Positive IV drug use in the form of methamphetamines. Objective. Vital Signs Date Time Temp Pulse Resp B/P (MAP) Pulse Ox O2 Delivery O2 Flow Rate FiO2 12/11/17 08:05 Room Air 12/11/17 08:00 98.0 54 20 108/53 (71) 96 12/11/17 03:48 97.4 59 20 111/59 (76) 97 12/10/17 23:28 97.5 52 20 107/54 (71) 100 12/10/17 20:00 Room Air 12/10/17 19:55 97.4 64 20 123/56 (78) 98 12/10/17 16:00 98.2 56 20 117/64 (81) 100 12/10/17 12:16 98.1 61 18 108/58 (75) 98 Laboratory Tests Test 12/10/17 08:20 12/11/17 06:10 White Blood Count 5.1 TH/MM3 6.3 TH/MM3 Red Blood Count 3.99 MIL/MM3 4.11 MIL/MM3 Hemoglobin 11.8 GM/DL 12.2 GM/DL Hematocrit 34.2 % 35.1 % Mean Corpuscular Volume 85.8 FL 85.5 FL Mean Corpuscular Hemoglobin 29.7 PG 29.6 PG Mean Corpuscular Hemoglobin Concent 34.6 % 34.6 % Red Cell Distribution Width 13.0 % 12.7 % Platelet Count 253 TH/MM3 250 TH/MM3 Mean Platelet Volume 6.8 FL 6.7 FL Laboratory Tests Test 12/10/17 08:20 12/11/17 06:10 Blood Urea Nitrogen 16 MG/DL 17 MG/DL Creatinine 1.41 MG/DL 1.45 MG/DL Random Glucose 90 MG/DL 81 MG/DL Calcium Level 9.3 MG/DL 9.7 MG/DL Sodium Level 138 MEQ/L 138 MEQ/L Potassium Level 4.3 MEQ/L 4.9 MEQ/L Chloride Level 100 MEQ/L 101 MEQ/L Carbon Dioxide Level 32.2 MEQ/L 31.9 MEQ/L Anion Gap 6 MEQ/L 5 MEQ/L Estimat Glomerular Filtration Rate 58 ML/MIN 56 ML/MIN Microbiology Date/Time Source Procedure Growth Status 12/10/17 14:15 Wound Chest Fungal Smear - Final NO FUNGAL ELEMENTS SEEN. Resulted 12/10/17 14:15 Wound Chest Fungal Culture Pending Resulted 12/10/17 14:15 Wound Chest Gram Stain - Final Resulted 12/10/17 14:15 Wound Chest Wound Culture Pending Resulted Imaging: Chest CT 12/04/17 0314 Signed Impressions: Service Date/Time: Monday, December 04, 2017 05:37 - CONCLUSION: 1. Soft tissue prominence overlying the left chest. 2. Arthropathy of the anterior first rib complex on the left. Russell Lanza MD Chest X-Ray 12/04/17 0000 Signed Impressions: Service Date/Time: Monday, December 04, 2017 01:28 - CONCLUSION: No acute disease. Russell Lanza MD PHYSICAL EXAMINATION: GENERAL: No acute distress. Awake and alert. HEENT: No icterus. No conjunctival erythema. Oropharynx pharynx, moist mucosa without lesions. NECK: Supple, without adenopathy or swelling. LUNGS: Clear to auscultation. HEART: regular rate and rhythm. No murmurs, rubs or gallops. CHEST: Dressing in place over the sternoclavicular area of the chest. ABDOMEN: Bowel sounds present, soft, nontender. EXTREMITIES: No clubbing, cyanosis or edema. SKIN: Multiple tiny excoriated lesions scattered on the legs and some on the arms as well. No discrete rash. NEUROLOGIC: No gross focal finding. PSYCHIATRIC: Calm and cooperative. IMPRESSION: 1. Chest wall abscess. Wound culture pending. 2. History of methicillin-resistant Staphylococcus aureus infection of the soft tissue. 3. Intravenous drug abuse. RECOMMENDATIONS: 1. Continue vancomycin. 2. Continue piperacillin/tazobactam 3. Monitor the wound culture. 4. Monitor clinical status. Antibiotic adjustments depending on culture results. Edgardo Ritter MD Dec 11, 2017 11:33
[2017-12-11 12:00] VITALS: BP 97/50; PULSE 64; RESP 20; TEMP 97.7; O2SAT 95
[2017-12-11] MEDS: VANCOMYCIN INJ 1,500 MG in SODIUM CHLORID 0.9% 500 ML INJ 500 ML IV SCH (12:01)
--- NOTE | 2017-12-11 13:34 | HHI.PR ---
Subjective Remarks Patient reports pain is slightly better. Afebrile. Objective Vitals Vital Signs Date Time Temp Pulse Resp B/P (MAP) Pulse Ox O2 Delivery O2 Flow Rate FiO2 12/11/17 12:00 97.7 64 20 97/50 (66) 95 12/11/17 08:05 Room Air 12/11/17 08:00 98.0 54 20 108/53 (71) 96 12/11/17 03:48 97.4 59 20 111/59 (76) 97 12/10/17 23:28 97.5 52 20 107/54 (71) 100 12/10/17 20:00 Room Air 12/10/17 19:55 97.4 64 20 123/56 (78) 98 12/10/17 16:00 98.2 56 20 117/64 (81) 100 I/O 12/10/17 12/10/17 12/10/17 12/11/17 12/11/17 12/11/17 07:00 15:00 23:00 07:00 15:00 23:00 Intake Total 1150 ml 200 ml 720 ml 100 ml Balance 1150 ml 200 ml 720 ml 100 ml Intake Oral 1050 ml 720 ml IV Total 100 ml 200 ml 100 ml # Voids 5 3 # Bowel Movements 0 Result Diagram: 12/11/17 0610 12/11/17 0610 Objective Remarks GENERAL: Patient appears older than stated age. Appeared to be in some discomfort with movements. CARDIOVASCULAR: Normal rate and regular rhythm without murmurs, gallops, or rubs. SKIN: Left upper chest status post I&D. Minimal serosanguineous drainage on the dressing. Packing is in place. RESPIRATORY: Good respiratory efforts. Breath sounds equal and clear to auscultation bilaterally. GASTROINTESTINAL: Abdomen soft, non-tender, non-distended. Normal active bowel sounds MUSCULOSKELETAL: Extremities without cyanosis, or edema. NEURO: Alert & Oriented x4 to person, place, time, situation. Moves all ext x4 PSYCH: Appropriate mood and affect. A/P Problem List: (1) Myositis ICD Code: M60.9 - Myositis, unspecified (2) Tobacco abuse ICD Code: Z72.0 - Tobacco use (3) Substance abuse ICD Code: F19.10 - Other psychoactive substance abuse, uncomplicated Status: Acute (4) Pain in sternoclavicular joint ICD Code: M25.519 - Pain in unspecified shoulder (5) Septic arthritis of sternoclavicular joint ICD Code: M00.819 - Arthritis due to other bacteria, unspecified shoulder Assessment and Plan 32-year-old male admitted for suspected recurrence of infection at the sternoclavicular joint. Chest wall abscess/left sternoclavicular joint swelling and erythema, concern for septic joint. No evidence of abscess on initial CAT scan. CT surgery following, s/p I&D. Cultures pending. Blood cultures so far negative. Continue broad spectrum antibiotics including vancomycin and Zosyn. Appreciate recommendations from ID. Echocardiogram without any obvious vegetations. Percocet and Morphine as needed. Plan to start deescalating pain medications Schizophrenia Bipolar disorder Continue Geodon Cocaine abuse Methamphetamine abuse Cessation advised. Multivitamin initiated Patient should not be on Adderall, this is discontinued Insomnia: Vistaril PRN DVT prophylaxis Heparin Discharge Planning Continue IV antibiotics. Henrique Hutchins MD Dec 11, 2017 13:34
[2017-12-11 16:00] VITALS: BP 110/58; PULSE 58; RESP 20; TEMP 97.6; O2SAT 98
--- NOTE | 2017-12-11 16:23 | PD.CAR.PN ---
CVT Progress Note Subjective/Hospital Course: 12/10 1. Incision and Drainage of Chest Wall Abscess per Dr Richey 2. Iodoform Packing 12/11 cultures showing MRSA antibiotics per ID daily dressing changes Objective: GENERAL: SKIN: Warm and dry. dressing left sternal clavicular area, still very tender HEAD: Normocephalic. EYES: No scleral icterus. No injection or drainage. NECK: Supple, trachea midline. No JVD or lymphadenopathy. CARDIOVASCULAR: Regular rate and rhythm without murmurs, gallops, or rubs. RESPIRATORY: Breath sounds equal bilaterally. No accessory muscle use. GASTROINTESTINAL: Abdomen soft, non-tender, nondistended. MUSCULOSKELETAL: No cyanosis, or edema. BACK: Nontender without obvious deformity. No CVA tenderness. Vital Signs Date Time Temp Pulse Resp B/P (MAP) Pulse Ox O2 Delivery O2 Flow Rate FiO2 12/11/17 12:00 97.7 64 20 97/50 (66) 95 12/11/17 08:05 Room Air 12/11/17 08:00 98.0 54 20 108/53 (71) 96 12/11/17 03:48 97.4 59 20 111/59 (76) 97 12/10/17 23:28 97.5 52 20 107/54 (71) 100 12/10/17 20:00 Room Air 12/10/17 19:55 97.4 64 20 123/56 (78) 98 Labs: Laboratory Tests Test 12/11/17 06:10 White Blood Count 6.3 TH/MM3 (4.0-11.0) Red Blood Count 4.11 MIL/MM3 (4.50-5.90) Hemoglobin 12.2 GM/DL (13.0-17.0) Hematocrit 35.1 % (39.0-51.0) Mean Corpuscular Volume 85.5 FL (80.0-100.0) Mean Corpuscular Hemoglobin 29.6 PG (27.0-34.0) Mean Corpuscular Hemoglobin Concent 34.6 % (32.0-36.0) Red Cell Distribution Width 12.7 % (11.6-17.2) Platelet Count 250 TH/MM3 (150-450) Mean Platelet Volume 6.7 FL (7.0-11.0) Blood Urea Nitrogen 17 MG/DL (7-18) Creatinine 1.45 MG/DL (0.60-1.30) Random Glucose 81 MG/DL (74-106) Calcium Level 9.7 MG/DL (8.5-10.1) Sodium Level 138 MEQ/L (136-145) Potassium Level 4.9 MEQ/L (3.5-5.1) Chloride Level 101 MEQ/L (98-107) Carbon Dioxide Level 31.9 MEQ/L (21.0-32.0) Anion Gap 5 MEQ/L (5-15) Estimat Glomerular Filtration Rate 56 ML/MIN (>89) Random Vancomycin Level 14.6 COMMENT Result Diagram: 12/11/17 0610 12/11/17 0610 (1) Chest wall abscess Plan: s/p ID + MRSA daily dressing changes (2) Substance abuse Dianna Butler Dec 11, 2017 16:23
[2017-12-11 20:00] VITALS: BP 108/56; PULSE 64; RESP 20; TEMP 97.9; O2SAT 97
[2017-12-11] MEDS ORDERED: SODIUM CHLORID 0.9% 500 ML INJ 500 ML IV SCH (22:30)
[2017-12-11] MEDS: TEMAZEPAM 15 MG CAP PO PRN (22:34)
[2017-12-12] VITALS: BP 94/55; PULSE 59; RESP 20; TEMP 97.5; O2SAT 98
[2017-12-12] MEDS: oxyCODONE/ACETAMINOPHEN 10 MG/325 MG TAB PO PRN ×6 (01:05→23:13)
[2017-12-12] MEDS: MORPHINE SULFATE 4 MG/ML INJ IV PUSH PRN ×3 (03:26→12:51)
[2017-12-12 04:00] VITALS: BP 113/63; PULSE 58; RESP 20; TEMP 97.6; O2SAT 97
[2017-12-12] MEDS: PIPERACIL-TAZO 3.375 GM PREMIX 50 ML IV SCH (04:51)
[2017-12-12 07:28] LABS: HEMATOCRIT 36.4 % (39.0-51.0); HEMOGLOBIN 12.5 GM/DL (13.0-17.0); MEAN CELL VOLUME 85.7 FL (80.0-100.0); MEAN CORPUSCULAR HEMOGLOBIN 29.4 PG (27.0-34.0); MEAN CORPUSCULAR HGB CONC 34.3 % (32.0-36.0); MEAN PLATELET VOLUME 6.5 FL (7.0-11.0); PLATELET COUNT 249 TH/MM3 (150-450); RED BLOOD COUNT 4.25 MIL/MM3 (4.50-5.90); RED CELL DISTRIBUTION WIDTH 12.9 % (11.6-17.2); WHITE BLOOD COUNT 4.8 TH/MM3 (4.0-11.0)
[2017-12-12 08:11] VITALS: BP 108/58; PULSE 55; RESP 19; TEMP 97.7; O2SAT 98
[2017-12-12 08:14] LABS: CALCIUM 9.4 MG/DL (8.5-10.1); CREATININE 1.38 MG/DL (0.60-1.30)
[2017-12-12] MEDS: LACTOBACILLUS ACIDOPHILUS TAB PO SCH ×3 (08:15→18:19)
[2017-12-12] MEDS: MULTIVITAMIN TAB PO SCH (08:15)
[2017-12-12] MEDS: SODIUM CHLORIDE 0.9% FLUSH 10 ML FLUSH IV FLUSH SCH ×2 (08:23→21:11)
[2017-12-12] MEDS: NICOTINE 14 MG/24 HR PATCH T-DERMAL SCH (09:00)
[2017-12-12] MEDS: VANCOMYCIN INJ 1,500 MG in SODIUM CHLORID 0.9% 500 ML INJ 500 ML IV SCH (10:50)
--- NOTE | 2017-12-12 11:48 | HHI.IDPN ---
Note Infectious Disease Note Patient reports that he has pain of 8/10 level. Denies chills. Afebrile. Wound culture has MRSA. Presented to the emergency department on 12/04 with chest pain. PAST MEDICAL HISTORY: Cellulitis involving the chest wall 2 years ago and 4 years ago per patient report. History of cellulitis of the face, history of right arm abscess, hepatitis C. Denies history of endocarditis. IV drug abuse. History of MRSA infection of the arms and also the face, at the left anterior confucianism treated with I and D in 10/2017. ALLERGIES: NO KNOWN DRUG ALLERGIES TO MEDICATIONS. MEDICATIONS: Current Medications Medications (Trade) Dose Ordered Sig/Vic Route PRN Reason Start Time Stop Time Status Last Admin Dose Admin Sodium Chloride (NS Flush) 2 ml UNSCH PRN IV FLUSH FLUSH AFTER USING IV ACCESS 12/04/17 06:15 12/06/17 04:47 Sodium Chloride (NS Flush) 2 ml BID IV FLUSH 12/04/17 09:00 12/12/17 08:23 Acetaminophen (Tylenol) 650 mg Q4H PRN PO TEMP > 100.4 12/04/17 06:15 Ondansetron HCl (Zofran Inj) 4 mg Q6H PRN IVP NAUSEA OR VOMITING 12/04/17 06:15 Naloxone HCl (Narcan Inj) 0.4 mg UNSCH PRN IV PUSH SEE LABEL COMMENTS 12/04/17 06:15 Pharmacy Profile Note 0 ml @ 0 mls/hr UNSCH OTHER 12/04/17 06:15 Oxycodone/ Acetaminophen (Percocet 5-325 Mg) 1 tab Q4H PRN PO Pain 3 to 6 12/04/17 14:00 Oxycodone/ Acetaminophen (Percocet 10-325 Mg) 1 tab Q4H PRN PO Pain 7 to 10 12/04/17 14:00 12/12/17 10:50 Nicotine (Habitrol 14 Mg Patch.24 Hr) 1 patch DAILY T-DERMAL 12/05/17 09:00 12/12/17 09:00 Miscellaneous Information 1 DAILY T-DERMAL 12/05/17 09:00 12/11/17 07:53 Lactobacillus Acidophilus (Lactinex) 1 tab TID PO 12/04/17 18:00 12/12/17 08:15 Multivitamins (Theragran) 1 tab DAILY PO 12/05/17 09:00 12/12/17 08:15 Morphine Sulfate (Morphine Inj) 4 mg Q4H PRN IV PUSH Breakthrough Pain 12/05/17 14:00 12/12/17 08:16 Heparin Sodium (Porcine) (Heparin Inj) 5,000 units Q12H SQ 12/06/17 15:00 12/08/17 03:30 Temazepam (Restoril) 15 mg HS PRN PO INSOMNIA 12/09/17 21:00 12/11/17 22:34 Vancomycin HCl 1500 mg/Sodium Chloride 515 ml @ 250 mls/hr Q24H IV 12/11/17 11:00 12/12/17 10:50 Miscellaneous Information SPECIFIC LAB TO BE NURA... ONCE ONCE .XX 12/14/17 10:45 12/14/17 10:46 SOCIAL HISTORY: The patient smokes half a pack of cigarettes a day. No alcohol use. Positive IV drug use in the form of methamphetamines. Objective. Vital Signs Date Time Temp Pulse Resp B/P (MAP) Pulse Ox O2 Delivery O2 Flow Rate FiO2 12/12/17 08:11 97.7 55 19 108/58 (75) 98 12/12/17 08:00 96 Room Air 12/12/17 04:00 97.6 58 20 113/63 (80) 97 12/12/17 00:00 97.5 59 20 94/55 (68) 98 12/11/17 23:51 Room Air 12/11/17 21:00 Room Air 12/11/17 20:00 97.9 64 20 108/56 (73) 97 12/11/17 16:00 97.6 58 20 110/58 (75) 98 12/11/17 12:00 97.7 64 20 97/50 (66) 95 Laboratory Tests Test 12/11/17 06:10 12/12/17 06:00 White Blood Count 6.3 TH/MM3 4.8 TH/MM3 Red Blood Count 4.11 MIL/MM3 4.25 MIL/MM3 Hemoglobin 12.2 GM/DL 12.5 GM/DL Hematocrit 35.1 % 36.4 % Mean Corpuscular Volume 85.5 FL 85.7 FL Mean Corpuscular Hemoglobin 29.6 PG 29.4 PG Mean Corpuscular Hemoglobin Concent 34.6 % 34.3 % Red Cell Distribution Width 12.7 % 12.9 % Platelet Count 250 TH/MM3 249 TH/MM3 Mean Platelet Volume 6.7 FL 6.5 FL Laboratory Tests Test 12/11/17 06:10 12/12/17 06:00 Blood Urea Nitrogen 17 MG/DL 20 MG/DL Creatinine 1.45 MG/DL 1.38 MG/DL Random Glucose 81 MG/DL 74 MG/DL Calcium Level 9.7 MG/DL 9.4 MG/DL Sodium Level 138 MEQ/L 139 MEQ/L Potassium Level 4.9 MEQ/L 4.6 MEQ/L Chloride Level 101 MEQ/L 101 MEQ/L Carbon Dioxide Level 31.9 MEQ/L 30.0 MEQ/L Anion Gap 5 MEQ/L 8 MEQ/L Estimat Glomerular Filtration Rate 56 ML/MIN 59 ML/MIN Microbiology Date/Time Source Procedure Growth Status 12/10/17 14:15 Wound Chest Fungal Smear - Final NO FUNGAL ELEMENTS SEEN. Resulted 12/10/17 14:15 Wound Chest Fungal Culture Pending Resulted 12/10/17 14:15 Wound Chest Gram Stain - Final Complete 12/10/17 14:15 Wound Culture - Final S. Aureus Mrsa Complete Imaging: Chest CT 12/04/17 0314 Signed Impressions: Service Date/Time: Monday, December 04, 2017 05:37 - CONCLUSION: 1. Soft tissue prominence overlying the left chest. 2. Arthropathy of the anterior first rib complex on the left. Russell Lanza MD Chest X-Ray 12/04/17 0000 Signed Impressions: Service Date/Time: Monday, December 04, 2017 01:28 - CONCLUSION: No acute disease. Russell Lanza MD PHYSICAL EXAMINATION: GENERAL: No acute distress. Awake and alert. HEENT: No icterus. No conjunctival erythema. Oropharynx pharynx, moist mucosa without lesions. LUNGS: Clear to auscultation. HEART: regular rate and rhythm. No murmurs, rubs or gallops. CHEST: Dressing in place over the sternoclavicular area of the chest. Tenderness on palpation around the incision area. ABDOMEN: Bowel sounds present, soft, nontender. EXTREMITIES: No clubbing, cyanosis or edema. SKIN: Multiple tiny excoriated lesions scattered on the legs and some on the arms as well. No discrete rash. NEUROLOGIC: Nonfocal PSYCHIATRIC: Calm and cooperative. IMPRESSION: 1. Chest wall abscess. MRSA 2. Intravenous drug abuse. 3. Acute kidney disease. RECOMMENDATIONS: 1. Stop vancomycin. 2. Stop piperacillin/tazobactam 3. Begin clindamycin intravenous Give IV clindamycin for a couple of days and then discharge on p.o. clindamycin 300 mg p.o. 3 times daily for 2 weeks. Edgardo Ritter MD Dec 12, 2017 11:48
[2017-12-12 12:11] VITALS: BP 114/64; PULSE 60; RESP 19; TEMP 97.4; O2SAT 100
--- NOTE | 2017-12-12 13:00 | PD.CAR.PN ---
CVT Progress Note Subjective/Hospital Course: 12/10 1. Incision and Drainage of Chest Wall Abscess per Dr Richey 2. Iodoform Packing 12/11 cultures showing MRSA antibiotics per ID daily dressing changes 12/12 bid dressing changes , swelling and redness improving slowly consult wound nurse to follow continue antibiotics as per ID will see prn Objective: Vital Signs Date Time Temp Pulse Resp B/P (MAP) Pulse Ox O2 Delivery O2 Flow Rate FiO2 12/12/17 08:11 97.7 55 19 108/58 (75) 98 12/12/17 08:00 96 Room Air 12/12/17 04:00 97.6 58 20 113/63 (80) 97 12/12/17 00:00 97.5 59 20 94/55 (68) 98 12/11/17 23:51 Room Air 12/11/17 21:00 Room Air 12/11/17 20:00 97.9 64 20 108/56 (73) 97 12/11/17 16:00 97.6 58 20 110/58 (75) 98 Labs: Laboratory Tests Test 12/12/17 06:00 White Blood Count 4.8 TH/MM3 (4.0-11.0) Red Blood Count 4.25 MIL/MM3 (4.50-5.90) Hemoglobin 12.5 GM/DL (13.0-17.0) Hematocrit 36.4 % (39.0-51.0) Mean Corpuscular Volume 85.7 FL (80.0-100.0) Mean Corpuscular Hemoglobin 29.4 PG (27.0-34.0) Mean Corpuscular Hemoglobin Concent 34.3 % (32.0-36.0) Red Cell Distribution Width 12.9 % (11.6-17.2) Platelet Count 249 TH/MM3 (150-450) Mean Platelet Volume 6.5 FL (7.0-11.0) Blood Urea Nitrogen 20 MG/DL (7-18) Creatinine 1.38 MG/DL (0.60-1.30) Random Glucose 74 MG/DL (74-106) Calcium Level 9.4 MG/DL (8.5-10.1) Sodium Level 139 MEQ/L (136-145) Potassium Level 4.6 MEQ/L (3.5-5.1) Chloride Level 101 MEQ/L (98-107) Carbon Dioxide Level 30.0 MEQ/L (21.0-32.0) Anion Gap 8 MEQ/L (5-15) Estimat Glomerular Filtration Rate 59 ML/MIN (>89) Result Diagram: 12/12/17 0600 12/12/17 0600 (1) Chest wall abscess Plan: s/p ID + MRSA daily dressing changes (2) Substance abuse Dianna Butler Dec 12, 2017 13:00
--- NOTE | 2017-12-12 13:23 | HHI.PR ---
Subjective Remarks Feeling better. Pain is controlled. Objective Vitals Vital Signs Date Time Temp Pulse Resp B/P (MAP) Pulse Ox O2 Delivery O2 Flow Rate FiO2 12/12/17 08:11 97.7 55 19 108/58 (75) 98 12/12/17 08:00 96 Room Air 12/12/17 04:00 97.6 58 20 113/63 (80) 97 12/12/17 00:00 97.5 59 20 94/55 (68) 98 12/11/17 23:51 Room Air 12/11/17 21:00 Room Air 12/11/17 20:00 97.9 64 20 108/56 (73) 97 12/11/17 16:00 97.6 58 20 110/58 (75) 98 I/O 12/11/17 12/11/17 12/11/17 12/12/17 12/12/17 12/12/17 07:00 15:00 23:00 07:00 15:00 23:00 Intake Total 100 ml 550 ml 100 ml 850 ml Balance 100 ml 550 ml 100 ml 850 ml Intake Oral 800 ml IV Total 100 ml 550 ml 100 ml 50 ml # Voids 3 3 # Bowel Movements 0 Result Diagram: 12/12/17 0600 12/12/17 0600 Objective Remarks GENERAL: Patient appears older than stated age. Appeared to be in some discomfort with movements. CARDIOVASCULAR: Normal rate and regular rhythm without murmurs, gallops, or rubs. SKIN: Left upper chest status post I&D. Wound looks clean, surrounding cellulitis resolved.. Packing is in place. RESPIRATORY: Good respiratory efforts. Breath sounds equal and clear to auscultation bilaterally. GASTROINTESTINAL: Abdomen soft, non-tender, non-distended. Normal active bowel sounds MUSCULOSKELETAL: Extremities without cyanosis, or edema. NEURO: Alert & Oriented x4 to person, place, time, situation. Moves all ext x4 PSYCH: Appropriate mood and affect. A/P Problem List: (1) Myositis ICD Code: M60.9 - Myositis, unspecified (2) Tobacco abuse ICD Code: Z72.0 - Tobacco use (3) Substance abuse ICD Code: F19.10 - Other psychoactive substance abuse, uncomplicated Status: Acute (4) Pain in sternoclavicular joint ICD Code: M25.519 - Pain in unspecified shoulder (5) Septic arthritis of sternoclavicular joint ICD Code: M00.819 - Arthritis due to other bacteria, unspecified shoulder Assessment and Plan 32-year-old male admitted for suspected recurrence of infection at the sternoclavicular joint. Chest wall abscess/left sternoclavicular joint swelling and erythema, concern for septic joint. No evidence of abscess on initial CAT scan. CT surgery following, s/p I&D. Cultures growing MRSA. Blood cultures so far negative. Continue broad spectrum antibiotics including vancomycin and Zosyn. Appreciate recommendations from ID. Echocardiogram without any obvious vegetations. Percocet and Morphine as needed. Change IV morphine to be given with dressing changes only. Plan to continue to deescalate Narcotics. Schizophrenia Bipolar disorder Continue Geodon Cocaine abuse Methamphetamine abuse Cessation advised. Multivitamin initiated Patient should not be on Adderall, this is discontinued Insomnia: Vistaril PRN DVT prophylaxis Heparin Discharge Planning Continue IV antibiotics. Henrique Hutchins MD Dec 12, 2017 13:23
[2017-12-12] MEDS ORDERED: MORPHINE SULFATE 2 MG/ML SYRINGE IV PUSH PRN (13:30)
[2017-12-12] MEDS ORDERED: CLINDAMYCIN 600 MG/NS PREMIX 50 ML IV SCH (14:00)
[2017-12-12] MEDS: HEPARIN SODIUM - SQ 10,000 UNITS/ML VIAL SQ SCH (14:13)
[2017-12-12] MEDS: CLINDAMYCIN 600 MG/NS 100 ML IV SCH ×4 (14:46→21:11)
[2017-12-12 16:11] VITALS: BP 116/64; PULSE 60; RESP 19; TEMP 97.3; O2SAT 100
--- NOTE | 2017-12-12 16:15 | PD.WCN.NOT ---
Wound Consult Description: Wound consult ordered by Darlin ESTEVES for left chest wound Communicated with: Janel VALVERDE , Recommendation: 1. Cleanse left upper chest incision with normal saline pat dry. 2. Gently pack Maxorb AG cut in 1/4 inch strips in to incision and cavity leaving tail exposed. 3. Cover with dry gauze and secure with boarder gauze change dressing every other day or as needed for dislodgement/exudate. Additional Information: Patient was seen today on [facility] [address] by publicity writer for left chest wound management.Patient alert and oriented x3.Patient was medicated for pain prior to writers arrival. Dressing removed from left upper pectoral /chest ~1.0cm plain 1/4 inch packing removed with no difficulty.Wound cleansed with normal saline pat dry.Incision measures 0.8cm x 1.0cm x 0.4cm Serosanguineous drainage noted to prior packing with no odor present.Erythema noted ~3.0cm circumferentially and warm to touch.Patient requested surrounding area be shaved do to adhesive dressing pulling on hair.Shaving performed by publicity writer area cleansed with warm towel removing all shaving cream.Surgical incision/cavity irrigated with normal saline/pat dry .Maxorb single 1/4 strip ~2.0cm genitally packed into incision and cavity leaving tail exposed.Covered with dry dressing and secured with boarder gauze sign and dated.Patient tolerated wound care well. Mitch Danielle [facility] Dec 12, 2017 16:15
[2017-12-12 20:00] VITALS: BP_SYST 110; BP_SYST 154; BP_DIAS 62; BP_DIAS 78; PULSE 57; PULSE 91; RESP 15; RESP 17; TEMP 95.5; TEMP 96.4; O2SAT 97; O2SAT 98
[2017-12-12] MEDS: TEMAZEPAM 15 MG CAP PO PRN (23:19)
[2017-12-13] VITALS (7 sets, daily range): BP systolic 102–116; BP diastolic 51–63; PULSE 59–64; RESP 16–18; TEMP 97.5–97.8; O2SAT 93–99
[2017-12-13] MEDS: HEPARIN SODIUM - SQ 10,000 UNITS/ML VIAL SQ SCH ×2 (03:00→13:46)
[2017-12-13] MEDS: oxyCODONE/ACETAMINOPHEN 10 MG/325 MG TAB PO PRN ×6 (03:06→22:26)
[2017-12-13] MEDS: CLINDAMYCIN 600 MG/NS 100 ML IV SCH ×6 (06:35→21:37)
[2017-12-13] MEDS: NICOTINE 14 MG/24 HR PATCH T-DERMAL SCH (10:16)
[2017-12-13] MEDS: MULTIVITAMIN TAB PO SCH (10:16)
[2017-12-13] MEDS: LACTOBACILLUS ACIDOPHILUS TAB PO SCH ×3 (10:16→18:42)
[2017-12-13] MEDS: SODIUM CHLORIDE 0.9% FLUSH 10 ML FLUSH IV FLUSH SCH ×2 (10:18→21:37)
[2017-12-13] MEDS: REMOVE OLD PATCH T-DERMAL SCH ×2 (10:20→10:22)
--- NOTE | 2017-12-13 14:09 | HHI.PR ---
Subjective Remarks Patient reports pain is better controlled. We discussed discharge planning. Objective Vitals Vital Signs Date Time Temp Pulse Resp B/P (MAP) Pulse Ox O2 Delivery O2 Flow Rate FiO2 12/13/17 08:00 Room Air 12/13/17 08:00 97.8 60 16 102/52 (69) 98 12/13/17 04:00 97.5 59 18 111/60 (77) 98 12/13/17 04:00 Room Air 12/13/17 01:38 93 Nasal Cannula 5.00 12/13/17 00:00 97.8 59 18 116/56 (76) 99 12/13/17 00:00 Room Air 12/12/17 20:00 96.4 91 17 154/78 (103) 97 12/12/17 20:00 95.5 57 15 110/62 (78) 98 12/12/17 19:00 Room Air 12/12/17 16:11 97.3 60 19 116/64 (81) 100 I/O 12/12/17 12/12/17 12/12/17 12/13/17 12/13/17 12/13/17 07:00 15:00 23:00 07:00 15:00 23:00 Intake Total 850 ml 524 ml 210 ml 104 ml Output Total 4 ml Balance 850 ml 520 ml 210 ml 104 ml Intake Oral 800 ml 420 ml 210 ml IV Total 50 ml 104 ml 104 ml Output Urine Total 4 ml # Voids 3 2 # Bowel Movements 0 1 0 Result Diagram: 12/12/17 0600 12/12/17 0600 Objective Remarks GENERAL: Patient appears older than stated age. Appeared to be in some discomfort with movements. CARDIOVASCULAR: Normal rate and regular rhythm without murmurs, gallops, or rubs. SKIN: Left upper chest status post I&D. Wound looks clean, surrounding cellulitis resolved. Packing is in place. RESPIRATORY: Good respiratory efforts. Breath sounds equal and clear to auscultation bilaterally. GASTROINTESTINAL: Abdomen soft, non-tender, non-distended. Normal active bowel sounds MUSCULOSKELETAL: Extremities without cyanosis, or edema. NEURO: Alert & Oriented x4 to person, place, time, situation. Moves all ext x4 PSYCH: Appropriate mood and affect. A/P Problem List: (1) Myositis ICD Code: M60.9 - Myositis, unspecified (2) Tobacco abuse ICD Code: Z72.0 - Tobacco use (3) Substance abuse ICD Code: F19.10 - Other psychoactive substance abuse, uncomplicated Status: Acute (4) Pain in sternoclavicular joint ICD Code: M25.519 - Pain in unspecified shoulder (5) Septic arthritis of sternoclavicular joint ICD Code: M00.819 - Arthritis due to other bacteria, unspecified shoulder Assessment and Plan 32-year-old male admitted for suspected recurrence of infection at the sternoclavicular joint. Chest wall abscess/left sternoclavicular joint swelling and erythema, concern for septic joint. No evidence of abscess on initial CAT scan. CT surgery following, s/p I&D. Cultures growing MRSA. Blood cultures so far negative. Continue broad spectrum antibiotics including vancomycin and Zosyn. Appreciate recommendations from ID. Echocardiogram without any obvious vegetations. De-escalate narcotics. Discontinue IV morphine. Decrease Percocet to 5/325. Plan to transition to oral clindamycin tomorrow and give for 2 weeks per ID recommendations. Schizophrenia Bipolar disorder Continue Geodon Cocaine abuse Methamphetamine abuse Cessation advised. Multivitamin initiated Patient should not be on Adderall, this is discontinued Insomnia: Vistaril PRN DVT prophylaxis Heparin Discharge Planning Continue IV antibiotics. Transition to oral clindamycin tomorrow per ID recommendation and can discharge home on 2 weeks of oral clindamycin. Henrique Hutchins MD Dec 13, 2017 14:09
[2017-12-13] MEDS ORDERED: CLIN300C5 PO (15:26)
[2017-12-13] MEDS ORDERED: OXYC1TAB63 PO (15:56)
[2017-12-13] MEDS: TEMAZEPAM 15 MG CAP PO PRN (21:37)
[2017-12-14] VITALS: BP_SYST 111; BP_SYST 123; BP_DIAS 59; BP_DIAS 62; PULSE 69; RESP 17; RESP 18; TEMP 97.5; TEMP 97.7; O2SAT 98; O2SAT 99
[2017-12-14] MEDS: HEPARIN SODIUM - SQ 10,000 UNITS/ML VIAL SQ SCH ×2 (02:00→12:10)
[2017-12-14] MEDS: oxyCODONE/ACETAMINOPHEN 10 MG/325 MG TAB PO PRN ×3 (03:23→12:08)
[2017-12-14 04:00] VITALS: BP 103/58; PULSE 63; RESP 16; TEMP 97.8; O2SAT 97
[2017-12-14] MEDS: CLINDAMYCIN 600 MG/NS 100 ML IV SCH ×4 (05:45→12:09)
[2017-12-14 07:51] LABS: BICARBONATE 19.2 MEQ/L (21.0-32.0); CALCIUM 9.1 MG/DL (8.5-10.1); CREATININE 1.09 MG/DL (0.60-1.30)
[2017-12-14 08:11] VITALS: BP 107/64; PULSE 60; RESP 17; TEMP 97.8; O2SAT 97
--- NOTE | 2017-12-14 08:53 | HHI.PR ---
Subjective Remarks This is a pleasant 32 y/o male with Chest wall abscess MRSA positive, IDU, Acute kidney disease, ID specialist following Stopped Vancomycin, Stopped Zosyn, on Clindamycin IV, recommended to continue IV Clindamycin for 2 days and discharge on Clindamycin for 2 weeks, at 300 mg TID, as per ID specialist okay to discharge on Clindamycin by mouth he is stable and no complaint, will continue wound care as outpatient. no nausea , vomit or diarrhea. Objective Vital Signs Date Time Temp Pulse Resp B/P (MAP) Pulse Ox O2 Delivery O2 Flow Rate FiO2 12/14/17 04:00 97.8 63 16 103/58 (73) 97 12/14/17 00:00 97.5 69 17 111/59 (76) 98 12/13/17 20:00 97.8 59 16 112/63 (79) 96 12/13/17 19:00 Room Air 12/13/17 16:00 97.8 64 16 114/51 (72) 97 12/13/17 12:00 97.6 64 16 115/59 (77) 96 I/O 12/13/17 12/13/17 12/13/17 12/14/17 12/14/17 12/14/17 06:59 14:59 22:59 06:59 14:59 22:59 Intake Total 210 ml 104 ml 960 ml 350 ml Output Total 600 ml Balance 210 ml 104 ml 360 ml 350 ml Intake Oral 210 ml 960 ml 350 ml IV Total 104 ml Output Urine Total 600 ml # Voids 2 2 # Bowel Movements 0 1 0 Result Diagram: 12/12/17 0600 12/14/17 0629 Imaging Last Impressions Chest CT 12/04/17 0314 Signed Impressions: Service Date/Time: Monday, December 04, 2017 05:37 - CONCLUSION: 1. Soft tissue prominence overlying the left chest. 2. Arthropathy of the anterior first rib complex on the left. Russell Lanza MD Chest X-Ray 12/04/17 0000 Signed Impressions: Service Date/Time: Monday, December 04, 2017 01:28 - CONCLUSION: No acute disease. Russell Lanza MD Procedures I and D. Other Results Laboratory Tests Test 12/04/17 03:35 12/04/17 15:28 12/06/17 07:31 12/09/17 06:10 Erythrocyte Sedimentation Rate 37 mm/hr Total Creatine Kinase 128 U/L Creatine Kinase MB 1.3 NG/ML Troponin I LESS THAN 0.02 NG/ML Neutrophils (%) (Auto) 62.2 % Lymphocytes (%) (Auto) 27.0 % Monocytes (%) (Auto) 8.2 % Eosinophils (%) (Auto) 2.1 % Basophils (%) (Auto) 0.5 % Neutrophils # (Auto) 4.4 TH/MM3 Lymphocytes # (Auto) 1.9 TH/MM3 Monocytes # (Auto) 0.6 TH/MM3 Eosinophils # (Auto) 0.1 TH/MM3 Basophils # (Auto) 0.0 TH/MM3 CBC Comment DIFF FINAL Differential Comment Blood Urea Nitrogen 8 MG/DL Creatinine 0.95 MG/DL Random Glucose 101 MG/DL Total Protein 6.4 GM/DL Albumin 2.6 GM/DL Calcium Level 8.6 MG/DL Alkaline Phosphatase 90 U/L Aspartate Amino Transf (AST/SGOT) 27 U/L Alanine Aminotransferase (ALT/SGPT) 41 U/L Total Bilirubin 0.8 MG/DL Sodium Level 141 MEQ/L Potassium Level 3.8 MEQ/L Chloride Level 106 MEQ/L Carbon Dioxide Level 28.8 MEQ/L Vancomycin Level Trough 16.4 MCG/ML Test 12/11/17 06:10 12/12/17 06:00 12/14/17 06:29 Random Vancomycin Level 14.6 COMMENT White Blood Count 4.8 TH/MM3 Red Blood Count 4.25 MIL/MM3 Hemoglobin 12.5 GM/DL Hematocrit 36.4 % Mean Corpuscular Volume 85.7 FL Mean Corpuscular Hemoglobin 29.4 PG Mean Corpuscular Hemoglobin Concent 34.3 % Red Cell Distribution Width 12.9 % Platelet Count 249 TH/MM3 Mean Platelet Volume 6.5 FL Blood Urea Nitrogen 20 MG/DL Creatinine 1.09 MG/DL Random Glucose 76 MG/DL Calcium Level 9.1 MG/DL Sodium Level 133 MEQ/L Potassium Level 4.8 MEQ/L Chloride Level 105 MEQ/L Carbon Dioxide Level 19.2 MEQ/L Anion Gap 9 MEQ/L Estimat Glomerular Filtration Rate 77 ML/MIN Objective Remarks GENERAL: Patient appears older than stated age. Appeared to be in some discomfort with movements. CARDIOVASCULAR: Normal rate and regular rhythm without murmurs, gallops, or rubs. SKIN: Left upper chest status post I&D. Wound looks clean, surrounding cellulitis resolved. Packing is in place. RESPIRATORY: Good respiratory efforts. Breath sounds equal and clear to auscultation bilaterally. GASTROINTESTINAL: Abdomen soft, non-tender, non-distended. Normal active bowel sounds MUSCULOSKELETAL: Extremities without cyanosis, or edema. NEURO: Alert & Oriented x4 to person, place, time, situation. Moves all ext x4 PSYCH: Appropriate mood and affect. Medications and IVs Current Medications Medications (Trade) Dose Ordered Sig/Vic Route Start Time Stop Time Status Last Admin (NS Flush) 2 ml UNSCH PRN IV FLUSH 12/04/17 06:15 12/06/17 04:47 (NS Flush) 2 ml BID IV FLUSH 12/04/17 09:00 12/13/17 21:37 (Tylenol) 650 mg Q4H PRN PO 12/04/17 06:15 (Zofran Inj) 4 mg Q6H PRN IVP 12/04/17 06:15 (Narcan Inj) 0.4 mg UNSCH PRN IV PUSH 12/04/17 06:15 (Percocet 5-325 Mg) 1 tab Q4H PRN PO 12/04/17 14:00 (Percocet 10-325 Mg) 1 tab Q4H PRN PO 12/04/17 14:00 12/14/17 06:55 (Habitrol 14 Mg Patch.24 Hr) 1 patch DAILY T-DERMAL 12/05/17 09:00 12/13/17 10:16 Miscellaneous Information 1 DAILY T-DERMAL 12/05/17 09:00 12/13/17 10:22 (Lactinex) 1 tab TID PO 12/04/17 18:00 12/13/17 18:42 (Theragran) 1 tab DAILY PO 12/05/17 09:00 12/13/17 10:16 (Heparin Inj) 5,000 units Q12H SQ 12/06/17 15:00 12/08/17 03:30 (Restoril) 15 mg HS PRN PO 12/09/17 21:00 12/13/17 21:37 Clindamycin Phosphate 600 mg/ Sodium Chloride 104 ml @ 208 mls/hr Q8H IV 12/12/17 14:00 12/14/17 05:45 (Morphine Inj) 2 mg Q8HR PRN IV PUSH 12/12/17 13:30 12/12/17 14:13 A/P Assessment and Plan (1) Myositis ICD Code: M60.9 - Myositis, unspecified (2) Tobacco abuse ICD Code: Z72.0 - Tobacco use (3) Substance abuse ICD Code: F19.10 - Other psychoactive substance abuse, uncomplicated Status: Acute (4) Pain in sternoclavicular joint ICD Code: M25.519 - Pain in unspecified shoulder (5) Septic arthritis of sternoclavicular joint ICD Code: M00.819 - Arthritis due to other bacteria, unspecified shoulder 32-year-old male admitted for suspected recurrence of infection at the sternoclavicular joint. Chest wall abscess/left sternoclavicular joint swelling and erythema, concern for septic joint. No evidence of abscess on initial CAT scan. CT surgery following, s/p I&D. Cultures growing MRSA. Blood cultures so far negative. Continue broad spectrum antibiotics including vancomycin and Zosyn. Appreciate recommendations from ID. Echocardiogram without any obvious vegetations. De-escalate narcotics. Discontinue IV morphine. Decrease Percocet to 5/325. Plan to transition to oral clindamycin and give for 2 weeks per ID recommendations. Schizophrenia Bipolar disorder Continue Geodon Cocaine abuse Methamphetamine abuse Cessation advised. Multivitamin initiated Patient should not be on Adderall, this is discontinued Insomnia: Vistaril PRN DVT prophylaxis Heparin Discharge Planning Discharge today. Mark Joseph MD Dec 14, 2017 08:53
[2017-12-14] MEDS: SODIUM CHLORIDE 0.9% FLUSH 10 ML FLUSH IV FLUSH SCH (09:00)
[2017-12-14] MEDS: LACTOBACILLUS ACIDOPHILUS TAB PO SCH ×2 (09:09→12:08)
[2017-12-14] MEDS: REMOVE OLD PATCH T-DERMAL SCH (09:09)
[2017-12-14] MEDS: NICOTINE 14 MG/24 HR PATCH T-DERMAL SCH (09:09)
[2017-12-14] MEDS: MULTIVITAMIN TAB PO SCH (09:09)
[2017-12-14] MEDS ORDERED: PHARMACY ORDERED LAB ONE (10:45)
[2017-12-14 12:11] VITALS: BP 116/58; PULSE 71; RESP 17; TEMP 97.6; O2SAT 98
[2017-12-14] MEDS ORDERED: NICO14DI23 T-DERMAL (12:57)
--- NOTE | 2017-12-16 09:46 | HHI.DS ---
Discharge Summary Admission Date Dec 07, 2017 at 09:00 Discharge Date: Dec 14, 2017 Admitting Diagnosis Chest pain r/o osteomyelitis, versus endocarditis (1) Myositis ICD Code: M60.9 - Myositis, unspecified Diagnosis: Secondary (2) Tobacco abuse ICD Code: Z72.0 - Tobacco use Diagnosis: Secondary (3) Substance abuse ICD Code: F19.10 - Other psychoactive substance abuse, uncomplicated Diagnosis: Secondary Status: Acute (4) Pain in sternoclavicular joint ICD Code: M25.519 - Pain in unspecified shoulder Diagnosis: Secondary (5) Septic arthritis of sternoclavicular joint ICD Code: M00.819 - Arthritis due to other bacteria, unspecified shoulder Diagnosis: Principal (6) Chest wall abscess ICD Code: L02.213 - Cutaneous abscess of chest wall Diagnosis: Principal Procedures I and D Brief History - From Admission Mr. Conteh is a 32 year old male. She came into the hospital secondary to a progressive swelling at his left upper chest. This is causing him chest pain especially with movement. ACS etiology is not suspected. She has a history of infection at this location before. He says he had such infections approximately 4 years ago and 2 years ago. This will be his third type of infection at that area. 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 Infections are related to a history of IV drug abuse. He says his drugs of choice or methamphetamines and cocaine. She denies any abuse of alcohol, narcotics, or other drugs. She does smoke about one half pack per day. He was sober for a while but admits to relapsing within the past 2 months and he last used approximately 1 week ago. Bipolar disorder and schizophrenia part of his baseline psychiatric problems. CT scan of the chest shows no evidence for abscess. Soft tissue swelling may indicate infectious myositis. Primary complaint is pain. No other complaints. CBC/BMP: 12/12/17 0600 12/14/17 0629 Significant Findings Laboratory Tests Test 12/14/17 06:29 Blood Urea Nitrogen 20 MG/DL (7-18) Sodium Level 133 MEQ/L (136-145) Carbon Dioxide Level 19.2 MEQ/L (21.0-32.0) Estimat Glomerular Filtration Rate 77 ML/MIN (>89) Imaging Last Impressions Chest CT 12/04/17 0314 Signed Impressions: Service Date/Time: Monday, December 04, 2017 05:37 - CONCLUSION: 1. Soft tissue prominence overlying the left chest. 2. Arthropathy of the anterior first rib complex on the left. Russell Lanza MD Chest X-Ray 12/04/17 0000 Signed Impressions: Service Date/Time: Monday, December 04, 2017 01:28 - CONCLUSION: No acute disease. Russell Lanza MD PE at Discharge GENERAL: Patient appears older than stated age. Appeared to be in some discomfort with movements. CARDIOVASCULAR: Normal rate and regular rhythm without murmurs, gallops, or rubs. SKIN: Left upper chest status post I&D. Wound looks clean, surrounding cellulitis resolved. Packing is in place. RESPIRATORY: Good respiratory efforts. Breath sounds equal and clear to auscultation bilaterally. GASTROINTESTINAL: Abdomen soft, non-tender, non-distended. Normal active bowel sounds MUSCULOSKELETAL: Extremities without cyanosis, or edema. NEURO: Alert & Oriented x4 to person, place, time, situation. Moves all ext x4 PSYCH: Appropriate mood and affect. Hospital Course This is a pleasant 32 y/o male with Chest wall abscess MRSA positive, IDU, Acute kidney disease, ID specialist following Stopped Vancomycin, Stopped Zosyn, on Clindamycin IV, recommended to continue IV Clindamycin for 2 days and discharge on Clindamycin for 2 weeks, at 300 mg TID, as per ID specialist okay to discharge on Clindamycin by mouth he is stable and no complaint, will continue wound care as outpatient. no nausea , vomit or diarrhea. Assessment and Plan 32-year-old male admitted for suspected recurrence of infection at the sternoclavicular joint. Chest wall abscess/left sternoclavicular joint swelling and erythema, concern for septic joint. No evidence of abscess on initial CAT scan. CT surgery following, s/p I&D. Cultures growing MRSA. Blood cultures so far negative. Continue broad spectrum antibiotics including vancomycin and Zosyn. Appreciate recommendations from ID. Echocardiogram without any obvious vegetations. De-escalate narcotics. Discontinue IV morphine. Decrease Percocet to 5/325. Plan to transition to oral clindamycin and give for 2 weeks per ID recommendations. Schizophrenia Bipolar disorder Continue Geodon Cocaine abuse Methamphetamine abuse Cessation advised. Multivitamin initiated Patient should not be on Adderall, this is discontinued Insomnia: Vistaril PRN DVT prophylaxis Heparin Discharge Planning Discharge today. Pt Condition on Discharge: Good Discharge Disposition: Discharge Home Discharge Time: > 30 minutes Discharge Instructions DIET: Follow Instructions for: As Tolerated, No Restrictions Activities you can perform: Regular-No Restrictions Mark Joseph MD Dec 16, 2017 09:46
== END 2017-12-14 16:23 | disposition home or self-care (01) | DRG 549 ==
LOC: NEPC 23:12 → INTOOBSV 12-04 06:03 → NEDA 12-04 06:03 → NEDH 12-04 10:26 → N04A 12-04 14:20 → OBSVTOIN 12-07 09:00
PROVIDERS: ADMIT Internal Medicine; ATTEND Internal Medicine
PROC: 0W983ZZ Drainage of Chest Wall, Percutaneous Approach (ICD-10-PCS; principal; 2017-12-10)
DX: M00.812 Arthritis due to other bacteria, left shoulder (principal); L02.213 Cutaneous abscess of chest wall; M60.08 Infective myositis, other site; G47.00 Insomnia, unspecified; N28.9 Disorder of kidney and ureter, unspecified; B95.62 Methicillin resistant Staphylococcus aureus infection as the cause of diseases classified elsewhere; F14.10 Cocaine abuse, uncomplicated; F15.10 Other stimulant abuse, uncomplicated; F17.210 Nicotine dependence, cigarettes, uncomplicated; F20.9 Schizophrenia, unspecified; F31.9 Bipolar disorder, unspecified; Z86.14 Personal history of Methicillin resistant Staphylococcus aureus infection
CPT/HCPCS: 71046; 71260; 76937; 80048; 80053; 80202; 82550; 82552; 84484; 85025; 85027; 85652; 86403; 87040; 87070; 87102; 87147; 87186; 87205; 87206; 93005; 93308; 96365; 96366; 96368; 96372; 96375; 96376; 99285; G0378; J1644; J1650; J1885; J2270; J2543; J3370; J7030; J7040; J7050; Q9967

== ENCOUNTER 2017-12-19 00:29 | Emergency (ER) | payer SELFPAY ==
[~2017-12-19] VITALS: Ht 188 cm; Wt 85.0 kg
[~2017-12-19 00:29] MED LIST changes: -BACT800T5 PO; -CLEO300C2 PO; +CLIN300C5 PO; +GEOD80CA PO; -MELO15TA20 PO; +NICO14DI23 T-DERMAL; +OXYC1TAB63 PO
[2017-12-19 00:39] VITALS: BP 118/59; PULSE 71; RESP 16; TEMP 98.1; O2SAT 99
[2017-12-19 01:03] VITALS: RESP 16; O2SAT 98
[2017-12-19 01:20] VITALS: BP 111/67; PULSE 72; RESP 16; O2SAT 100
[2017-12-19 01:26] LABS: AUTOMATED NEUTROPHIL # 2.3 TH/MM3 (1.8-7.7); BASOPHIL # 0.1 TH/MM3 (0-0.2); BASOPHIL % 1.5 % (0.0-2.0); EOSINOPHIL # 0.1 TH/MM3 (0-0.4); EOSINOPHIL % 2.1 % (0.0-4.0); HEMATOCRIT 32.4 % (39.0-51.0); HEMOGLOBIN 11.2 GM/DL (13.0-17.0); LYMPH % 34.7 % (9.0-44.0); LYMPHOCYTE # 1.6 TH/MM3 (1.0-4.8); MEAN CELL VOLUME 84.5 FL (80.0-100.0); MEAN CORPUSCULAR HEMOGLOBIN 29.3 PG (27.0-34.0); MEAN CORPUSCULAR HGB CONC 34.7 % (32.0-36.0); MONO % 11.5 % (0.0-8.0); MONOCYTE # 0.5 TH/MM3 (0-0.9); NEUT % 50.2 % (16.0-70.0); PLATELET COUNT 185 TH/MM3 (150-450); RED BLOOD COUNT 3.83 MIL/MM3 (4.50-5.90); RED CELL DISTRIBUTION WIDTH 12.7 % (11.6-17.2); WHITE BLOOD COUNT 4.6 TH/MM3 (4.0-11.0)
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
[2017-12-19] MEDS ORDERED: SODIUM CHLOR 0.9% 1000 ML INJ 1,000 ML IV ONE (01:30)
[2017-12-19] MEDS ORDERED: ONDANSETRON HCL 4 MG/2 ML VIAL IV ONE (01:30)
[2017-12-19 01:50] LABS: ALBUMIN 3.4 GM/DL (3.4-5.0); ALT (GPT) 73 U/L (12-78); AST (GOT) 47 U/L (15-37); BICARBONATE 25.2 MEQ/L (21.0-32.0); BLOOD UREA NITROGEN 19 MG/DL (7-18); C-REACTIVE PROTEIN LESS THAN 0.29 MG/DL (0.00-0.30); CALCIUM 8.7 MG/DL (8.5-10.1); CHLORIDE 111 MEQ/L (98-107); CREATININE 1.02 MG/DL (0.60-1.30); GLOMERULAR FILTRATION RATE 84 ML/MIN (>89); GLUCOSE,RANDOM 118 MG/DL (74-106); MAGNESIUM 2.3 MG/DL (1.5-2.5); SODIUM (NA) 144 MEQ/L (136-145)
[2017-12-19 01:52] LABS: ALKALINE PHOSPHATASE 93 U/L (45-117); TOTAL BILIRUBIN ADULT 1.1 MG/DL (0.2-1.0); TOTAL PROTEIN 7.3 GM/DL (6.4-8.2)
== END 2017-12-19 02:35 | disposition left against medical advice (07) ==
LOC: NEPE 00:29
DX: R10.30 Lower abdominal pain, unspecified (principal); R19.7 Diarrhea, unspecified; R11.2 Nausea with vomiting, unspecified; Z53.29 Procedure and treatment not carried out because of patient's decision for other reasons; F31.9 Bipolar disorder, unspecified; F41.8 Other specified anxiety disorders; F17.200 Nicotine dependence, unspecified, uncomplicated; Z87.39 Personal history of other diseases of the musculoskeletal system and connective tissue; Z86.69 Personal history of other diseases of the nervous system and sense organs; Z86.14 Personal history of Methicillin resistant Staphylococcus aureus infection
CPT/HCPCS: 80053; 83690; 83735; 85025; 86140; 99283

== ENCOUNTER 2017-12-22 21:03 | Emergency (ER) | payer SELFPAY ==
[~2017-12-22] VITALS: Ht 188 cm; Wt 80.0 kg
[2017-12-22 21:44] VITALS: BP 125/68; PULSE 71; RESP 18; TEMP 98.1; O2SAT 100
[2017-12-22] MEDS ORDERED: SULFAMETHOXAZOLE-TRIMETHOPRIM DS 800-160 MG TAB PO ONE (22:15)
[2017-12-22] MEDS ORDERED: CEPHALEXIN MONOHYDRATE 500 MG CAP PO ONE (22:15)
--- NOTE | 2017-12-22 22:19 | PD ---
HPI Chief Complaint: Skin Problem Time Seen by Provider: 22:08 Travel History International Travel<30 days: No Contact w/Intl Traveler<30days: No Traveled to known affect area: No History of Present Illness HPI 32-year-old male with history of bipolar disorder, homelessness, IV drug abuse, here for evaluation of possible abscess to his right forearm, nausea, vomiting, as well as not wanting to live any longer. He reports that his bipolar disorder /schizophrenia has been messing with his mind and it is driving him crazy. He was recently admitted for a chest wall infection for which she was on IV antibiotics and eventually discharged home on clindamycin. He reports that this area has improved, however he continues to abuse IV drugs using opiates and amphetamines. He reports that he was unable to fill his prescription for clindamycin because he has no money. He is not sure if he has had a fever. No chest pain or dyspnea. PFSH Past Medical History Asthma: No Bipolar Disorder: Yes Anxiety: Yes Depression: Yes Cancer: No Cardiovascular Problems: No Chest Pain: No COPD: No Diminished Hearing: No Endocrine: No Gastrointestinal Disorders: No Genitourinary: No Hypertension: No Immune Disorder: No Implanted Vascular Access Dvce: No Musculoskeletal: Yes Neurologic: Yes Psychiatric: Yes (mood disorder, substance abuse, insomnia ) Reproductive: No Respiratory: No Integumentary: Yes (txt recently for infected L sternoclavicular joint ()) Immunizations Current: Yes Schizophrenia: Yes Seizures: Yes Sleep Apnea: No Tetanus Vaccination: < 5 Years Influenza Vaccination: No Past Surgical History Tympanostomy Tube: Yes Other Surgery: Yes (I & D'S AT ABSCESS SITES) Social History Alcohol Use: No Tobacco Use: Yes (1/2 PPD) Substance Use: No (denies) Allergies-Medications (Allergen,Severity, Reaction): Coded Allergies: No Known Allergies (Verified Allergy, Unknown, 12/22/17) Reported Meds & Prescriptions Reported Meds & Active Scripts Active Eq Nicotine (Nicotine) 14 Mg/24 Hour Dis 1 Patch T-DERMAL DAILY Oxycodone-Acetaminophen 5-325 (Oxycodone HCl/Acetaminophen) 5 Mg-325 Mg Tablet 1 Tab PO Q4H PRN Clindamycin (Clindamycin HCl) 300 Mg Cap 300 Mg PO TID Reported Geodon (Ziprasidone) 80 Mg Cap 80 Mg PO BID Review of Systems Except as stated in HPI: all other systems reviewed are Neg Physical Exam Narrative GENERAL: Well-developed, well-nourished, tearful, no apparent distress. SKIN: Focused skin assessment warm/dry. Right proximal/posterior/medial forearm with area of induration approximately 3 x 3 cm with central scab, no fluctuance, no crepitus, no spontaneous drainage, mild warmth and erythema. No splinter hemorrhages, Janeway n lesions, or Osler nodes. HEAD: Atraumatic. Normocephalic. EYES: Pupils equal and round. No scleral icterus. No injection or drainage. ENT: Mucous membranes pink and moist. NECK: Trachea midline. No JVD. CARDIOVASCULAR: Regular rate and rhythm. No murmur. RESPIRATORY: No accessory muscle use. Clear to auscultation. Breath sounds equal bilaterally. GASTROINTESTINAL: Abdomen soft, non-tender, nondistended. MUSCULOSKELETAL: No obvious deformities. No clubbing. No cyanosis. No edema. NEUROLOGICAL: Awake and alert. No obvious cranial nerve deficits. Motor grossly within normal limits. Normal speech. PSYCHIATRIC: Flat affect. Poor eye contact. Tearful. Data Data Last Documented VS Vital Signs Date Time Temp Pulse Resp B/P (MAP) Pulse Ox O2 Delivery O2 Flow Rate FiO2 12/22/17 21:44 98.1 71 18 125/68 (87) 100 Orders Orders Complete Blood Count With Diff (12/22/17 22:14) Comprehensive Metabolic Panel (12/22/17 22:14) Thyroid Stimulating Hormone (12/22/17 22:14) Psych Screen (12/22/17 22:14) Drug Screen, Random Urine (12/22/17 22:14) Alcohol (Ethanol) (12/22/17 22:14) Salicylates (Aspirin) (12/22/17 22:14) Tylenol (Acetaminophen) (12/22/17 22:14) Sulfamet-Trimeth Ds 800-160 Mg (Bactrim (12/22/17 22:15) Cephalexin (Keflex) (12/22/17 22:15) Clonidine (Catapres) (12/22/17 22:45) Metoclopramide Inj (Reglan Inj) (12/22/17 22:45) Ondansetron Odt (Zofran Odt) (12/22/17 23:00) Labs Laboratory Tests Test 12/22/17 22:30 White Blood Count 5.2 TH/MM3 Red Blood Count 3.71 MIL/MM3 Hemoglobin 11.3 GM/DL Hematocrit 31.8 % Mean Corpuscular Volume 85.8 FL Mean Corpuscular Hemoglobin 30.4 PG Mean Corpuscular Hemoglobin Concent 35.5 % Red Cell Distribution Width 13.3 % Platelet Count 188 TH/MM3 Mean Platelet Volume 8.8 FL Neutrophils (%) (Auto) 61.1 % Lymphocytes (%) (Auto) 26.0 % Monocytes (%) (Auto) 8.7 % Eosinophils (%) (Auto) 3.1 % Basophils (%) (Auto) 1.1 % Neutrophils # (Auto) 3.2 TH/MM3 Lymphocytes # (Auto) 1.4 TH/MM3 Monocytes # (Auto) 0.5 TH/MM3 Eosinophils # (Auto) 0.2 TH/MM3 Basophils # (Auto) 0.1 TH/MM3 CBC Comment DIFF FINAL Differential Comment Blood Urea Nitrogen 13 MG/DL Creatinine 0.77 MG/DL Random Glucose 86 MG/DL Total Protein 7.1 GM/DL Albumin 3.3 GM/DL Calcium Level 9.1 MG/DL Alkaline Phosphatase 81 U/L Aspartate Amino Transf (AST/SGOT) 26 U/L Alanine Aminotransferase (ALT/SGPT) 36 U/L Total Bilirubin 0.6 MG/DL Sodium Level 142 MEQ/L Potassium Level 3.7 MEQ/L Chloride Level 106 MEQ/L Carbon Dioxide Level 28.3 MEQ/L Anion Gap 8 MEQ/L Estimat Glomerular Filtration Rate 116 ML/MIN Thyroid Stimulating Hormone 3rd Gen 0.482 uIU/ML Salicylates Level LESS THAN 1.7 MG/DL Urine Opiates Screen NEG Acetaminophen Level LESS THAN 2.0 MCG/ML Urine Barbiturates Screen NEG Urine Amphetamines Screen NEG Urine Benzodiazepines Screen NEG Urine Cocaine Screen POS Urine Cannabinoids Screen NEG Ethyl Alcohol Level LESS THAN 3 MG/DL MDM Medical Decision Making Medical Screen Exam Complete: Yes Emergency Medical Condition: Yes Differential Diagnosis Cellulitis, malingering, depression, suicidal ideation, polysubstance abuse Narrative Course This is a 32-year-old male with history of bipolar disorder/schizophrenia, IV drug abuse, who is here for several different complaints. He does have a small area of cellulitis on his right forearm. There is no abscess to be drained at this site. He is afebrile and there are no murmurs on his exam or other signs of endocarditis such as splinter hemorrhages, Janeway lesions, or Osler nodes. Patient seems to be mainly here for psychiatric evaluation as he reports that he no longer wants to live and is very tearful during my assessment. Psychiatric labs/workup for medical clearance will be performed. 10:38 PM: The patient is requesting something for opiate withdrawals. States that he last used opiates about 24 hours ago. He is complaining of feeling nauseous. I will give him clonidine and Reglan. Vital signs show heart rate 71, blood pressure 125/68, pulse ox 100% on room air , oral temperature 98.1F. CBC: WBC 5.2, hemoglobin 11.3, hematocrit 31.8, platelets 188. Patient has baseline anemia. CMP is unremarkable. Tylenol, alcohol, and salicylate levels are negative. Urine drug screen is positive for cocaine. Again the patient is here for feeling depressed and suicidal as well as an area of cellulitis to his right forearm. There are no clinical or laboratory signs to suggest bacteremia or endocarditis. Patient states that he has no money and cannot afford clindamycin. He will be started on Bactrim and Keflex. He has been medically cleared for psychiatric evaluation and disposition by them. Diagnosis Primary Impression: Depression with suicidal ideation Additional Impression: Right forearm cellulitis Referrals: [facility] 1 day [facility] day Scripts Cephalexin (Keflex) 500 Mg Cap 500 MG PO Q8H for Infection, #30 CAP 0 Refills Prov: Mg Galloway MD 12/23/17 Sulfamethoxazole-Trimethoprim (Bactrim DS) 800-160 Mg Tab 1 TAB PO BID for Infection, #20 TAB 0 Refills Prov: Mg Galloway MD 12/23/17 Disposition: 01 DISCHARGE HOME Condition: Stable Mg Galloway MD Dec 22, 2017 22:19
[2017-12-22] MEDS ORDERED: cloNIDine HCL 0.1 MG TAB PO ONE (22:45)
[2017-12-22] MEDS ORDERED: METOCLOPRAMIDE HCL 10 MG/2 ML VIAL IV PUSH ONE (22:45)
[2017-12-22] MEDS ORDERED: ONDANSETRON ODT 4 MG TAB PO ONE (23:00)
[2017-12-22 23:02] LABS: AUTOMATED NEUTROPHIL # 3.2 TH/MM3 (1.8-7.7); BASOPHIL # 0.1 TH/MM3 (0-0.2); BASOPHIL % 1.1 % (0.0-2.0); EOSINOPHIL # 0.2 TH/MM3 (0-0.4); EOSINOPHIL % 3.1 % (0.0-4.0); HEMATOCRIT 31.8 % (39.0-51.0); HEMOGLOBIN 11.3 GM/DL (13.0-17.0); LYMPHOCYTE # 1.4 TH/MM3 (1.0-4.8); MEAN CELL VOLUME 85.8 FL (80.0-100.0); MEAN CORPUSCULAR HEMOGLOBIN 30.4 PG (27.0-34.0); MEAN CORPUSCULAR HGB CONC 35.5 % (32.0-36.0); MEAN PLATELET VOLUME 8.8 FL (7.0-11.0); MONO % 8.7 % (0.0-8.0); MONOCYTE # 0.5 TH/MM3 (0-0.9); NEUT % 61.1 % (16.0-70.0); PLATELET COUNT 188 TH/MM3 (150-450); RED BLOOD COUNT 3.71 MIL/MM3 (4.50-5.90); RED CELL DISTRIBUTION WIDTH 13.3 % (11.6-17.2); WHITE BLOOD COUNT 5.2 TH/MM3 (4.0-11.0)
[2017-12-22 23:33] LABS: ALBUMIN 3.3 GM/DL (3.4-5.0); ALKALINE PHOSPHATASE 81 U/L (45-117); ALT (GPT) 36 U/L (12-78); AST (GOT) 26 U/L (15-37); BICARBONATE 28.3 MEQ/L (21.0-32.0); BLOOD UREA NITROGEN 13 MG/DL (7-18); CALCIUM 9.1 MG/DL (8.5-10.1); CHLORIDE 106 MEQ/L (98-107); CREATININE 0.77 MG/DL (0.60-1.30); GLOMERULAR FILTRATION RATE 116 ML/MIN (>89); GLUCOSE,RANDOM 86 MG/DL (74-106); SODIUM (NA) 142 MEQ/L (136-145); TOTAL BILIRUBIN ADULT 0.6 MG/DL (0.2-1.0); TOTAL PROTEIN 7.1 GM/DL (6.4-8.2)
[2017-12-22 23:35] LABS: ACETAMINOPHEN LESS THAN 2.0 MCG/ML (10.0-30.0)
[2017-12-23] MEDS ORDERED: BACT800T5 PO (00:09)
[2017-12-23] MEDS ORDERED: CEPH-460 PO (00:09)
[2017-12-23 03:43] VITALS: BP 119/70; PULSE 91; RESP 20; O2SAT 95
[2017-12-23] MEDS ORDERED: LORazepam 2 MG/ML VIAL IV PUSH PRN ×4 (05:45)
[2017-12-23] MEDS ORDERED: LORazepam 1 MG TAB PO PRN (05:45)
[2017-12-23] MEDS ORDERED: LORazepam 2 MG TAB PO PRN (05:45)
[2017-12-23] MEDS ORDERED: FLUMAZENIL 0.5 MG/5 ML VIAL IV PUSH PRN (05:45)
--- NOTE | 2017-12-23 10:12 | PD ---
History of Present Illness Chief Complaint: Psychiatric Symptoms Time Seen by Provider: 10:00 Travel History International Travel<30 Days: No Contact w/Intl Traveler<30days: No Known affected area: No Legal Status Legal Status: Voluntary History of Present Illness: History of Present Illness HPI 32-year-old male with history of bipolar disorder, homelessness, IV drug abuse including amphetamines, cocaine, opiates, here for evaluation of possible abscess to his right forearm, nausea, vomiting, as well as not wanting to live any longer. The patient was monitor and secure environment and presented no behavioral concerns and no suicidality as per RN report. EMR is reviewed. The patient was last seen at [facility] on December 19 for complaints of abdominal pain. At that time he did not present any psychiatric concern. He was hospitalized at [facility] 12/04/2017 for evaluation of a wound infection and as well did not present any concerns regarding psychiatric symptomatology. Labs and review. Current toxicology is positive for cocaine. Patient is seen. He is asleep but awakens and is able to participate in interview although he appears to be more interested in sleeping. He he states that he has been off psychiatric treatment for the past 6 months and that he wishes to get back into treatment. Chief complaint stating voices are getting worse. He is vague regarding the content of the voices as well as vague regarding any other psychiatric symptoms. Patient does not appear internally preoccupied at the time. There is no evidence of abimael, hypomania. No suicidal or homicidal ideation, intent or plan. His stated goal is to get back on medication for his bipolar disorder and reports that he was last treated 6 months ago. In terms of substance use he minimizes his use and states that he uses substances to help with the voices. PFSH Past Medical History Asthma: No Bipolar Disorder: Yes Anxiety: Yes Depression: Yes Cancer: No Cardiovascular Problems: No Chest Pain: No COPD: No Diminished Hearing: No Endocrine: No Gastrointestinal Disorders: No Genitourinary: No Hypertension: No Immune Disorder: No Implanted Vascular Access Dvce: No Musculoskeletal: Yes Neurologic: Yes Psychiatric: Yes (mood disorder, substance abuse, insomnia ) Reproductive: No Respiratory: No Integumentary: Yes (txt recently for infected L sternoclavicular joint ()) Immunizations Current: Yes Schizophrenia: Yes Seizures: Yes Sleep Apnea: No Tetanus Vaccination: < 5 Years Influenza Vaccination: No Past Surgical History Tympanostomy Tube: Yes Other Surgery: Yes (I & D'S AT [facility]SC[facility] SITES) Psychiatric History Psychiatric History Hx Psychiatric Treatment: Reports previous treatment at [facility] for an unknown.. His last visit there was 6 months ago. History of Inpatient Treatment: No Guns or firearms in home: No Social History Single, homeless, unemployed. Hx Alcohol Use: No Hx Tobacco Use: Yes (/2 PPD) Hx Substance Use: No (denies) Substance Use Type: Alcohol, Marijuana, Amphetamines-Stimulants, Cocaine, Synth Opiates-Pain Pills Hx of Substance Use Treatment: No Family Psychiatric History Negative Allergies-Medications (Allergen,Severity, Reaction): Coded Allergies: No Known Allergies (Verified Allergy, Unknown, 12/22/17) Reported Meds & Prescriptions Reported Meds & Active Scripts Active Keflex (Cephalexin) 500 Mg Cap 500 Mg PO Q8H Bactrim DS (Sulfamethoxazole-Trimethoprim) 800-160 Mg Tab 1 Tab PO BID Eq Nicotine (Nicotine) 14 Mg/24 Hour Dis 1 Patch T-DERMAL DAILY Oxycodone-Acetaminophen 5-325 (Oxycodone HCl/Acetaminophen) 5 Mg-325 Mg Tablet 1 Tab PO Q4H PRN Clindamycin (Clindamycin HCl) 300 Mg Cap 300 Mg PO TID Reported Geodon (Ziprasidone) 80 Mg Cap 80 Mg PO BID Review of Systems Psychiatric: COMPLAINS OF: Mood changes, Hallucinations Except as stated in HPI: all other systems reviewed are Neg Mental Status Examination Appearance: Disheveled Consciousness: Asleep (Awakens with verbal stimuli although he is sleepy) Motor Activity: Other (Remained in bed) Speech: Unremarkable Language: Adequate Fund of Knowledge: Adequate Attention and Concentration: Adequate Memory: Unremarkable (He is a vague historian) Mood: Appropriate Affect: Appropriate Thought Process & Associations: Intact, Logical, Goal directed Thought Content: Appropriate Hallucination Type: None Delusion Type: None Suicidal Ideation: No Suicidal Plan: No Suicidal Intention: No Homicidal Ideation: No Homicidal Plan: No Homicidal Intention: No Insight: Poor Judgment: Adequate MDM Medical Decision Making Medical Record Reviewed: Yes Assessment/Plan 32-year-old male with history of bipolar disorder, homelessness, IV drug abuse including amphetamines, cocaine, opiates, here for evaluation of possible abscess to his right forearm, nausea, vomiting, as well as not wanting to live any longer. He reports that his bipolar disorder/schizophrenia has been messing with his mind and it is driving him crazy. Patient states that he came to the hospital because he wants help. At this time I find no evidence of unstable mental illness as defined under the Kellogg act. He is not manic, not hypomanic, and does not appear to be responding to internal stimuli. No verbalization of suicidal or homicidal plan or intent. He continues to use substances such as cocaine, opiates and this, I believe, is a significant contributor to his symptomatology. I have discussed with him treatment at [facility] for his substance abuse but he appears to be at this time not ready to address his addiction. I will provide him with community resources. Patient at this time is clear for discharge from the ED. Follow-up at [facility] Orders Complete Blood Count With Diff (12/22/17 22:14) Comprehensive Metabolic Panel (12/22/17 22:14) Thyroid Stimulating Hormone (12/22/17 22:14) Psych Screen (12/22/17 22:14) Drug Screen, Random Urine (12/22/17 22:14) Alcohol (Ethanol) (12/22/17 22:14) Salicylates (Aspirin) (12/22/17 22:14) Tylenol (Acetaminophen) (12/22/17 22:14) Sulfamet-Trimeth Ds 800-160 Mg (Bactrim (12/22/17 22:15) Cephalexin (Keflex) (12/22/17 22:15) Clonidine (Catapres) (12/22/17 22:45) Metoclopramide Inj (Reglan Inj) (12/22/17 22:45) Ondansetron Odt (Zofran Odt) (12/22/17 23:00) Diet Regular Basic (12/23/17 Breakfast) Alcohol Withdrawal Asmt-Ciwa ONCE (12/23/17 05:31) Flumazenil Inj (Romazicon Inj) (12/23/17 05:45) Lorazepam (Ativan) (12/23/17 05:45) Lorazepam Inj (Ativan Inj) (12/23/17 05:45) Lorazepam (Ativan) (12/23/17 05:45) Lorazepam Inj (Ativan Inj) (12/23/17 05:45) Lorazepam Inj (Ativan Inj) (12/23/17 05:45) Lorazepam Inj (Ativan Inj) (12/23/17 05:45) Results Vital Signs Date Time Temp Pulse Resp B/P (MAP) Pulse Ox O2 Delivery O2 Flow Rate FiO2 12/23/17 03:43 91 20 119/70 (86) 95 Room Air 12/22/17 21:44 98.1 71 18 125/68 (87) 100 Laboratory Tests Test 12/22/17 22:30 White Blood Count 5.2 Red Blood Count 3.71 Hemoglobin 11.3 Hematocrit 31.8 Mean Corpuscular Volume 85.8 Mean Corpuscular Hemoglobin 30.4 Mean Corpuscular Hemoglobin Concent 35.5 Red Cell Distribution Width 13.3 Platelet Count 188 Mean Platelet Volume 8.8 Neutrophils (%) (Auto) 61.1 Lymphocytes (%) (Auto) 26.0 Monocytes (%) (Auto) 8.7 Eosinophils (%) (Auto) 3.1 Basophils (%) (Auto) 1.1 Neutrophils # (Auto) 3.2 Lymphocytes # (Auto) 1.4 Monocytes # (Auto) 0.5 Eosinophils # (Auto) 0.2 Basophils # (Auto) 0.1 CBC Comment DIFF FINAL Differential Comment Blood Urea Nitrogen 13 Creatinine 0.77 Random Glucose 86 Total Protein 7.1 Albumin 3.3 Calcium Level 9.1 Alkaline Phosphatase 81 Aspartate Amino Transf (AST/SGOT) 26 Alanine Aminotransferase (ALT/SGPT) 36 Total Bilirubin 0.6 Sodium Level 142 Potassium Level 3.7 Chloride Level 106 Carbon Dioxide Level 28.3 Anion Gap 8 Estimat Glomerular Filtration Rate 116 Thyroid Stimulating Hormone 3rd Gen 0.482 Salicylates Level LESS THAN 1.7 Urine Opiates Screen NEG Acetaminophen Level LESS THAN 2.0 Urine Barbiturates Screen NEG Urine Amphetamines Screen NEG Urine Benzodiazepines Screen NEG Urine Cocaine Screen POS Urine Cannabinoids Screen NEG Ethyl Alcohol Level LESS THAN 3 Diagnosis Primary Impression: Cocaine abuse Additional Impression: Substance induced mood disorder Ruled Out: Depression with suicidal ideation Psychiatrically Cleared: Yes Referrals: [facility] day [facility] day Departure Forms: Tests/Procedures Patient Instructions: General Instructions Prescriptions Cephalexin (Keflex) 500 Mg Cap 500 MG PO Q8H for Infection, #30 CAP 0 Refills Prov: Mg Galloway MD 12/23/17 Sulfamethoxazole-Trimethoprim (Bactrim DS) 800-160 Mg Tab 1 TAB PO BID for Infection, #20 TAB 0 Refills Prov: Mg Galloway MD 12/23/17 Disposition: 01 DISCHARGE HOME Condition: Stable Problem Qualifiers Shaye Maya DEPUTY DIRECTOR OF NURSING Dec 23, 2017 10:12
--- NOTE | 2017-12-23 10:17 | PD ---
Physical Exam Date Seen by Provider: Dec 23, 2017 Time Seen by Provider: 10:17 Narrative 32-year-old male with history of IV drug abuse, presented to the emergency department requesting voluntary psychiatric evaluation for reported hallucinations. Patient was medically cleared for psychiatric evaluation. Patient was evaluated by psychiatric staff and deemed psychiatrically stable for discharge at this time. Patient is being treated for cellulitis. Patient remains medically stable for discharge at this time. Patient to take prescriptions as prescribed. Follow-up will be based on psychiatric note. Data Data Last Documented VS Vital Signs Date Time Temp Pulse Resp B/P (MAP) Pulse Ox O2 Delivery O2 Flow Rate FiO2 12/23/17 03:43 91 20 119/70 (86) 95 Room Air 12/22/17 21:44 98.1 Orders Orders Complete Blood Count With Diff (12/22/17 22:14) Comprehensive Metabolic Panel (12/22/17 22:14) Thyroid Stimulating Hormone (12/22/17 22:14) Psych Screen (12/22/17 22:14) Drug Screen, Random Urine (12/22/17 22:14) Alcohol (Ethanol) (12/22/17 22:14) Salicylates (Aspirin) (12/22/17 22:14) Tylenol (Acetaminophen) (12/22/17 22:14) Sulfamet-Trimeth Ds 800-160 Mg (Bactrim (12/22/17 22:15) Cephalexin (Keflex) (12/22/17 22:15) Clonidine (Catapres) (12/22/17 22:45) Metoclopramide Inj (Reglan Inj) (12/22/17 22:45) Ondansetron Odt (Zofran Odt) (12/22/17 23:00) Diet Regular Basic (12/23/17 Breakfast) Alcohol Withdrawal Asmt-Ciwa ONCE (12/23/17 05:31) Flumazenil Inj (Romazicon Inj) (12/23/17 05:45) Lorazepam (Ativan) (12/23/17 05:45) Lorazepam Inj (Ativan Inj) (12/23/17 05:45) Lorazepam (Ativan) (12/23/17 05:45) Lorazepam Inj (Ativan Inj) (12/23/17 05:45) Lorazepam Inj (Ativan Inj) (12/23/17 05:45) Lorazepam Inj (Ativan Inj) (12/23/17 05:45) Labs Laboratory Tests Test 12/22/17 22:30 White Blood Count 5.2 TH/MM3 Red Blood Count 3.71 MIL/MM3 Hemoglobin 11.3 GM/DL Hematocrit 31.8 % Mean Corpuscular Volume 85.8 FL Mean Corpuscular Hemoglobin 30.4 PG Mean Corpuscular Hemoglobin Concent 35.5 % Red Cell Distribution Width 13.3 % Platelet Count 188 TH/MM3 Mean Platelet Volume 8.8 FL Neutrophils (%) (Auto) 61.1 % Lymphocytes (%) (Auto) 26.0 % Monocytes (%) (Auto) 8.7 % Eosinophils (%) (Auto) 3.1 % Basophils (%) (Auto) 1.1 % Neutrophils # (Auto) 3.2 TH/MM3 Lymphocytes # (Auto) 1.4 TH/MM3 Monocytes # (Auto) 0.5 TH/MM3 Eosinophils # (Auto) 0.2 TH/MM3 Basophils # (Auto) 0.1 TH/MM3 CBC Comment DIFF FINAL Differential Comment Blood Urea Nitrogen 13 MG/DL Creatinine 0.77 MG/DL Random Glucose 86 MG/DL Total Protein 7.1 GM/DL Albumin 3.3 GM/DL Calcium Level 9.1 MG/DL Alkaline Phosphatase 81 U/L Aspartate Amino Transf (AST/SGOT) 26 U/L Alanine Aminotransferase (ALT/SGPT) 36 U/L Total Bilirubin 0.6 MG/DL Sodium Level 142 MEQ/L Potassium Level 3.7 MEQ/L Chloride Level 106 MEQ/L Carbon Dioxide Level 28.3 MEQ/L Anion Gap 8 MEQ/L Estimat Glomerular Filtration Rate 116 ML/MIN Thyroid Stimulating Hormone 3rd Gen 0.482 uIU/ML Salicylates Level LESS THAN 1.7 MG/DL Urine Opiates Screen NEG Acetaminophen Level LESS THAN 2.0 MCG/ML Urine Barbiturates Screen NEG Urine Amphetamines Screen NEG Urine Benzodiazepines Screen NEG Urine Cocaine Screen POS Urine Cannabinoids Screen NEG Ethyl Alcohol Level LESS THAN 3 MG/DL [facility] Medical Record Reviewed: Yes Supervised Visit with JOSH: Yes Narrative Course 32-year-old male with history of IV drug abuse, presented to the emergency department requesting voluntary psychiatric evaluation for reported hallucinations. Patient was medically cleared for psychiatric evaluation. Patient was evaluated by psychiatric staff and deemed psychiatrically stable for discharge at this time. Patient is being treated for cellulitis. Patient remains medically stable for discharge at this time. Patient to take prescriptions as prescribed. Follow-up will be based on psychiatric note. Diagnosis Primary Impression: Cocaine abuse Additional Impressions: Right forearm cellulitis Substance induced mood disorder Ruled Out: Depression with suicidal ideation [facility] [address] [facility] Patient Instructions: General Instructions Departure Forms: Tests/Procedures Scripts Cephalexin (Keflex) 500 Mg Cap 500 MG PO Q8H for Infection, #30 CAP 0 Refills Prov: Mg Galloway MD 12/23/17 Sulfamethoxazole-Trimethoprim (Bactrim DS) 800-160 Mg Tab 1 TAB PO BID for Infection, #20 TAB 0 Refills Prov: Mg Galloway MD 12/23/17 Disposition: 01 DISCHARGE HOME Condition: Stable Onur Shankar Dec 23, 2017 10:17
== END 2017-12-23 10:45 | disposition home or self-care (01) ==
LOC: NEPD 21:03
DX: F14.10 Cocaine abuse, uncomplicated (principal); L03.113 Cellulitis of right upper limb; F19.94 Other psychoactive substance use, unspecified with psychoactive substance-induced mood disorder; F17.200 Nicotine dependence, unspecified, uncomplicated; F31.9 Bipolar disorder, unspecified; F20.9 Schizophrenia, unspecified; Z79.899 Other long term (current) drug therapy
CPT/HCPCS: 80053; 80307; 84443; 85025; 99283

== ENCOUNTER 2017-12-24 10:40 | Emergency (ER) | payer SELFPAY ==
[~2017-12-24] VITALS: Ht 188 cm; Wt 81.5 kg
[~2017-12-24 10:40] MED LIST changes: +BACT800T5 PO; +CEPH-460 PO
[2017-12-24 11:06] VITALS: BP 128/67; PULSE 70; RESP 20; TEMP 98.1; O2SAT 100
--- NOTE | 2017-12-24 11:12 | PD ---
HPI Chief Complaint: Psychiatric Symptoms Time Seen by Provider: 11:12 Travel History International Travel<30 days: No Contact w/Intl Traveler<30days: No Traveled to known affect area: No History of Present Illness HPI 32-year-old male came to the emergency room with history of right arm abscess. Patient is an IV drug abuser and used last 3 days ago as per him. Patient also says that he has been depressed. He is tired of his drug dependence and his psychiatric condition. He feels like nobody is helping him. He has been in this emergency room multiple times although the past visits were mostly medical with the exception of the visit 2 days ago for cocaine abuse. He feels like he should be admitted in [facility] although when I pointed out to him that he could go and check himself in without waiting for any referral he said he had no means of transportation to [facility]. Vital signs are stable. Patient has abused heroin and meth in the IV form. Currently he looked tired and was falling asleep while he was talking to me. The abscesses on the right arm. No history of fever or chills. Patient was admitted on December 07 for another abscess and possible osteomyelitis but the osteomyelitis was ruled out. [facility] Past Medical History Narrative Medical List of his past medical, surgical, social and family history is reviewed from the nursing note. Asthma: No Bipolar Disorder: Yes Anxiety: Yes Depression: Yes Cancer: No Cardiovascular Problems: No Chest Pain: No COPD: No Diminished Hearing: No Endocrine: No Gastrointestinal Disorders: No Genitourinary: No Hypertension: No Immune Disorder: No Implanted Vascular Access Dvce: No Musculoskeletal: Yes Neurologic: Yes Psychiatric: Yes (mood disorder, substance abuse, insomnia ) Reproductive: No Respiratory: No Integumentary: Yes (txt recently for infected L sternoclavicular joint ()) Immunizations Current: Yes Schizophrenia: Yes Seizures: Yes Sleep Apnea: No Past Surgical History Tympanostomy Tube: Yes Other Surgery: Yes (I & D'S AT [facility]IT[facility]) Social History Alcohol Use: No Tobacco Use: Yes (08/28 PPD) Substance Use: No (denies) Allergies-Medications (Allergen,Severity, Reaction): Coded Allergies: No Known Allergies (Verified Allergy, Unknown, 12/24/17) Comments No known drug allergies. Reported Meds & Prescriptions Reported Meds & Active Scripts Active Bactrim DS (Sulfamethoxazole-Trimethoprim) 800-160 Mg Tab 1 Tab PO BID 10 Days Keflex (Cephalexin) 500 Mg Cap 500 Mg PO Q8H Bactrim DS (Sulfamethoxazole-Trimethoprim) 800-160 Mg Tab 1 Tab PO BID Oxycodone-Acetaminophen 5-325 (Oxycodone HCl/Acetaminophen) 5 Mg-325 Mg Tablet 1 Tab PO Q4H PRN Clindamycin (Clindamycin HCl) 300 Mg Cap 300 Mg PO TID Reported Geodon (Ziprasidone) 80 Mg Cap 80 Mg PO BID Narrative Medication List of his home medications reviewed from the nursing note Review of Systems Except as stated in HPI: all other systems reviewed are Neg Psychiatric: Positive: Depression, Substance Abuse Physical Exam Narrative GENERAL: Lethargic but wakes up and answers questions, disheveled, poor skin hygiene SKIN: Focused skin assessment warm/dry. Multiple track tamez on the bilateral upper extremity. Patient has a 2 x 2 centimeter indurated, erythematous area on his lateral aspect of the elbow of the right upper extremity without any fluctuance. HEAD: Atraumatic. Normocephalic. EYES: Pupils equal and round. No scleral icterus. No injection or drainage. ENT: No nasal bleeding or discharge. Mucous membranes pink and moist. NECK: Trachea midline. No JVD. CARDIOVASCULAR: Regular rate and rhythm. No murmur appreciated. RESPIRATORY: No accessory muscle use. Clear to auscultation. Breath sounds equal bilaterally. GASTROINTESTINAL: Abdomen soft, non-tender, nondistended. Hepatic and splenic margins not palpable. MUSCULOSKELETAL: No obvious deformities. No clubbing. No cyanosis. No edema. NEUROLOGICAL: Awake and alert. No obvious cranial nerve deficits. Motor grossly within normal limits. Normal speech. PSYCHIATRIC: Appropriate mood and affect; insight and judgment normal. Data Data Last Documented VS Vital Signs Date Time Temp Pulse Resp B/P (MAP) Pulse Ox O2 Delivery O2 Flow Rate FiO2 12/25/17 10:18 Orders Orders Basic Metabolic Panel (Bmp) (12/24/17 11:23) Complete Blood Count With Diff (12/24/17 11:23) Blood Culture (12/24/17 11:23) Vancomycin Inj (Vancomycin Inj) (12/24/17 11:30) Thyroid Stimulating Hormone (12/24/17 11:23) Psych Screen (12/24/17 11:23) Drug Screen, Random Urine (12/24/17 11:23) Ed Poc Ultrasound (12/24/17 ) Ibuprofen (Motrin) (12/24/17 12:00) Diet As Tolerated (12/24/17 12:21) Diet Regular Basic (12/24/17 Lunch) Diet Regular Basic (12/24/17 Dinner) Diet Regular Basic (12/25/17 Breakfast) Ed Discharge Order (12/25/17 09:30) Labs Laboratory Tests Test 12/24/17 11:40 12/24/17 13:37 White Blood Count 5.0 TH/MM3 Red Blood Count 3.93 MIL/MM3 Hemoglobin 11.7 GM/DL Hematocrit 33.5 % Mean Corpuscular Volume 85.2 FL Mean Corpuscular Hemoglobin 29.7 PG Mean Corpuscular Hemoglobin Concent 34.9 % Red Cell Distribution Width 13.5 % Platelet Count 215 TH/MM3 Mean Platelet Volume 8.2 FL Neutrophils (%) (Auto) 55.0 % Lymphocytes (%) (Auto) 27.5 % Monocytes (%) (Auto) 9.4 % Eosinophils (%) (Auto) 6.9 % Basophils (%) (Auto) 1.2 % Neutrophils # (Auto) 2.8 TH/MM3 Lymphocytes # (Auto) 1.4 TH/MM3 Monocytes # (Auto) 0.5 TH/MM3 Eosinophils # (Auto) 0.3 TH/MM3 Basophils # (Auto) 0.1 TH/MM3 CBC Comment DIFF FINAL Differential Comment Blood Urea Nitrogen 14 MG/DL Creatinine 0.94 MG/DL Random Glucose 117 MG/DL Calcium Level 8.4 MG/DL Sodium Level 141 MEQ/L Potassium Level 3.7 MEQ/L Chloride Level 108 MEQ/L Carbon Dioxide Level 24.6 MEQ/L Anion Gap 8 MEQ/L Estimat Glomerular Filtration Rate 92 ML/MIN Thyroid Stimulating Hormone 3rd Gen 0.846 uIU/ML Urine Opiates Screen NEG Urine Barbiturates Screen NEG Urine Amphetamines Screen NEG Urine Benzodiazepines Screen NEG Urine Cocaine Screen NEG Urine Cannabinoids Screen NEG MDM Medical Decision Making Medical Screen Exam Complete: Yes Emergency Medical Condition: Yes Medical Record Reviewed: Yes Differential Diagnosis Abscess, cellulitis, IV drug abuse, depression Narrative Course 12:03 PM waiting for the blood test result. Patient is requesting something for the pain and I have ordered ibuprofen. I have ordered IV vancomycin as well. His wound culture from December 07 grew MRSA. If blood test results are within normal limits I will medically clear him so that Psych can see him. 12:46 PM patient blood test results are back and within acceptable limits. I will give him a prescription of Bactrim and he is medically cleared. Awaiting for psych screen. The bedside ultrasound did not show significant fluid collection for I&D. 12:50 PM as I was filling the Bactrim prescription I noticed that patient was given a prescription for Bactrim yesterday. He obviously has not filled it yet. He needs to fill it and continue on the medication Procedures Procedure Narrative Emergency department soft-tissue/musculoskeletal ultrasound was performed with patient consent. Linear probe was used in the transverse and sagittal views in the area of interest without evidence of soft-tissue foreign bodies or abscess. EKG Prior to Arrival: No Diagnosis Primary Impression: IV drug abuse Additional Impression: Cellulitis Qualified Codes: L03.113 - Cellulitis of right upper limb Med/Other Pt SpecificInfo: Prescription(s) given Scripts Sulfamethoxazole-Trimethoprim (Bactrim DS) 800-160 Mg Tab 1 TAB PO BID for Infection for 10 Days, #20 TAB 0 Refills Prov: Ro Sargent 12/25/17 Mayra Jaeger MD Dec 24, 2017 11:12
[2017-12-24] MEDS ORDERED: VANCOMYCIN INJ 1,000 MG in SODIUM CHLOR 0.9% 250 ML INJ 250 ML IV ONE (11:30)
[2017-12-24] MEDS ORDERED: IBUPROFEN 600 MG TAB PO ONE (12:00)
[2017-12-24 12:06] LABS: AUTOMATED NEUTROPHIL # 2.8 TH/MM3 (1.8-7.7); BASOPHIL # 0.1 TH/MM3 (0-0.2); BASOPHIL % 1.2 % (0.0-2.0); EOSINOPHIL # 0.3 TH/MM3 (0-0.4); EOSINOPHIL % 6.9 % (0.0-4.0); HEMATOCRIT 33.5 % (39.0-51.0); HEMOGLOBIN 11.7 GM/DL (13.0-17.0); LYMPH % 27.5 % (9.0-44.0); LYMPHOCYTE # 1.4 TH/MM3 (1.0-4.8); MEAN CELL VOLUME 85.2 FL (80.0-100.0); MEAN CORPUSCULAR HEMOGLOBIN 29.7 PG (27.0-34.0); MEAN CORPUSCULAR HGB CONC 34.9 % (32.0-36.0); MEAN PLATELET VOLUME 8.2 FL (7.0-11.0); MONO % 9.4 % (0.0-8.0); MONOCYTE # 0.5 TH/MM3 (0-0.9); PLATELET COUNT 215 TH/MM3 (150-450); RED BLOOD COUNT 3.93 MIL/MM3 (4.50-5.90); RED CELL DISTRIBUTION WIDTH 13.5 % (11.6-17.2)
[2017-12-24 12:24] LABS: BICARBONATE 24.6 MEQ/L (21.0-32.0); CALCIUM 8.4 MG/DL (8.5-10.1); CREATININE 0.94 MG/DL (0.60-1.30)
[2017-12-24 18:30] VITALS: BP 114/57; PULSE 63; RESP 20; TEMP 100
[2017-12-25 02:40] VITALS: BP 133/61; PULSE 58; RESP 18; TEMP 99.1; O2SAT 99
[2017-12-25] MEDS ORDERED: BACT800T5 PO (09:27)
--- NOTE | 2017-12-25 09:30 | PD ---
Physical Exam Time Seen by Provider: 09:[address] Pinon has evaluated the patient, lifted Kellogg act and cleared the patient for discharge. Data Data Last Documented VS Vital Signs Date Time Temp Pulse Resp B/P (MAP) Pulse Ox O2 Delivery O2 Flow Rate FiO2 12/25/17 02:40 99.1 58 18 133/61 (85) 99 Room Air Orders Orders Basic Metabolic Panel (Bmp) (12/24/17 11:23) Complete Blood Count With Diff (12/24/17 11:23) Blood Culture (12/24/17 11:23) Vancomycin Inj (Vancomycin Inj) (12/24/17 11:30) Thyroid Stimulating Hormone (12/24/17 11:23) Psych Screen (12/24/17 11:23) Drug Screen, Random Urine (12/24/17 11:23) Ed Poc Ultrasound (12/24/17 ) Ibuprofen (Motrin) (12/24/17 12:00) Diet As Tolerated (12/24/17 12:21) Diet Regular Basic (12/24/17 Lunch) Diet Regular Basic (12/24/17 Dinner) Diet Regular Basic (12/25/17 Breakfast) Labs Laboratory Tests Test 12/24/17 11:40 12/24/17 13:37 White Blood Count 5.0 TH/MM3 Red Blood Count 3.93 MIL/MM3 Hemoglobin 11.7 GM/DL Hematocrit 33.5 % Mean Corpuscular Volume 85.2 FL Mean Corpuscular Hemoglobin 29.7 PG Mean Corpuscular Hemoglobin Concent 34.9 % Red Cell Distribution Width 13.5 % Platelet Count 215 TH/MM3 Mean Platelet Volume 8.2 FL Neutrophils (%) (Auto) 55.0 % Lymphocytes (%) (Auto) 27.5 % Monocytes (%) (Auto) 9.4 % Eosinophils (%) (Auto) 6.9 % Basophils (%) (Auto) 1.2 % Neutrophils # (Auto) 2.8 TH/MM3 Lymphocytes # (Auto) 1.4 TH/MM3 Monocytes # (Auto) 0.5 TH/MM3 Eosinophils # (Auto) 0.3 TH/MM3 Basophils # (Auto) 0.1 TH/MM3 CBC Comment DIFF FINAL Differential Comment Blood Urea Nitrogen 14 MG/DL Creatinine 0.94 MG/DL Random Glucose 117 MG/DL Calcium Level 8.4 MG/DL Sodium Level 141 MEQ/L Potassium Level 3.7 MEQ/L Chloride Level 108 MEQ/L Carbon Dioxide Level 24.6 MEQ/L Anion Gap 8 MEQ/L Estimat Glomerular Filtration Rate 92 ML/MIN Thyroid Stimulating Hormone 3rd Gen 0.846 uIU/ML Urine Opiates Screen NEG Urine Barbiturates Screen NEG Urine Amphetamines Screen NEG Urine Benzodiazepines Screen NEG Urine Cocaine Screen NEG Urine Cannabinoids Screen NEG MDM Supervised Visit with JOSH: No Narrative Course Dr. Pinon has evaluated the patient, lifted the Kellogg, and cleared the patient for discharge. Patient contracts safety. Denies suicidal or homicidal ideations. Patient will be provided community resource packet to [facility] for follow-up. Has friends and family for support. Patient was medically cleared by alternate provider prior to psych screening. Patient has been evaluated by psychiatry and and is now cleared for discharge. Diagnosis Primary Impression: IV drug abuse Additional Impression: Cellulitis Qualified Codes: L03.113 - Cellulitis of right upper limb Referrals: [facility] (Out patient) [facility] Primary Care Physician Psychiatrist [facility] Patient Instructions: Cellulitis (ED), General Instructions, Polysubstance Abuse (ED), Stress (ED) Departure Forms: Tests/Procedures Additional Instruction: Complete full course of antibiotics Warm compresses to the affected area Keep area clean and dry Ibuprofen or Tylenol as directed and as needed for pain and inflammation Follow-up with primary care provider Return to emergency department immediately with worsening of symptoms Contract safety to your self and others Follow-up with psychiatry Follow-up with primary care provider Follow-up with [facility] Return to the emergency department immediately with worsening of symptoms Med/Other Pt SpecificInfo: Prescription(s) given Scripts Sulfamethoxazole-Trimethoprim (Bactrim DS) 800-160 Mg Tab 1 TAB PO BID for Infection for 10 Days, #20 TAB 0 Refills Prov: Ro Sargent 12/25/17 Disposition: 01 DISCHARGE HOME Condition: Stable Ro Sargent December 25, 2017 09:30
== END 2017-12-25 10:20 | disposition home or self-care (01) ==
LOC: NEPD 10:40 → NEPJ 12-25 10:20
DX: F11.10 Opioid abuse, uncomplicated (principal); L03.113 Cellulitis of right upper limb; F17.200 Nicotine dependence, unspecified, uncomplicated; F14.10 Cocaine abuse, uncomplicated; F20.9 Schizophrenia, unspecified; Z79.899 Other long term (current) drug therapy
CPT/HCPCS: 80048; 80307; 84443; 85025; 87040; 96365; 99284; J3370; J7050

== ENCOUNTER 2018-01-02 18:58 | Emergency (ER) | payer SELFPAY ==
[~2018-01-02 18:58] MED LIST changes: -NICO14DI23 T-DERMAL
[2018-01-02 19:36] VITALS: BP 118/61; PULSE 87; RESP 18; TEMP 97.9; O2SAT 96
[2018-01-02 20:00] VITALS: BP 114/65; PULSE 85; RESP 18; O2SAT 94
[2018-01-02] MEDS ORDERED: SODIUM CHLOR 0.9% 1000 ML INJ 1,000 ML IV ONE ×2 (20:09→21:15)
[2018-01-02] MEDS ORDERED: SODIUM CHLORIDE 0.9% FLUSH 10 ML FLUSH IVF PRN (20:15)
--- NOTE | 2018-01-02 20:15 | PD ---
HPI Chief Complaint: OD/ Ingestion Time Seen by Provider: 20:01 Travel History International Travel<30 days: No Contact w/Intl Traveler<30days: No Traveled to known affect area: No History of Present Illness HPI Patient is a 32-year-old male recovering drug abuser uses heroin presents emergency department for possible Geodon overdose. Patient states he was just [facility] this morning. He states he was given 2 pills of Geodon early this morning at [facility] he thinks 40 mg tablets, he states about 1730 unintentionally he took 2 additional 40 mg tablets Geodon. He states is just feeling weak and fatigued no tremors no visual difficulties known neurologic deficits no nausea no vomiting. He adamantly denies any coingestion. He states his been a week since is used heroin. Incidentally the patient did tell triage that he actually took 3 of these 40 mg tablets. Symptoms mild, duration as above, context as above, associated signs and symptoms as above. PFSH Past Medical History Asthma: No Bipolar Disorder: Yes Anxiety: Yes Depression: Yes Cancer: No Cardiovascular Problems: No Chest Pain: No COPD: No Diminished Hearing: No Endocrine: No Gastrointestinal Disorders: No Genitourinary: No Hypertension: No Immune Disorder: No Implanted Vascular Access Dvce: No Musculoskeletal: Yes Neurologic: Yes Psychiatric: Yes (mood disorder, substance abuse, insomnia ) Reproductive: No Respiratory: No Integumentary: Yes (txt recently for infected L sternoclavicular joint ()) Immunizations Current: Yes Schizophrenia: Yes Seizures: Yes Sleep Apnea: No Past Surgical History Tympanostomy Tube: Yes Other Surgery: Yes (I & D'S AT ABSCESS SITES) Social History Alcohol Use: No Tobacco Use: Yes (1/2 PPD) Substance Use: Yes (METH- LAST USED 5 DAYS AGO 12/24) Allergies-Medications (Allergen,Severity, Reaction): Coded Allergies: No Known Allergies (Verified Allergy, Unknown, 01/02/18) Reported Meds & Prescriptions Reported Meds & Active Scripts Active Bactrim DS (Sulfamethoxazole-Trimethoprim) 800-160 Mg Tab 1 Tab PO BID 10 Days Keflex (Cephalexin) 500 Mg Cap 500 Mg PO Q8H Bactrim DS (Sulfamethoxazole-Trimethoprim) 800-160 Mg Tab 1 Tab PO BID Oxycodone-Acetaminophen 5-325 (Oxycodone HCl/Acetaminophen) 5 Mg-325 Mg Tablet 1 Tab PO Q4H PRN Clindamycin (Clindamycin HCl) 300 Mg Cap 300 Mg PO TID Reported Geodon (Ziprasidone) 80 Mg Cap 80 Mg PO BID Review of Systems Except as stated in HPI: all other systems reviewed are Neg Physical Exam Narrative GENERAL: Well-developed well-nourished no obvious distress. Unkempt. SKIN: Focused skin assessment warm/dry. HEAD: Atraumatic. Normocephalic. EYES: Pupils equal and round. No scleral icterus. No injection or drainage. ENT: No nasal bleeding or discharge. Mucous membranes pink and moist. NECK: Trachea midline. No JVD. CARDIOVASCULAR: Regular rate and rhythm. No murmur appreciated. RESPIRATORY: No accessory muscle use. Clear to auscultation. Breath sounds equal bilaterally. GASTROINTESTINAL: Abdomen soft, non-tender, nondistended. Hepatic and splenic margins not palpable. MUSCULOSKELETAL: No obvious deformities. No clubbing. No cyanosis. No edema. NEUROLOGICAL: Awake and alert. Cranial nerves II to XII grossly intact and nonfocal, 5 out of 5 strength in all 4 extremities, no tremors no asterixis, DTRs are 2+ bilaterally equal at the patellae and biceps. Ambulates with an even narrow-base gait peer. PSYCHIATRIC: Appropriate mood and affect; insight and judgment normal. Data Data Last Documented VS Vital Signs Date Time Temp Pulse Resp B/P (MAP) Pulse Ox O2 Delivery O2 Flow Rate FiO2 01/02/18 23:04 01/02/18 20:00 85 18 94 Room Air 01/02/18 19:36 97.9 Orders Orders Complete Blood Count With Diff (01/02/18 20:09) Comprehensive Metabolic Panel (01/02/18 20:09) Iv Access Insert/Monitor (01/02/18 20:09) Ecg Monitoring (01/02/18 20:09) Oximetry (01/02/18 20:09) Sodium Chloride 0.9% Flush (Ns Flush) (01/02/18 20:15) Sodium Chlor 0.9% 1000 Ml Inj (Ns 1000 M (01/02/18 20:09) Drug Screen, Random Urine (01/02/18 20:09) Alcohol (Ethanol) (01/02/18 20:09) Salicylates (Aspirin) (01/02/18 20:09) Tylenol (Acetaminophen) (01/02/18 20:09) Electrocardiogram (01/02/18 19:52) Sodium Chlor 0.9% 1000 Ml Inj (Ns 1000 M (01/02/18 21:15) Electrocardiogram (01/02/18 ) Ed Discharge Order (01/02/18 22:17) Labs Laboratory Tests Test 01/02/18 20:00 White Blood Count 4.1 TH/MM3 Red Blood Count 4.14 MIL/MM3 Hemoglobin 11.9 GM/DL Hematocrit 35.4 % Mean Corpuscular Volume 85.4 FL Mean Corpuscular Hemoglobin 28.8 PG Mean Corpuscular Hemoglobin Concent 33.7 % Red Cell Distribution Width 13.3 % Platelet Count 152 TH/MM3 Mean Platelet Volume 7.6 FL Neutrophils (%) (Auto) 52.8 % Lymphocytes (%) (Auto) 37.1 % Monocytes (%) (Auto) 6.9 % Eosinophils (%) (Auto) 2.4 % Basophils (%) (Auto) 0.8 % Neutrophils # (Auto) 2.2 TH/MM3 Lymphocytes # (Auto) 1.5 TH/MM3 Monocytes # (Auto) 0.3 TH/MM3 Eosinophils # (Auto) 0.1 TH/MM3 Basophils # (Auto) 0.0 TH/MM3 CBC Comment DIFF FINAL Differential Comment Blood Urea Nitrogen 24 MG/DL Creatinine 1.42 MG/DL Random Glucose 84 MG/DL Total Protein 7.2 GM/DL Albumin 3.5 GM/DL Calcium Level 9.6 MG/DL Alkaline Phosphatase 64 U/L Aspartate Amino Transf (AST/SGOT) 39 U/L Alanine Aminotransferase (ALT/SGPT) 42 U/L Total Bilirubin 0.4 MG/DL Sodium Level 141 MEQ/L Potassium Level 4.9 MEQ/L Chloride Level 100 MEQ/L Carbon Dioxide Level 32.4 MEQ/L Anion Gap 9 MEQ/L Estimat Glomerular Filtration Rate 57 ML/MIN Salicylates Level LESS THAN 1.7 MG/DL Urine Opiates Screen POS Acetaminophen Level LESS THAN 2.0 MCG/ML Urine Barbiturates Screen NEG Urine Amphetamines Screen NEG Urine Benzodiazepines Screen NEG Urine Cocaine Screen NEG Urine Cannabinoids Screen NEG Ethyl Alcohol Level LESS THAN 3 MG/DL MDM Medical Decision Making Medical Screen Exam Complete: Yes Emergency Medical Condition: Yes Differential Diagnosis Geodon overdose, arrhythmia, electrolyte abnormality, partial circumstance. Narrative Course Patient was discussed with poison control, we reviewed his EKG which shows no QT prolongation and no widening of the QRS. Is normal sinus rhythm without any ischemic changes. Poison control recommendations are to test for coingestions including Tylenol salicylates check electrolytes. Recommended a repeat EKG in 2 hours, if workup negative and patient hemostatically stable likely will be discharged at that time. Diagnosis Primary Impression: Dehydration Additional Impression: Medication reaction Referrals: [facility] Disposition: 01 DISCHARGE HOME Condition: Stable Ron Fraser MD January 02, 2018 20:15
[2018-01-02 20:27] LABS: AUTOMATED NEUTROPHIL # 2.2 TH/MM3 (1.8-7.7); BASOPHIL % 0.8 % (0.0-2.0); EOSINOPHIL # 0.1 TH/MM3 (0-0.4); EOSINOPHIL % 2.4 % (0.0-4.0); HEMATOCRIT 35.4 % (39.0-51.0); HEMOGLOBIN 11.9 GM/DL (13.0-17.0); LYMPH % 37.1 % (9.0-44.0); LYMPHOCYTE # 1.5 TH/MM3 (1.0-4.8); MEAN CELL VOLUME 85.4 FL (80.0-100.0); MEAN CORPUSCULAR HEMOGLOBIN 28.8 PG (27.0-34.0); MEAN CORPUSCULAR HGB CONC 33.7 % (32.0-36.0); MEAN PLATELET VOLUME 7.6 FL (7.0-11.0); MONO % 6.9 % (0.0-8.0); MONOCYTE # 0.3 TH/MM3 (0-0.9); NEUT % 52.8 % (16.0-70.0); PLATELET COUNT 152 TH/MM3 (150-450); RED BLOOD COUNT 4.14 MIL/MM3 (4.50-5.90); RED CELL DISTRIBUTION WIDTH 13.3 % (11.6-17.2); WHITE BLOOD COUNT 4.1 TH/MM3 (4.0-11.0)
[2018-01-02 20:44] LABS: ALT (GPT) 42 U/L (12-78)
[2018-01-02 20:47] LABS: ALKALINE PHOSPHATASE 64 U/L (45-117); TOTAL BILIRUBIN ADULT 0.4 MG/DL (0.2-1.0); TOTAL PROTEIN 7.2 GM/DL (6.4-8.2)
[2018-01-02 20:48] LABS: ALBUMIN 3.5 GM/DL (3.4-5.0); AST (GOT) 39 U/L (15-37); BICARBONATE 32.4 MEQ/L (21.0-32.0); BLOOD UREA NITROGEN 24 MG/DL (7-18); CALCIUM 9.6 MG/DL (8.5-10.1); CHLORIDE 100 MEQ/L (98-107); CREATININE 1.42 MG/DL (0.60-1.30); GLOMERULAR FILTRATION RATE 57 ML/MIN (>89); GLUCOSE,RANDOM 84 MG/DL (74-106); SODIUM (NA) 141 MEQ/L (136-145)
[2018-01-02 20:51] LABS: ACETAMINOPHEN LESS THAN 2.0 MCG/ML (10.0-30.0)
--- NOTE | 2018-01-03 19:44 | EKG ---
Date Performed: 01/02/2018 Time Performed: 19:52:14 PTAGE: 32 years EKG: Sinus rhythm NORMAL ECG Since the PREVIOUS TRACING , no significant change noted PREVIOUS TRACIN12/03/2017 23.55 DOCTOR: Vish Amador Interpretating Date/Time 01/03/2018 19:43:42
--- NOTE | 2018-01-03 19:44 | EKG ---
Date Performed: 01/02/2018 Time Performed: 21:47:56 PTAGE: 32 years EKG: Sinus rhythm NORMAL ECG Since the PREVIOUS TRACING , no significant change noted PREVIOUS TRACIN01/02/2018 19.52 DOCTOR: Vish Amador Interpretating Date/Time 01/03/2018 19:44:04
== END 2018-01-02 23:48 | disposition home or self-care (01) ==
LOC: NEPC 18:58
DX: E86.0 Dehydration (principal); F20.9 Schizophrenia, unspecified; F31.9 Bipolar disorder, unspecified; Z79.899 Other long term (current) drug therapy
CPT/HCPCS: 80053; 80307; 85025; 93005; 96360; 96361; 99284; J7030

== ENCOUNTER 2018-01-03 20:03 | Emergency (ER) | payer SELFPAY ==
[~2018-01-03] VITALS: Ht 188 cm; Wt 85.0 kg
[2018-01-03 20:07] VITALS: BP 112/59; PULSE 77; RESP 16; TEMP 97.6; O2SAT 98
--- NOTE | 2018-01-03 21:39 | PD ---
HPI Chief Complaint: Edema Time Seen by Provider: 21:28 Travel History International Travel<30 days: No Contact w/Intl Traveler<30days: No Traveled to known affect area: No History of Present Illness HPI 32-year-old white male presents emergency department stating that he has noted some swelling in his lower legs over the last 24 hours. Patient also has noted discoloration his great toenails. The patient states that he was just discharged from [facility] yesterday. He was treated for mental health as well as substance abuse. He plans on getting on Subutex. He last used ice last week. Patient denies any fever chills. He denies any drainage. No trauma. History Past Medical Histgory Narrative Medical IV substance abuse, mental health Tetanus Vaccination: < 5 Years Hx Cancer: No Past Surgical History Surgical History: No Previous Surgery Social History Alcohol Use: No Tobacco Use: Yes Allergies-Medications (Allergen,Severity, Reaction): Coded Allergies: No Known Allergies (Verified Allergy, Unknown, 01/03/18) Reported Meds & Prescriptions Reported Meds & Active Scripts Active Bactrim DS (Sulfamethoxazole-Trimethoprim) 800-160 Mg Tab 1 Tab PO BID 10 Days Keflex (Cephalexin) 500 Mg Cap 500 Mg PO Q8H Bactrim DS (Sulfamethoxazole-Trimethoprim) 800-160 Mg Tab 1 Tab PO BID Oxycodone-Acetaminophen 5-325 (Oxycodone HCl/Acetaminophen) 5 Mg-325 Mg Tablet 1 Tab PO Q4H PRN Clindamycin (Clindamycin HCl) 300 Mg Cap 300 Mg PO TID Reported Geodon (Ziprasidone) 80 Mg Cap 80 Mg PO BID Review of Systems General / Constitutional: No: Fever Eyes: No: Visual changes HENT: No: Headaches Cardiovascular: No: Chest Pain or Discomfort Respiratory: No: Shortness of Breath Gastrointestinal: No: Abdominal Pain Genitourinary: No: Dysuria Musculoskeletal: Positive: Edema, No: Myalgias, Arthralgias, Limited ROM, Pain Skin: Positive Rash Neurologic: No: Weakness Psychiatric: No: Depression Endocrine: No: Polydipsia Hematologic/Lymphatic: No: Easy Bruising Physical Exam Narrative GENERAL: This is a well-nourished, well-developed patient, in no apparent distress. SKIN: No rashes, ecchymoses or lesions. Warm and dry. HEAD: Atraumatic. Normocephalic. EYES: PERRL, EOMI, no discharge or injection. No scleral icterus. EARS: Clear NOSE: Nasal turbinates appear normal. THROAT: Mucosa pink and moist. Airway patent. NECK: Trachea midline. supple, moves head freely. LUNGS: Clear to auscultation. CV: Regular in rhythm. ABDOMEN: Soft nontender. EXT: No clubbing cyanosis or edema. Patient has multiple excoriated macular lesions on the lower extremities bilaterally. These appear to be self- inflicted excoriations. Patient ambulates freely with a normal gait. He is neurovascular intact. No calf swelling or tenderness. No Homans sign. Good pulses. Good cap refill. He does have tinea unguium Data Data Last Documented VS Vital Signs Date Time Temp Pulse Resp B/P (MAP) Pulse Ox O2 Delivery O2 Flow Rate FiO2 01/03/18 20:07 97.6 77 16 112/59 (76) 98 MDM Medical Screen Exam Complete: Yes Emergency Medical Condition: No Differential Diagnosis MDM: High Differential diagnoses: Abscess, folliculitis, cellulitis, lymphangitis, abrasion, contact dermatitis, tinea Narrative Course A medical screening exam was performed: At the time of evaluation the presenting medical condition was determined not to be of an emergent nature. The patient was given the option of receiving additional care, but declined. Patient was given options for additional community resources from which to obtain care. The Patient Has Been advised to seek medical attention for their presenting complaint. The patient has been advised to return to the ER at any time if an emergent condition develops. Primary Impression: Encounter for medical screening examination Condition: Stable Amrit Prather January 03, 2018 21:39
[2018-01-04] MEDS ORDERED: DEPA500T3 PO (05:07)
== END 2018-01-03 21:40 | disposition left against medical advice (07) ==
LOC: NEPD 20:03
DX: B35.1 Tinea unguium (principal); Z72.0 Tobacco use
CPT/HCPCS: 99281

== ENCOUNTER 2018-01-03 21:46 | Emergency (ER) | payer SELFPAY ==
[~2018-01-03] VITALS: Ht 188 cm; Wt 80.0 kg
[2018-01-03 21:57] VITALS: BP 112/56; PULSE 68; RESP 16; TEMP 98.1; O2SAT 99
[2018-01-04 01:03] LABS: AUTOMATED NEUTROPHIL # 2.2 TH/MM3 (1.8-7.7); BASOPHIL % 1.2 % (0.0-2.0); EOSINOPHIL # 0.1 TH/MM3 (0-0.4); EOSINOPHIL % 3.5 % (0.0-4.0); HEMATOCRIT 32.6 % (39.0-51.0); HEMOGLOBIN 11.2 GM/DL (13.0-17.0); LYMPH % 32.1 % (9.0-44.0); LYMPHOCYTE # 1.3 TH/MM3 (1.0-4.8); MEAN CELL VOLUME 85.6 FL (80.0-100.0); MEAN CORPUSCULAR HEMOGLOBIN 29.3 PG (27.0-34.0); MEAN CORPUSCULAR HGB CONC 34.2 % (32.0-36.0); MEAN PLATELET VOLUME 7.5 FL (7.0-11.0); MONO % 8.2 % (0.0-8.0); MONOCYTE # 0.3 TH/MM3 (0-0.9); PLATELET COUNT 120 TH/MM3 (150-450); RED BLOOD COUNT 3.81 MIL/MM3 (4.50-5.90); RED CELL DISTRIBUTION WIDTH 13.5 % (11.6-17.2); WHITE BLOOD COUNT 4.1 TH/MM3 (4.0-11.0)
[2018-01-04 01:24] LABS: ACETAMINOPHEN LESS THAN 2.0 MCG/ML (10.0-30.0); ALKALINE PHOSPHATASE 58 U/L (45-117); TOTAL BILIRUBIN ADULT 0.4 MG/DL (0.2-1.0); TOTAL PROTEIN 6.5 GM/DL (6.4-8.2)
[2018-01-04 01:29] LABS: ALT (GPT) 42 U/L (12-78); AST (GOT) 46 U/L (15-37); BICARBONATE 29.1 MEQ/L (21.0-32.0); BLOOD UREA NITROGEN 20 MG/DL (7-18); CALCIUM 8.9 MG/DL (8.5-10.1); CHLORIDE 104 MEQ/L (98-107); CREATININE 1.24 MG/DL (0.60-1.30); GLOMERULAR FILTRATION RATE 67 ML/MIN (>89); GLUCOSE,RANDOM 84 MG/DL (74-106); SODIUM (NA) 141 MEQ/L (136-145)
[2018-01-04 02:36] LABS: BILIRUBIN, URINE NEG (NEG); BLOOD, URINE NEG (NEG); GLUCOSE,URINE NEG (NEG); KETONE, URINE NEG (NEG); MUCUS URINE FEW /lpf (OCC); NITRITE,URINE NEG (NEG); URINE COLOR COLORLESS (YELLW/STRAW); URINE LEUKOCYTE ESTERASE NEG (NEG)
[2018-01-04] MEDS ORDERED: DEPA500T3 PO (05:07)
--- NOTE | 2018-01-04 05:55 | PD ---
HPI . Depression Chief Complaint: Psychiatric Symptoms Time Seen by Provider: 23:20 Travel History International Travel<30 days: No Contact w/Intl Traveler<30days: No Traveled to known affect area: No History of Present Illness HPI Patient comes in by EMS saying that he is depressed and hopeless and he feels unsafe. He is very sleepy and lethargic but denies taking any overdose. He is arousable and is able to answer questions when questioned about he did any suicidal ideation versus suicidal ingestion patient has no signs of trauma ROS and HPI is limited that the patient is not giving a full history just saying that he feels very depressed and he seems very sleepy vitals are within normal limits no signs of trauma no signs of overdose psych screen labs are sent patient is allowed to sleep in the ER and then transfer the tape [facility] Past Medical History Asthma: No Bipolar Disorder: Yes Anxiety: Yes Depression: Yes Cancer: No Cardiovascular Problems: No Chest Pain: No COPD: No Diminished Hearing: No Endocrine: No Gastrointestinal Disorders: No Genitourinary: No Hypertension: No Immune Disorder: No Implanted Vascular Access Dvce: No Musculoskeletal: Yes Neurologic: Yes Psychiatric: Yes (mood disorder, substance abuse, insomnia ) Reproductive: No Respiratory: No Integumentary: Yes (txt recently for infected L sternoclavicular joint ()) Immunizations Current: Yes Schizophrenia: Yes Seizures: Yes Sleep Apnea: No Past Surgical History Tympanostomy Tube: Yes Other Surgery: Yes (I & D'S AT [facility]IT[facility]) Social History Alcohol Use: No Tobacco Use: Yes Substance Use: Yes (HEROIN) Allergies-Medications (Allergen,Severity, Reaction): Coded Allergies: No Known Allergies (Verified Allergy, Unknown, 01/03/18) Reported Meds & Prescriptions Reported Meds & Active Scripts Active Reported Depakote ER (Divalproex Sodium) 500 Mg Margaret 1,000 Mg PO HS Geodon (Ziprasidone) 80 Mg Cap 80 Mg PO BID Review of Systems ROS Limitations: Poor Historian Physical Exam Narrative GENERAL: Patient is sleeping answers questions minimally says he is depressed SKIN: Warm and dry. HEAD: Atraumatic. Normocephalic. EYES: Pupils equal and round. No scleral icterus. No injection or drainage. ENT: No nasal bleeding or discharge. Mucous membranes pink and moist. NECK: Trachea midline. No JVD. CARDIOVASCULAR: Regular rate and rhythm. RESPIRATORY: No accessory muscle use. Clear to auscultation. Breath sounds equal bilaterally. GASTROINTESTINAL: Abdomen soft, non-tender, nondistended. Hepatic and splenic margins not palpable. MUSCULOSKELETAL: Extremities without clubbing, cyanosis, or edema. No obvious deformities. NEUROLOGICAL: Awake and alert. No obvious cranial nerve deficits. Motor grossly within normal limits. Five out of 5 muscle strength in the arms and legs. Normal speech. PSYCHIATRIC: Patient reports depression seems somewhat somnolent Data Data Last Documented VS Vital Signs Date Time Temp Pulse Resp B/P (MAP) Pulse Ox O2 Delivery O2 Flow Rate FiO2 01/04/18 11:56 01/04/18 06:14 60 16 98 Room Air 01/03/18 21:57 98.1 Orders Orders Complete Blood Count With Diff (01/04/18 00:31) Comprehensive Metabolic Panel (01/04/18 00:31) Urinalysis - C+S If Indicated (01/04/18 00:31) Psych Screen (01/04/18 00:31) Drug Screen, Random Urine (01/04/18 00:31) Alcohol (Ethanol) (01/04/18 00:31) Salicylates (Aspirin) (01/04/18 00:31) Tylenol (Acetaminophen) (01/04/18 00:31) Diet Regular Basic (01/04/18 Breakfast) Valproic Acid (Depakene) (01/04/18 00:45) Ed Discharge Order (01/04/18 12:33) Labs Laboratory Tests Test 01/04/18 00:45 01/04/18 02:08 White Blood Count 4.1 TH/MM3 Red Blood Count 3.81 MIL/MM3 Hemoglobin 11.2 GM/DL Hematocrit 32.6 % Mean Corpuscular Volume 85.6 FL Mean Corpuscular Hemoglobin 29.3 PG Mean Corpuscular Hemoglobin Concent 34.2 % Red Cell Distribution Width 13.5 % Platelet Count 120 TH/MM3 Mean Platelet Volume 7.5 FL Neutrophils (%) (Auto) 55.0 % Lymphocytes (%) (Auto) 32.1 % Monocytes (%) (Auto) 8.2 % Eosinophils (%) (Auto) 3.5 % Basophils (%) (Auto) 1.2 % Neutrophils # (Auto) 2.2 TH/MM3 Lymphocytes # (Auto) 1.3 TH/MM3 Monocytes # (Auto) 0.3 TH/MM3 Eosinophils # (Auto) 0.1 TH/MM3 Basophils # (Auto) 0.0 TH/MM3 CBC Comment DIFF FINAL Differential Comment Blood Urea Nitrogen 20 MG/DL Creatinine 1.24 MG/DL Random Glucose 84 MG/DL Total Protein 6.5 GM/DL Albumin 3.0 GM/DL Calcium Level 8.9 MG/DL Alkaline Phosphatase 58 U/L Aspartate Amino Transf (AST/SGOT) 46 U/L Alanine Aminotransferase (ALT/SGPT) 42 U/L Total Bilirubin 0.4 MG/DL Sodium Level 141 MEQ/L Potassium Level 4.7 MEQ/L Chloride Level 104 MEQ/L Carbon Dioxide Level 29.1 MEQ/L Anion Gap 8 MEQ/L Estimat Glomerular Filtration Rate 67 ML/MIN Salicylates Level LESS THAN 1.7 MG/DL Acetaminophen Level LESS THAN 2.0 MCG/ML Valproic Acid (Depakene) Level 64 MCG/ML Ethyl Alcohol Level LESS THAN 3 MG/DL Urine Color COLORLESS Urine Turbidity CLEAR Urine pH 7.0 Urine Specific Poston 1.004 Urine Protein NEG mg/dL Urine Glucose (UA) NEG mg/dL Urine Ketones NEG mg/dL Urine Occult Blood NEG Urine Nitrite NEG Urine Bilirubin NEG Urine Urobilinogen LESS THAN 2.0 MG/DL Urine Leukocyte Esterase NEG Urine RBC LESS THAN 1 /hpf Urine WBC LESS THAN 1 /hpf Urine Mucus FEW /lpf Microscopic Urinalysis Comment CULT NOT INDICATED Urine Opiates Screen NEG Urine Barbiturates Screen NEG Urine Amphetamines Screen NEG Urine Benzodiazepines Screen NEG Urine Cocaine Screen NEG Urine Cannabinoids Screen NEG [facility] Medical Decision Making Medical Screen Exam Complete: Yes Emergency Medical Condition: Yes Differential Diagnosis Differential diagnosis includes mood disorder versus depression versus anxiety versus major depression with psychotic features Narrative Course depression with SI vs depression NOS , vs delusional disorder vs malingering , other psych NOS Diagnosis Primary Impression: Depression Oliver Narayanan MD January 04, 2018 05:55
[2018-01-04 06:14] VITALS: BP 103/52; PULSE 60; RESP 16; O2SAT 98
--- NOTE | 2018-01-04 12:33 | PD ---
Physical Exam Date Seen by Provider: January 04, 2018 Time Seen by Provider: 12:32 Narrative 32-year-old male previously brought in with an overdose, and medically cleared for psychiatric evaluation, has been seen by psychiatric staff and deemed psychiatrically stable for discharge at this time. Patient remains medically stable for discharge. Follow-up will be based on psychiatric note. Data Data Last Documented VS Vital Signs Date Time Temp Pulse Resp B/P (MAP) Pulse Ox O2 Delivery O2 Flow Rate FiO2 01/04/18 11:56 01/04/18 06:14 60 16 98 Room Air 01/03/18 21:57 98.1 Orders Orders Complete Blood Count With Diff (01/04/18 00:31) Comprehensive Metabolic Panel (01/04/18 00:31) Urinalysis - C+S If Indicated (01/04/18 00:31) Psych Screen (01/04/18 00:31) Drug Screen, Random Urine (01/04/18 00:31) Alcohol (Ethanol) (01/04/18 00:31) Salicylates (Aspirin) (01/04/18 00:31) Tylenol (Acetaminophen) (01/04/18 00:31) Diet Regular Basic (01/04/18 Breakfast) Valproic Acid (Depakene) (01/04/18 00:45) Diet Regular Basic (01/04/18 Lunch) Labs Laboratory Tests Test 01/04/18 00:45 01/04/18 02:08 White Blood Count 4.1 TH/MM3 Red Blood Count 3.81 MIL/MM3 Hemoglobin 11.2 GM/DL Hematocrit 32.6 % Mean Corpuscular Volume 85.6 FL Mean Corpuscular Hemoglobin 29.3 PG Mean Corpuscular Hemoglobin Concent 34.2 % Red Cell Distribution Width 13.5 % Platelet Count 120 TH/MM3 Mean Platelet Volume 7.5 FL Neutrophils (%) (Auto) 55.0 % Lymphocytes (%) (Auto) 32.1 % Monocytes (%) (Auto) 8.2 % Eosinophils (%) (Auto) 3.5 % Basophils (%) (Auto) 1.2 % Neutrophils # (Auto) 2.2 TH/MM3 Lymphocytes # (Auto) 1.3 TH/MM3 Monocytes # (Auto) 0.3 TH/MM3 Eosinophils # (Auto) 0.1 TH/MM3 Basophils # (Auto) 0.0 TH/MM3 CBC Comment DIFF FINAL Differential Comment Blood Urea Nitrogen 20 MG/DL Creatinine 1.24 MG/DL Random Glucose 84 MG/DL Total Protein 6.5 GM/DL Albumin 3.0 GM/DL Calcium Level 8.9 MG/DL Alkaline Phosphatase 58 U/L Aspartate Amino Transf (AST/SGOT) 46 U/L Alanine Aminotransferase (ALT/SGPT) 42 U/L Total Bilirubin 0.4 MG/DL Sodium Level 141 MEQ/L Potassium Level 4.7 MEQ/L Chloride Level 104 MEQ/L Carbon Dioxide Level 29.1 MEQ/L Anion Gap 8 MEQ/L Estimat Glomerular Filtration Rate 67 ML/MIN Salicylates Level LESS THAN 1.7 MG/DL Acetaminophen Level LESS THAN 2.0 MCG/ML Valproic Acid (Depakene) Level 64 MCG/ML Ethyl Alcohol Level LESS THAN 3 MG/DL Urine Color COLORLESS Urine Turbidity CLEAR Urine pH 7.0 Urine Specific Holiday 1.004 Urine Protein NEG mg/dL Urine Glucose (UA) NEG mg/dL Urine Ketones NEG mg/dL Urine Occult Blood NEG Urine Nitrite NEG Urine Bilirubin NEG Urine Urobilinogen LESS THAN 2.0 MG/DL Urine Leukocyte Esterase NEG Urine RBC LESS THAN 1 /hpf Urine WBC LESS THAN 1 /hpf Urine Mucus FEW /lpf Microscopic Urinalysis Comment CULT NOT INDICATED Urine Opiates Screen NEG Urine Barbiturates Screen NEG Urine Amphetamines Screen NEG Urine Benzodiazepines Screen NEG Urine Cocaine Screen NEG Urine Cannabinoids Screen NEG MDM Medical Record Reviewed: Yes Supervised Visit with JOSH: Yes Narrative Course 32-year-old male previously brought in with an overdose, and medically cleared for psychiatric evaluation, has been seen by psychiatric staff and deemed psychiatrically stable for discharge at this time. Patient remains medically stable for discharge. Follow-up will be based on psychiatric note. Diagnosis Primary Impression: Malingering Referrals: [facility] (Out patient) as needed Medication Management [facility] as needed Patient Instructions: General Instructions Departure Forms: Work Release, Enter return to work date: January 05, 2018 Tests/Procedures Disposition: 01 DISCHARGE HOME Condition: Stable Onur Shankar January 04, 2018 12:33
== END 2018-01-04 12:34 | disposition home or self-care (01) ==
LOC: NEPE 21:46 → NEPJ 01-04 12:34
DX: Z76.5 Malingerer [conscious simulation] (principal); R53.83 Other fatigue; F11.90 Opioid use, unspecified, uncomplicated; F31.9 Bipolar disorder, unspecified; F41.9 Anxiety disorder, unspecified; F20.9 Schizophrenia, unspecified; Z86.69 Personal history of other diseases of the nervous system and sense organs; Z72.0 Tobacco use; Z79.899 Other long term (current) drug therapy
CPT/HCPCS: 80053; 80164; 80307; 81001; 85025; 99283